=== PATIENT | female | born 1935 | race Hispanic/Latino ===

== ENCOUNTER 2018-03-15 23:44 | Emergency (ER) | payer MEDICARE, OTHER ==
[2018-03-15 23:48] VITALS: O2SAT 100
[2018-03-16] MEDS ORDERED: Alum-Mag Hydrox-Simethicone Susp (30 mL) PO ONE (00:02)
[2018-03-16] MEDS ORDERED: Sodium Chloride 0.9% 500 ML IV ONE (00:03)
--- NOTE | 2018-03-16 00:13 | ED PDOC ---
HPI: Abdomen Time Seen by Provider: 03/16/18 00:05 Chief Complaint (Nursing): Abdominal Pain Chief Complaint (Provider): abdominal pain History Per: Patient (82 y/o female h/o DM here with epigastric abd pain since 2 pm after eating tuna. Notes abd pain continuous since then. Denies any vomiting/diarrhea/fevers/chills. Has h/o hyst.) Past Medical History Reviewed: Historical Data, Nursing Documentation, Vital Signs Vital Signs: Last Vital Signs Temp 98 F 03/15/18 23:45 Pulse 66 03/15/18 23:45 Resp 18 03/15/18 23:45 BP 151/48 H 03/15/18 23:45 Pulse Ox 100 03/16/18 01:12 - Medical History PMH: Diabetes, HTN, Hypercholesterolemia Denies: HIV, Chronic Kidney Disease - Surgical History Surgical History: Cholecystectomy, - Family History Family History: States: Unknown Family Hx - Home Medications Home Medications: Ambulatory Orders Medication Instructions Recorded Amlodipine Besylate 10 mg PO DAILY 12/16/14 Aspirin [Aspirin EC] 81 mg PO DAILY 12/16/14 Carvedilol [Coreg] 3.125 mg PO BID 12/16/14 Ferrous Sulfate 325 mg PO DAILY 12/16/14 Furosemide 20 mg PO MWF 12/16/14 Losartan [Cozaar] 25 mg PO DAILY 12/16/14 Simvastatin 10 mg PO DAILY 12/16/14 Azithromycin [Zithromax] 250 mg PO DAILY #6 tablet 12/10/15 Ciprofloxacin HCl [Cipro] 500 mg PO BID #19 tab 05/09/16 metroNIDAZOLE [Flagyl] 500 mg PO TID #29 tab 05/09/16 Famotidine [Pepcid] 20 mg PO BID PRN #10 tab 03/16/18 - Allergies Allergies/Adverse Reactions: Allergies Allergy/AdvReac Type Severity Reaction Status Date / Time No Known Allergies Allergy Verified 12/10/15 18:43 Review of Systems ROS Statement: Except As Marked, All Systems Reviewed And Found Negative Physical Exam - Reviewed Nursing Documentation Reviewed: Yes Vital Signs Reviewed: Yes - Physical Exam Appears: Positive for: Well, Non-toxic, No Acute Distress Head Exam: Positive for: ATRAUMATIC, NORMAL INSPECTION, NORMOCEPHALIC Skin: Positive for: Normal Color, Warm, DRY Eye Exam: Positive for: EOMI, Normal appearance, PERRL ENT: Positive for: Normal ENT Inspection Neck: Positive for: Normal, Painless ROM Cardiovascular/Chest: Positive for: Regular Rate, Rhythm Respiratory: Positive for: CNT, Normal Breath Sounds Gastrointestinal/Abdominal: Positive for: Normal Exam, Soft Back: Positive for: Normal Inspection Extremity: Positive for: Normal ROM Neurologic/Psych: Positive for: Alert, Oriented - Laboratory Results Result Diagrams: 03/16/18 00:20 03/16/18 00:20 - ECG O2 Sat by Pulse Oximetry: 100 - Progress ED Course And Treament: EKG: NSR 62BPM NO ECTOPY NO ACUTE CHANGES US ABDOMEN: FINDINGS: Liver: Measures 17.8 cm. Gallbladder: Cholecystectomy Common bile duct: Measures 7.4 mm Pancreas: Unremarkable as visualized. Right kidney: No hydronephrosis. IMPRESSION: Mild hepatomegaly. Thank you for allowing us to participate in the care of your patient. Dictated and Authenticated by: Cem Trinidad MD MAALOX 30 ML PO X 1 DOSE PEPCID 20 MG IV X 1 DOSE NS 500ML IV BOLUS PATIENT RE-EXAMINED AT 13:30AM STATES SYMPTOMS RESOLVED AFTER MAALOX/PEPCID. Disposition - Clinical Impression Clinical Impression: Gastritis - Patient ED Disposition Is Patient to be Admitted: No - Disposition Disposition: Routine/Home Disposition Time: 01:55 Condition: FAIR Prescriptions: Famotidine [Pepcid] 20 mg PO BID PRN #10 tab PRN Reason: Pain, Moderate (4-7) Instructions: Gastritis (DC)
[2018-03-16 00:37] LABS: BASO # 0.1 K/uL (0.0-0.2); BASO % 0.9 % (0.0-2.0); EOS # 0.2 K/uL (0.0-0.7); HEMOGLOBIN 12.3 g/dL (12.0-16.0); LYMPH # 2.7 K/uL (1.0-4.3); MEAN CELL VOLUME 88.8 fl (81.0-99.0); MEAN CORPUSCULAR HGB CONC 33.8 g/dL (33.0-37.0); MEAN PLATELET VOLUME 8.8 fl (7.2-11.7); MONO # 0.6 K/uL (0.0-0.8); MONO % 7.4 % (0.0-10.0); NEUT # 4.4 K/uL (1.8-7.0); NEUT % 55.7 % (50.0-75.0); NRBC % 0.1 % (0.0-0.0); RBC 4.09 Mil/uL (3.80-5.20); RED CELL DISTRIBUTION WIDTH 13.2 % (11.5-14.5); WHITE BLOOD COUNT 7.9 K/uL (4.8-10.8)
[2018-03-16 00:39] LABS: VENOUS BLOOD GAS BASE EXCESS 1.5 mmol/L (0.0-2.0); VENOUS BLOOD GAS PCO2 43 mmHg (40-60); VENOUS BLOOD GAS PO2 31 mm/Hg (30-55)
[2018-03-16 00:46] LABS: ALB/GLOB RATIO 1.4 (1.0-2.1); ALBUMIN 4.1 g/dL (3.5-5.0); ALT/SGPT 31 U/L (9-52); AST/SGOT 19 U/L (14-36); BLOOD UREA NITROGEN 31 mg/dl (7-17); CALCIUM 9.5 mg/dL (8.4-10.2); GFR NON-AFRICAN AMERICAN 43; LIPASE 285 U/L (23-300)
[2018-03-16] MEDS ORDERED: Alum-Mag Hydrox-Simethicone Susp (30 mL) ONE (00:58)
[2018-03-16 07:45] VITALS: BP 142/88; PULSE 72; RESP 16; TEMP 98
--- NOTE | 2018-03-16 09:41 | CARD ---
APPROVED REPORT Date of service: 03/16/2018 <Conclusion> Normal sinus rhythm Possible Left atrial enlargement Borderline ECG
--- NOTE | 2018-03-16 12:04 | US ---
Date of service: 03/16/2018 HISTORY: ruq pain COMPARISON: Comparison made with prior study dated 01/23/[address] scan of the abdomen pelvis dated 05/09/2016. TECHNIQUE: Sonographic evaluation of the right upper quadrant of the abdomen. FINDINGS: LIVER: Liver exhibits normal size measuring nearly 18 cm in CC dimension. . Liver exhibits smooth contour and normal parenchymal echotexture. . No mass masses or collections seen on images presented. No intrahepatic bile duct dilatation. GALLBLADDER: Cholecystectomy. COMMON BILE DUCT: Measures approximately 7.4 mm. No stones. No dilatation. PANCREAS: Unremarkable as visualized. No mass. No ductal dilatation. RIGHT KIDNEY: Measures 9.2 x 5.8 x 3.4 cm in length. Normal echogenicity. No calculus, mass, or hydronephrosis. AORTA: No aneurysmal dilatation. IVC: Unremarkable. OTHER FINDINGS: None . IMPRESSION: Cholecystectomy. Common bile duct measures approximately 7.4 mm
== END 2018-03-16 02:10 | disposition home or self-care (01) ==
LOC: H.ER 23:44
DX: K29.70 Gastritis, unspecified, without bleeding (principal); E11.9 Type 2 diabetes mellitus without complications; E78.00 Pure hypercholesterolemia, unspecified; I10 Essential (primary) hypertension

== ENCOUNTER 2018-03-21 18:19 | Emergency (ER) | payer MEDICARE ==
--- NOTE | 2018-03-21 18:44 | ED PDOC ---
HPI: Abdomen Time Seen by Provider: 03/21/18 18:43 Chief Complaint (Nursing): Abdominal Pain Chief Complaint (Provider): Abdominal pain History Per: Patient Additional Complaint(s): 82 yo female, PMH of DM, presents to ED with complaints of abdominal pain, distention and constipation x 1 day. Pt reports last BM was this morning, but "just a little bit." No nausea or vomiting, no fever or chills. Past Medical History Reviewed: Nursing Documentation, Vital Signs Vital Signs: Last Vital Signs Temp 98.6 F 03/21/18 18:23 Pulse 76 03/21/18 18:23 Resp 20 03/21/18 18:23 BP 131/81 03/21/18 18:23 Pulse Ox 99 03/21/18 19:53 - Medical History PMH: Diabetes, HTN, Hypercholesterolemia Denies: HIV, Chronic Kidney Disease - Surgical History Surgical History: Cholecystectomy, - Family History Family History: States: Unknown Family Hx - Social History Current smoker - smoking cessation education provided: No - Home Medications Home Medications: Ambulatory Orders Medication Instructions Recorded Amlodipine Besylate 10 mg PO DAILY 12/16/14 Aspirin [Aspirin EC] 81 mg PO DAILY 12/16/14 Carvedilol [Coreg] 3.125 mg PO BID 12/16/14 Ferrous Sulfate 325 mg PO DAILY 12/16/14 Furosemide 20 mg PO MWF 12/16/14 Losartan [Cozaar] 25 mg PO DAILY 12/16/14 Simvastatin 10 mg PO DAILY 12/16/14 Azithromycin [Zithromax] 250 mg PO DAILY #6 tablet 12/10/15 Ciprofloxacin HCl [Cipro] 500 mg PO BID #19 tab 05/09/16 metroNIDAZOLE [Flagyl] 500 mg PO TID #29 tab 05/09/16 Famotidine [Pepcid] 20 mg PO BID PRN #10 tab 03/16/18 - Allergies Allergies/Adverse Reactions: Allergies Allergy/AdvReac Type Severity Reaction Status Date / Time No Known Allergies Allergy Verified 03/21/18 18:23 Review of Systems ROS Statement: Except As Marked, All Systems Reviewed And Found Negative Gastrointestinal: Positive for: Abdominal Pain, Constipation Physical Exam - Reviewed Nursing Documentation Reviewed: Yes Vital Signs Reviewed: Yes - Physical Exam Appears: Positive for: Well, Non-toxic, No Acute Distress Head Exam: Positive for: ATRAUMATIC, NORMAL INSPECTION, NORMOCEPHALIC Skin: Positive for: Normal Color, Warm, DRY Eye Exam: Positive for: EOMI, Normal appearance, PERRL ENT: Positive for: Normal ENT Inspection Neck: Positive for: Normal, Painless ROM Cardiovascular/Chest: Positive for: Regular Rate, Rhythm Respiratory: Positive for: CNT, Normal Breath Sounds Gastrointestinal/Abdominal: Positive for: Normal Exam, Soft Back: Positive for: Normal Inspection Extremity: Positive for: Normal ROM Neurologic/Psych: Positive for: Alert, Oriented - Laboratory Results Result Diagrams: 03/21/18 19:32 03/21/18 19:32 - ECG O2 Sat by Pulse Oximetry: 99 Medical Decision Making Medical Decision Making: IV access attempted; however, unsuccessful by multiple RNs. Pt declined further sticks at this time. Labs able to be drawn and sent. XR: Non distended gas pattern, as per PA-C Pt given Colace and mag Citrate. Tolerating PO well. No complaints of pain on re-eval. Disposition - Clinical Impression Clinical Impression: Abdominal pain, Constipation - Patient ED Disposition Is Patient to be Admitted: No - Disposition Disposition: Routine/Home Disposition Time: 20:04 Condition: STABLE Instructions: Constipation in Adults Forms: [facility] (Yoruba)
[2018-03-21] MEDS: Magnesium Citrate Oral SOL (300 ml) PO ONE (19:24)
[2018-03-21] MEDS ORDERED: Magnesium Citrate Oral SOL (300 ml) ONE (19:24)
[2018-03-21 19:35] LABS: BASO # 0.1 K/uL (0.0-0.2); BASO % 0.7 % (0.0-2.0); EOS # 0.1 K/uL (0.0-0.7); HEMOGLOBIN 12.5 g/dL (12.0-16.0); LYMPH # 2.1 K/uL (1.0-4.3); LYMPH % 22.1 % (20.0-40.0); MEAN CELL VOLUME 88.2 fl (81.0-99.0); MEAN CORPUSCULAR HEMOGLOBIN 29.8 pg (27.0-31.0); MEAN CORPUSCULAR HGB CONC 33.8 g/dL (33.0-37.0); MEAN PLATELET VOLUME 8.5 fl (7.2-11.7); MONO # 0.8 K/uL (0.0-0.8); MONO % 8.1 % (0.0-10.0); NEUT # 6.4 K/uL (1.8-7.0); NEUT % 68.1 % (50.0-75.0); NRBC % 0.1 % (0.0-0.0); RBC 4.18 Mil/uL (3.80-5.20); WHITE BLOOD COUNT 9.4 K/uL (4.8-10.8)
[2018-03-21 19:46] LABS: ALB/GLOB RATIO 1.6 (1.0-2.1); ALBUMIN 4.3 g/dL (3.5-5.0); ALT/SGPT 28 U/L (9-52); AMYLASE 93 U/L (30-110); AST/SGOT 17 U/L (14-36); BLOOD UREA NITROGEN 29 mg/dl (7-17); CALCIUM 9.4 mg/dL (8.4-10.2); GFR NON-AFRICAN AMERICAN 39; LIPASE 243 U/L (23-300)
--- NOTE | 2018-03-21 20:52 | ED PDOC ---
- Laboratory Results Result Diagrams: 03/21/18 19:32 03/21/18 19:32 - ECG O2 Sat by Pulse Oximetry: 99 - Progress ED Course And Treament: Case endorsed to video game script writer from Tim ORDONEZ pending re-eval 21:45 Patient resting comfortably; states she is feeling better and requesting to be discharged Tolerated PO. Patient educated on findings, discharged with instructions to follow up with PMD in 2-3 days Advised high fiber diet. Fluids Return precautions given Disposition - Clinical Impression Clinical Impression: Abdominal pain, Constipation - POA Present On Arrival: None - Disposition Disposition: Routine/Home Disposition Time: 20:53 Condition: IMPROVED Prescriptions: Docusate [Colace] 100 mg PO DAILY #10 cap Instructions: Constipation in Adults Forms: [facility] (Turkish)
[2018-03-21 21:02] VITALS: BP 117/55; PULSE 67; RESP 16; TEMP 97.6; O2SAT 100
--- NOTE | 2018-03-22 09:00 | RAD ---
Date of service: 03/21/2018 PROCEDURE: CHEST RADIOGRAPH, 1 VIEW HISTORY: abdominal pain COMPARISON: None available. FINDINGS: LUNGS: Clear. PLEURA: No pneumothorax or pleural fluid seen. CARDIOVASCULAR: Normal. OSSEOUS STRUCTURES: No significant abnormalities. VISUALIZED UPPER ABDOMEN: Normal. OTHER FINDINGS: None. IMPRESSION: No active disease.
--- NOTE | 2018-03-22 09:04 | RAD ---
Date of service: 03/21/2018 HISTORY: abdominal distention COMPARISON: No prior. FINDINGS: BOWEL: Normal. No obstruction. No free air. BONES: Normal. OTHER FINDINGS: Cholecystectomy. IMPRESSION: No active disease.
--- NOTE | 2018-03-22 17:44 | CARD ---
APPROVED REPORT Date of service: 03/21/2018 EKG Measurement Heart [id number] <Conclusion> Normal sinus rhythm Normal ECG
== END 2018-03-21 21:02 | disposition home or self-care (01) ==
LOC: H.ER 18:19
DX: R10.9 Unspecified abdominal pain (principal); K59.00 Constipation, unspecified; E11.9 Type 2 diabetes mellitus without complications

== ENCOUNTER 2018-03-24 17:44 | Emergency (ER) | payer MEDICARE ==
[2018-03-24] MEDS ORDERED: Sodium Chloride 0.9% 1,000 ML IV STA (19:08)
[2018-03-24 19:30] LABS: BASO # 0.1 K/uL (0.0-0.2); EOS # 0.1 K/uL (0.0-0.7); EOS % 1.1 % (0.0-4.0); HEMOGLOBIN 12.6 g/dL (12.0-16.0); LYMPH # 2.1 K/uL (1.0-4.3); LYMPH % 23.4 % (20.0-40.0); MEAN CELL VOLUME 89.1 fl (81.0-99.0); MEAN CORPUSCULAR HGB CONC 33.7 g/dL (33.0-37.0); MEAN PLATELET VOLUME 8.9 fl (7.2-11.7); MONO # 0.7 K/uL (0.0-0.8); MONO % 7.8 % (0.0-10.0); NEUT # 6.1 K/uL (1.8-7.0); NEUT % 66.7 % (50.0-75.0); RBC 4.2 Mil/uL (3.80-5.20); RED CELL DISTRIBUTION WIDTH 13.3 % (11.5-14.5); WHITE BLOOD COUNT 9.1 K/uL (4.8-10.8)
[2018-03-24 20:05] VITALS: BP 142/74; PULSE 64; RESP 17; TEMP 97.8; O2SAT 98
[2018-03-24] MEDS ORDERED: Magnesium Citrate Oral SOL (300 ml) PO ONE (20:08)
--- NOTE | 2018-03-24 20:27 | ED PDOC ---
HPI: Abdomen Time Seen by Provider: 03/24/18 18:54 Chief Complaint (Nursing): Abdominal Pain Chief Complaint (Provider): Constipation Past Medical History Vital Signs: Last Vital Signs Temp 97.8 F 03/24/18 20:04 Pulse 64 03/24/18 20:04 Resp 17 03/24/18 20:04 BP 142/74 03/24/18 20:04 Pulse Ox 98 03/24/18 20:04 - Medical History PMH: Diabetes, HTN, Hypercholesterolemia Denies: HIV, Chronic Kidney Disease - Surgical History Surgical History: Cholecystectomy, - Family History Family History: States: Unknown Family Hx - Home Medications Home Medications: Ambulatory Orders Medication Instructions Recorded Amlodipine Besylate 10 mg PO DAILY 12/16/14 Aspirin [Aspirin EC] 81 mg PO DAILY 12/16/14 Carvedilol [Coreg] 3.125 mg PO BID 12/16/14 Ferrous Sulfate 325 mg PO DAILY 12/16/14 Furosemide 20 mg PO MWF 12/16/14 Losartan [Cozaar] 25 mg PO DAILY 12/16/14 Simvastatin 10 mg PO DAILY 12/16/14 Azithromycin [Zithromax] 250 mg PO DAILY #6 tablet 12/10/15 Ciprofloxacin HCl [Cipro] 500 mg PO BID #19 tab 05/09/16 metroNIDAZOLE [Flagyl] 500 mg PO TID #29 tab 05/09/16 Famotidine [Pepcid] 20 mg PO BID PRN #10 tab 03/16/18 Docusate [Colace] 100 mg PO DAILY #10 cap 03/21/18 - Allergies Allergies/Adverse Reactions: Allergies Allergy/AdvReac Type Severity Reaction Status Date / Time No Known Allergies Allergy Verified 03/24/18 17:45 - Laboratory Results Result Diagrams: 03/24/18 19:20 - ECG O2 Sat by Pulse Oximetry: 98 Medical Decision Making Medical Decision Making: Pt wanted additional Mg Citrate for home. Disposition - Clinical Impression Clinical Impression: Constipation - Patient ED Disposition Is Patient to be Admitted: No Counseled Patient/Family Regarding: Diagnosis, Need For Followup - Disposition Disposition: Routine/Home Disposition Time: 20:27 Condition: GOOD Instructions: Constipation, Adult (DC) Forms: [employer] (Tuvaluan)
== END 2018-03-24 20:50 | disposition home or self-care (01) ==
LOC: H.ER 17:44
DX: K59.00 Constipation, unspecified (principal); E11.9 Type 2 diabetes mellitus without complications; I10 Essential (primary) hypertension; Z79.82 Long term (current) use of aspirin; E78.00 Pure hypercholesterolemia, unspecified
CPT/HCPCS: 85025; 96360; 99283; J7030

== ENCOUNTER 2018-03-31 12:04 | Emergency (ER) | payer MEDICARE ==
[2018-03-31 12:17] VITALS: BP 146/62; PULSE 74; RESP 18; TEMP 98.2; O2SAT 99
--- NOTE | 2018-03-31 13:35 | ED PDOC ---
HPI: Abdomen Time Seen by Provider: 03/31/18 12:54 Chief Complaint (Nursing): Abdominal Pain Chief Complaint (Provider): Abdominal Pain History Per: Patient History/Exam Limitations: no limitations Onset/Duration Of Symptoms: Hrs Additional Complaint(s): 82 years old female with hypertension and diabetes was initially brought by EMS to the ED for abdominal pain. Patient states she woke up with pain and felt she needed bowel movement. She reports she had bowel movement here in the ED in which she felt better. Patient tolerated PO with no vomiting or diarrhea. She reports her legs are swollen bilaterally but states it is not worse than it was couple of month ago and says her PMD is aware of her legs condition. Patient states she has been told she needed colonoscopy for her abdominal pain but refuses to have it done. PMD: non provided Past Medical History Reviewed: Historical Data, Nursing Documentation, Vital Signs Vital Signs: Last Vital Signs Temp 98.2 F 03/31/18 12:15 Pulse 74 03/31/18 12:15 Resp 18 03/31/18 12:15 BP 146/62 03/31/18 12:15 Pulse Ox 99 03/31/18 23:59 - Medical History PMH: Diabetes, HTN, Hypercholesterolemia Denies: HIV, Chronic Kidney Disease - Surgical History Surgical History: Cholecystectomy, - Family History Family History: States: Unknown Family Hx - Social History Current smoker - smoking cessation education provided: No Alcohol: None Drugs: Denies - Immunization History Hx Tetanus Toxoid Vaccination: No Hx Influenza Vaccination: Yes Hx Pneumococcal Vaccination: No - Home Medications Home Medications: Ambulatory Orders Medication Instructions Recorded Amlodipine Besylate 10 mg PO DAILY 12/16/14 Aspirin [Aspirin EC] 81 mg PO DAILY 12/16/14 Carvedilol [Coreg] 3.125 mg PO BID 12/16/14 Ferrous Sulfate 325 mg PO DAILY 12/16/14 Furosemide 20 mg PO MWF 12/16/14 Losartan [Cozaar] 25 mg PO DAILY 12/16/14 Simvastatin 10 mg PO DAILY 12/16/14 Azithromycin [Zithromax] 250 mg PO DAILY #6 tablet 12/10/15 Ciprofloxacin HCl [Cipro] 500 mg PO BID #19 tab 05/09/16 metroNIDAZOLE [Flagyl] 500 mg PO TID #29 tab 05/09/16 Famotidine [Pepcid] 20 mg PO BID PRN #10 tab 03/16/18 Docusate [Colace] 100 mg PO DAILY #10 cap 03/21/18 - Allergies Allergies/Adverse Reactions: Allergies Allergy/AdvReac Type Severity Reaction Status Date / Time No Known Allergies Allergy Verified 03/31/18 12:15 Review of Systems ROS Statement: Except As Marked, All Systems Reviewed And Found Negative Gastrointestinal: Positive for: Abdominal Pain. Negative for: Nausea, Vomiting Physical Exam - Reviewed Nursing Documentation Reviewed: Yes Vital Signs Reviewed: Yes - Physical Exam Appears: Positive for: Non-toxic, No Acute Distress Head Exam: Positive for: ATRAUMATIC, NORMOCEPHALIC Cardiovascular/Chest: Positive for: Regular Rate, Rhythm. Negative for: Murmur Respiratory: Positive for: Normal Breath Sounds. Negative for: Crackles, Wheezing, Respiratory Distress Gastrointestinal/Abdominal: Positive for: Normal Exam, Soft Extremity: Positive for: Normal ROM, Swelling (chronic edematous of lower extremities without ulcer or cellulitis or warmth) Neurologic/Psych: Positive for: Alert, Oriented (x3). Negative for: Motor/ Sensory Deficits Comments: Vitals are within normal limits. Patient is ambulating without becoming short in breath. - ECG O2 Sat by Pulse Oximetry: 99 (RA) Pulse Ox Interpretation: Normal Medical Decision Making Medical Decision Making: Time: 1230 A/P: Pt initially presented with abdominal pain due to constipation which was self resolved after bowel movement in the ED --Discussed with pt the need for colonoscopy which patient is refusing to have --offered patient aids social worker as needing health health care sanitary technician but refused saying she can take care of herself --patient states she will follow up with her PMD --will have technician assistant with family on returning home 1311 Upon provider reevaluation patient is feeling better, is medically stable, and requires no further treatment in the ED at this time ----- Scribe Attestation: Documented by Gypsy Rodriguez, acting as a scribe for Merry Wallace MD. Provider Scribe Attestation: All medical record entries made by the Scribe were at my direction and personally dictated by me. I have reviewed the chart and agree that the record accurately reflects my personal performance of the history, physical exam, medical decision making, and the department course for this patient. I have also personally directed, reviewed, and agree with the discharge instructions and disposition. Disposition - Clinical Impression Clinical Impression: Abdominal discomfort - Disposition Disposition: Routine/Home Disposition Time: 13:11 Condition: IMPROVED Additional Instructions: Follow up with primary medical doctor and lighting director for frequent abdominal pain and constipation. Discuss your chronic leg swelling with your primary medical doctor for possible adjustments in medication. Take all medications as prescribed by your doctors. Forms: [facility] (Kazakh) Print Language: KYRGYZ
== END 2018-03-31 13:51 | disposition home or self-care (01) ==
LOC: H.ER 12:04
DX: R10.9 Unspecified abdominal pain (principal); E11.9 Type 2 diabetes mellitus without complications; K59.00 Constipation, unspecified; E78.00 Pure hypercholesterolemia, unspecified; I10 Essential (primary) hypertension

== ENCOUNTER 2018-05-07 18:57 | Emergency (ER) | payer MEDICARE ==
--- NOTE | 2018-05-07 19:24 | ED PDOC ---
HPI: Abdomen Time Seen by Provider: 05/07/18 19:10 Chief Complaint (Nursing): GI Problem Chief Complaint (Provider): Abdominal pain History Per: Patient Additional Complaint(s): 82 years old female with hypertension and diabetes presents to ED for evaluation of abdominal pain. patient states she feels like she has a "blockage again." Pt reports she has been trying to have a BM and is not able to. Pt admits to nausea as well. no vomiting. diaphoresis or chest pain Patient notes last BM was this am. Past Medical History Reviewed: Historical Data, Nursing Documentation, Vital Signs Vital Signs: Last Vital Signs Temp 98.2 F 05/07/18 18:59 Pulse 82 05/07/18 18:59 Resp 18 05/07/18 18:59 BP 127/52 L 05/07/18 18:59 Pulse Ox 99 05/07/18 18:59 - Medical History PMH: Diabetes, HTN, Hypercholesterolemia Denies: HIV, Chronic Kidney Disease - Surgical History Surgical History: Cholecystectomy, - Family History Family History: States: Unknown Family Hx - Living Arrangements Living Arrangements: Alone - Social History Current smoker - smoking cessation education provided: No Alcohol: None Drugs: Denies - Immunization History Hx Tetanus Toxoid Vaccination: No Hx Influenza Vaccination: Yes Hx Pneumococcal Vaccination: No - Home Medications Home Medications: Ambulatory Orders Medication Instructions Recorded Amlodipine Besylate 10 mg PO DAILY 12/16/14 Aspirin [Aspirin EC] 81 mg PO DAILY 12/16/14 Carvedilol [Coreg] 3.125 mg PO BID 12/16/14 Ferrous Sulfate 325 mg PO DAILY 12/16/14 Furosemide 20 mg PO MWF 12/16/14 Losartan [Cozaar] 25 mg PO DAILY 12/16/14 Simvastatin 10 mg PO DAILY 12/16/14 Azithromycin [Zithromax] 250 mg PO DAILY #6 tablet 12/10/15 Ciprofloxacin HCl [Cipro] 500 mg PO BID #19 tab 05/09/16 metroNIDAZOLE [Flagyl] 500 mg PO TID #29 tab 05/09/16 Famotidine [Pepcid] 20 mg PO BID PRN #10 tab 03/16/18 Docusate [Colace] 100 mg PO DAILY #10 cap 03/21/18 - Allergies Allergies/Adverse Reactions: Allergies Allergy/AdvReac Type Severity Reaction Status Date / Time No Known Allergies Allergy Verified 03/31/18 12:15 Review of Systems ROS Statement: Except As Marked, All Systems Reviewed And Found Negative Gastrointestinal: Positive for: Abdominal Pain, Constipation Physical Exam - Reviewed Nursing Documentation Reviewed: Yes Vital Signs Reviewed: Yes - Physical Exam Appears: Positive for: Well, Non-toxic, No Acute Distress Head Exam: Positive for: ATRAUMATIC, NORMAL INSPECTION, NORMOCEPHALIC Skin: Positive for: Normal Color, Warm, DRY Eye Exam: Positive for: EOMI, Normal appearance, PERRL ENT: Positive for: Normal ENT Inspection Neck: Positive for: Normal, Painless ROM Cardiovascular/Chest: Positive for: Regular Rate, Rhythm Respiratory: Positive for: CNT, Normal Breath Sounds Gastrointestinal/Abdominal: Positive for: Normal Exam, Soft Back: Positive for: Normal Inspection Rectal: Positive for: Other (Pt deferred) Extremity: Positive for: Normal ROM Neurologic/Psych: Positive for: Alert, Oriented - ECG O2 Sat by Pulse Oximetry: 99 Medical Decision Making Medical Decision Making: IV access established and diagnostics ordered. Case endorsed to MERY Norris at 1999 pending diagnostic review and re-eval Disposition - Clinical Impression Clinical Impression: Abdominal pain - Patient ED Disposition Is Patient to be Admitted: Transfer of Care - Disposition Disposition: Transfer of Care Disposition Time: 19:27 Condition: STABLE Forms: [employer] (Upper Sorbian)
[2018-05-07 20:11] LABS: BASO # 0.1 K/uL (0.0-0.2); BASO % 1.1 % (0.0-2.0); EOS # 0.2 K/uL (0.0-0.7); EOS % 2.2 % (0.0-4.0); HEMOGLOBIN 13.3 g/dL (12.0-16.0); LYMPH # 3.6 K/uL (1.0-4.3); LYMPH % 36.1 % (20.0-40.0); MEAN CELL VOLUME 89.8 fl (81.0-99.0); MEAN CORPUSCULAR HEMOGLOBIN 29.7 pg (27.0-31.0); MEAN CORPUSCULAR HGB CONC 33.1 g/dL (33.0-37.0); MEAN PLATELET VOLUME 9.1 fl (7.2-11.7); MONO # 0.7 K/uL (0.0-0.8); MONO % 7.6 % (0.0-10.0); NEUT # 5.2 K/uL (1.8-7.0); NRBC % 0.1 % (0.0-0.0); RBC 4.48 Mil/uL (3.80-5.20); RED CELL DISTRIBUTION WIDTH 13.3 % (11.5-14.5); WHITE BLOOD COUNT 9.9 K/uL (4.8-10.8)
--- NOTE | 2018-05-07 20:22 | ED PDOC ---
- Laboratory Results Result Diagrams: 05/07/18 20:00 05/07/18 20:00 Urine dip results: Positive for: Leukocyte Esterase (small). Negative for: Blood, Nitrate, Ketones, Glucose, Bilirubin, Protein - ECG Interpretation Of ECG: NSR 73 bpm, no acute changes, reviewed by PA and ED attending O2 Sat by Pulse Oximetry: 99 Pulse Ox Interpretation: Normal - Other Rad CXR X-Ray: Interpreted by Me, Viewed By Me X-Ray Interpretation: no acute finding, no interval change CT abd and pelvis PO contrast only X-Ray: Read By Radiologist X-Ray Interpretation: see below Medical Decision Making Medical Decision Making: Case was signed out to account underwriter pending CT abdomen and pelvis. 8:25 pm: Patient is requesting a second enema which was ordered. Patient was unable to have bowel movement after first enema but believes that a second enema will help her. CT: Right colitisenteritis, mild splenomegaly, no obstruction 11:20 pm: Patient is aware of all diagnostic testing results. She states that she feels slightly better. Patient is asking to go home. Prescriptions given for MiraLAX, Cipro and Flagyl. Advised fluids, bland diet and PMD follow-up in one to 2 days. Patient is aware she can return to ED any time if acutely worse. Disposition - Clinical Impression Clinical Impression: Gastroenteritis, Colitis, Constipation - POA Present On Arrival: None - Disposition Referrals: [facility] [Outside] Disposition: Routine/Home Disposition Time: 23:22 Condition: STABLE Additional Instructions: Take prescription meds as directed. Drink plenty of fluids and follow dietary instructions. Follow-up with primary doctor or clinic in one to 2 days or return to emergency room if acutely worse at any time. Prescriptions: Ciprofloxacin HCl [Cipro] 500 mg PO BID #14 tablet Metronidazole [Flagyl] 500 mg PO TID #21 tab Polyethylene Glycol 3350 [Miralax] 1 bottle PO DAILY #1 bottle Instructions: Constipation in Adults, [place] Diet, Gastroenteritis (ED) Forms: [facility] (Bruneian)
[2018-05-07 20:28] LABS: ALB/GLOB RATIO 1.3 (1.0-2.1); ALBUMIN 4.5 g/dL (3.5-5.0); ALT/SGPT 54 U/L (9-52); AMYLASE 112 U/L (30-110); AST/SGOT 35 U/L (14-36); BLOOD UREA NITROGEN 42 mg/dl (7-17); CALCIUM 9.5 mg/dL (8.4-10.2); GFR NON-AFRICAN AMERICAN 29; LIPASE 341 U/L (23-300)
[2018-05-07] MEDS: Iohexol 240 (50 ml) PO STA (20:30)
[2018-05-07] MEDS: Sodium Chloride 0.9% 1,000 ML IV STA (21:34)
[2018-05-08 00:37] VITALS: BP 133/69; PULSE 79; RESP 17; TEMP 98.3; O2SAT 98
--- NOTE | 2018-05-08 08:09 | RAD ---
Date of service: 05/07/2018 PROCEDURE: CHEST RADIOGRAPH, 1 VIEW HISTORY: abdominal pain COMPARISON: Frontal chest radiograph 03/21/2018. FINDINGS: LUNGS: No acute infiltrate bilaterally. Fibrotic changes are reiterated at the bilateral bases, left greater than right. PLEURA: No pneumothorax or pleural fluid seen. CARDIOVASCULAR: Cardiac size remains normal with no pulmonary vascular congestion. Calcific atherosclerotic changes are seen related to the thoracic aorta. OSSEOUS STRUCTURES: No significant abnormalities. VISUALIZED UPPER ABDOMEN: Surgical clips reiterated right upper quadrant abdomen. OTHER FINDINGS: None. IMPRESSION: No interval acute cardiopulmonary disease. Fibrotic changes remain at the bilateral bases, left greater than right.
--- NOTE | 2018-05-08 09:38 | CARD ---
APPROVED REPORT Date of service: 05/07/2018 EKG Measurement Heart [id number] <Conclusion> Normal sinus rhythm Possible Left atrial enlargement Inferior infarct, age undetermined Abnormal ECG
--- NOTE | 2018-05-08 12:58 | CT ---
Date of service: 05/07/2018 PROCEDURE: CT Abdomen and Pelvis with contrast HISTORY: constipation, h/o obstruction COMPARISON: Abdomen pelvis CT without contrast 03/29/2018. TECHNIQUE: Helical CT of the abdomen and pelvis was performed following oral contrast administration only. Intravenous contrast was not administered as per referring physician request. Coronal and sagittal reformats were generated. contrast dose: None Radiation dose: Total exam DLP = 730.05 mGy-cm. This CT exam was performed using one or more of the following dose reduction techniques: Automated exposure control, adjustment of the mA and/or kV according to patient size, and/or use of iterative reconstruction technique. FINDINGS: Lack of intravenous contrast limits evaluation, particularly in evaluation of the solid abdominal viscera. LOWER THORAX: Linear atelectasis or fibrosis in the bilateral lung bases once again. LIVER: Unremarkable. No gross lesion or ductal dilatation. GALLBLADDER AND BILE DUCTS: Gallbladder is again seen surgically absent. PANCREAS: Unremarkable. No gross lesion or ductal dilatation. SPLEEN: Spleen is stable in size measuring 12.5 cm, upper limits normal overall size. No focal lesion appreciable. ADRENALS: Unremarkable. No mass. KIDNEYS AND URETERS: Stable appearance bilaterally. There is no radiodense urolithiasis, obstructive uropathy or perinephric reaction bilaterally. Kidneys appear homogeneous in overall density throughout. Urinary bladder appears unremarkable as well. VASCULATURE: Nonaneurysmal abdominal aortic calcific atherosclerotic changes are identified. BOWEL: No small or large bowel obstruction is appreciate with opacified small bowel loops diffusely unremarkable. The stomach is only mildly distended with oral contrast and retained food. No suspicious gastric findings are appreciable but evaluation is limited somewhat. Large-bowel is remarkable for fluid levels scattered from the cecum to the rectum. No retained fecal pattern is appreciate that would suggest constipation at this time. No pericolic reactive change. APPENDIX: Normal appendix. PERITONEUM: Unremarkable. No free fluid. No free air. LYMPH NODES: Unremarkable. No enlarged lymph nodes. BLADDER: Fully decompressed and poorly evaluated. REPRODUCTIVE: Prior hysterectomy reiterated. BONES: No acute fracture. OTHER FINDINGS: None. IMPRESSION: 1. No bowel obstruction appreciable. No pattern to suggest constipation. Air-fluid levels are seen throughout the large bowel lumen. Clinically correlate further. 2. Prior cholecystectomy reiterated. 3. Prior hysterectomy reiterated. Discordant preliminary report from [facility] regarding gastroenteritis and right ferny colitis, 05/07/2018.
== END 2018-05-07 23:55 | disposition home or self-care (01) ==
LOC: H.ER 18:57
DX: K52.9 Noninfective gastroenteritis and colitis, unspecified (principal); K59.00 Constipation, unspecified; E11.9 Type 2 diabetes mellitus without complications; E78.00 Pure hypercholesterolemia, unspecified; I10 Essential (primary) hypertension
CPT/HCPCS: 71045; 74176; 80053; 82150; 83690; 84484; 85025; 93005; 99283; J7030; Q9966

== ENCOUNTER 2018-05-10 04:35 | Emergency (ER) | payer MEDICARE ==
--- NOTE | 2018-05-10 05:41 | ED PDOC ---
HPI: Abdomen Time Seen by Provider: 05/10/18 04:42 Chief Complaint (Nursing): Abdominal Pain Chief Complaint (Provider): Abdominal Pain History Per: Patient History/Exam Limitations: no limitations Onset/Duration Of Symptoms: Hrs (x1) Current Symptoms Are (Timing): Still Present Additional Complaint(s): 82 year old female arrives to ED with complaints of abdominal pain and shortness of breath. Patient states she was able to have a BM while in ED and offers no further medical complaints. She declines further examination or testing. PMD: Dr. Bennett Condon Past Medical History Reviewed: Historical Data, Nursing Documentation, Vital Signs - Medical History PMH: Diabetes, HTN, Hypercholesterolemia Denies: HIV, Chronic Kidney Disease - Surgical History Surgical History: Cholecystectomy, - Family History Family History: States: Unknown Family Hx - Immunization History Hx Tetanus Toxoid Vaccination: No Hx Influenza Vaccination: Yes Hx Pneumococcal Vaccination: No - Home Medications Home Medications: Ambulatory Orders Medication Instructions Recorded RX: Amlodipine Besylate 10 mg PO DAILY 12/16/14 RX: Aspirin [Aspirin EC] 81 mg PO DAILY 12/16/14 RX: Carvedilol [Coreg] 3.125 mg PO BID 12/16/14 RX: Ferrous Sulfate 325 mg PO DAILY 12/16/14 RX: Furosemide 20 mg PO MWF 12/16/14 RX: Losartan [Cozaar] 25 mg PO DAILY 12/16/14 RX: Simvastatin 10 mg PO DAILY 12/16/14 Azithromycin [Zithromax] 250 mg PO DAILY #6 tablet 12/10/15 Ciprofloxacin HCl [Cipro] 500 mg PO BID #19 tab 05/09/16 metroNIDAZOLE [Flagyl] 500 mg PO TID #29 tab 05/09/16 Famotidine [Pepcid] 20 mg PO BID PRN #10 tab 03/16/18 Docusate [Colace] 100 mg PO DAILY #10 cap 03/21/18 Ciprofloxacin HCl [Cipro] 500 mg PO BID #14 tablet 05/07/18 Metronidazole [Flagyl] 500 mg PO TID #21 tab 05/07/18 Polyethylene Glycol 3350 [Miralax] 1 bottle PO DAILY #1 bottle 05/07/18 - Allergies Allergies/Adverse Reactions: Allergies Allergy/AdvReac Type Severity Reaction Status Date / Time No Known Allergies Allergy Verified 03/31/18 12:15 Review of Systems ROS Statement: Except As Marked, All Systems Reviewed And Found Negative Cardiovascular: Negative for: Chest Pain Respiratory: Positive for: Shortness of Breath Gastrointestinal: Positive for: Abdominal Pain Physical Exam - Physical Exam Appears: Positive for: Non-toxic, No Acute Distress Head Exam: Positive for: ATRAUMATIC, NORMAL INSPECTION, NORMOCEPHALIC Neurologic/Psych: Positive for: Alert, Oriented. Negative for: Aphasia Medical Decision Making Medical Decision Making: Initial Impression: 82 year old female with abdominal pain. Initial Plan: * EKG Time: 05 --Patient is choosing to leave against medical advice. The provider has personally explained to the patient that choosing to do so may result in permanent bodily harm or . The provider discussed at great length that without further evaluation and monitoring there may be unforeseen circumstances and/or deterioration causing permanent bodily harm or as a result of their choice. The patient verbalized these risks back to the physician in laymans terms. The patient is alert, oriented, and shows the mental capacity to make clear decisions regarding her health care at this time. In light of the patients decision to leave AMA, follow-up has been arranged and the patient is aware of the importance of following up as instructed. The patient has been advised that they should return to the ED immediately if they change their mind at any time, or if their condition begins to change or worsen in any way. Scribe Attestation: Documented by Kimmy Gonzalez, acting as a scribe for David Velázquez MD. Provider Scribe Attestation: All medical record entries made by the Scribe were at my direction and personally dictated by me. I have reviewed the chart and agree that the record accurately reflects my personal performance of the history, physical exam, medical decision making, and the department course for this patient. I have also personally directed, reviewed, and agree with the discharge instructions and disposition. Disposition - Clinical Impression Clinical Impression: Abdominal pain - Patient ED Disposition Is Patient to be Admitted: Yes - Disposition Disposition: Against Medical Advice Disposition Time: 05:30 Condition: STABLE Forms: [employer] (Spanish)
[2018-05-10 06:29] VITALS: BP 177/73; PULSE 68; RESP 16; TEMP 98.7; O2SAT 100
--- NOTE | 2018-05-10 12:21 | CARD ---
APPROVED REPORT Date of service: 05/10/2018 EKG Measurement Heart [id number] <Conclusion> Sinus bradycardia ST & T wave abnormality, consider lateral ischemia Abnormal ECG
== END 2018-05-10 05:26 | disposition left against medical advice (07) ==
LOC: H.ER 04:35
DX: R10.9 Unspecified abdominal pain (principal); E11.9 Type 2 diabetes mellitus without complications; E78.00 Pure hypercholesterolemia, unspecified; I10 Essential (primary) hypertension

== ENCOUNTER 2018-05-12 00:45 | Emergency (ER) | payer MEDICARE ==
[2018-05-12 01:08] VITALS: BP 157/69; PULSE 65; RESP 16; TEMP 97.6; O2SAT 99
--- NOTE | 2018-05-12 01:50 | ED PDOC ---
HPI: Abdomen Time Seen by Provider: 05/12/18 01:20 Chief Complaint (Nursing): Abdominal Pain Chief Complaint (Provider): Constipation History Per: Patient History/Exam Limitations: no limitations Additional Complaint(s): Suki Rivera, an 82 year old female with past medical history of diabetes, w multiple frequent visit to the ER, presents to the emergency department with constipation. Patient states she had a bowel movement in the ED, has no pain and would like to go home. She was seen on May 07 when she got a CT and was given antibiotics for 10 days and told to follow up. Patient was also seen here on for same complaints. No further medical complaints. PMD: Dr. Julien Past Medical History Reviewed: Historical Data, Nursing Documentation, Vital Signs Vital Signs: Last Vital Signs Temp 97.6 F 05/12/18 01:06 Pulse 65 05/12/18 01:06 Resp 16 05/12/18 01:06 BP 157/69 H 05/12/18 01:06 Pulse Ox 99 05/12/18 01:06 - Medical History PMH: Diabetes, HTN, Hypercholesterolemia Denies: HIV, Chronic Kidney Disease - Surgical History Surgical History: Cholecystectomy, Other surgeries: hysterectomy - Family History Family History: States: Unknown Family Hx - Social History Current smoker - smoking cessation education provided: No Alcohol: None Drugs: Denies - Immunization History Hx Tetanus Toxoid Vaccination: No Hx Influenza Vaccination: Yes Hx Pneumococcal Vaccination: No - Home Medications Home Medications: Ambulatory Orders Medication Instructions Recorded RX: Amlodipine Besylate 10 mg PO DAILY 12/16/14 RX: Aspirin [Aspirin EC] 81 mg PO DAILY 12/16/14 RX: Carvedilol [Coreg] 3.125 mg PO BID 12/16/14 RX: Ferrous Sulfate 325 mg PO DAILY 12/16/14 RX: Furosemide 20 mg PO MWF 12/16/14 RX: Losartan [Cozaar] 25 mg PO DAILY 12/16/14 RX: Simvastatin 10 mg PO DAILY 12/16/14 Azithromycin [Zithromax] 250 mg PO DAILY #6 tablet 12/10/15 Ciprofloxacin HCl [Cipro] 500 mg PO BID #19 tab 05/09/16 metroNIDAZOLE [Flagyl] 500 mg PO TID #29 tab 05/09/16 Famotidine [Pepcid] 20 mg PO BID PRN #10 tab 03/16/18 Docusate [Colace] 100 mg PO DAILY #10 cap 03/21/18 Ciprofloxacin HCl [Cipro] 500 mg PO BID #14 tablet 05/07/18 Metronidazole [Flagyl] 500 mg PO TID #21 tab 05/07/18 Polyethylene Glycol 3350 [Miralax] 1 bottle PO DAILY #1 bottle 05/07/18 RX: Lactulose 10 gm PO DAILY #1 solution 05/12/18 - Allergies Allergies/Adverse Reactions: Allergies Allergy/AdvReac Type Severity Reaction Status Date / Time No Known Allergies Allergy Verified 05/12/18 19:09 Review of Systems ROS Statement: Except As Marked, All Systems Reviewed And Found Negative Gastrointestinal: Positive for: Constipation (resolved) Physical Exam - Reviewed Nursing Documentation Reviewed: Yes Vital Signs Reviewed: Yes - Physical Exam Appears: Positive for: Well, Non-toxic, No Acute Distress Head Exam: Positive for: ATRAUMATIC, NORMAL INSPECTION, NORMOCEPHALIC Skin: Positive for: Normal Color, Warm, Dry Cardiovascular/Chest: Positive for: Regular Rate, Rhythm Respiratory: Positive for: Normal Breath Sounds Gastrointestinal/Abdominal: Positive for: Normal Exam, Bowel Sounds, Soft. Negative for: Tenderness Neurologic/Psych: Positive for: Alert, Oriented - ECG O2 Sat by Pulse Oximetry: 99 (RA) Pulse Ox Interpretation: Normal Medical Decision Making Medical Decision Making: Time: 1:38 Initial Impression: Initial Plan: constipation - resolved instructed to follow up w pcp tolerated po ------- Scribe Attestation: Documented by Nano Monreal, acting as a scribe for Attila Barker MD. Provider Scribe Attestation: All medical record entries made by the Scribe were at my direction and personally dictated by me. I have reviewed the chart and agree that the record accurately reflects my personal performance of the history, physical exam, medical decision making, and the department course for this patient. I have also personally directed, reviewed, and agree with the discharge instructions and disposition. Disposition - Clinical Impression Clinical Impression: Abdominal cramps - Patient ED Disposition Is Patient to be Admitted: No Counseled Patient/Family Regarding: Studies Performed, Diagnosis, Need For Followup - Disposition Disposition: Routine/Home Disposition Time: 01:05 Condition: IMPROVED Additional Instructions: follow up with your primary doctor in 1-2 days return to the ED with any worsening or concerning symptoms Instructions: Constipation, Adult (DC), Stomach Ache and Stomach Upset Forms: [employer] (Kittitian)
[2018-05-12] MEDS ORDERED: Magnesium Citrate Oral SOL (300 ml) ONE (12:11)
== END 2018-05-12 02:15 | disposition home or self-care (01) ==
LOC: H.ER 00:45
DX: R10.9 Unspecified abdominal pain (principal)

== ENCOUNTER 2018-05-12 11:48 | Emergency (ER) | payer MEDICARE ==
[2018-05-12 11:52] VITALS: TEMP 97.7; O2SAT 98
[2018-05-12] MEDS ORDERED: Magnesium Citrate Oral SOL (300 ml) PO ONE (12:04)
--- NOTE | 2018-05-12 12:07 | ED PDOC ---
HPI: Abdomen Time Seen by Provider: 05/12/18 11:57 Chief Complaint (Nursing): Abdominal Pain History Per: Patient Onset/Duration Of Symptoms: Days (1) Current Symptoms Are (Timing): Still Present Severity: Mild Associated Symptoms: Constipation. denies: Nausea, Vomiting Exacerbating Factors: None Alleviating Factors: None Additional Complaint(s): Pt states unable to move bowels since last night. Seen last night for same as well as multiple previous visits for same. Had CT abd/pelvis recently neg for obstruction. No vomiting or fever. Past Medical History Vital Signs: Last Vital Signs Temp 97.7 F 05/12/18 11:51 Pulse 68 05/12/18 11:51 Resp 20 05/12/18 11:51 BP 131/90 05/12/18 11:51 Pulse Ox 98 05/12/18 11:51 - Medical History PMH: Diabetes, HTN, Hypercholesterolemia Denies: HIV, Chronic Kidney Disease - Surgical History Surgical History: Cholecystectomy, - Family History Family History: States: Unknown Family Hx - Immunization History Hx Tetanus Toxoid Vaccination: No Hx Influenza Vaccination: Yes Hx Pneumococcal Vaccination: No - Home Medications Home Medications: Ambulatory Orders Medication Instructions Recorded Amlodipine Besylate 10 mg PO DAILY 12/16/14 Aspirin [Aspirin EC] 81 mg PO DAILY 12/16/14 Carvedilol [Coreg] 3.125 mg PO BID 12/16/14 Ferrous Sulfate 325 mg PO DAILY 12/16/14 Furosemide 20 mg PO MWF 12/16/14 Losartan [Cozaar] 25 mg PO DAILY 12/16/14 Simvastatin 10 mg PO DAILY 12/16/14 Azithromycin [Zithromax] 250 mg PO DAILY #6 tablet 12/10/15 Ciprofloxacin HCl [Cipro] 500 mg PO BID #19 tab 05/09/16 metroNIDAZOLE [Flagyl] 500 mg PO TID #29 tab 05/09/16 Famotidine [Pepcid] 20 mg PO BID PRN #10 tab 03/16/18 Docusate [Colace] 100 mg PO DAILY #10 cap 03/21/18 Ciprofloxacin HCl [Cipro] 500 mg PO BID #14 tablet 05/07/18 Metronidazole [Flagyl] 500 mg PO TID #21 tab 05/07/18 Polyethylene Glycol 3350 [Miralax] 1 bottle PO DAILY #1 bottle 05/07/18 Lactulose 10 gm PO DAILY #1 solution 10/23/18 - Allergies Allergies/Adverse Reactions: Allergies Allergy/AdvReac Type Severity Reaction Status Date / Time No Known Allergies Allergy Verified 03/31/18 12:15 Review of Systems Gastrointestinal: Positive for: Constipation. Negative for: Vomiting Physical Exam - Physical Exam Appears: Positive for: Non-toxic, No Acute Distress Skin: Positive for: Normal Color, Warm, DRY Gastrointestinal/Abdominal: Positive for: Bowel Sounds, Soft. Negative for: Tenderness, Mass Rectal: Positive for: Rectal Tone Is: (nl). Negative for: Hemorrhoids, Mass, Tenderness - ECG O2 Sat by Pulse Oximetry: 98 Disposition - Clinical Impression Clinical Impression: Constipation - Patient ED Disposition Is Patient to be Admitted: No Counseled Patient/Family Regarding: Diagnosis, Need For Followup, Rx Given - Disposition Referrals: [facility] [Outside] Disposition: Routine/Home Disposition Time: 13:17 Condition: FAIR Prescriptions: Lactulose 10 gm PO DAILY #1 solution Instructions: Constipation in Adults Forms: [employer] (Vietnamese)
[2018-05-12 15:21] VITALS: BP 132/90; PULSE 72; RESP 18
== END 2018-05-12 14:00 | disposition home or self-care (01) ==
LOC: H.ER 11:48
DX: K59.00 Constipation, unspecified (principal)

== ENCOUNTER 2018-05-12 19:03 | Emergency (ER) | payer MEDICARE ==
[2018-05-12 19:12] VITALS: O2SAT 98
--- NOTE | 2018-05-12 20:24 | ED PDOC ---
HPI: General Adult Time Seen by Provider: 05/12/18 19:20 Chief Complaint (Nursing): Abdominal Pain Chief Complaint (Provider): Constipation History Per: Patient History/Exam Limitations: no limitations Onset/Duration Of Symptoms: Other (Long time) Current Symptoms Are (Timing): Still Present Additional Complaint(s): 82 year old female, with a past medical history of diabetes, presents to the ED complaining of constipation which has been going on for a long time. Patient reports she presented to the ED for the same thing several times this week and month including yesterday. During the visit last night, patient had an enema done and had a bowel movement last night. She states she wanted to have another bowel movement today but did not have one. Denies vomiting, abdominal pain, or other complaints. Patient is convinced she is constipated and is worried and wants to have a bowel movement. PMD: Dr Condon in [place] Past Medical History Reviewed: Historical Data, Nursing Documentation, Vital Signs Vital Signs: Last Vital Signs Temp 98.0 F 05/12/18 19:09 Pulse 73 05/12/18 19:09 Resp 16 05/12/18 19:09 BP 161/64 H 05/12/18 19:09 Pulse Ox 98 05/12/18 19:09 - Medical History PMH: Diabetes, HTN, Hypercholesterolemia Denies: HIV, Chronic Kidney Disease - Surgical History Surgical History: Cholecystectomy, Other surgeries: Hysterectomy - Family History Family History: States: No Known Family Hx - Social History Current smoker - smoking cessation education provided: No Alcohol: None Drugs: Denies - Immunization History Hx Tetanus Toxoid Vaccination: No Hx Influenza Vaccination: Yes Hx Pneumococcal Vaccination: No - Home Medications Home Medications: Ambulatory Orders Medication Instructions Recorded Amlodipine Besylate 10 mg PO DAILY 12/16/14 Aspirin [Aspirin EC] 81 mg PO DAILY 12/16/14 Carvedilol [Coreg] 3.125 mg PO BID 12/16/14 Ferrous Sulfate 325 mg PO DAILY 12/16/14 Furosemide 20 mg PO MWF 12/16/14 Losartan [Cozaar] 25 mg PO DAILY 12/16/14 Simvastatin 10 mg PO DAILY 12/16/14 Azithromycin [Zithromax] 250 mg PO DAILY #6 tablet 12/10/15 Ciprofloxacin HCl [Cipro] 500 mg PO BID #19 tab 05/09/16 metroNIDAZOLE [Flagyl] 500 mg PO TID #29 tab 05/09/16 Famotidine [Pepcid] 20 mg PO BID PRN #10 tab 03/16/18 Docusate [Colace] 100 mg PO DAILY #10 cap 03/21/18 Ciprofloxacin HCl [Cipro] 500 mg PO BID #14 tablet 05/07/18 Metronidazole [Flagyl] 500 mg PO TID #21 tab 05/07/18 Polyethylene Glycol 3350 [Miralax] 1 bottle PO DAILY #1 bottle 05/07/18 Lactulose 10 gm PO DAILY #1 solution 05/12/18 - Allergies Allergies/Adverse Reactions: Allergies Allergy/AdvReac Type Severity Reaction Status Date / Time No Known Allergies Allergy Verified 05/12/18 19:09 Review of Systems ROS Statement: Except As Marked, All Systems Reviewed And Found Negative Gastrointestinal: Positive for: Constipation. Negative for: Vomiting, Abdominal Pain Physical Exam - Reviewed Nursing Documentation Reviewed: Yes Vital Signs Reviewed: Yes - Physical Exam Appears: Positive for: Non-toxic, No Acute Distress Head Exam: Positive for: ATRAUMATIC, NORMOCEPHALIC Skin: Positive for: Normal Color, Warm, Dry Eye Exam: Positive for: Normal appearance Neck: Positive for: Normal, Painless ROM Cardiovascular/Chest: Positive for: Regular Rate, Rhythm. Negative for: Murmur Respiratory: Positive for: Normal Breath Sounds. Negative for: Wheezing, Respiratory Distress Gastrointestinal/Abdominal: Positive for: Normal Exam, Soft. Negative for: Tenderness Extremity: Positive for: Normal ROM Neurologic/Psych: Positive for: Alert, Oriented. Negative for: Motor/Sensory Deficits - ECG O2 Sat by Pulse Oximetry: 98 (RA) Pulse Ox Interpretation: Normal - Progress Re-evaluation Time: 21:27 Condition: Re-examined, Improved Medical Decision Making Medical Decision Making: Initial Impression: constipation Initial Plan: --Urine dipstick --Phosphate enema --Accucheck Patient is requesting an enema even if she reports having a bowel movement last night. Reviewed CT scan and labs from previous charts that were done several days ago when patient presented for the same complaint. No indications of further laboratory tests or images on this patient. Scribe Attestation: Documented by Tramaine Perez acting as a scribe for Marguerite Arnold MD. Provider Scribe Attestation: All medical record entries made by the Scribe were at my direction and personally dictated by me. I have reviewed the chart and agree that the record accurately reflects my personal performance of the history, physical exam, medical decision making, and the department course for this patient. I have also personally directed, reviewed, and agree with the discharge instructions and disposition. Disposition - Clinical Impression Clinical Impression: Constipation - Patient ED Disposition Is Patient to be Admitted: No Doctor Will See Patient In The: Office Counseled Patient/Family Regarding: Studies Performed, Diagnosis, Need For Followup - Disposition Referrals: [facility] [Outside] Disposition: Routine/Home Disposition Time: 21:28 Condition: GOOD Additional Instructions: DONNA ESPOSITO, thank you for letting us take care of you today. Your provider was Marguerite Arnold MD and you were treated for ABD PAIN. The emergency medical care you received today was directed at your acute symptoms. If you were prescribed any medication, please fill it and take as directed. It may take several days for your symptoms to resolve. Return to the Emergency Department if your symptoms worsen, do not improve, or if you have any other problems. Please contact your doctor or call one of the physicians/clinics you have been referred to that are listed on the Patient Visit Information form that is included in your discharge packet. Bring any paperwork you were given at discharge with you along with any medications you are taking to your follow up visit. Our treatment cannot replace ongoing medical care by a primary care provider outside of the emergency department. Thank you for allowing the [facility] team to be part of your care today. If you had an X-Ray or CT scan: A Radiologist will review the ED reading if any change in treatment is needed we will contact you. If you had a blood, urine, or wound culture: It will take several days for the results, if any change in treatment is needed we will contact you. If you had an STI test: It will take 48 hours for the results. Please call after 1 week if you have not heard back. Instructions: Constipation in Adults
[2018-05-12 22:42] VITALS: BP 155/83; PULSE 90; RESP 17; TEMP 98.6
== END 2018-05-12 22:00 | disposition home or self-care (01) ==
LOC: H.ER 19:03
DX: K59.00 Constipation, unspecified (principal); E11.9 Type 2 diabetes mellitus without complications

== ENCOUNTER 2018-05-16 19:30 | Emergency (ER) | payer MEDICARE ==
[2018-05-16 19:36] VITALS: BP 134/71; PULSE 82; RESP 16; TEMP 97.8; O2SAT 98
--- NOTE | 2018-05-16 19:52 | ED PDOC ---
HPI: Abdomen Time Seen by Provider: 05/16/18 19:44 Chief Complaint (Nursing): Abdominal Pain Chief Complaint (Provider): Constipation History Per: Patient History/Exam Limitations: no limitations Onset/Duration Of Symptoms: Days (today) Additional Complaint(s): Pt. here with feeling on constipation. Seen multiple times in the past for the same and asks for fleet enema which she says works for her. Last BM today morning. States she wanted to go again today. Has no chest pain, dyspnea, we akness, headaches, dizziness, nausea, vomit. Past Medical History Reviewed: Nursing Documentation, Vital Signs Vital Signs: Last Vital Signs Temp 97.8 F 05/16/18 19:32 Pulse 82 05/16/18 19:32 Resp 16 05/16/18 19:32 BP 134/71 05/16/18 19:32 Pulse Ox 98 05/16/18 19:32 - Medical History PMH: Diabetes, HTN, Hypercholesterolemia Denies: HIV, Chronic Kidney Disease - Surgical History Surgical History: Cholecystectomy, - Family History Family History: States: Unknown Family Hx - Immunization History Hx Tetanus Toxoid Vaccination: No Hx Influenza Vaccination: Yes Hx Pneumococcal Vaccination: No - Home Medications Home Medications: Ambulatory Orders Medication Instructions Recorded Amlodipine Besylate 10 mg PO DAILY 12/16/14 Aspirin [Aspirin EC] 81 mg PO DAILY 12/16/14 Carvedilol [Coreg] 3.125 mg PO BID 12/16/14 Ferrous Sulfate 325 mg PO DAILY 12/16/14 Furosemide 20 mg PO MWF 12/16/14 Losartan [Cozaar] 25 mg PO DAILY 12/16/14 Simvastatin 10 mg PO DAILY 12/16/14 Azithromycin [Zithromax] 250 mg PO DAILY #6 tablet 12/10/15 Ciprofloxacin HCl [Cipro] 500 mg PO BID #19 tab 05/09/16 metroNIDAZOLE [Flagyl] 500 mg PO TID #29 tab 05/09/16 Famotidine [Pepcid] 20 mg PO BID PRN #10 tab 03/16/18 Docusate [Colace] 100 mg PO DAILY #10 cap 03/21/18 Ciprofloxacin HCl [Cipro] 500 mg PO BID #14 tablet 05/07/18 Metronidazole [Flagyl] 500 mg PO TID #21 tab 05/07/18 Lactulose 10 gm PO DAILY #1 solution 05/12/18 Polyethylene Glycol 3350 [Miralax] 1 bottle PO DAILY #1 bottle 05/12/18 - Allergies Allergies/Adverse Reactions: Allergies Allergy/AdvReac Type Severity Reaction Status Date / Time No Known Allergies Allergy Verified 05/16/18 19:31 Review of Systems ROS Statement: Except As Marked, All Systems Reviewed And Found Negative Gastrointestinal: Positive for: Constipation. Negative for: Abdominal Pain Physical Exam - Reviewed Nursing Documentation Reviewed: Yes Vital Signs Reviewed: Yes - Physical Exam Appears: Positive for: Non-toxic, No Acute Distress Head Exam: Positive for: ATRAUMATIC, NORMAL INSPECTION, NORMOCEPHALIC Skin: Positive for: Normal Color, Warm, DRY Eye Exam: Positive for: EOMI, Normal appearance, PERRL ENT: Positive for: Normal ENT Inspection Neck: Positive for: Normal, Painless ROM Cardiovascular/Chest: Positive for: Regular Rate, Rhythm Respiratory: Positive for: CNT, Normal Breath Sounds Gastrointestinal/Abdominal: Positive for: Normal Exam, Soft. Negative for: Tenderness, Distended, Guarding Back: Positive for: Normal Inspection. Negative for: L CVA Tenderness, R CVA Te nderness Extremity: Positive for: Normal ROM. Negative for: Tenderness, Pedal Edema Neurologic/Psych: Positive for: Alert, Oriented - Laboratory Results Result Diagrams: 05/16/18 20:45 05/16/18 20:45 - ECG O2 Sat by Pulse Oximetry: 98 Pulse Ox Interpretation: Normal - Progress ED Course And Treament: 2200: Stable. AAOx3. Pt. refusing further treatment, catscan, and eval. Pt. has capacity to make decisions. Advised just need a ct scan to check for obstruction. 2235: Pt. not in room and not in ER. Likely left ER. Pt. IV pulled earlier as pt. was risk of leaving when she wanted to not get any more testing done. Pt. left before treatment complete. Disposition - Clinical Impression Clinical Impression: Abdominal pain - Patient ED Disposition Is Patient to be Admitted: No - Disposition Disposition: Left W/O Treatment Disposition Time: 22:44 Condition: STABLE
[2018-05-16] MEDS ORDERED: Sodium Chloride 0.9% 1,000 ML IV STA (20:42)
[2018-05-16] MEDS ORDERED: Iohexol 240 (50 ml) PO ONE (20:42)
[2018-05-16] MEDS ORDERED: Iohexol 240 (50 ml) ONE (21:04)
[2018-05-16 21:06] LABS: BASO % 0.2 % (0.0-2.0); EOS # 0.1 K/uL (0.0-0.7); EOS % 1.5 % (0.0-4.0); HEMOGLOBIN 12.8 g/dL (12.0-16.0); LYMPH # 2.5 K/uL (1.0-4.3); LYMPH % 25.9 % (20.0-40.0); MEAN CELL VOLUME 89.6 fl (81.0-99.0); MEAN CORPUSCULAR HEMOGLOBIN 29.8 pg (27.0-31.0); MEAN CORPUSCULAR HGB CONC 33.3 g/dL (33.0-37.0); MONO # 0.7 K/uL (0.0-0.8); NEUT # 6.4 K/uL (1.8-7.0); NEUT % 65.4 % (50.0-75.0); RBC 4.31 Mil/uL (3.80-5.20); RED CELL DISTRIBUTION WIDTH 13.3 % (11.5-14.5); WHITE BLOOD COUNT 9.8 K/uL (4.8-10.8)
[2018-05-16 21:14] LABS: ALB/GLOB RATIO 1.2 (1.0-2.1); ALBUMIN 4.2 g/dL (3.5-5.0); CALCIUM 9.3 mg/dL (8.4-10.2)
--- NOTE | 2018-05-17 09:41 | RAD ---
Date of service: 05/16/2018 PROCEDURE: Radiographs of the chest and abdomen (obstructive series) HISTORY: constipation COMPARISON: Chest radiograph and CT scan of the abdomen pelvis dated 05/07/2018 TECHNIQUE: AP radiograph of the chest, with upright and supine radiographs of the abdomen. FINDINGS: CHEST: Lungs: Bilateral lower lung linear scarring.. Cardiovascular: Aortic atherosclerotic calcifications. Cardiomediastinal silhouette stably enlarged. Pleura: No pleural fluid. No pneumothorax. Other findings: None. ABDOMEN AND PELVIS: Bowel: Unremarkable bowel gas pattern. No evidence of mechanical obstruction. Free air: None. Bones: Unchanged. Other findings: Right upper quadrant surgical clips. IMPRESSION: Unremarkable radiographs of chest and abdomen. No evidence of mechanical bowel obstruction.
--- NOTE | 2018-05-17 13:55 | CARD ---
APPROVED REPORT Date of service: 05/16/2018 EKG Measurement Heart [id number] <Conclusion> Normal sinus rhythm Left axis deviation Left ventricular hypertrophy Inferior infarct, age undetermined Abnormal ECG
== END 2018-05-16 22:40 | disposition left against medical advice (07) ==
LOC: H.ER 19:30
DX: R10.9 Unspecified abdominal pain (principal); I10 Essential (primary) hypertension; E11.9 Type 2 diabetes mellitus without complications
CPT/HCPCS: 74022; 80053; 82948; 83690; 85025; 93005; 99283; J7030; Q9966

== ENCOUNTER 2018-05-22 17:58 | Emergency (ER) | payer MEDICARE ==
[2018-05-22 18:03] VITALS: BP 146/62; PULSE 85; RESP 16; TEMP 98.2; O2SAT 96
[2018-05-22 19:30] LABS: BASO # 0.1 K/uL (0.0-0.2); BASO % 1.2 % (0.0-2.0); EOS # 0.1 K/uL (0.0-0.7); EOS % 1.2 % (0.0-4.0); HEMOGLOBIN 12.2 g/dL (12.0-16.0); LYMPH # 1.9 K/uL (1.0-4.3); LYMPH % 27.3 % (20.0-40.0); MEAN CORPUSCULAR HEMOGLOBIN 30.1 pg (27.0-31.0); MEAN CORPUSCULAR HGB CONC 33.8 g/dL (33.0-37.0); MEAN PLATELET VOLUME 8.7 fl (7.2-11.7); MONO # 0.5 K/uL (0.0-0.8); MONO % 7.3 % (0.0-10.0); NEUT # 4.4 K/uL (1.8-7.0); NRBC % 0.1 % (0.0-0.0); RBC 4.07 Mil/uL (3.80-5.20); RED CELL DISTRIBUTION WIDTH 12.9 % (11.5-14.5)
[2018-05-22 19:42] LABS: ALB/GLOB RATIO 1.2 (1.0-2.1); ALBUMIN 4.1 g/dL (3.5-5.0); ALT/SGPT 28 U/L (9-52); AST/SGOT 28 U/L (14-36); BLOOD UREA NITROGEN 28 mg/dl (7-17); CALCIUM 9.4 mg/dL (8.4-10.2); GFR NON-AFRICAN AMERICAN 36; LIPASE 295 U/L (23-300)
--- NOTE | 2018-05-22 20:29 | ED PDOC ---
- Laboratory Results Result Diagrams: 05/22/18 19:26 05/22/18 19:26 - ECG O2 Sat by Pulse Oximetry: 96 (RA) Pulse Ox Interpretation: Normal Medical Decision Making Medical Decision Making: Case endorsed to automobile service writer, Umberto ORDONEZ, at 1999 due to shift change. Pertinent details reviewed. Patient pending CT results and re-evaluation. Labs reviewed. 2229 Patient pacing in ED hallways. Patient is unwilling to stay in exam room pending CT results. Time: 2324 Patient removed her IV at this time. Patient is requesting to sign out AMA as she does not want to wait for her CT results. --This patient is choosing to leave against medical advice. The provider has personally explained to the patient that choosing to do so may result in permane nt bodily harm or . The provider discussed at great length that without further evaluation and monitoring there may be unforeseen circumstances and/or deterioration causing permanent bodily harm or as a result of their choice. The patient verbalized these risks back to the physician in laymans terms. The pt is alert, oriented, and shows the mental capacity to make clear decisions regarding the patients health care at this time. The patient continues to wish to leave against medical advice. In light of the patients decision to leave AMA, follow-up has been arranged and the patient is aware of the importance of following up as instructed. The patient has been advised that they should return to the ED immediately if they change their mind at any time, or if their condition begi ns to change or worsen in any way. Disposition Counseled Patient/Family Regarding: Studies Performed, Diagnosis - Clinical Impression Clinical Impression: Abdominal pain, Left against medical advice - POA Present On Arrival: None - Disposition Referrals: Bennett Condon MD [Medical Doctor] - Disposition: AGAINST MEDICAL ADVICE Disposition Time: 23:35 Condition: FAIR Additional Instructions: The emergency medical care you received today was directed towards the acute presenting symptoms. If you were prescribed any medication, please fill it and give as directed. It may take several days for your symptoms to resolve. Return to the Emergency Department at any time if symptoms worsen, do not improve, or if any other problems arise. Please contact your doctor in 2 days for re-evaluation and follow up / or call one of the physicians/clinics you have been referred to that are listed on the Patient Visit Information form that is included in your discharge packet. Bring any paperwork you were given at discharge with you along with any medications to your follow up visit. Our treatment cannot replace ongoing medical care by a primary care provider (PCP) outside of the emergency department. Instructions: Acute Abdomen (Belly Pain), Leaving Against Medical Advice Forms: [employer] (Lithuanian) Print Language: CYMRO Results - Lab Results Lab Results: 05/22/18 05/22/18 19:26 19:26 WBC 7.0 RBC 4.07 Hgb 12.2 Hct 36.2 MCV 89.0 MCH 30.1 MCHC 33.8 RDW 12.9 Plt Count 252 MPV 8.7 Neut % (Auto) 63.0 Lymph % (Auto) 27.3 Dunn % (Auto) 7.3 Eos % (Auto) 1.2 Baso % (Auto) 1.2 Neut # (Auto) 4.4 Lymph # (Auto) 1.9 Dunn # (Auto) 0.5 Eos # (Auto) 0.1 Baso # (Auto) 0.1 Sodium 139 Potassium 4.5 Chloride 103 Carbon Dioxide 22 Anion Gap 19 BUN 28 H Creatinine 1.4 H Est GFR ( Amer) 43 Est GFR (Non-Af Amer) 36 Random Glucose 199 H Calcium 9.4 Total Bilirubin 0.4 AST 28 ALT 28 Alkaline Phosphatase 63 Troponin I < 0.0120 Total Protein 7.4 Albumin 4.1 Globulin 3.3 Albumin/Globulin Ratio 1.2 Lipase 295
--- NOTE | 2018-05-23 08:48 | CARD ---
APPROVED REPORT Date of service: 05/22/2018 EKG Measurement Heart [id number] <Conclusion> Normal sinus rhythm Possible inferior infarct, age undetermined Abnormal ECG
--- NOTE | 2018-05-23 10:06 | CT ---
Date of service: 05/22/2018 PROCEDURE: CT Abdomen and Pelvis without intravenous contrast HISTORY: abd pain, hx of constipation COMPARISON: None. TECHNIQUE: Technique. Contrast dose: Radiation dose: Total exam DLP = 733.4 mGy-cm. This CT exam was performed using one or more of the following dose reduction techniques: Automated exposure control, adjustment of the mA and/or kV according to patient size, and/or use of iterative reconstruction technique. FINDINGS: LOWER THORAX: Bibasilar interstitial infiltrates. Small hiatal hernia. LIVER: Unremarkable. No gross lesion or ductal dilatation. GALLBLADDER AND BILE DUCTS: Status post:. PANCREAS: Unremarkable. No gross lesion or ductal dilatation. SPLEEN: Unremarkable. ADRENALS: Unremarkable. No mass. KIDNEYS AND URETERS: Unremarkable. No hydronephrosis. No solid mass. VASCULATURE: Unremarkable. No aortic aneurysm. No aortic atherosclerotic calcification or mural plaque present. BOWEL: Unremarkable. No obstruction. No gross mural thickening. APPENDIX: Unremarkable. Normal appendix. PERITONEUM: Unremarkable. No free fluid. No free air. LYMPH NODES: Unremarkable. No enlarged lymph nodes. BLADDER: Unremarkable. REPRODUCTIVE: Hysterectomy. BONES: No acute fracture. OTHER FINDINGS: None. IMPRESSION: Cholecystectomy. Hysterectomy.
--- NOTE | 2018-05-23 19:46 | ED PDOC ---
HPI: Abdomen Time Seen by Provider: 05/22/18 18:05 Chief Complaint (Nursing): Abdominal Pain History Per: Patient Additional Complaint(s): Pt. states for the past day she's felt constipated. States last time she had a BM as at 0600 today and was normal. Of note, pt. was seen in ED last week for similar complaint. CT abd/pelvis was ordered but signed AMA. Denies melena, hematochezia, BRBPR, weakness, chest pain, diarrhea, N/V/D. Past Medical History Reviewed: Historical Data, Nursing Documentation, Vital Signs Vital Signs: Last Vital Signs Temp 98.2 F 05/22/18 18:00 Pulse 85 05/22/18 18:00 Resp 16 05/22/18 18:00 BP 146/62 05/22/18 18:00 Pulse Ox 96 05/22/18 23:37 - Medical History PMH: Diabetes, HTN, Hypercholesterolemia Denies: HIV, Chronic Kidney Disease - Surgical History Surgical History: Cholecystectomy, Other surgeries: hysterectomy - Family History Family History: States: No Known Family Hx - Immunization History Hx Tetanus Toxoid Vaccination: No Hx Influenza Vaccination: Yes Hx Pneumococcal Vaccination: No - Home Medications Home Medications: Ambulatory Orders Medication Instructions Recorded Amlodipine Besylate 10 mg PO DAILY 12/16/14 Aspirin [Aspirin EC] 81 mg PO DAILY 12/16/14 Carvedilol [Coreg] 3.125 mg PO BID 12/16/14 Ferrous Sulfate 325 mg PO DAILY 12/16/14 Furosemide 20 mg PO MWF 12/16/14 Losartan [Cozaar] 25 mg PO DAILY 12/16/14 Simvastatin 10 mg PO DAILY 12/16/14 Azithromycin [Zithromax] 250 mg PO DAILY #6 tablet 12/10/15 Ciprofloxacin HCl [Cipro] 500 mg PO BID #19 tab 05/09/16 metroNIDAZOLE [Flagyl] 500 mg PO TID #29 tab 05/09/16 Famotidine [Pepcid] 20 mg PO BID PRN #10 tab 03/16/18 Docusate [Colace] 100 mg PO DAILY #10 cap 03/21/18 Ciprofloxacin HCl [Cipro] 500 mg PO BID #14 tablet 05/07/18 Metronidazole [Flagyl] 500 mg PO TID #21 tab 05/07/18 Lactulose 10 gm PO DAILY #1 solution 05/12/18 Polyethylene Glycol 3350 [Miralax] 1 bottle PO DAILY #1 bottle 05/12/18 - Allergies Allergies/Adverse Reactions: Allergies Allergy/AdvReac Type Severity Reaction Status Date / Time No Known Allergies Allergy Verified 05/16/18 19:31 Review of Systems ROS Statement: Except As Marked, All Systems Reviewed And Found Negative Physical Exam - Physical Exam Appears: Positive for: Well, Non-toxic, No Acute Distress Skin: Positive for: Normal Color, Warm. Negative for: Rash Eye Exam: Positive for: Normal appearance Cardiovascular/Chest: Positive for: Regular Rate, Rhythm Respiratory: Positive for: CNT, Normal Breath Sounds Gastrointestinal/Abdominal: Positive for: Normal Exam, Bowel Sounds, Soft. Nega tive for: Tenderness, Distended Neurologic/Psych: Positive for: Alert, Oriented (x3), Gait (steady, unassisted) - Laboratory Results Result Diagrams: 05/22/18 19:26 05/22/18 19:26 - ECG O2 Sat by Pulse Oximetry: 96 (RA) Disposition - Clinical Impression Clinical Impression: Abdominal pain, Left against medical advice - Patient ED Disposition Is Patient to be Admitted: Transfer of Care (Signed out to Umberto ORDONEZ re- evaluation, pending CT, and labs.) - Disposition Referrals: Bennett Condon MD [Medical Doctor] - Disposition Time: 23:35 Condition: FAIR Additional Instructions: The emergency medical care you received today was directed towards the acute presenting symptoms. If you were prescribed any medication, please fill it and give as directed. It may take several days for your symptoms to resolve. Return to the Emergency Department at any time if symptoms worsen, do not improve, or if any other problems arise. Please contact your doctor in 2 days for re-evaluation and follow up / or call one of the physicians/clinics you have been referred to that are listed on the Patient Visit Information form that is included in your discharge packet. Bring any paperwork you were given at discharge with you along with any medications to your follow up visit. Our treatment cannot replace ongoing medical care by a primary care provider (PCP) outside of the emergency department. Instructions: Acute Abdomen (Belly Pain), Leaving Against Medical Advice Forms: [employer] (Palauan) Print Language: NAMIBIAN - POA Present On Arrival: None
== END 2018-05-22 23:35 | disposition left against medical advice (07) ==
LOC: H.ER 17:58
DX: R10.9 Unspecified abdominal pain (principal); E11.9 Type 2 diabetes mellitus without complications; E78.00 Pure hypercholesterolemia, unspecified; I10 Essential (primary) hypertension

== ENCOUNTER 2018-05-23 20:30 | Emergency (ER) | payer MEDICARE ==
--- NOTE | 2018-05-23 21:18 | ED PDOC ---
HPI: Abdomen Time Seen by Provider: 05/23/18 20:55 Chief Complaint (Nursing): Abdominal Pain History Per: Patient History/Exam Limitations: no limitations Onset/Duration Of Symptoms: Other (months) Outside of [place] travel?: No Current Symptoms Are (Timing): Still Present Severity: Mild Pain Scale Rating Of: 2 Quality Of Discomfort: Pressure Associated Symptoms: Constipation. denies: Fever, Vomiting Exacerbating Factors: None Alleviating Factors: None Last Bowel Movement: Today Past Medical History Reviewed: Historical Data, Nursing Documentation, Vital Signs Vital Signs: Last Vital Signs Temp 97.8 F 05/23/18 20:35 Pulse 80 05/23/18 20:35 Resp 16 05/23/18 20:35 BP 148/70 05/23/18 20:35 Pulse Ox 97 05/23/18 20:35 - Medical History PMH: Diabetes, HTN, Hypercholesterolemia Denies: HIV, Chronic Kidney Disease - Surgical History Surgical History: Cholecystectomy, - Family History Family History: States: No Known Family Hx - Immunization History Hx Tetanus Toxoid Vaccination: No Hx Influenza Vaccination: Yes Hx Pneumococcal Vaccination: No - Home Medications Home Medications: Ambulatory Orders Medication Instructions Recorded Amlodipine Besylate 10 mg PO DAILY 12/16/14 Aspirin [Aspirin EC] 81 mg PO DAILY 12/16/14 Carvedilol [Coreg] 3.125 mg PO BID 12/16/14 Ferrous Sulfate 325 mg PO DAILY 12/16/14 Furosemide 20 mg PO MWF 12/16/14 Losartan [Cozaar] 25 mg PO DAILY 12/16/14 Simvastatin 10 mg PO DAILY 12/16/14 Azithromycin [Zithromax] 250 mg PO DAILY #6 tablet 12/10/15 Ciprofloxacin HCl [Cipro] 500 mg PO BID #19 tab 05/09/16 metroNIDAZOLE [Flagyl] 500 mg PO TID #29 tab 05/09/16 Famotidine [Pepcid] 20 mg PO BID PRN #10 tab 03/16/18 Docusate [Colace] 100 mg PO DAILY #10 cap 03/21/18 Ciprofloxacin HCl [Cipro] 500 mg PO BID #14 tablet 05/07/18 Metronidazole [Flagyl] 500 mg PO TID #21 tab 05/07/18 Lactulose 10 gm PO DAILY #1 solution 05/12/18 Polyethylene Glycol 3350 [Miralax] 1 bottle PO DAILY #1 bottle 05/12/18 - Allergies Allergies/Adverse Reactions: Allergies Allergy/AdvReac Type Severity Reaction Status Date / Time No Known Allergies Allergy Verified 05/23/18 20:35 Review of Systems ROS Statement: Except As Marked, All Systems Reviewed And Found Negative Psych: Negative for: Anxiety, Depression, Psychosis, Suicidal ideation, Withdrawal Physical Exam - Reviewed Nursing Documentation Reviewed: Yes Vital Signs Reviewed: Yes - Physical Exam Appears: Positive for: Non-toxic, No Acute Distress, Uncomfortable Head Exam: Positive for: ATRAUMATIC, NORMAL INSPECTION Skin: Positive for: Warm, Dry Eye Exam: Positive for: EOMI Cardiovascular/Chest: Positive for: Regular Rate, Rhythm Respiratory: Negative for: Respiratory Distress Gastrointestinal/Abdominal: Positive for: Soft. Negative for: Tenderness, Distended Neurologic/Psych: Positive for: Alert, Oriented - ECG O2 Sat by Pulse Oximetry: 97 Medical Decision Making Medical Decision Making: Impression Constipation Plan flee enema Patient has been evaluated for similar complains in this ED. I reviewed previous findings. No significant acute findings. Patient has not new or additional complains. There are no criteria for further studies or treatment in ED. Patient is instructed to follow up with her PCP. Disposition - Clinical Impression Clinical Impression: Constipation - Patient ED Disposition Is Patient to be Admitted: No Doctor Will See Patient In The: Office Counseled Patient/Family Regarding: Studies Performed, Diagnosis, Need For Followup - Disposition Referrals: Radha Pelaez MD [Medical Doctor] - Disposition: Routine/Home Disposition Time: 21:35 Condition: IMPROVED Additional Instructions: DONNA ESPOSITO, thank you for letting us take care of you today. Your provider was Marguerite Arnold MD and you were treated for ABD PAIN. The emergency medical care you received today was directed at your acute symptoms. If you were prescribed any medication, please fill it and take as directed. It may take several days for your symptoms to resolve. Return to the Emergency Department if your symptoms worsen, do not improve, or if you have any other problems. Please contact your doctor or call one of the physicians/clinics you have been referred to that are listed on the Patient Visit Information form that is included in your discharge packet. Bring any paperwork you were given at discharge with you along with any medications you are taking to your follow up visit. Our treatment cannot replace ongoing medical care by a primary care provider outside of the emergency department. Thank you for allowing the [facility] team to be part of your care today. If you had an X-Ray or CT scan: A Radiologist will review the ED reading if any change in treatment is needed we will contact you. If you had a blood, urine, or wound culture: It will take several days for the results, if any change in treatment is needed we will contact you. If you had an STI test: It will take 48 hours for the results. Please call after 1 week if you have not heard back. Instructions: Constipation in Adults
[2018-05-23 23:27] VITALS: BP 132/68; PULSE 85; RESP 18; TEMP 98.2
[2018-05-23 23:35] VITALS: O2SAT 97
== END 2018-05-23 23:26 | disposition home or self-care (01) ==
LOC: H.ER 20:30
DX: K59.00 Constipation, unspecified (principal); E11.9 Type 2 diabetes mellitus without complications; I10 Essential (primary) hypertension; E78.00 Pure hypercholesterolemia, unspecified; Z79.82 Long term (current) use of aspirin

== ENCOUNTER 2018-05-26 03:09 | Emergency (ER) | payer MEDICARE ==
[2018-05-26 03:21] VITALS: RESP 18; TEMP 98.1; O2SAT 100
--- NOTE | 2018-05-26 03:57 | ED PDOC ---
HPI: Abdomen Time Seen by Provider: 05/26/18 03:30 Chief Complaint (Nursing): Abdominal Pain Chief Complaint (Provider): abdominal pain History Per: Patient, EMS Additional Complaint(s): 82 y/o female brought in by EMS for evaluation of abdominal pain x 1 day. Patient states she has not been able to have a bowel movement since 6:00am yesterday. Patient states as soon as she arrived here she went to the bathroom and had a normal bowel movement and feels "much better". Denies fever, nausea/vomiting, chest pain, shortness of breath, palpitations, abdominal pain, urinary symptoms Past Medical History Reviewed: Historical Data, Nursing Documentation, Vital Signs Vital Signs: Last Vital Signs Temp 98.1 F 05/26/18 03:18 Pulse 74 05/26/18 03:18 Resp 18 05/26/18 03:18 BP 172/74 H 05/26/18 03:18 Pulse Ox 100 05/26/18 03:18 - Medical History PMH: Diabetes, HTN, Hypercholesterolemia Denies: HIV, Chronic Kidney Disease - Surgical History Surgical History: Cholecystectomy, - Family History Family History: States: No Known Family Hx - Immunization History Hx Tetanus Toxoid Vaccination: No Hx Influenza Vaccination: Yes Hx Pneumococcal Vaccination: No - Home Medications Home Medications: Ambulatory Orders Medication Instructions Recorded Amlodipine Besylate 10 mg PO DAILY 12/16/14 Aspirin [Aspirin EC] 81 mg PO DAILY 12/16/14 Carvedilol [Coreg] 3.125 mg PO BID 12/16/14 Ferrous Sulfate 325 mg PO DAILY 12/16/14 Furosemide 20 mg PO MWF 12/16/14 Losartan [Cozaar] 25 mg PO DAILY 12/16/14 Simvastatin 10 mg PO DAILY 12/16/14 Azithromycin [Zithromax] 250 mg PO DAILY #6 tablet 12/10/15 Ciprofloxacin HCl [Cipro] 500 mg PO BID #19 tab 05/09/16 metroNIDAZOLE [Flagyl] 500 mg PO TID #29 tab 05/09/16 Famotidine [Pepcid] 20 mg PO BID PRN #10 tab 03/16/18 Docusate [Colace] 100 mg PO DAILY #10 cap 03/21/18 Ciprofloxacin HCl [Cipro] 500 mg PO BID #14 tablet 05/07/18 Metronidazole [Flagyl] 500 mg PO TID #21 tab 05/07/18 Lactulose 10 gm PO DAILY #1 solution 05/12/18 Polyethylene Glycol 3350 [Miralax] 1 bottle PO DAILY #1 bottle 05/12/18 - Allergies Allergies/Adverse Reactions: Allergies Allergy/AdvReac Type Severity Reaction Status Date / Time No Known Allergies Allergy Verified 05/23/18 20:35 Review of Systems ROS Statement: Except As Marked, All Systems Reviewed And Found Negative Gastrointestinal: Positive for: Abdominal Pain, Constipation Physical Exam - Reviewed Nursing Documentation Reviewed: Yes Vital Signs Reviewed: Yes - Physical Exam Appears: Positive for: Well, Non-toxic, No Acute Distress Head Exam: Positive for: ATRAUMATIC, NORMAL INSPECTION, NORMOCEPHALIC Skin: Positive for: Normal Color Eye Exam: Positive for: Normal appearance ENT: Positive for: Normal ENT Inspection Cardiovascular/Chest: Positive for: Regular Rate, Rhythm Respiratory: Positive for: Normal Breath Sounds Gastrointestinal/Abdominal: Positive for: Bowel Sounds, Soft. Negative for: Tenderness Back: Positive for: Normal Inspection Extremity: Positive for: Normal ROM Neurologic/Psych: Positive for: Alert, Oriented (x3) - ECG O2 Sat by Pulse Oximetry: 100 - Progress ED Course And Treament: Patient resting comfortably; states she currently has no pain and would like to be discharged Patient with multiple visits/workups for same; had normal labs/CT on 05/23 Patient requires no further intervention in the ED and is stable for discharge at this time Return precautions given Disposition - Clinical Impression Clinical Impression: Constipation - Patient ED Disposition Is Patient to be Admitted: No Counseled Patient/Family Regarding: Diagnosis, Need For Followup - Disposition Disposition: Routine/Home Disposition Time: 04:00 Condition: IMPROVED Instructions: Constipation in Adults Forms: [employer] (Qatari)
[2018-05-26 04:16] VITALS: BP 140/57; PULSE 68
== END 2018-05-26 04:15 | disposition home or self-care (01) ==
LOC: H.ER 03:09
DX: K59.00 Constipation, unspecified (principal); E11.9 Type 2 diabetes mellitus without complications; E78.00 Pure hypercholesterolemia, unspecified; I10 Essential (primary) hypertension

== ENCOUNTER 2018-05-28 01:35 | Emergency (ER) | payer MEDICARE ==
[2018-05-28 01:45] VITALS: BP 156/58; PULSE 72; RESP 18; TEMP 98.2; O2SAT 99
--- NOTE | 2018-05-28 02:58 | ED PDOC ---
HPI: Abdomen Time Seen by Provider: 05/28/18 01:40 Chief Complaint (Nursing): Abdominal Pain History Per: Patient History/Exam Limitations: no limitations Onset/Duration Of Symptoms: Days Outside of [place] travel?: No Current Symptoms Are (Timing): Still Present Location Of Pain/Discomfort: Diffuse Additional Complaint(s): Hx of DM, HTN, HLD presenting with diffuse abdominal pain and decreased bowel movements. States she has not had a BM since Friday. Took no medications prior to arrival. No vomiting, fevers, chills, chest pain, shortness of breath. Past Medical History Reviewed: Historical Data, Nursing Documentation, Vital Signs Vital Signs: Last Vital Signs Temp 98.2 F 05/28/18 01:41 Pulse 72 05/28/18 01:41 Resp 18 05/28/18 01:41 BP 156/58 H 05/28/18 01:41 Pulse Ox 99 05/28/18 01:41 - Medical History PMH: Diabetes, HTN, Hypercholesterolemia Denies: HIV, Chronic Kidney Disease - Surgical History Surgical History: Cholecystectomy, - Family History Family History: States: Unknown Family Hx - Immunization History Hx Tetanus Toxoid Vaccination: No Hx Influenza Vaccination: Yes Hx Pneumococcal Vaccination: No - Home Medications Home Medications: Ambulatory Orders Medication Instructions Recorded Amlodipine Besylate 10 mg PO DAILY 12/16/14 Aspirin [Aspirin EC] 81 mg PO DAILY 12/16/14 Carvedilol [Coreg] 3.125 mg PO BID 12/16/14 Ferrous Sulfate 325 mg PO DAILY 12/16/14 Furosemide 20 mg PO MWF 12/16/14 Losartan [Cozaar] 25 mg PO DAILY 12/16/14 Simvastatin 10 mg PO DAILY 12/16/14 Azithromycin [Zithromax] 250 mg PO DAILY #6 tablet 12/10/15 Ciprofloxacin HCl [Cipro] 500 mg PO BID #19 tab 05/09/16 metroNIDAZOLE [Flagyl] 500 mg PO TID #29 tab 05/09/16 Famotidine [Pepcid] 20 mg PO BID PRN #10 tab 03/16/18 Docusate [Colace] 100 mg PO DAILY #10 cap 03/21/18 Ciprofloxacin HCl [Cipro] 500 mg PO BID #14 tablet 05/07/18 Metronidazole [Flagyl] 500 mg PO TID #21 tab 05/07/18 Lactulose 10 gm PO DAILY #1 solution 05/12/18 Polyethylene Glycol 3350 [Miralax] 1 bottle PO DAILY #1 bottle 05/12/18 - Allergies Allergies/Adverse Reactions: Allergies Allergy/AdvReac Type Severity Reaction Status Date / Time No Known Allergies Allergy Verified 05/28/18 01:41 Review of Systems ROS Statement: Except As Marked, All Systems Reviewed And Found Negative Gastrointestinal: Positive for: Abdominal Pain, Constipation Physical Exam - Reviewed Nursing Documentation Reviewed: Yes Vital Signs Reviewed: Yes - Physical Exam Appears: Positive for: Well, Non-toxic, No Acute Distress Head Exam: Positive for: ATRAUMATIC, NORMAL INSPECTION, NORMOCEPHALIC Skin: Positive for: Normal Color, Warm, DRY Eye Exam: Positive for: EOMI, Normal appearance, PERRL ENT: Positive for: Normal ENT Inspection Neck: Positive for: Normal, Painless ROM Cardiovascular/Chest: Positive for: Regular Rate, Rhythm Respiratory: Positive for: CNT, Normal Breath Sounds Gastrointestinal/Abdominal: Positive for: Normal Exam, Soft. Negative for: Tenderness, Organomegaly, Mass, Distended, Guarding Back: Positive for: Normal Inspection Extremity: Positive for: Normal ROM Neurologic/Psych: Positive for: Alert, Oriented - ECG O2 Sat by Pulse Oximetry: 99 Pulse Ox Interpretation: Normal Medical Decision Making Medical Decision Making: Patient reports that prior to medication she had a large BM in the bathroom and wished to be discharged. Very well appearing upon discharge Disposition - Clinical Impression Clinical Impression: Constipation - Disposition Referrals: [facility] [Outside] Disposition: Routine/Home Disposition Time: 02:00 Condition: STABLE Instructions: Constipation in Adults Forms: Shane Linda (Wolof)
== END 2018-05-28 02:30 | disposition home or self-care (01) ==
LOC: H.ER 01:35
DX: K59.00 Constipation, unspecified (principal); E11.9 Type 2 diabetes mellitus without complications; E78.00 Pure hypercholesterolemia, unspecified; I10 Essential (primary) hypertension; Z79.82 Long term (current) use of aspirin

== ENCOUNTER 2018-05-30 01:39 | Emergency (ER) | payer MEDICARE ==
[2018-05-30 01:49] VITALS: BMI 34.7
--- NOTE | 2018-05-30 02:07 | ED PDOC ---
HPI: Abdomen Time Seen by Provider: 05/30/18 01:40 Chief Complaint (Nursing): Abdominal Pain Chief Complaint (Provider): Abdominal Pain and Constipation History Per: Patient History/Exam Limitations: no limitations Onset/Duration Of Symptoms: Hrs Current Symptoms Are (Timing): Still Present Location Of Pain/Discomfort: Epigastric Associated Symptoms: Constipation Additional Complaint(s): 82 y/o female with a PMHx of DM, HTN, high cholesterol and chronic constipation presents to the ED for evaluation of abdominal pain and the inability to pass a bowel movement since 6 AM. Patient denies taking any medications for constipation at home. Patient reports she has not given herself an enema. Patient has been to the ER many times in the past for similar presentation. Patient states pain is concentrated in the epigastric area. Otherwise, patient denies fever, nausea and vomiting. PMD: Non [facility] Provider Past Medical History Reviewed: Historical Data, Nursing Documentation, Vital Signs Vital Signs: Last Vital Signs Temp 98.0 F 05/30/18 01:49 Pulse 75 05/30/18 01:49 Resp 16 05/30/18 01:49 BP 181/81 H 05/30/18 01:49 Pulse Ox 99 05/30/18 01:49 - Medical History PMH: Diabetes, HTN, Hypercholesterolemia Denies: HIV, Chronic Kidney Disease Other PMH: Chronic Constipation - Surgical History Surgical History: Cholecystectomy, - Family History Family History: States: Unknown Family Hx - Immunization History Hx Tetanus Toxoid Vaccination: No Hx Influenza Vaccination: Yes Hx Pneumococcal Vaccination: No - Home Medications Home Medications: Ambulatory Orders Medication Instructions Recorded Amlodipine Besylate 10 mg PO DAILY 12/16/14 Aspirin [Aspirin EC] 81 mg PO DAILY 12/16/14 Carvedilol [Coreg] 3.125 mg PO BID 12/16/14 Ferrous Sulfate 325 mg PO DAILY 12/16/14 Furosemide 20 mg PO MWF 12/16/14 Losartan [Cozaar] 25 mg PO DAILY 12/16/14 Simvastatin 10 mg PO DAILY 12/16/14 Azithromycin [Zithromax] 250 mg PO DAILY #6 tablet 12/10/15 Ciprofloxacin HCl [Cipro] 500 mg PO BID #19 tab 05/09/16 metroNIDAZOLE [Flagyl] 500 mg PO TID #29 tab 05/09/16 Famotidine [Pepcid] 20 mg PO BID PRN #10 tab 03/16/18 Docusate [Colace] 100 mg PO DAILY #10 cap 03/21/18 Ciprofloxacin HCl [Cipro] 500 mg PO BID #14 tablet 05/07/18 Metronidazole [Flagyl] 500 mg PO TID #21 tab 05/07/18 Lactulose 10 gm PO DAILY #1 solution 05/12/18 Polyethylene Glycol 3350 [Miralax] 1 bottle PO DAILY #1 bottle 05/12/18 Docusate Sodium [Dulcolax Stool 100 mg PO DAILY #12 capsule 05/30/18 Softener] - Allergies Allergies/Adverse Reactions: Allergies Allergy/AdvReac Type Severity Reaction Status Date / Time No Known Allergies Allergy Verified 05/30/18 01:49 Review of Systems ROS Statement: Except As Marked, All Systems Reviewed And Found Negative Constitutional: Negative for: Fever Gastrointestinal: Positive for: Abdominal Pain, Constipation (chronic). Negative for: Nausea, Vomiting Physical Exam - Reviewed Nursing Documentation Reviewed: Yes Vital Signs Reviewed: Yes - Physical Exam Appears: Positive for: No Acute Distress Head Exam: Positive for: ATRAUMATIC, NORMOCEPHALIC Skin: Positive for: Normal Color, Warm, Dry Eye Exam: Positive for: Normal appearance, EOMI, PERRL Neck: Positive for: Normal, Painless ROM Cardiovascular/Chest: Positive for: Regular Rate, Rhythm. Negative for: Murmur Respiratory: Positive for: Normal Breath Sounds. Negative for: Respiratory Distress Gastrointestinal/Abdominal: Positive for: Normal Exam, Soft Back: Positive for: Normal Inspection. Negative for: L CVA Tenderness, R CVA Tenderness Extremity: Positive for: Normal ROM. Negative for: Pedal Edema, Deformity Neurologic/Psych: Positive for: Alert, Oriented. Negative for: Motor/Sensory Deficits - ECG O2 Sat by Pulse Oximetry: 99 (RA) Pulse Ox Interpretation: Normal Medical Decision Making Medical Decision Making: Time: 0155 A/P: 82 y/o female presenting with chronic constipation. -- Discussed at length importance of self-medicating at home prior to calling ambulance for such condition. -- Will administer fleet enema and re-evaluate. -- Fleet Enema 135 ml [place] Time: 0602 -- Patient reports of having a large bowel movement. Patient states she is feeling better and is now stable for discharge home. Scribe Attestation: Documented by Jyothi Simons, acting as a scribe for Nolan Lott MD. Provider Scribe Attestation: All medical record entries made by the Scribe were at my direction and personally dictated by me. I have reviewed the chart and agree that the record accurately reflects my personal performance of the history, physical exam, medical decision making, and the department course for this patient. I have also personally directed, reviewed, and agree with the discharge instructions and disposition. Disposition - Clinical Impression Clinical Impression: Constipation Counseled Patient/Family Regarding: Diagnosis, Need For Followup, Rx Given - Disposition Referrals: [facility] [Outside] Disposition: Routine/Home Disposition Time: 06:02 Condition: STABLE Prescriptions: Docusate Sodium [Dulcolax Stool Softener] 100 mg PO DAILY #12 capsule Instructions: Constipation in Adults
[2018-05-30 06:17] VITALS: BP 166/79; PULSE 81; RESP 16; TEMP 97.9; O2SAT 98
== END 2018-05-30 06:12 | disposition home or self-care (01) ==
LOC: H.ER 01:39
DX: K59.09 Other constipation (principal); E11.9 Type 2 diabetes mellitus without complications; I10 Essential (primary) hypertension; Z79.899 Other long term (current) drug therapy; Z79.82 Long term (current) use of aspirin; E78.00 Pure hypercholesterolemia, unspecified

== ENCOUNTER 2018-06-07 06:47 | Emergency (ER) | payer MEDICARE ==
[2018-06-07 06:48] VITALS: BMI 34.7
[2018-06-07 07:14] VITALS: BP 154/78; PULSE 76; TEMP 98.8; O2SAT 99
--- NOTE | 2018-06-07 08:53 | ED PDOC ---
Lower Extremity Pain/Injury Time Seen by Provider: 06/07/18 08:18 Chief Complaint (Nursing): Lower Extremity Problem/Injury Chief Complaint (Provider): Leg swelling History Per: Patient History/Exam Limitations: no limitations Onset/Duration Of Symptoms: Other (x several months) Current Symptoms Are (Timing): Still Present Additional Complaint(s): 82 year old female presents to the ED complaining of bilateral lower leg and feet swelling for several months. Patient denies wearing compression stockings. She also states she has a skin color change to the area of swelling. PMD: Bennett Gonsalves Past Medical History Reviewed: Historical Data, Nursing Documentation, Vital Signs Vital Signs: Last Vital Signs Temp 98.8 F 06/07/18 07:07 Pulse 76 06/07/18 07:07 Resp 17 06/07/18 07:07 BP 154/78 H 06/07/18 07:07 Pulse Ox 99 06/07/18 07:07 - Medical History PMH: Diabetes, HTN, Hypercholesterolemia Denies: HIV, Chronic Kidney Disease - Surgical History Surgical History: Cholecystectomy, - Family History Family History: States: Diabetes - Immunization History Hx Tetanus Toxoid Vaccination: No Hx Influenza Vaccination: Yes Hx Pneumococcal Vaccination: No - Home Medications Home Medications: Ambulatory Orders Medication Instructions Recorded RX: Amlodipine Besylate 10 mg PO DAILY 12/16/14 RX: Aspirin [Aspirin EC] 81 mg PO DAILY 12/16/14 RX: Carvedilol [Coreg] 3.125 mg PO BID 12/16/14 RX: Ferrous Sulfate 325 mg PO DAILY 12/16/14 RX: Furosemide 20 mg PO MWF 12/16/14 RX: Losartan [Cozaar] 25 mg PO DAILY 12/16/14 RX: Simvastatin 10 mg PO DAILY 12/16/14 Azithromycin [Zithromax] 250 mg PO DAILY #6 tablet 12/10/15 Ciprofloxacin HCl [Cipro] 500 mg PO BID #19 tab 05/09/16 metroNIDAZOLE [Flagyl] 500 mg PO TID #29 tab 05/09/16 Famotidine [Pepcid] 20 mg PO BID PRN #10 tab 03/16/18 Docusate [Colace] 100 mg PO DAILY #10 cap 03/21/18 Ciprofloxacin HCl [Cipro] 500 mg PO BID #14 tablet 05/07/18 Metronidazole [Flagyl] 500 mg PO TID #21 tab 05/07/18 Polyethylene Glycol 3350 [Miralax] 1 bottle PO DAILY #1 bottle 05/12/18 RX: Lactulose 10 gm PO DAILY #1 solution 05/12/18 Docusate Sodium [Dulcolax Stool 100 mg PO DAILY #12 capsule 05/30/18 Softener] - Allergies Allergies/Adverse Reactions: Allergies Allergy/AdvReac Type Severity Reaction Status Date / Time No Known Allergies Allergy Verified 06/07/18 07:07 Review of Systems ROS Statement: Except As Marked, All Systems Reviewed And Found Negative Cardiovascular: Negative for: Chest Pain Respiratory: Negative for: Shortness of Breath Musculoskeletal: Positive for: Other (Bilateral lower leg and foot swelling) Skin: Positive for: Other (Skin color change of lower legs bilaterally) Physical Exam - Reviewed Nursing Documentation Reviewed: Yes Vital Signs Reviewed: Yes - Physical Exam Appears: Positive for: Non-toxic, No Acute Distress Head Exam: Positive for: ATRAUMATIC, NORMOCEPHALIC Skin: Positive for: Normal Color, Warm, Dry Eye Exam: Positive for: Normal appearance Respiratory: Negative for: Respiratory Distress Extremity: Positive for: Swelling (of the lower legs and feet bilaterally), Other (stasis dermatitis on both lower legs ) Neurologic/Psych: Positive for: Alert, Oriented - ECG O2 Sat by Pulse Oximetry: 99 (RA) Pulse Ox Interpretation: Normal Medical Decision Making Medical Decision Making: Initial Impression: Chronic leg edema and stasis dermatitis Initial Plan: No indication of further evaluation or treatment in the ED. Patient instructed to follow up with primary. Scribe Attestation: Documented by Tramaine Perez acting as a scribe for Marguerite Arnold MD. Provider Scribe Attestation: All medical record entries made by the Scribe were at my direction and personally dictated by me. I have reviewed the chart and agree that the record accurately reflects my personal performance of the history, physical exam, medical decision making, and the department course for this patient. I have also personally directed, reviewed, and agree with the discharge instructions and disposition. Disposition - Clinical Impression Clinical Impression: Swollen leg - Patient ED Disposition Is Patient to be Admitted: No Doctor Will See Patient In The: Office Counseled Patient/Family Regarding: Studies Performed, Diagnosis - Disposition Referrals: [facility] [Outside] Disposition: Routine/Home Disposition Time: 09:52 Condition: GOOD Additional Instructions: DONNA ESPOSITO, thank you for letting us take care of you today. Your provider was Marguerite Arnold MD and you were treated for B/L LEG PAIN. The emergency medical care you received today was directed at your acute symptoms. If you were prescribed any medication, please fill it and take as directed. It may take several days for your symptoms to resolve. Return to the Emergency Department if your symptoms worsen, do not improve, or if you have any other problems. Please contact your doctor or call one of the physicians/clinics you have been referred to that are listed on the Patient Visit Information form that is included in your discharge packet. Bring any paperwork you were given at discharge with you along with any medications you are taking to your follow up visit. Our treatment cannot replace ongoing medical care by a primary care provider outside of the emergency department. [facility] to [facility] part of your care today. If you had an X-Ray or CT scan: A Radiologist will review the ED reading if any change in treatment is needed we will contact you. If you had a blood, urine, or wound culture: It will take several days for the results, if any change in treatment is needed we will contact you. If you had an STI test: It will take 48 hours for the results. Please call after 1 week if you have not heard back. Instructions: Dependent Edema (DC)
[2018-06-07 10:08] VITALS: RESP 16
== END 2018-06-07 10:02 | disposition home or self-care (01) ==
LOC: H.ER 06:47
DX: R60.0 Localized edema (principal); E11.9 Type 2 diabetes mellitus without complications; E78.00 Pure hypercholesterolemia, unspecified; I10 Essential (primary) hypertension; I87.2 Venous insufficiency (chronic) (peripheral)

== ENCOUNTER 2018-06-11 00:45 | Emergency (ER) | payer MEDICARE ==
[2018-06-11 00:45] VITALS: BMI 34.7
[2018-06-11 00:51] VITALS: RESP 16
[2018-06-11 03:37] VITALS: BP 132/71; PULSE 79; TEMP 98.1; O2SAT 100
--- NOTE | 2018-06-11 04:54 | ED PDOC ---
HPI: Abdomen Time Seen by Provider: 06/11/18 01:09 Chief Complaint (Nursing): Abdominal Pain History Per: Patient History/Exam Limitations: no limitations Outside of [place] travel?: No Location Of Pain/Discomfort: Diffuse, RUQ, LUQ Associated Symptoms: Constipation Additional Complaint(s): Patient with chronic constipation presenting with constipation, states she is unable to give herself enemas at home. No fevers, vomiting, or any other symptoms. Past Medical History Reviewed: Historical Data, Nursing Documentation Vital Signs: Last Vital Signs Temp 98.1 F 06/11/18 03:35 Pulse 79 06/11/18 03:35 Resp 16 06/11/18 03:35 BP 132/71 06/11/18 03:35 Pulse Ox 100 06/11/18 03:35 - Medical History PMH: Diabetes, HTN, Hypercholesterolemia Denies: HIV, Chronic Kidney Disease - Surgical History Surgical History: Cholecystectomy, - Family History Family History: States: Unknown Family Hx, Diabetes - Immunization History Hx Tetanus Toxoid Vaccination: No Hx Influenza Vaccination: Yes Hx Pneumococcal Vaccination: No - Home Medications Home Medications: Ambulatory Orders Medication Instructions Recorded Amlodipine Besylate 10 mg PO DAILY 12/16/14 Aspirin [Aspirin EC] 81 mg PO DAILY 12/16/14 Carvedilol [Coreg] 3.125 mg PO BID 12/16/14 Ferrous Sulfate 325 mg PO DAILY 12/16/14 Furosemide 20 mg PO MWF 12/16/14 Losartan [Cozaar] 25 mg PO DAILY 12/16/14 Simvastatin 10 mg PO DAILY 12/16/14 Azithromycin [Zithromax] 250 mg PO DAILY #6 tablet 12/10/15 Ciprofloxacin HCl [Cipro] 500 mg PO BID #19 tab 05/09/16 metroNIDAZOLE [Flagyl] 500 mg PO TID #29 tab 05/09/16 Famotidine [Pepcid] 20 mg PO BID PRN #10 tab 03/16/18 Docusate [Colace] 100 mg PO DAILY #10 cap 03/21/18 Ciprofloxacin HCl [Cipro] 500 mg PO BID #14 tablet 05/07/18 Metronidazole [Flagyl] 500 mg PO TID #21 tab 05/07/18 Lactulose 10 gm PO DAILY #1 solution 05/12/18 Polyethylene Glycol 3350 [Miralax] 1 bottle PO DAILY #1 bottle 05/12/18 Docusate Sodium [Dulcolax Stool 100 mg PO DAILY #12 capsule 05/30/18 Softener] - Allergies Allergies/Adverse Reactions: Allergies Allergy/AdvReac Type Severity Reaction Status Date / Time No Known Allergies Allergy Verified 06/07/18 07:07 Review of Systems ROS Statement: Except As Marked, All Systems Reviewed And Found Negative Gastrointestinal: Positive for: Abdominal Pain, Constipation Physical Exam - Reviewed Nursing Documentation Reviewed: Yes Vital Signs Reviewed: Yes - Physical Exam Appears: Positive for: Well, Non-toxic, No Acute Distress Head Exam: Positive for: ATRAUMATIC, NORMAL INSPECTION, NORMOCEPHALIC Skin: Positive for: Normal Color, Warm, DRY Eye Exam: Positive for: EOMI, Normal appearance, PERRL ENT: Positive for: Normal ENT Inspection Neck: Positive for: Normal, Painless ROM Cardiovascular/Chest: Positive for: Regular Rate, Rhythm Respiratory: Positive for: CNT, Normal Breath Sounds Gastrointestinal/Abdominal: Positive for: Normal Exam, Soft, Tenderness (Diffuse tenderness, minimal, upper) Back: Positive for: Normal Inspection Extremity: Positive for: Normal ROM Neurologic/Psych: Positive for: Alert, Oriented - ECG O2 Sat by Pulse Oximetry: 100 Pulse Ox Interpretation: Normal Medical Decision Making Medical Decision Making: Patient was given enema with immediate return of stool and resolution of symptoms. Advised patient to followup with GI as scheduled. Disposition - Clinical Impression Clinical Impression: Constipation - Disposition Referrals: [facility] Jhaveri [Outside] Disposition: Routine/Home Disposition Time: 03:30 Condition: IMPROVED Instructions: Constipation in Adults Forms: [employer]ise Maddi (Welsh)
== END 2018-06-11 03:35 | disposition home or self-care (01) ==
LOC: H.ER 00:45
DX: K59.00 Constipation, unspecified (principal); I10 Essential (primary) hypertension; E11.9 Type 2 diabetes mellitus without complications

== ENCOUNTER 2018-06-17 22:02 | Emergency (ER) | payer MEDICARE ==
[2018-06-17 22:02] VITALS: BMI 34.7
[2018-06-17 22:08] VITALS: TEMP 97.7
[2018-06-17 23:32] VITALS: BP 150/70; PULSE 72; RESP 18; O2SAT 99
== END 2018-06-17 22:57 | disposition left against medical advice (07) ==
LOC: H.ER 22:02
DX: Z02.89 Encounter for other administrative examinations (principal)

== ENCOUNTER 2018-06-19 04:05 | Emergency (ER) | payer MEDICARE ==
[2018-06-19 04:05] VITALS: BMI 34.7
[2018-06-19 04:15] VITALS: O2SAT 99
--- NOTE | 2018-06-19 04:33 | ED PDOC ---
HPI: Abdomen Time Seen by Provider: 06/19/18 04:10 Chief Complaint (Nursing): Abdominal Pain Chief Complaint (Provider): Abdominal Pain History Per: Patient History/Exam Limitations: no limitations Location Of Pain/Discomfort: Epigastric Associated Symptoms: Constipation. denies: Fever, Nausea, Vomiting, Urinary Symptoms Additional Complaint(s): 82 years old female with history of chronic constipation presents to ER for evaluation of abdominal pain. Patient reports she didn't have bowel movement in the last 12 hours. She states she's taking Dulcolax with no relief and she refused to give herself enemas at home. Patient denies fever, nausea, weight loss or any other symptoms. PMD: Bennett Condon Past Medical History Reviewed: Historical Data, Nursing Documentation, Vital Signs Vital Signs: Last Vital Signs Temp 97.7 F 06/19/18 04:12 Pulse 70 06/19/18 04:12 Resp 16 06/19/18 04:12 BP 144/60 06/19/18 04:12 Pulse Ox 99 06/19/18 04:12 - Medical History PMH: Diabetes, HTN, Hypercholesterolemia Denies: HIV, Chronic Kidney Disease Other PMH: Chronic constipation - Surgical History Surgical History: Cholecystectomy, - Family History Family History: States: Unknown Family Hx, Diabetes - Immunization History Hx Tetanus Toxoid Vaccination: No Hx Influenza Vaccination: Yes Hx Pneumococcal Vaccination: No - Home Medications Home Medications: Ambulatory Orders Medication Instructions Recorded Amlodipine Besylate 10 mg PO DAILY 12/16/14 Aspirin [Aspirin EC] 81 mg PO DAILY 12/16/14 Carvedilol [Coreg] 3.125 mg PO BID 12/16/14 Ferrous Sulfate 325 mg PO DAILY 12/16/14 Furosemide 20 mg PO MWF 12/16/14 Losartan [Cozaar] 25 mg PO DAILY 12/16/14 Simvastatin 10 mg PO DAILY 12/16/14 Azithromycin [Zithromax] 250 mg PO DAILY #6 tablet 12/10/15 Ciprofloxacin HCl [Cipro] 500 mg PO BID #19 tab 05/09/16 metroNIDAZOLE [Flagyl] 500 mg PO TID #29 tab 05/09/16 Famotidine [Pepcid] 20 mg PO BID PRN #10 tab 03/16/18 Docusate [Colace] 100 mg PO DAILY #10 cap 03/21/18 Ciprofloxacin HCl [Cipro] 500 mg PO BID #14 tablet 05/07/18 Metronidazole [Flagyl] 500 mg PO TID #21 tab 05/07/18 Lactulose 10 gm PO DAILY #1 solution 05/12/18 Polyethylene Glycol 3350 [Miralax] 1 bottle PO DAILY #1 bottle 05/12/18 Docusate Sodium [Dulcolax Stool 100 mg PO DAILY #12 capsule 05/30/18 Softener] - Allergies Allergies/Adverse Reactions: Allergies Allergy/AdvReac Type Severity Reaction Status Date / Time No Known Allergies Allergy Verified 06/07/18 07:07 Review of Systems ROS Statement: Except As Marked, All Systems Reviewed And Found Negative Constitutional: Negative for: Fever Gastrointestinal: Positive for: Abdominal Pain, Constipation. Negative for: Nausea, Vomiting Physical Exam - Reviewed Nursing Documentation Reviewed: Yes Vital Signs Reviewed: Yes - Physical Exam Appears: Positive for: Non-toxic, No Acute Distress Head Exam: Positive for: ATRAUMATIC, NORMOCEPHALIC Skin: Positive for: Normal Color, Warm, Dry Eye Exam: Positive for: Normal appearance, EOMI, PERRL Neck: Positive for: Normal, Painless ROM, Supple Cardiovascular/Chest: Positive for: Regular Rate, Rhythm. Negative for: Murmur Respiratory: Positive for: Normal Breath Sounds. Negative for: Wheezing Gastrointestinal/Abdominal: Positive for: Normal Exam, Soft. Negative for: Tenderness, Distended, Guarding, Rebound Extremity: Positive for: Normal ROM. Negative for: Pedal Edema, Deformity Neurologic/Psych: Positive for: Alert, Oriented (x3) - ECG O2 Sat by Pulse Oximetry: 99 (RA) Pulse Ox Interpretation: Normal Medical Decision Making Medical Decision Making: Time: 416 A/P: 82 years old female presents with constipation --Fleet enema 135 ml [place] 6AM --3 enemas were given --rectal exam showed no stool in vault --patient was seen putting on clothes and walking out of ER ----- Scribe Attestation: Documented by Gypsy Rodriguez, acting as a scribe for Nolan Lott MD. Provider Scribe Attestation: All medical record entries made by the Scribe were at my direction and personally dictated by me. I have reviewed the chart and agree that the record accurately reflects my personal performance of the history, physical exam, medical decision making, and the department course for this patient. I have also personally directed, reviewed, and agree with the discharge instructions and disposition. Disposition - Clinical Impression Clinical Impression: Constipation - Disposition Disposition: Eloped Disposition Time: 06:25 Condition: UNKNOWN Forms: [employer] (Burkinan)
[2018-06-19 07:00] VITALS: BP 132/58; PULSE 76; RESP 18; TEMP 98.2
== END 2018-06-19 06:20 | disposition left against medical advice (07) ==
LOC: H.ER 04:05
DX: K59.09 Other constipation (principal); E11.9 Type 2 diabetes mellitus without complications; E78.00 Pure hypercholesterolemia, unspecified; I10 Essential (primary) hypertension

== ENCOUNTER 2018-06-21 14:29 | Emergency (ER) | payer MEDICARE ==
[2018-06-21 14:29] VITALS: BMI 34.7
[2018-06-21 14:33] VITALS: O2SAT 99
[2018-06-21] MEDS ORDERED: Magnesium Citrate Oral SOL (300 ml) PO STA (15:52)
--- NOTE | 2018-06-21 16:23 | ED PDOC ---
HPI: Abdomen Time Seen by Provider: 06/21/18 15:08 Chief Complaint (Nursing): Abdominal Pain Chief Complaint (Provider): Abdominal Pain History Per: Patient History/Exam Limitations: no limitations Location Of Pain/Discomfort: Epigastric Associated Symptoms: Constipation Additional Complaint(s): 82 years old female presents to ER for evaluation of constipation onset 1 day. Patient is known for frequent visits to the ER for the same complaint. She refuses to take enemas at home and she states she always needs 3 enemas or rectal disimpaction. Patient wants to go home and be with her kids for dinner. PMD: Bennett Condon Past Medical History Reviewed: Historical Data, Nursing Documentation, Vital Signs Vital Signs: Last Vital Signs Temp 98.6 F 06/21/18 14:31 Pulse 74 06/21/18 14:31 Resp 18 06/21/18 14:31 BP 165/74 H 06/21/18 14:31 Pulse Ox 99 06/21/18 14:31 - Medical History PMH: Diabetes, HTN, Hypercholesterolemia Denies: HIV, Chronic Kidney Disease Other PMH: Constipation - Surgical History Surgical History: Cholecystectomy, - Family History Family History: States: Unknown Family Hx, Diabetes - Social History Current smoker - smoking cessation education provided: No Alcohol: None Drugs: Denies - Immunization History Hx Tetanus Toxoid Vaccination: No Hx Influenza Vaccination: Yes Hx Pneumococcal Vaccination: No - Home Medications Home Medications: Ambulatory Orders Medication Instructions Recorded Amlodipine Besylate 10 mg PO DAILY 12/16/14 Aspirin [Aspirin EC] 81 mg PO DAILY 12/16/14 Carvedilol [Coreg] 3.125 mg PO BID 12/16/14 Ferrous Sulfate 325 mg PO DAILY 12/16/14 Furosemide 20 mg PO MWF 12/16/14 Losartan [Cozaar] 25 mg PO DAILY 12/16/14 Simvastatin 10 mg PO DAILY 12/16/14 Azithromycin [Zithromax] 250 mg PO DAILY #6 tablet 12/10/15 Ciprofloxacin HCl [Cipro] 500 mg PO BID #19 tab 05/09/16 metroNIDAZOLE [Flagyl] 500 mg PO TID #29 tab 05/09/16 Famotidine [Pepcid] 20 mg PO BID PRN #10 tab 03/16/18 Docusate [Colace] 100 mg PO DAILY #10 cap 03/21/18 Ciprofloxacin HCl [Cipro] 500 mg PO BID #14 tablet 05/07/18 Metronidazole [Flagyl] 500 mg PO TID #21 tab 05/07/18 Lactulose 10 gm PO DAILY #1 solution 05/12/18 Polyethylene Glycol 3350 [Miralax] 1 bottle PO DAILY #1 bottle 05/12/18 Docusate Sodium [Dulcolax Stool 100 mg PO DAILY #12 capsule 05/30/18 Softener] - Allergies Allergies/Adverse Reactions: Allergies Allergy/AdvReac Type Severity Reaction Status Date / Time No Known Allergies Allergy Verified 06/07/18 07:07 Review of Systems ROS Statement: Except As Marked, All Systems Reviewed And Found Negative Gastrointestinal: Positive for: Constipation Physical Exam - Reviewed Nursing Documentation Reviewed: Yes Vital Signs Reviewed: Yes - Physical Exam Appears: Positive for: Well (poor hygiene), No Acute Distress (Ambulatory) Gastrointestinal/Abdominal: Positive for: Soft, Distended (mildly). Negative for: Tenderness Neurologic/Psych: Positive for: Alert, Oriented (x3) - ECG O2 Sat by Pulse Oximetry: 99 (RA) Pulse Ox Interpretation: Normal Medical Decision Making Medical Decision Making: Time: 150 Initial plan: --Fleet enemas --Magnesium citrate 1622 Patient requesting to go home with a diaper, reports improvement of symptoms and instructed to follow up with PMD. Scribe Attestation: Documented by Gypsy Rodriguez, acting as a scribe for Merry Bryan MD. Provider Scribe Attestation: All medical record entries made by the Scribe were at my direction and personally dictated by me. I have reviewed the chart and agree that the record accurately reflects my personal performance of the history, physical exam, medical decision making, and the department course for this patient. I have also personally directed, reviewed, and agree with the discharge instructions and disposition. Disposition - Clinical Impression Clinical Impression: Constipation - Disposition Disposition: Routine/Home Disposition Time: 16:22 Condition: IMPROVED Additional Instructions: Follow up with primary medical doctor. Forms: [employer] (Faroese)
[2018-06-21 17:29] VITALS: BP 150/70; PULSE 76; RESP 16; TEMP 98.3
== END 2018-06-21 16:40 | disposition home or self-care (01) ==
LOC: H.ER 14:29
DX: K59.00 Constipation, unspecified (principal); E11.9 Type 2 diabetes mellitus without complications; E78.00 Pure hypercholesterolemia, unspecified; I10 Essential (primary) hypertension

== ENCOUNTER 2018-06-24 04:44 | Emergency (ER) | payer MEDICARE ==
[2018-06-24 04:45] VITALS: BMI 34.7
[2018-06-24 05:01] VITALS: O2SAT 98
--- NOTE | 2018-06-24 05:35 | ED PDOC ---
HPI: General Adult Time Seen by Provider: 06/24/18 04:59 Chief Complaint (Nursing): GI Problem Chief Complaint (Provider): GI Problem History Per: Patient History/Exam Limitations: no limitations Current Symptoms Are (Timing): Gone Now Additional Complaint(s): 82 year old female well known to the ED for a history of constipation and multiple visits presents via EMS complaining of constipation. However, on arrival to the ED, patient was able to defecate without assistance and is requesting to leave. PMD: none provided Past Medical History Reviewed: Historical Data, Nursing Documentation, Vital Signs Vital Signs: Last Vital Signs Temp 97.8 F 06/24/18 04:59 Pulse 75 06/24/18 04:59 Resp 17 06/24/18 04:59 BP 138/72 06/24/18 04:59 Pulse Ox 98 06/24/18 04:59 - Medical History PMH: Diabetes, HTN, Hypercholesterolemia Denies: HIV, Chronic Kidney Disease - Surgical History Surgical History: Cholecystectomy, - Family History Family History: States: Unknown Family Hx, Diabetes - Immunization History Hx Tetanus Toxoid Vaccination: No Hx Influenza Vaccination: Yes Hx Pneumococcal Vaccination: No - Home Medications Home Medications: Ambulatory Orders Medication Instructions Recorded RX: Amlodipine Besylate 10 mg PO DAILY 12/16/14 RX: Aspirin [Aspirin EC] 81 mg PO DAILY 12/16/14 RX: Carvedilol [Coreg] 3.125 mg PO BID 12/16/14 RX: Ferrous Sulfate 325 mg PO DAILY 12/16/14 RX: Furosemide 20 mg PO MWF 12/16/14 RX: Losartan [Cozaar] 25 mg PO DAILY 12/16/14 RX: Simvastatin 10 mg PO DAILY 12/16/14 Azithromycin [Zithromax] 250 mg PO DAILY #6 tablet 12/10/15 Ciprofloxacin HCl [Cipro] 500 mg PO BID #19 tab 05/09/16 metroNIDAZOLE [Flagyl] 500 mg PO TID #29 tab 05/09/16 Famotidine [Pepcid] 20 mg PO BID PRN #10 tab 03/16/18 Docusate [Colace] 100 mg PO DAILY #10 cap 03/21/18 Ciprofloxacin HCl [Cipro] 500 mg PO BID #14 tablet 05/07/18 Metronidazole [Flagyl] 500 mg PO TID #21 tab 05/07/18 Polyethylene Glycol 3350 [Miralax] 1 bottle PO DAILY #1 bottle 05/12/18 RX: Lactulose 10 gm PO DAILY #1 solution 05/12/18 Docusate Sodium [Dulcolax Stool 100 mg PO DAILY #12 capsule 05/30/18 Softener] - Allergies Allergies/Adverse Reactions: Allergies Allergy/AdvReac Type Severity Reaction Status Date / Time No Known Allergies Allergy Verified 06/24/18 05:01 Review of Systems ROS Statement: Except As Marked, All Systems Reviewed And Found Negative Physical Exam - Reviewed Nursing Documentation Reviewed: Yes Vital Signs Reviewed: Yes - Physical Exam Appears: Positive for: Non-toxic, No Acute Distress Head Exam: Positive for: ATRAUMATIC, NORMAL INSPECTION, NORMOCEPHALIC Skin: Positive for: Normal Color, Warm, Dry Eye Exam: Positive for: EOMI, Normal appearance, PERRL Extremity: Positive for: Normal ROM (upper and lower extremities) Neurologic/Psych: Positive for: Alert, Oriented. Negative for: Motor/Sensory Deficits - ECG O2 Sat by Pulse Oximetry: 98 (RA) Pulse Ox Interpretation: Normal Medical Decision Making Medical Decision Making: Patient has no complaints at this time. There is no indication for further evaluation and treatment. Stable for discharge. Scribe Attestation: Documented by Sindy Jacinto acting as a scribe for Marguerite Arnold MD Provider Scribe Attestation: All medical record entries made by the Scribe were at my direction and personally dictated by me. I have reviewed the chart and agree that the record accurately reflects my personal performance of the history, physical exam, medical decision making, and the department course for this patient. I have also personally directed, reviewed, and agree with the discharge instructions and disposition. Disposition - Clinical Impression Clinical Impression: Constipation - Patient ED Disposition Is Patient to be Admitted: No - Disposition Referrals: [facility] [Outside] Disposition: Routine/Home Disposition Time: 05:20 Condition: GOOD Instructions: Constipation in Adults
[2018-06-24 05:58] VITALS: BP 133/81; PULSE 70; RESP 18; TEMP 98
== END 2018-06-24 05:27 | disposition home or self-care (01) ==
LOC: H.ER 04:44
DX: K59.00 Constipation, unspecified (principal); E11.9 Type 2 diabetes mellitus without complications; E78.00 Pure hypercholesterolemia, unspecified; I10 Essential (primary) hypertension

== ENCOUNTER 2018-07-01 03:35 | Emergency (ER) | payer MEDICARE ==
[2018-07-01 03:35] VITALS: BMI 34.7
[2018-07-01 03:50] VITALS: BP 165/64; PULSE 80; RESP 16; TEMP 98.1; O2SAT 98
--- NOTE | 2018-07-01 04:00 | ED PDOC ---
HPI: Abdomen Time Seen by Provider: 07/01/18 03:41 Chief Complaint (Nursing): GI Problem Chief Complaint (Provider): constipation History Per: Patient History/Exam Limitations: no limitations Onset/Duration Of Symptoms: Hrs (10) Current Symptoms Are (Timing): Still Present Additional Complaint(s): 82 y/o female brought in by EMS for evaluation of constipation x 10 hours. 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 Denies fever, nausea/vomiting, chest pain, shortness of breath, palpitations, urinary symptoms. Past Medical History Reviewed: Historical Data, Nursing Documentation, Vital Signs Vital Signs: Last Vital Signs Temp 98.1 F 07/01/18 03:45 Pulse 80 07/01/18 03:45 Resp 16 07/01/18 03:45 BP 165/64 H 07/01/18 03:45 Pulse Ox 98 07/01/18 03:45 - Medical History PMH: Diabetes, HTN, Hypercholesterolemia Denies: HIV, Chronic Kidney Disease - Surgical History Surgical History: Cholecystectomy, - Family History Family History: States: Unknown Family Hx, Diabetes - Immunization History Hx Tetanus Toxoid Vaccination: No Hx Influenza Vaccination: Yes Hx Pneumococcal Vaccination: No - Home Medications Home Medications: Ambulatory Orders Medication Instructions Recorded Amlodipine Besylate 10 mg PO DAILY 12/16/14 Aspirin [Aspirin EC] 81 mg PO DAILY 12/16/14 Carvedilol [Coreg] 3.125 mg PO BID 12/16/14 Ferrous Sulfate 325 mg PO DAILY 12/16/14 Furosemide 20 mg PO MWF 12/16/14 Losartan [Cozaar] 25 mg PO DAILY 12/16/14 Simvastatin 10 mg PO DAILY 12/16/14 Azithromycin [Zithromax] 250 mg PO DAILY #6 tablet 12/10/15 Ciprofloxacin HCl [Cipro] 500 mg PO BID #19 tab 05/09/16 metroNIDAZOLE [Flagyl] 500 mg PO TID #29 tab 05/09/16 Famotidine [Pepcid] 20 mg PO BID PRN #10 tab 03/16/18 Docusate [Colace] 100 mg PO DAILY #10 cap 03/21/18 Ciprofloxacin HCl [Cipro] 500 mg PO BID #14 tablet 05/07/18 Metronidazole [Flagyl] 500 mg PO TID #21 tab 05/07/18 Lactulose 10 gm PO DAILY #1 solution 05/12/18 Polyethylene Glycol 3350 [Miralax] 1 bottle PO DAILY #1 bottle 05/12/18 Docusate Sodium [Dulcolax Stool 100 mg PO DAILY #12 capsule 05/30/18 Softener] - Allergies Allergies/Adverse Reactions: Allergies Allergy/AdvReac Type Severity Reaction Status Date / Time No Known Allergies Allergy Verified 06/24/18 05:01 Review of Systems ROS Statement: Except As Marked, All Systems Reviewed And Found Negative Gastrointestinal: Positive for: Constipation Physical Exam - Reviewed Nursing Documentation Reviewed: Yes Vital Signs Reviewed: Yes - Physical Exam Appears: Positive for: Well, Non-toxic, No Acute Distress Head Exam: Positive for: ATRAUMATIC, NORMAL INSPECTION, NORMOCEPHALIC Skin: Positive for: Normal Color Eye Exam: Positive for: Normal appearance ENT: Positive for: Normal ENT Inspection Cardiovascular/Chest: Positive for: Regular Rate, Rhythm Respiratory: Positive for: Normal Breath Sounds Gastrointestinal/Abdominal: Positive for: Bowel Sounds, Soft, Distended. Negative for: Tenderness Back: Positive for: Normal Inspection Extremity: Positive for: Normal ROM Neurologic/Psych: Positive for: Alert, Oriented (x3) - ECG O2 Sat by Pulse Oximetry: 98 - Progress ED Course And Treament: -fleet enema On re-eval, patient states she had large BM and is feeling better. Patient requesting to be discharged Patient requires no further intervention in the ED and is stable for discharge at this time Return precautions given Disposition - Clinical Impression Clinical Impression: Constipation - Patient ED Disposition Is Patient to be Admitted: No Counseled Patient/Family Regarding: Diagnosis, Need For Followup - Disposition Disposition: Routine/Home Disposition Time: 04:44 Condition: IMPROVED Instructions: Constipation in Adults Forms: [employer] (Surinamese)
== END 2018-07-01 04:46 | disposition home or self-care (01) ==
LOC: H.ER 03:35
DX: K59.00 Constipation, unspecified (principal); E11.9 Type 2 diabetes mellitus without complications; I10 Essential (primary) hypertension; Z79.82 Long term (current) use of aspirin; E78.00 Pure hypercholesterolemia, unspecified

== ENCOUNTER 2018-07-03 14:45 | Emergency (ER) | payer MEDICARE ==
[2018-07-03 14:45] VITALS: BMI 34.7
[2018-07-03 15:04] VITALS: TEMP 98.3
[2018-07-03] MEDS ORDERED: Magnesium Citrate Oral SOL (300 ml) PO ONE (15:30)
--- NOTE | 2018-07-03 15:34 | ED PDOC ---
HPI: Abdomen Time Seen by Provider: 07/03/18 15:25 Chief Complaint (Nursing): Abdominal Pain Chief Complaint (Provider): Constipation and abdominal pain History Per: Patient History/Exam Limitations: no limitations Current Symptoms Are (Timing): Still Present Associated Symptoms: denies: Fever Additional Complaint(s): 82 year old female presents to the ED complaining of chronic constipation and upper abdominal pain. Denies vomiting, fever, or blood in stool. Patient states she passed small stool this morning. PMD: none Past Medical History Reviewed: Historical Data, Nursing Documentation, Vital Signs Vital Signs: Last Vital Signs Temp 98.3 F 07/03/18 15:01 Pulse 72 07/03/18 15:01 Resp 18 07/03/18 15:01 BP 155/55 H 07/03/18 15:01 Pulse Ox 98 07/03/18 15:01 - Medical History PMH: Diabetes, HTN, Hypercholesterolemia Denies: HIV, Chronic Kidney Disease - Surgical History Surgical History: Cholecystectomy, - Family History Family History: States: Diabetes - Immunization History Hx Tetanus Toxoid Vaccination: No Hx Influenza Vaccination: Yes Hx Pneumococcal Vaccination: No - Home Medications Home Medications: Ambulatory Orders Medication Instructions Recorded Amlodipine Besylate 10 mg PO DAILY 12/16/14 Aspirin [Aspirin EC] 81 mg PO DAILY 12/16/14 Carvedilol [Coreg] 3.125 mg PO BID 12/16/14 Ferrous Sulfate 325 mg PO DAILY 12/16/14 Furosemide 20 mg PO MWF 12/16/14 Losartan [Cozaar] 25 mg PO DAILY 12/16/14 Simvastatin 10 mg PO DAILY 12/16/14 Azithromycin [Zithromax] 250 mg PO DAILY #6 tablet 12/10/15 Ciprofloxacin HCl [Cipro] 500 mg PO BID #19 tab 05/09/16 metroNIDAZOLE [Flagyl] 500 mg PO TID #29 tab 05/09/16 Famotidine [Pepcid] 20 mg PO BID PRN #10 tab 03/16/18 Docusate [Colace] 100 mg PO DAILY #10 cap 03/21/18 Ciprofloxacin HCl [Cipro] 500 mg PO BID #14 tablet 05/07/18 Metronidazole [Flagyl] 500 mg PO TID #21 tab 05/07/18 Lactulose 10 gm PO DAILY #1 solution 05/12/18 Polyethylene Glycol 3350 [Miralax] 1 bottle PO DAILY #1 bottle 05/12/18 Docusate Sodium [Dulcolax Stool 100 mg PO DAILY #12 capsule 05/30/18 Softener] Cantharidin 0.5 gm MC DAILY #1 powder 07/03/18 Polyethylene Glycol 3350 [Miralax] 17 gm PO DAILY #100 ml 07/03/18 - Allergies Allergies/Adverse Reactions: Allergies Allergy/AdvReac Type Severity Reaction Status Date / Time No Known Allergies Allergy Verified 07/03/18 15:01 Review of Systems ROS Statement: Except As Marked, All Systems Reviewed And Found Negative Constitutional: Negative for: Fever Gastrointestinal: Positive for: Abdominal Pain (upper), Constipation. Negative for: Vomiting, Hematochezia Physical Exam - Reviewed Nursing Documentation Reviewed: Yes Vital Signs Reviewed: Yes - Physical Exam Appears: Positive for: Non-toxic, No Acute Distress Head Exam: Positive for: ATRAUMATIC, NORMOCEPHALIC Skin: Positive for: Normal Color, Warm, Dry Eye Exam: Positive for: Normal appearance Neck: Positive for: Normal, Painless ROM Cardiovascular/Chest: Positive for: Regular Rate, Rhythm Respiratory: Positive for: Normal Breath Sounds. Negative for: Wheezing, Respiratory Distress Gastrointestinal/Abdominal: Positive for: Normal Exam, Bowel Sounds (present), Soft. Negative for: Tenderness, Mass Extremity: Positive for: Normal ROM Neurologic/Psych: Positive for: Alert, Oriented. Negative for: Motor/Sensory Deficits - ECG O2 Sat by Pulse Oximetry: 98 (RA) Pulse Ox Interpretation: Normal Medical Decision Making Medical Decision Making: Initial Plan: --Magnesium citrate 150mL PO --Phosphate enema 135mL CO Scribe Attestation: Documented by Tramaine Perez acting as a scribe for Yuri Romero MD. Provider Scribe Attestation: All medical record entries made by the Scribe were at my direction and personally dictated by me. I have reviewed the chart and agree that the record accurately reflects my personal performance of the history, physical exam, medical decision making, and the department course for this patient. I have also personally directed, reviewed, and agree with the discharge instructions and disposition. Disposition - Clinical Impression Clinical Impression: Constipation - Patient ED Disposition Is Patient to be Admitted: No Counseled Patient/Family Regarding: Diagnosis, Need For Followup, Rx Given - Disposition Referrals: [facility] [Outside] Disposition: Routine/Home Disposition Time: 16:02 Condition: FAIR Prescriptions: Cantharidin 0.5 gm MC DAILY #1 powder Polyethylene Glycol 3350 [Miralax] 17 gm PO DAILY #100 ml Instructions: Constipation in Adults Forms: [employer] (Vietnamese)
[2018-07-03] MEDS ORDERED: Magnesium Citrate Oral SOL (300 ml) ONE (15:48)
[2018-07-03 16:42] VITALS: BP 148/72; PULSE 78; RESP 21; O2SAT 100
== END 2018-07-03 16:41 | disposition home or self-care (01) ==
LOC: H.ER 14:45
DX: K59.00 Constipation, unspecified (principal); E11.9 Type 2 diabetes mellitus without complications; Z79.899 Other long term (current) drug therapy

== ENCOUNTER 2018-07-10 08:28 | Emergency (ER) | payer MEDICARE ==
[2018-07-10 08:29] VITALS: BMI 34.7
--- NOTE | 2018-07-10 08:49 | ED PDOC ---
HPI: Abdomen Time Seen by Provider: 07/10/18 08:40 Chief Complaint (Provider): Abdominal Pain History Per: Patient History/Exam Limitations: no limitations Onset/Duration Of Symptoms: Days Current Symptoms Are (Timing): Still Present Location Of Pain/Discomfort: Periumbilical Quality Of Discomfort: "Pain" Last Bowel Movement: Days Ago Additional Complaint(s): 82 year old female presents to the ED for abdominal pain. Patient reports he last bowel movement was last Friday. She has not taken any medication for the abdominal pain or constipation. Otherwise, patient denies cough, fever, shortness of breath or any other symptoms. Past Medical History Reviewed: Historical Data, Nursing Documentation, Vital Signs Vital Signs: Last Vital Signs Temp 97 F L 07/10/18 08:32 Pulse 70 07/10/18 08:32 Resp BP 166/67 H 07/10/18 08:32 Pulse Ox 98 07/10/18 08:32 - Medical History PMH: Diabetes, HTN, Hypercholesterolemia Denies: HIV, Chronic Kidney Disease - Surgical History Surgical History: Cholecystectomy, - Family History Family History: States: Diabetes - Immunization History Hx Tetanus Toxoid Vaccination: No Hx Influenza Vaccination: Yes Hx Pneumococcal Vaccination: No - Home Medications Home Medications: Ambulatory Orders Medication Instructions Recorded Amlodipine Besylate 10 mg PO DAILY 12/16/14 Aspirin [Aspirin EC] 81 mg PO DAILY 12/16/14 Carvedilol [Coreg] 3.125 mg PO BID 12/16/14 Ferrous Sulfate 325 mg PO DAILY 12/16/14 Furosemide 20 mg PO MWF 12/16/14 Losartan [Cozaar] 25 mg PO DAILY 12/16/14 Simvastatin 10 mg PO DAILY 12/16/14 Azithromycin [Zithromax] 250 mg PO DAILY #6 tablet 12/10/15 Ciprofloxacin HCl [Cipro] 500 mg PO BID #19 tab 05/09/16 metroNIDAZOLE [Flagyl] 500 mg PO TID #29 tab 05/09/16 Famotidine [Pepcid] 20 mg PO BID PRN #10 tab 03/16/18 Docusate [Colace] 100 mg PO DAILY #10 cap 03/21/18 Ciprofloxacin HCl [Cipro] 500 mg PO BID #14 tablet 05/07/18 Metronidazole [Flagyl] 500 mg PO TID #21 tab 05/07/18 Lactulose 10 gm PO DAILY #1 solution 05/12/18 Polyethylene Glycol 3350 [Miralax] 1 bottle PO DAILY #1 bottle 05/12/18 Docusate Sodium [Dulcolax Stool 100 mg PO DAILY #12 capsule 05/30/18 Softener] Cantharidin 0.5 gm MC DAILY #1 powder 07/03/18 Polyethylene Glycol 3350 [Miralax] 17 gm PO DAILY #100 ml 07/03/18 Polyethylene Glycol 3350 [Miralax] 1 tbs PO DAILY PRN #1 bottle 07/10/18 - Allergies Allergies/Adverse Reactions: Allergies Allergy/AdvReac Type Severity Reaction Status Date / Time No Known Allergies Allergy Verified 07/03/18 15:01 Review of Systems ROS Statement: Except As Marked, All Systems Reviewed And Found Negative Constitutional: Negative for: Fever, Chills Respiratory: Negative for: Cough, Shortness of Breath Gastrointestinal: Positive for: Abdominal Pain, Constipation Genitourinary Female: Negative for: Dysuria Skin: Negative for: Rash Physical Exam - Reviewed Nursing Documentation Reviewed: Yes Vital Signs Reviewed: Yes - Physical Exam Appears: Positive for: Non-toxic, No Acute Distress Head Exam: Positive for: ATRAUMATIC, NORMAL INSPECTION, NORMOCEPHALIC Skin: Positive for: Normal Color, Warm, Dry. Negative for: Rash Eye Exam: Positive for: EOMI, Normal appearance, PERRL ENT: Positive for: Normal ENT Inspection Neck: Positive for: Normal, Painless ROM Cardiovascular/Chest: Positive for: Regular Rate, Rhythm. Negative for: Murmur Respiratory: Positive for: Normal Breath Sounds. Negative for: Decreased Breath Sounds, Wheezing, Respiratory Distress Gastrointestinal/Abdominal: Positive for: Tenderness (periumbilical) Back: Positive for: Normal Inspection Extremity: Positive for: Normal ROM. Negative for: Tenderness, Pedal Edema, Deformity Neurologic/Psych: Positive for: Alert, Oriented (x3). Negative for: Motor/Sensory Deficits - Laboratory Results Result Diagrams: 07/10/18 09:40 07/10/18 09:40 - ECG O2 Sat by Pulse Oximetry: 98 (RA) Pulse Ox Interpretation: Normal - Other Rad AXR X-Ray: Interpreted by Me (+ Air-fluid levels.) Medical Decision Making Medical Decision Making: Time: 845 Initial Plan: --EKG --Abdomen w/ Chest [rad] --Reevaluation Accession No. : [id number] Patient Name / ID : VAIBHAV THOMPSON / [id number] Exam Date : 07/10/2018 10:40:58 ( Approved ) Study Comment : Sex / Age : F / 82Y Creator : Russ Griffith MD Dictator : Russ Griffith MD Marketing Reporting Analyst : Or Assistant : Russ Griffith MD Approver2 : Report Date : 07/10/2018 11:20:44 My Comment : Date of service: 07/10/2018 PROCEDURE: CT Abdomen and Pelvis without intravenous contrast HISTORY: Constipation COMPARISON: 05/22/2018 TECHNIQUE: Without contrast.. Contrast dose: 0 Radiation dose: Total exam DLP = 791.15 mGy-cm. This CT exam was performed using one or more of the following dose reduction techniques: Automated exposure control, adjustment of the mA and/or kV according to patient size, and/or use of iterative reconstruction technique. FINDINGS: LOWER THORAX: Minimal linear scar/atelectasis in the right middle lobe and lingula. Mitral annular calcification noted. LIVER: Unremarkable. No gross lesion or ductal dilatation. GALLBLADDER AND BILE DUCTS: Status post cholecystectomy. PANCREAS: Unremarkable. No gross lesion or ductal dilatation. SPLEEN: Unremarkable. ADRENALS: Unremarkable. No mass. KIDNEYS AND URETERS: Unremarkable. No hydronephrosis. No solid mass. VASCULATURE: Unremarkable. No aortic aneurysm. There is mild atherosclerotic calcification of the abdominal aorta. BOWEL: Unremarkable. No obstruction. No gross mural thickening. APPENDIX: Unremarkable. Normal appendix. PERITONEUM: Unremarkable. No free fluid. No free air. LYMPH NODES: Unremarkable. No enlarged lymph nodes. BLADDER: Nondistended REPRODUCTIVE: Status post hysterectomy BONES: No acute fracture. OTHER FINDINGS: None. IMPRESSION: No acute abnormality. Status post cholecystectomy. Status post hysterectomy. No evidence of significant fecal retention. Scribe Attestation: Documented by Anderson Reece, acting as a scribe for Mary Morris MD Provider Scribe Attestation: All medical record entries made by the Scribe were at my direction and pers onally dictated by me. I have reviewed the chart and agree that the record accurately reflects my personal performance of the history, physical exam, medical decision making, and the department course for this patient. I have also personally directed, reviewed, and agree with the discharge instructions and disposition. Disposition - Clinical Impression Clinical Impression: Constipation - Disposition Disposition: Routine/Home Disposition Time: 12:22 Condition: STABLE Prescriptions: Polyethylene Glycol 3350 [Miralax] 1 tbs PO DAILY PRN #1 bottle PRN Reason: Constipation Instructions: Constipation in Adults Forms: [employer] (Turkmen)
[2018-07-10 09:49] LABS: BASO # 0.1 K/uL (0.0-0.2); EOS # 0.1 K/uL (0.0-0.7); EOS % 1.4 % (0.0-4.0); HEMOGLOBIN 12.6 g/dL (12.0-16.0); LYMPH # 2.3 K/uL (1.0-4.3); LYMPH % 30.2 % (20.0-40.0); MEAN CORPUSCULAR HEMOGLOBIN 29.4 pg (27.0-31.0); MEAN PLATELET VOLUME 9.5 fl (7.2-11.7); MONO # 0.5 K/uL (0.0-0.8); NEUT # 4.6 K/uL (1.8-7.0); NEUT % 61.4 % (50.0-75.0); NRBC % 0.1 % (0.0-0.0); RBC 4.28 Mil/uL (3.80-5.20); RED CELL DISTRIBUTION WIDTH 13.5 % (11.5-14.5); WHITE BLOOD COUNT 7.6 K/uL (4.8-10.8)
[2018-07-10 09:58] LABS: PARTIAL THROMBOPLASTIN TIME 28.5 Seconds (25.6-37.1)
[2018-07-10 10:01] LABS: ALB/GLOB RATIO 1.4 (1.0-2.1); ALBUMIN 4.4 g/dL (3.5-5.0); CALCIUM 9.6 mg/dL (8.4-10.2)
[2018-07-10 11:01] VITALS: RESP 18; TEMP 97.5
--- NOTE | 2018-07-10 11:24 | CT ---
Date of service: 07/10/2018 PROCEDURE: CT Abdomen and Pelvis without intravenous contrast HISTORY: Constipation COMPARISON: 05/22/2018 TECHNIQUE: Without contrast.. Contrast dose: 0 Radiation dose: Total exam DLP = 791.15 mGy-cm. This CT exam was performed using one or more of the following dose reduction techniques: Automated exposure control, adjustment of the mA and/or kV according to patient size, and/or use of iterative reconstruction technique. FINDINGS: LOWER THORAX: Minimal linear scar/atelectasis in the right middle lobe and lingula. Mitral annular calcification noted. LIVER: Unremarkable. No gross lesion or ductal dilatation. GALLBLADDER AND BILE DUCTS: Status post cholecystectomy. PANCREAS: Unremarkable. No gross lesion or ductal dilatation. SPLEEN: Unremarkable. ADRENALS: Unremarkable. No mass. KIDNEYS AND URETERS: Unremarkable. No hydronephrosis. No solid mass. VASCULATURE: Unremarkable. No aortic aneurysm. There is mild atherosclerotic calcification of the abdominal aorta. BOWEL: Unremarkable. No obstruction. No gross mural thickening. APPENDIX: Unremarkable. Normal appendix. PERITONEUM: Unremarkable. No free fluid. No free air. LYMPH NODES: Unremarkable. No enlarged lymph nodes. BLADDER: Nondistended REPRODUCTIVE: Status post hysterectomy BONES: No acute fracture. OTHER FINDINGS: None. IMPRESSION: No acute abnormality. Status post cholecystectomy. Status post hysterectomy. No evidence of significant fecal retention.
[2018-07-10 13:01] VITALS: BP 146/76; PULSE 66
--- NOTE | 2018-07-10 13:32 | RAD ---
Date of service: 07/10/2018 HISTORY: Constipation COMPARISON: None available. FINDINGS: BOWEL: Normal. No obstruction. No free air. Surgical clips in right upper quadrant of abdomen status post cholecystectomy. BONES: Normal. OTHER FINDINGS: None. IMPRESSION: No active disease.
--- NOTE | 2018-07-10 18:00 | CARD ---
APPROVED REPORT Date of service: 07/10/2018 EKG Measurement Heart [id number] <Conclusion> Normal sinus rhythm Nonspecific T wave changes Abnormal ECG
[2018-07-11 12:52] VITALS: O2SAT 98
== END 2018-07-10 13:04 | disposition home or self-care (01) ==
LOC: H.ER 08:28
DX: K59.00 Constipation, unspecified (principal); E11.9 Type 2 diabetes mellitus without complications; I10 Essential (primary) hypertension; Z90.49 Acquired absence of other specified parts of digestive tract; Z90.710 Acquired absence of both cervix and uterus; Z79.899 Other long term (current) drug therapy; Z79.82 Long term (current) use of aspirin; E78.00 Pure hypercholesterolemia, unspecified
CPT/HCPCS: 74019; 74176; 80053; 85025; 85610; 85730; 93005; 99284; J2405

== ENCOUNTER 2018-07-26 19:15 | Emergency (ER) | payer MEDICARE ==
[2018-07-26 19:15] VITALS: BMI 34.7
[2018-07-26 19:37] VITALS: BP 152/77; PULSE 72; RESP 16; TEMP 97.7; O2SAT 98
[2018-07-26 20:16] LABS: BASO # 0.1 K/uL (0.0-0.2); EOS # 0.1 K/uL (0.0-0.7); EOS % 1.9 % (0.0-4.0); HEMOGLOBIN 13.1 g/dL (12.0-16.0); LYMPH % 28.2 % (20.0-40.0); MEAN CELL VOLUME 89.1 fl (81.0-99.0); MEAN CORPUSCULAR HEMOGLOBIN 29.4 pg (27.0-31.0); MEAN CORPUSCULAR HGB CONC 32.9 g/dL (33.0-37.0); MEAN PLATELET VOLUME 8.8 fl (7.2-11.7); MONO # 0.6 K/uL (0.0-0.8); MONO % 8.5 % (0.0-10.0); NEUT # 4.2 K/uL (1.8-7.0); NEUT % 60.4 % (50.0-75.0); NRBC % 0.1 % (0.0-0.0); RBC 4.46 Mil/uL (3.80-5.20); RED CELL DISTRIBUTION WIDTH 13.9 % (11.5-14.5)
[2018-07-26 20:24] LABS: SQUAMOUS EPITHIAL 15 /hpf (0-5); URINE BACTERIA RARE (<OCC); URINE BILIRUBIN NEGATIVE (NEGATIVE); URINE BLOOD NEGATIVE (NEGATIVE); URINE CLARITY CLOUDY (Clear); URINE COLOR YELLOW (YELLOW); URINE GLUCOSE (UA) NEG (NEGATIVE); URINE HYALINE CAST 0-2 /hpf (0-2); URINE LEUKOCYTE ESTERASE NEG Leu/uL (Negative); URINE PROTEIN 100 mg/dL (NEGATIVE)
[2018-07-26 20:25] LABS: ALB/GLOB RATIO 1.3 (1.0-2.1); ALBUMIN 4.4 g/dL (3.5-5.0); CALCIUM 9.7 mg/dL (8.4-10.2)
--- NOTE | 2018-07-26 20:38 | ED PDOC ---
HPI: Abdomen Time Seen by Provider: 07/26/18 19:42 Chief Complaint (Nursing): GI Problem Chief Complaint (Provider): Constipation and abdominal pain History Per: Patient History/Exam Limitations: no limitations Current Symptoms Are (Timing): Still Present Associated Symptoms: denies: Fever, Vomiting Additional Complaint(s): 82 year old female presents to the ED via EMS with constipation and abdominal pain. Patient reports she has a frequent history of constipation and abdominal pain. She states she had a bowel movement at 06:00 today and has been constipated since. Patient feels she has to move her bowels but is unable to. Denies fever or vomiting. PMD: none Past Medical History Reviewed: Historical Data, Nursing Documentation, Vital Signs Vital Signs: Last Vital Signs Temp 97.7 F 07/26/18 19:36 Pulse 72 07/26/18 19:36 Resp 16 07/26/18 19:36 BP 152/77 H 07/26/18 19:36 Pulse Ox 98 07/26/18 19:36 - Medical History PMH: Diabetes, HTN, Hypercholesterolemia Denies: HIV, Chronic Kidney Disease - Surgical History Surgical History: Cholecystectomy, - Family History Family History: States: Diabetes - Immunization History Hx Tetanus Toxoid Vaccination: No Hx Influenza Vaccination: Yes Hx Pneumococcal Vaccination: No - Home Medications Home Medications: Ambulatory Orders Medication Instructions Recorded RX: Amlodipine Besylate 10 mg PO DAILY 12/16/14 RX: Aspirin [Aspirin EC] 81 mg PO DAILY 12/16/14 RX: Carvedilol [Coreg] 3.125 mg PO BID 12/16/14 RX: Ferrous Sulfate 325 mg PO DAILY 12/16/14 RX: Furosemide 20 mg PO MWF 12/16/14 RX: Losartan [Cozaar] 25 mg PO DAILY 12/16/14 RX: Simvastatin 10 mg PO DAILY 12/16/14 Azithromycin [Zithromax] 250 mg PO DAILY #6 tablet 12/10/15 Ciprofloxacin HCl [Cipro] 500 mg PO BID #19 tab 05/09/16 metroNIDAZOLE [Flagyl] 500 mg PO TID #29 tab 05/09/16 Famotidine [Pepcid] 20 mg PO BID PRN #10 tab 03/16/18 Docusate [Colace] 100 mg PO DAILY #10 cap 03/21/18 Ciprofloxacin HCl [Cipro] 500 mg PO BID #14 tablet 05/07/18 Metronidazole [Flagyl] 500 mg PO TID #21 tab 05/07/18 Polyethylene Glycol 3350 [Miralax] 1 bottle PO DAILY #1 bottle 05/12/18 RX: Lactulose 10 gm PO DAILY #1 solution 05/12/18 Docusate Sodium [Dulcolax Stool 100 mg PO DAILY #12 capsule 05/30/18 Softener] Polyethylene Glycol 3350 [Miralax] 17 gm PO DAILY #100 ml 07/03/18 RX: Cantharidin 0.5 gm MC DAILY #1 powder 07/03/18 Polyethylene Glycol 3350 [Miralax] 1 tbs PO DAILY PRN #1 bottle 07/10/18 - Allergies Allergies/Adverse Reactions: Allergies Allergy/AdvReac Type Severity Reaction Status Date / Time No Known Allergies Allergy Verified 07/26/18 19:30 Review of Systems ROS Statement: Except As Marked, All Systems Reviewed And Found Negative Constitutional: Negative for: Fever Gastrointestinal: Positive for: Abdominal Pain, Constipation. Negative for: Vomiting Physical Exam - Reviewed Nursing Documentation Reviewed: Yes Vital Signs Reviewed: Yes - Physical Exam Appears: Positive for: Non-toxic, No Acute Distress Head Exam: Positive for: ATRAUMATIC, NORMOCEPHALIC Skin: Positive for: Normal Color, Warm, Dry Eye Exam: Positive for: Normal appearance Neck: Positive for: Normal, Painless ROM Cardiovascular/Chest: Positive for: Regular Rate, Rhythm Respiratory: Positive for: Normal Breath Sounds. Negative for: Wheezing, Respiratory Distress Gastrointestinal/Abdominal: Positive for: Soft, Tenderness (mild diffuse lower abdominal tenderness) Extremity: Positive for: Normal ROM Neurologic/Psych: Positive for: Alert, Oriented. Negative for: Motor/Sensory Deficits - Laboratory Results Result Diagrams: 07/26/18 20:08 07/26/18 20:08 - ECG O2 Sat by Pulse Oximetry: 98 (RA) Pulse Ox Interpretation: Normal Medical Decision Making Medical Decision Making: Initial Plan: --CMP --Lipase stat --CBC --Urinalysis Pt. is walking around ED, feeling well, tolerating po. Pt. requesting to leave, does not want to wait for labs/x-ray, reports she feels "all better". - Scribe Attestation: Documented by Tramaine Perez acting as a scribe for Summer NAZARIO. Provider Scribe Attestation: All medical record entries made by the Scribe were at my direction and personally dictated by me. I have reviewed the chart and agree that the record accurately reflects my personal performance of the history, physical exam, medical decision making, and the department course for this patient. I have also personally directed, reviewed, and agree with the discharge instructions and disposition. Disposition - Clinical Impression Clinical Impression: Abdominal pain - Disposition Disposition: Routine/Home Disposition Time: 21:00 Condition: STABLE Forms: [employer] (Namibian)
== END 2018-07-26 20:53 | disposition left against medical advice (07) ==
LOC: H.ER 19:15
DX: R10.9 Unspecified abdominal pain (principal); K59.00 Constipation, unspecified; E11.9 Type 2 diabetes mellitus without complications; E78.00 Pure hypercholesterolemia, unspecified; I10 Essential (primary) hypertension; Z79.82 Long term (current) use of aspirin

== ENCOUNTER 2018-07-29 19:49 | Emergency (ER) | payer MEDICARE ==
[2018-07-29 19:50] VITALS: BMI 34.7
[2018-07-29 19:55] VITALS: RESP 16; O2SAT 100
[2018-07-29 21:39] VITALS: BP 128/81; PULSE 81; TEMP 98
== END 2018-07-29 21:15 | disposition left against medical advice (07) ==
LOC: H.ER 19:49
DX: Z02.89 Encounter for other administrative examinations (principal)

== ENCOUNTER 2018-07-31 21:00 | Emergency (ER) | payer MEDICARE ==
[2018-07-31 21:01] VITALS: BMI 34.7
[2018-07-31 21:12] VITALS: BP 161/92; PULSE 82; RESP 18; TEMP 98.1; O2SAT 99
--- NOTE | 2018-07-31 22:03 | ED PDOC ---
HPI: Abdomen Time Seen by Provider: 07/31/18 21:11 Chief Complaint (Nursing): Abdominal Pain History Per: Patient History/Exam Limitations: no limitations Current Symptoms Are (Timing): Gone Now Location Of Pain/Discomfort: Diffuse Additional Complaint(s): 82 year old with history of chronic constipation presenting with resolved abdominal pain. States that she hadn't had a solid bowel movement since this morning. Denies fevers, vomiting. Past Medical History Reviewed: Historical Data, Nursing Documentation, Vital Signs Vital Signs: Last Vital Signs Temp 98.1 F 07/31/18 21:49 Pulse 82 07/31/18 21:49 Resp 18 07/31/18 21:49 BP 161/92 H 07/31/18 21:49 Pulse Ox 99 07/31/18 21:49 - Medical History PMH: Diabetes, HTN, Hypercholesterolemia Denies: HIV, Chronic Kidney Disease - Surgical History Surgical History: Cholecystectomy, - Family History Family History: States: Diabetes - Immunization History Hx Tetanus Toxoid Vaccination: No Hx Influenza Vaccination: Yes Hx Pneumococcal Vaccination: No - Home Medications Home Medications: Ambulatory Orders Medication Instructions Recorded Amlodipine Besylate 10 mg PO DAILY 12/16/14 Aspirin [Aspirin EC] 81 mg PO DAILY 12/16/14 Carvedilol [Coreg] 3.125 mg PO BID 12/16/14 Ferrous Sulfate 325 mg PO DAILY 12/16/14 Furosemide 20 mg PO MWF 12/16/14 Losartan [Cozaar] 25 mg PO DAILY 12/16/14 Simvastatin 10 mg PO DAILY 12/16/14 Azithromycin [Zithromax] 250 mg PO DAILY #6 tablet 12/10/15 Ciprofloxacin HCl [Cipro] 500 mg PO BID #19 tab 05/09/16 metroNIDAZOLE [Flagyl] 500 mg PO TID #29 tab 05/09/16 Famotidine [Pepcid] 20 mg PO BID PRN #10 tab 03/16/18 Docusate [Colace] 100 mg PO DAILY #10 cap 03/21/18 Ciprofloxacin HCl [Cipro] 500 mg PO BID #14 tablet 05/07/18 Metronidazole [Flagyl] 500 mg PO TID #21 tab 05/07/18 Lactulose 10 gm PO DAILY #1 solution 05/12/18 Polyethylene Glycol 3350 [Miralax] 1 bottle PO DAILY #1 bottle 05/12/18 Docusate Sodium [Dulcolax Stool 100 mg PO DAILY #12 capsule 05/30/18 Softener] Cantharidin 0.5 gm MC DAILY #1 powder 07/03/18 Polyethylene Glycol 3350 [Miralax] 17 gm PO DAILY #100 ml 07/03/18 Polyethylene Glycol 3350 [Miralax] 1 tbs PO DAILY PRN #1 bottle 07/10/18 - Allergies Allergies/Adverse Reactions: Allergies Allergy/AdvReac Type Severity Reaction Status Date / Time No Known Allergies Allergy Verified 07/29/18 19:53 Review of Systems ROS Statement: Except As Marked, All Systems Reviewed And Found Negative Gastrointestinal: Positive for: Abdominal Pain, Constipation Physical Exam - Reviewed Nursing Documentation Reviewed: Yes Vital Signs Reviewed: Yes - Physical Exam Appears: Positive for: Well, Non-toxic, No Acute Distress Head Exam: Positive for: ATRAUMATIC, NORMAL INSPECTION, NORMOCEPHALIC Skin: Positive for: Normal Color, Warm, DRY Eye Exam: Positive for: EOMI, Normal appearance, PERRL ENT: Positive for: Normal ENT Inspection Neck: Positive for: Normal, Painless ROM Cardiovascular/Chest: Positive for: Regular Rate, Rhythm Respiratory: Positive for: CNT, Normal Breath Sounds Gastrointestinal/Abdominal: Positive for: Normal Exam, Soft. Negative for: Tenderness Back: Positive for: Normal Inspection Extremity: Positive for: Normal ROM Neurologic/Psych: Positive for: Alert, Oriented - ECG O2 Sat by Pulse Oximetry: 99 Medical Decision Making Medical Decision Making: Upon evaluation, patient went to the bathroom shortly after arrival and had a large bowel movement. Patient reports that she feels much better and wishes for no intervention. Very well appearing, stable for discharge. Disposition - Clinical Impression Clinical Impression: Constipation - Patient ED Disposition Is Patient to be Admitted: No - Disposition Referrals: Shane Jhaveri [Outside] Disposition: Routine/Home Disposition Time: 22:03 Condition: GOOD Instructions: Constipation in Adults Forms: [employer] (Uzbek)
== END 2018-07-31 21:41 | disposition home or self-care (01) ==
LOC: H.ER 21:00
DX: K59.00 Constipation, unspecified (principal); E11.9 Type 2 diabetes mellitus without complications; I10 Essential (primary) hypertension; Z79.82 Long term (current) use of aspirin; E78.00 Pure hypercholesterolemia, unspecified

== ENCOUNTER 2018-08-04 18:15 | Emergency (ER) | payer MEDICARE ==
[2018-08-04 18:15] VITALS: BMI 34.7
[2018-08-04 18:24] VITALS: BP 176/86; PULSE 82; RESP 16; TEMP 98.1; O2SAT 98
--- NOTE | 2018-08-10 14:37 | ED PDOC ---
HPI: General Adult Time Seen by Provider: 08/04/18 18:33 Chief Complaint (Nursing): GI Problem History Per: Patient Additional Complaint(s): Pt. states she feels constipated. Last BM was this morning and was normal. Pt. is requesting fleet enema. Pt. states she is unable to give herself the enema at home therefore she came to ED. Denies abdominal pain, melena, hematochezia, BRBPR, fever, hematemesis. Past Medical History Reviewed: Historical Data, Nursing Documentation, Vital Signs Vital Signs: Last Vital Signs Temp 98.1 F 08/04/18 18:20 Pulse 82 08/04/18 18:20 Resp 16 08/04/18 18:20 BP 176/86 H 08/04/18 18:20 Pulse Ox 98 08/04/18 18:20 - Medical History PMH: Diabetes, HTN, Hypercholesterolemia Denies: HIV, Chronic Kidney Disease - Surgical History Surgical History: Cholecystectomy, - Family History Family History: States: Diabetes - Immunization History Hx Tetanus Toxoid Vaccination: No Hx Influenza Vaccination: Yes Hx Pneumococcal Vaccination: No - Home Medications Home Medications: Ambulatory Orders Medication Instructions Recorded Amlodipine Besylate 10 mg PO DAILY 12/16/14 Aspirin [Aspirin EC] 81 mg PO DAILY 12/16/14 Carvedilol [Coreg] 3.125 mg PO BID 12/16/14 Ferrous Sulfate 325 mg PO DAILY 12/16/14 Furosemide 20 mg PO MWF 12/16/14 Losartan [Cozaar] 25 mg PO DAILY 12/16/14 Simvastatin 10 mg PO DAILY 12/16/14 Azithromycin [Zithromax] 250 mg PO DAILY #6 tablet 12/10/15 Ciprofloxacin HCl [Cipro] 500 mg PO BID #19 tab 05/09/16 metroNIDAZOLE [Flagyl] 500 mg PO TID #29 tab 05/09/16 Famotidine [Pepcid] 20 mg PO BID PRN #10 tab 03/16/18 Docusate [Colace] 100 mg PO DAILY #10 cap 03/21/18 Ciprofloxacin HCl [Cipro] 500 mg PO BID #14 tablet 05/07/18 Metronidazole [Flagyl] 500 mg PO TID #21 tab 05/07/18 Lactulose 10 gm PO DAILY #1 solution 05/12/18 Polyethylene Glycol 3350 [Miralax] 1 bottle PO DAILY #1 bottle 05/12/18 Docusate Sodium [Dulcolax Stool 100 mg PO DAILY #12 capsule 05/30/18 Softener] Cantharidin 0.5 gm MC DAILY #1 powder 07/03/18 Polyethylene Glycol 3350 [Miralax] 17 gm PO DAILY #100 ml 07/03/18 Polyethylene Glycol 3350 [Miralax] 1 tbs PO DAILY PRN #1 bottle 07/10/18 - Allergies Allergies/Adverse Reactions: Allergies Allergy/AdvReac Type Severity Reaction Status Date / Time No Known Allergies Allergy Verified 07/29/18 19:53 Review of Systems ROS Statement: Except As Marked, All Systems Reviewed And Found Negative Physical Exam - Physical Exam Appears: Positive for: Well, Non-toxic, No Acute Distress Skin: Positive for: Normal Color, Warm. Negative for: Rash Eye Exam: Positive for: Normal appearance Gastrointestinal/Abdominal: Positive for: Normal Exam, Bowel Sounds, Soft. Negative for: Tenderness, Distended Neurologic/Psych: Positive for: Alert, Oriented (x3). Negative for: Aphasia, Facial Droop - ECG O2 Sat by Pulse Oximetry: 98 - Progress ED Course And Treament: Fleet enema [place] ordered. On re-evaluation, pt. had large BM while in ED. Reports feeling much better and requesting to be discharged. Abd remains soft and non-tender. Gait steady, unassisted. Disposition - Clinical Impression Clinical Impression: Constipation - Patient ED Disposition Is Patient to be Admitted: No - Disposition Disposition: Routine/Home Disposition Time: 20:00 Condition: IMPROVED Additional Instructions: DONNA ESPOSITO, thank you for letting us take care of you today. Your provider was Chrissy Miller MD and you were treated for CONSTIPATION. The emergency medical care you received today was directed at your acute symptoms. If you were prescribed any medication, please fill it and take as directed. It may take several days for your symptoms to resolve. Return to the Emergency Department if your symptoms worsen, do not improve, or if you have any other problems. Please contact your doctor or call one of the physicians/clinics you have been referred to that are listed on the Patient Visit Information form that is included in your discharge packet. Bring any paperwork you were given at discharge with you along with any medications you are taking to your follow up visit. Our treatment cannot replace ongoing medical care by a primary care provider outside of the emergency department. Thank you for allowing the [facility] team to be part of your care today. If you had an X-Ray or CT scan: A Radiologist will review the ED reading if any change in treatment is needed we will contact you. If you had a blood, urine, or wound culture: It will take several days for the results, if any change in treatment is needed we will contact you. If you had an STI test: It will take 48 hours for the results. Please call after 1 week if you have not heard back. Instructions: Constipation, Adult (DC) Forms: [employer] (Persian)
== END 2018-08-04 20:12 | disposition home or self-care (01) ==
LOC: H.ER 18:15
DX: K59.00 Constipation, unspecified (principal); E11.9 Type 2 diabetes mellitus without complications; I10 Essential (primary) hypertension; E78.00 Pure hypercholesterolemia, unspecified; Z79.82 Long term (current) use of aspirin

== ENCOUNTER 2018-08-11 20:04 | Emergency (ER) | payer MEDICARE ==
[2018-08-11 20:05] VITALS: BMI 34.7
[2018-08-11 20:10] VITALS: O2SAT 99
--- NOTE | 2018-08-11 20:41 | ED PDOC ---
HPI: General Adult Time Seen by Provider: 08/11/18 20:11 Chief Complaint (Nursing): GI Problem Chief Complaint (Provider): Constipation History Per: Patient History/Exam Limitations: no limitations Onset/Duration Of Symptoms: Hrs (since 0400 this morning) Current Symptoms Are (Timing): Still Present Additional Complaint(s): 82 year old female well known to the provider presents to the ED via EMS requesting a fleet enema secondary to constipation. Patient reports that her last bowel movement was normal at 0400, but has been constipated since. Otherwise denies melena, hematochezia, brbpr, vomiting, and abdominal pain. PMD: Roseanna Past Medical History Reviewed: Historical Data, Nursing Documentation, Vital Signs Vital Signs: Last Vital Signs Temp 97.7 F 08/11/18 20:08 Pulse 70 08/11/18 20:08 Resp 16 08/11/18 20:08 BP 168/82 H 08/11/18 20:08 Pulse Ox 99 08/11/18 20:08 - Medical History PMH: Diabetes, HTN, Hypercholesterolemia Denies: HIV, Chronic Kidney Disease - Surgical History Surgical History: Cholecystectomy, - Family History Family History: States: Diabetes - Immunization History Hx Tetanus Toxoid Vaccination: No Hx Influenza Vaccination: Yes Hx Pneumococcal Vaccination: No - Home Medications Home Medications: Ambulatory Orders Medication Instructions Recorded Amlodipine Besylate 10 mg PO DAILY 12/16/14 Aspirin [Aspirin EC] 81 mg PO DAILY 12/16/14 Carvedilol [Coreg] 3.125 mg PO BID 12/16/14 Ferrous Sulfate 325 mg PO DAILY 12/16/14 Furosemide 20 mg PO MWF 12/16/14 Losartan [Cozaar] 25 mg PO DAILY 12/16/14 Simvastatin 10 mg PO DAILY 12/16/14 Azithromycin [Zithromax] 250 mg PO DAILY #6 tablet 12/10/15 Ciprofloxacin HCl [Cipro] 500 mg PO BID #19 tab 05/09/16 metroNIDAZOLE [Flagyl] 500 mg PO TID #29 tab 05/09/16 Famotidine [Pepcid] 20 mg PO BID PRN #10 tab 03/16/18 Docusate [Colace] 100 mg PO DAILY #10 cap 03/21/18 Ciprofloxacin HCl [Cipro] 500 mg PO BID #14 tablet 05/07/18 Metronidazole [Flagyl] 500 mg PO TID #21 tab 05/07/18 Lactulose 10 gm PO DAILY #1 solution 05/12/18 Polyethylene Glycol 3350 [Miralax] 1 bottle PO DAILY #1 bottle 05/12/18 Docusate Sodium [Dulcolax Stool 100 mg PO DAILY #12 capsule 05/30/18 Softener] Cantharidin 0.5 gm MC DAILY #1 powder 07/03/18 Polyethylene Glycol 3350 [Miralax] 17 gm PO DAILY #100 ml 07/03/18 Polyethylene Glycol 3350 [Miralax] 1 tbs PO DAILY PRN #1 bottle 07/10/18 - Allergies Allergies/Adverse Reactions: Allergies Allergy/AdvReac Type Severity Reaction Status Date / Time No Known Allergies Allergy Verified 08/11/18 20:07 Review of Systems ROS Statement: Except As Marked, All Systems Reviewed And Found Negative Gastrointestinal: Positive for: Constipation. Negative for: Vomiting, Abdominal Pain, Melena, Hematochezia, Other (brbpr) Physical Exam - Reviewed Nursing Documentation Reviewed: Yes Vital Signs Reviewed: Yes - Physical Exam Appears: Positive for: No Acute Distress Skin: Positive for: Normal Color, Warm. Negative for: Rash Cardiovascular/Chest: Positive for: Regular Rate, Rhythm Respiratory: Positive for: Normal Breath Sounds. Negative for: Respiratory Distress Gastrointestinal/Abdominal: Positive for: Normal Exam, Soft. Negative for: Tenderness, Distended Neurologic/Psych: Positive for: Alert, Oriented (x3), Gait (steady, unassisted) - ECG O2 Sat by Pulse Oximetry: 99 (RA) Pulse Ox Interpretation: Normal Medical Decision Making Medical Decision Making: Time: 2014 Initial Impression: constipation Initial Plan: --Fleet Enema 135ml MD 2049 Patient had bowel movement in ED and is requesting to be discharged. Scribe Attestation: Documented by Domonique Shields, acting as a scribe for Leonidas E Pormentilla PA-C. Provider Scribe Attestation: All medical record entries made by the Scribe were at my direction and personally dictated by me. I have reviewed the chart and agree that the record accurately reflects my personal performance of the history, physical exam, medical decision making, and the department course for this patient. I have also personally directed, reviewed, and agree with the discharge instructions and disposition. Disposition - Clinical Impression Clinical Impression: Constipation - Patient ED Disposition Is Patient to be Admitted: No - Disposition Disposition: Routine/Home Disposition Time: 20:51 Condition: IMPROVED Instructions: Constipation, Adult (DC) Forms: [employer] (Luxembourger)
[2018-08-11 21:00] VITALS: BP 139/84; PULSE 80; RESP 18; TEMP 97.9
== END 2018-08-11 20:59 | disposition home or self-care (01) ==
LOC: H.ER 20:04
DX: K59.00 Constipation, unspecified (principal); E11.9 Type 2 diabetes mellitus without complications; I10 Essential (primary) hypertension

== ENCOUNTER 2018-08-14 23:04 | Inpatient (IN) | payer MEDICARE ==
[2018-08-14 23:05] VITALS: BMI 34.7
--- NOTE | 2018-08-14 23:42 | ED PDOC ---
HPI: Chest Pain Time Seen by Provider: 08/14/18 23:19 Chief Complaint (Nursing): Chest Pain Chief Complaint (Provider): Chest Pain History Per: Patient History/Exam Limitations: no limitations Onset/Duration Of Symptoms: Hrs (x2) Additional Complaint(s): 82 y/o female with history of CHF, diabetes, and hypertension, presents to the ED complaining of chest pain, onset x2 hours ago. Patient states the pain is substernal and is a gas-like pain. Patient reports that just prior to arrival she burped and felt a little better but the pain is still there. Denies abdominal pain, nausea, vomiting, diarrhea, or constipation. Patient is compliant with her medication. PMD: Dr. Condon Past Medical History Reviewed: Historical Data, Nursing Documentation, Vital Signs Vital Signs: Last Vital Signs Temp 98 F 08/14/18 23:16 Pulse 69 08/14/18 23:16 Resp 18 08/14/18 23:16 BP 210/90 H 08/14/18 23:16 Pulse Ox 98 08/14/18 23:16 - Medical History PMH: Anxiety, Diabetes, HTN, Hypercholesterolemia Denies: HIV, Chronic Kidney Disease - Surgical History Surgical History: Cholecystectomy, - Family History Family History: States: Diabetes - Immunization History Hx Tetanus Toxoid Vaccination: No Hx Influenza Vaccination: Yes Hx Pneumococcal Vaccination: No - Home Medications Home Medications: Ambulatory Orders Medication Instructions Recorded RX: Amlodipine Besylate 10 mg PO DAILY 12/16/14 RX: Aspirin [Aspirin EC] 81 mg PO DAILY 12/16/14 RX: Carvedilol [Coreg] 3.125 mg PO BID 12/16/14 RX: Ferrous Sulfate 325 mg PO DAILY 12/16/14 RX: Furosemide 20 mg PO MWF 12/16/14 RX: Losartan [Cozaar] 25 mg PO DAILY 12/16/14 RX: Simvastatin 10 mg PO DAILY 12/16/14 Azithromycin [Zithromax] 250 mg PO DAILY #6 tablet 12/10/15 Ciprofloxacin HCl [Cipro] 500 mg PO BID #19 tab 05/09/16 metroNIDAZOLE [Flagyl] 500 mg PO TID #29 tab 05/09/16 Famotidine [Pepcid] 20 mg PO BID PRN #10 tab 03/16/18 Docusate [Colace] 100 mg PO DAILY #10 cap 03/21/18 Ciprofloxacin HCl [Cipro] 500 mg PO BID #14 tablet 05/07/18 Metronidazole [Flagyl] 500 mg PO TID #21 tab 05/07/18 Polyethylene Glycol 3350 [Miralax] 1 bottle PO DAILY #1 bottle 05/12/18 RX: Lactulose 10 gm PO DAILY #1 solution 05/12/18 Docusate Sodium [Dulcolax Stool 100 mg PO DAILY #12 capsule 05/30/18 Softener] Polyethylene Glycol 3350 [Miralax] 17 gm PO DAILY #100 ml 07/03/18 RX: Cantharidin 0.5 gm MC DAILY #1 powder 07/03/18 Polyethylene Glycol 3350 [Miralax] 1 tbs PO DAILY PRN #1 bottle 07/10/18 - Allergies Allergies/Adverse Reactions: Allergies Allergy/AdvReac Type Severity Reaction Status Date / Time No Known Allergies Allergy Verified 08/14/18 23:16 Review of Systems ROS Statement: Except As Marked, All Systems Reviewed And Found Negative (as per HPI otherwise negative) Cardiovascular: Positive for: Chest Pain Gastrointestinal: Negative for: Nausea, Vomiting, Abdominal Pain, Diarrhea, Constipation Physical Exam - Reviewed Nursing Documentation Reviewed: Yes Vital Signs Reviewed: Yes - Physical Exam Appears: Positive for: In Acute Distress (mild painful) Head Exam: Positive for: ATRAUMATIC, NORMAL INSPECTION, NORMOCEPHALIC Skin: Positive for: Normal Color, Warm, DRY Eye Exam: Positive for: EOMI, Normal appearance, PERRL ENT: Positive for: Other (dry mucous membranes) Neck: Positive for: Normal, Painless ROM Cardiovascular/Chest: Positive for: Regular Rate, Rhythm. Negative for: Murmur Respiratory: Positive for: Normal Breath Sounds. Negative for: Respiratory Dis tress Gastrointestinal/Abdominal: Positive for: Normal Exam, Soft. Negative for: Tenderness, Distended Extremity: Positive for: Pedal Edema, Swelling (grossly edematous bilateral lower extremities with severely scaly dry anterior tibias bilaterally) Neurologic/Psych: Positive for: Alert, Oriented. Negative for: Motor/Sensory Deficits - Laboratory Results Result Diagrams: 08/14/18 23:54 08/15/18 01:30 - ECG ECG Rhythm: Positive for: Normal QRS, Sinus Rhythm, ST/T Changes (lateral T wave inversions) Interpretation Of ECG: NSR, Normal QRS, lateral T wave inversions --Pattern is similar to previous EKG in July 10 O2 Sat by Pulse Oximetry: 98 (RA) Pulse Ox Interpretation: Normal Medical Decision Making Medical Decision Making: Time: 23:23 Initial Impression: chest pain with cardiac risk factors Differential diagnosis included but not limited to ACS, reflux, gastritis, dyspepsia and CHF Initial Plan: * EKG * BNP * CMP * Magnesium * Phosphorous * Troponin * CBC w/ diff * CXR 00:00 Patient care endorsed to Dr. Arnold pending ER workup reassessment and final disposition. Scribe Attestation: Documented by Kole Lara acting as a scribe for Chrissy Miller MD. Provider Scribe Attestation: All medical record entries made by the Scribe were at my direction and personally dictated by me. I have reviewed the chart and agree that the record accurately reflects my personal performance of the history, physical exam, medical decision making, and the department course for this patient. I have also personally directed, reviewed, and agree with the discharge instructions and disposition. Disposition - Clinical Impression Clinical Impression: Chest pain - Disposition Disposition: Transfer of Care Disposition Time: 00:00 Condition: CRITICAL
[2018-08-15 00:13] LABS: BASO # 0.1 K/uL (0.0-0.2); BASO % 0.9 % (0.0-2.0); EOS # 0.1 K/uL (0.0-0.7); EOS % 0.7 % (0.0-4.0); HEMOGLOBIN 13.5 g/dL (12.0-16.0); LYMPH # 2.3 K/uL (1.0-4.3); LYMPH % 23.3 % (20.0-40.0); MEAN CORPUSCULAR HEMOGLOBIN 29.6 pg (27.0-31.0); MEAN CORPUSCULAR HGB CONC 33.3 g/dL (33.0-37.0); MEAN PLATELET VOLUME 9.3 fl (7.2-11.7); MONO # 0.7 K/uL (0.0-0.8); MONO % 6.9 % (0.0-10.0); NEUT # 6.7 K/uL (1.8-7.0); NEUT % 68.2 % (50.0-75.0); NRBC % 0.1 % (0.0-0.0); RBC 4.55 Mil/uL (3.80-5.20); RED CELL DISTRIBUTION WIDTH 13.6 % (11.5-14.5); WHITE BLOOD COUNT 9.8 K/uL (4.8-10.8)
--- NOTE | 2018-08-15 00:17 | ED PDOC ---
- Laboratory Results Result Diagrams: 08/14/18 23:54 08/15/18 01:30 - ECG O2 Sat by Pulse Oximetry: 99 (RA) Pulse Ox Interpretation: Normal - Critical Care Total Time (In Min): 30 Medical Decision Making Medical Decision Making: Time: 00:00 Patient care endorsed from Dr. Miller to provider pending ER workup reassessment and final disposition. Reveiwed labs. Troponin is elevated. Ordered: ASA 325 PO Plavix 300 PO Lovenox 80 SC Cardiology consult 0200 Reeval: Patient denies any chest pain. [address] Boss who will be on consult. [address] Richardson and Dr Fleming for admission to ICU Scribe Attestation: Documented by Kole Lara acting as a scribe for Marguerite Arnold MD. Provider Scribe Attestation: All medical record entries made by the Scribe were at my direction and personally dictated by me. I have reviewed the chart and agree that the record accurately reflects my personal performance of the history, physical exam, medical decision making, and the department course for this patient. I have also personally directed, reviewed, and agree with the discharge instructions and disposition. Disposition Discussed With : Guru Richardson Doctor Will See Patient In The: Hospital Counseled Patient/Family Regarding: Studies Performed, Diagnosis - Clinical Impression Clinical Impression: Chest pain, NSTEMI (non-ST elevated myocardial infarction) - POA Present On Arrival: None - Disposition Disposition: Admitted as In-Patient Disposition Time: 02:00 Condition: CRITICAL
[2018-08-15 01:55] LABS: ALB/GLOB RATIO 1.4 (1.0-2.1); ALBUMIN 4.1 g/dL (3.5-5.0); CALCIUM 9.7 mg/dL (8.4-10.2)
[2018-08-15] MEDS ORDERED: Enoxaparin 80 mg Syringe SC STA (02:42)
[2018-08-15] MEDS ORDERED: Iodixanol 320 MG/ML 100 ML BOTTLE IV ONE (03:03)
[2018-08-15] MEDS ORDERED: Sodium Chloride 0.9% 50 ML IV ONE (03:03)
[2018-08-15 03:08] LABS: TROPONIN I 29.5 ng/mL (0.00-0.120)
[2018-08-15 03:48] LABS: PROTHROMBIN TIME 11.3 Seconds (9.8-13.1)
[2018-08-15 03:53] LABS: PARTIAL THROMBOPLASTIN TIME 29.6 Seconds (25.6-37.1)
--- NOTE | 2018-08-15 04:16 | CP.PCM.CON ---
History of Present Illness - History of Present Illness History of Present Illness: Attending: Dr Debra LANGSTON: Dr. Roseanna BANDA Reason for Consult: Critical care Management Chief Complaint: Chest Pain The Patient was seen and examined in the ED HPI: The Hx was obtained from valeria patient and after review of the medical re cords. This is an 82 years old female with hx of HTN, DM, CHF and HLD who comes to the ED with 2 hours of epigastric and lower retrosternal chest pain, non radiating, gas-like pain which began at rest and was relieved in the ED after receiving Pepcid. No nausea, vomits, SOB, palpitation, diaphoresis, dizziness nor headaches. In the ED the BP was 210/90mmHg with abnormal EKG. PMH: Anxiety, DM II, HTN, HLD; Constipation, Dizziness; CHF PSH: Cholecystectomy, X1; Hysterectomy SH: Never Smoked; No ETOH; No illegal drug use; Lives Alone FH: States: Diabetes Allergies: NKDA Medication: Reviewed Review of Systems - Constitutional Constitutional: absent: Anorexia, Chills, Fatigue, Fever, Headache - EENT Eyes: Requires Corrective Lenses. absent: Blurred Vision, Diplopia Ears: absent: Decreased Hearing, Tinnitus Nose/Mouth/Throat: absent: Epistaxis, Nasal Discharge, Sinus Pain, Sinus Pressure - Cardiovascular Cardiovascular: Chest Pain, Edema. absent: Dyspnea - Respiratory Respiratory: absent: Cough, Dyspnea, Wheezing, Stridor - Gastrointestinal Gastrointestinal: Constipation. absent: Diarrhea, Nausea, Vomiting - Genitourinary Genitourinary: absent: Dysuria, Flank Pain, Urinary Frequency - Musculoskeletal Musculoskeletal: Arthralgias. absent: Back Pain - Integumentary Integumentary: absent: Pruritus, Rash, Skin Ulcer, Sores, Striae, Swelling - Neurological Neurological: absent: Confusion, Focal Weakness, Weakness - Psychiatric Psychiatric: Anxiety. absent: Depression, Panic Attacks - Endocrine Endocrine: absent: Palpitations, Polydipsia, Polyphagia, Polyuria - Hematologic/Lymphatic Hematologic: absent: Easy Bleeding, Easy Bruising Past Patient History - Infectious Disease Hx of Infectious Diseases: None - Past Medical History & Family History Past Medical History?: No - Past Social History Smoking Status: Never Smoked Chewing Tobacco Use: No Cigar Use: No Drugs: Denies Home Situation {Lives}: Alone - CARDIAC Hx Hypercholesterolemia: Yes Hx Hypertension: Yes - PULMONARY Hx Respiratory Disorders: No - NEUROLOGICAL Hx Neurological Disorder: Yes Hx Dizziness: Yes - HEENT Hx HEENT Problems: Yes Other/Comment: wears eyeglasses - RENAL Hx Chronic Kidney Disease: No - ENDOCRINE/METABOLIC Hx Endocrine Disorders: Yes Hx Diabetes Mellitus Type 2: Yes - HEMATOLOGICAL/ONCOLOGICAL Hx Human Immunodeficiency Virus (HIV): No - INTEGUMENTARY Hx Dermatological Problems: No - MUSCULOSKELETAL/RHEUMATOLOGICAL Hx Musculoskeletal Disorders: Yes Hx Falls: Yes (2 yrs ago) - GASTROINTESTINAL Hx Gastrointestinal Disorders: Yes Hx Constipation: Yes (CHRONIC) - GENITOURINARY/GYNECOLOGICAL Hx Genitourinary Disorders: No - PSYCHIATRIC Hx Anxiety: Yes - SURGICAL HISTORY Hx Section: Yes (x1) Hx Cholecystectomy: Yes Hx Hysterectomy: Yes - ANESTHESIA Hx Anesthesia: Yes Hx Anesthesia Reactions: No Hx Malignant Hyperthermia: No Meds Allergies/Adverse Reactions: Allergies Allergy/AdvReac Type Severity Reaction Status Date / Time No Known Allergies Allergy Verified 08/14/18 23:16 Physical Exam - Constitutional Appears: No Acute Distress - Head Exam Head Exam: ATRAUMATIC, NORMAL INSPECTION, NORMOCEPHALIC - Eye Exam Eye Exam: EOMI Pupil Exam: NORMAL ACCOMODATION, PERRL - ENT Exam ENT Exam: Mucous Membranes Moist, Normal Exam - Neck Exam Neck exam: Positive for: Normal Inspection - Respiratory Exam Respiratory Exam: Clear to Auscultation Bilateral. absent: Rales, Rhonchi, Wheezes - Cardiovascular Exam Cardiovascular Exam: REGULAR RHYTHM, RRR, +S1, +S2. absent: Gallop, JVD - GI/Abdominal Exam Additional comments: Full, Soft, Nontender, Tympanic on percussion, No guarding, +ve bowel sounds - Rectal Exam Rectal Exam: Deferred - Extremities Exam Additional comments: Bilateral leg edema with scaly rash on pink skin, tender to palpation - Back Exam Back exam: NORMAL INSPECTION. absent: CVA tenderness (L), CVA tenderness (R) - Neurological Exam Neurological exam: Alert, CN II-XII Intact, Oriented x3, Reflexes Normal - Psychiatric Exam Psychiatric exam: Normal Affect, Normal Mood - Skin Skin Exam: Dry, Intact, Warm Additional comments: Bilateral leg edema with a scaly rash on hyperpigmented skin Results - Vital Signs Recent Vital Signs: Last Vital Signs Temp 98 F 08/14/18 23:16 Pulse 66 08/15/18 04:00 Resp 18 08/15/18 04:00 BP 184/79 H 08/15/18 04:00 Pulse Ox 95 08/15/18 04:00 - Labs Result Diagrams: 08/14/18 23:54 08/15/18 01:30 Labs: Laboratory Results - last 24 hr 08/14/18 08/15/18 08/15/18 23:54 01:30 03:22 WBC 9.8 RBC 4.55 Hgb 13.5 Hct 40.5 MCV 89.0 MCH 29.6 MCHC 33.3 RDW 13.6 Plt Count 238 MPV 9.3 Neut % (Auto) 68.2 Lymph % (Auto) 23.3 [place] % (Auto) 6.9 Eos % (Auto) 0.7 Baso % (Auto) 0.9 Neut # (Auto) 6.7 Lymph # (Auto) 2.3 [place] # (Auto) 0.7 Eos # (Auto) 0.1 Baso # (Auto) 0.1 PT 11.3 INR 1.0 APTT 29.6 Sodium 134 Potassium 4.2 Chloride 107 Carbon Dioxide 21 L Anion Gap 10 BUN 28 H Creatinine 1.1 Est GFR ( Amer) 57 Est GFR (Non-Af Amer) 47 Random Glucose 154 H Calcium 9.7 Phosphorus 3.8 Magnesium 2.0 Total Bilirubin 0.4 AST 148 H D ALT 46 Alkaline Phosphatase 69 CK-MB (Mass) 110 H Troponin I 29.5000 H* NT-Pro-B Natriuret Pep 2120 H Total Protein 7.1 Albumin 4.1 Globulin 3.0 Albumin/Globulin Ratio 1.4 - EKG Data EKG comments: Sinus Rhythm 62/min with T wave inversion in leads I, aVL and V2 - Impressions Impression: Normal sinus Rhythm with lateral ischemia - Imaging and Cardiology Chest x-ray Status: Image reviewed by me Additional comment: Chronic changes at left lung base, No visible acute Pathology Assessment & Plan - Assessment and Plan (Free Text) Assessment: #. Elevated Troponin #. Chest Pain #. DM II with Hyperglycemia #. HTN #. HLD #. Stasis Dermatitis Plan: 82 years old female with hx of HTN, DM, CHF and HLD who comes to the ED with 2 hours of epigastric and lower retrosternal chest pain, non radiating, gas-like pain which began at rest and was relieved in the ED after receiving Pepcid. In the ED the BP was 210/90mmHg with abnormal EKG. #. Chest Pain with Sign of lateral wall ischemia on EKG and Elevated Troponin due to NSTEMI vs Coronary Spasm - Consult Cardiology Dr Boss - Admit to ICU with cardiac monitoring - Serial Troponin - Serial EKG - Lipid panel - ECHO for wall motion - Lovenox therapeutic - ASA - Plavix - Coreg - Liptor #. DM II with Hyperglycemia - Lispro sliding scale according to Accucheck - HbA1c #. HTN urgency - Coreg - Losartan #. HLD - Lipitor - Lipid Panel #. Stasis Dermatitis - Lachydrin cream #. Stress ulcer Prophylaxis with Pepcid #. DVT Prophylaxis: Patient is on Lovenox Andrez Fleming MD - Date & Time Date: 08/15/18 Time: 04:16
[2018-08-15 06:23] LABS: SQUAMOUS EPITHIAL < 1 /hpf (0-5); URINE BACTERIA RARE (<OCC); URINE BILIRUBIN NEGATIVE (NEGATIVE); URINE BLOOD NEGATIVE (NEGATIVE); URINE CLARITY CLEAR (Clear); URINE COLOR COLORLESS (YELLOW); URINE GLUCOSE (UA) NEG (NEGATIVE); URINE LEUKOCYTE ESTERASE NEG Leu/uL (Negative); URINE PROTEIN NEGATIVE (NEGATIVE); URINE UROBILINOGEN 0.2-1.0 mg/dL (0.2-1.0)
[2018-08-15 07:50] LABS: TROPONIN I 47.3 ng/mL (0.00-0.120)
--- NOTE | 2018-08-15 08:06 | CP.PCM.CON ---
History of Present Illness - History of Present Illness History of Present Illness: I am seeing pt in ICU Rm 26. This is an 82 years old female with hx of HTN, DM, CHF and HLD who was admitted last night after she comes to the ED with 2 hours of epigastric and lower retrosternal chest pain, non radiating, gas-like pain which began at rest and was relieved in the ED after receiving Pepcid. No nausea, vomits, SOB, palpitation, diaphoresis, dizziness nor headaches. In the ED the BP was 210/90mmHg with abnormal EKG. NOw BP is better , but still high, she no c/o CP or SOB now, but TNI is rising. Pt is on therapeutic dose of Lovenox, also on BB, ASA, ABrs and plavix Review of Systems - Constitutional Constitutional: As Per HPI - EENT Eyes: As Per HPI Nose/Mouth/Throat: As Per HPI - Breasts Breasts: As Per HPI, Other - Cardiovascular Cardiovascular: Chest Pain, Slow Heart Rate - Respiratory Respiratory: As Per HPI - Gastrointestinal Gastrointestinal: As Per HPI - Musculoskeletal Musculoskeletal: As Per HPI Past Patient History - Infectious Disease Hx of Infectious Diseases: None - Past Medical History & Family History Past Medical History?: Yes - Past Social History Smoking Status: Never Smoked Chewing Tobacco Use: No Cigar Use: No Drugs: Denies Home Situation {Lives}: Alone - CARDIAC Hx Hypercholesterolemia: Yes Hx Hypertension: Yes - PULMONARY Hx Respiratory Disorders: No - NEUROLOGICAL Hx Neurological Disorder: Yes Hx Dizziness: Yes - HEENT Hx HEENT Problems: Yes Other/Comment: wears eyeglasses - RENAL Hx Chronic Kidney Disease: No - ENDOCRINE/METABOLIC Hx Endocrine Disorders: Yes Hx Diabetes Mellitus Type 2: Yes - HEMATOLOGICAL/ONCOLOGICAL Hx Human Immunodeficiency Virus (HIV): No - INTEGUMENTARY Hx Dermatological Problems: No - MUSCULOSKELETAL/RHEUMATOLOGICAL Hx Musculoskeletal Disorders: Yes Hx Falls: Yes (2 yrs ago) - GASTROINTESTINAL Hx Gastrointestinal Disorders: Yes Hx Constipation: Yes (CHRONIC) - GENITOURINARY/GYNECOLOGICAL Hx Genitourinary Disorders: No - PSYCHIATRIC Hx Anxiety: Yes - SURGICAL HISTORY Hx Section: Yes (x1) Hx Cholecystectomy: Yes Hx Hysterectomy: Yes - ANESTHESIA Hx Anesthesia: Yes Hx Anesthesia Reactions: No Hx Malignant Hyperthermia: No Meds Allergies/Adverse Reactions: Allergies Allergy/AdvReac Type Severity Reaction Status Date / Time No Known Allergies Allergy Verified 08/14/18 23:16 - Medications Medications: Current Medications Aspirin (Ecotrin) 81 mg PO DAILY [facility] Atorvastatin Calcium (Lipitor) 20 mg PO HS [facility] Carvedilol (Coreg) 6.25 mg PO Q12 [facility] Clopidogrel Bisulfate (Plavix) 75 mg PO DAILY [facility] Docusate Sodium (Colace) 100 mg PO BID [facility] Enoxaparin Sodium (Lovenox) 80 mg SC Q12H [facility]; Protocol Famotidine (Pepcid) 20 mg PO BID [facility] Ferrous Sulfate (Feosol) 325 mg PO DAILY [facility] Insulin Human Lispro (Humalog) 0 units SC ACHS [facility]; Protocol Lactic Acid (Lac-Hydrin 12% Lotion (225 G)) 1 applic TOP TID [facility] Lactulose (Enulose) 10 gm PO DAILY [facility] Losartan Potassium (Cozaar) 25 mg PO DAILY [facility] Physical Exam - Eye Exam Pupil Exam: NORMAL ACCOMODATION - ENT Exam ENT Exam: Mucous Membranes Moist - Respiratory Exam Respiratory Exam: NORMAL BREATHING PATTERN - Cardiovascular Exam Cardiovascular Exam: Bradycardia - GI/Abdominal Exam GI & Abdominal Exam: Soft Results - Vital Signs Recent Vital Signs: Last Vital Signs Temp 98.1 F 08/15/18 06:21 Pulse 57 L 08/15/18 06:21 Resp 19 08/15/18 06:21 BP 177/75 H 08/15/18 06:21 Pulse Ox 93 L 08/15/18 06:21 - Labs Result Diagrams: 08/14/18 23:54 08/15/18 01:30 Labs: Laboratory Results - last 24 hr 08/14/18 08/15/18 08/15/18 23:54 01:30 03:22 WBC 9.8 RBC 4.55 Hgb 13.5 Hct 40.5 MCV 89.0 MCH 29.6 MCHC 33.3 RDW 13.6 Plt Count 238 MPV 9.3 Neut % (Auto) 68.2 Lymph % (Auto) 23.3 [place] % (Auto) 6.9 Eos % (Auto) 0.7 Baso % (Auto) 0.9 Neut # (Auto) 6.7 Lymph # (Auto) 2.3 [place] # (Auto) 0.7 Eos # (Auto) 0.1 Baso # (Auto) 0.1 PT 11.3 INR 1.0 APTT 29.6 D-Dimer, Quantitative 221 Sodium 134 Potassium 4.2 Chloride 107 Carbon Dioxide 21 L Anion Gap 10 BUN 28 H Creatinine 1.1 Est GFR ( Amer) 57 Est GFR (Non-Af Amer) 47 POC Glucose (mg/dL) Random Glucose 154 H Calcium 9.7 Phosphorus 3.8 Magnesium 2.0 Total Bilirubin 0.4 AST 148 H D ALT 46 Alkaline Phosphatase 69 CK-MB (Mass) 110 H Troponin I 29.5000 H* NT-Pro-B Natriuret Pep 2120 H Total Protein 7.1 Albumin 4.1 Globulin 3.0 Albumin/Globulin Ratio 1.4 Triglycerides Cholesterol LDL Cholesterol Direct HDL Cholesterol Urine Color Urine Clarity Urine pH Ur Specific [place] Urine Protein Urine Glucose (UA) Urine Ketones Urine Blood Urine Nitrate Urine Bilirubin Urine Urobilinogen Ur Leukocyte Esterase Urine RBC (Auto) Urine Microscopic WBC Ur Squamous Epith Cells Urine Bacteria 08/15/18 08/15/18 08/15/18 05:48 06:15 06:34 WBC RBC Hgb Hct MCV MCH MCHC RDW Plt Count MPV Neut % (Auto) Lymph % (Auto) [place] % (Auto) Eos % (Auto) Baso % (Auto) Neut # (Auto) Lymph # (Auto) [place] # (Auto) Eos # (Auto) Baso # (Auto) PT INR APTT D-Dimer, Quantitative Sodium Potassium Chloride Carbon Dioxide Anion Gap BUN Creatinine Est GFR ( Amer) Est GFR (Non-Af Amer) POC Glucose (mg/dL) 172 H Random Glucose Calcium Phosphorus Magnesium 1.9 Total Bilirubin AST ALT Alkaline Phosphatase CK-MB (Mass) Troponin I 47.3000 H* NT-Pro-B Natriuret Pep Total Protein Albumin Globulin Albumin/Globulin Ratio Triglycerides 143 Cholesterol 194 LDL Cholesterol Direct 93 HDL Cholesterol 61 Urine Color Colorless Urine Clarity Clear Urine pH 7.0 Ur Specific [place] 1.006 Urine Protein Negative Urine Glucose (UA) Neg Urine Ketones Negative Urine Blood Negative Urine Nitrate Negative Urine Bilirubin Negative Urine Urobilinogen 0.2-1.0 Ur Leukocyte Esterase Neg Urine RBC (Auto) 1 Urine Microscopic WBC < 1 Ur Squamous Epith Cells < 1 Urine Bacteria Rare Assessment & Plan - Assessment and Plan (Free Text) Assessment: NSTEMI: HTN: uncontrolled NIDDM CKD-3 h/o CHF Hyperlididemia Plan: On ASA On Plavix On Coreg 6.25 mg po BID, can;t increase the dose due to slow HR Continue losartan, added Norcasc 5 mg po daily On lovenox therapeutic dose serial TNI Echo Cardiology consult, Dr Boss On Statin
[2018-08-15] MEDS: Insulin Lispro (humaLOG) 100 Units/ml Inj SC SCH ×4 (08:21→22:05)
[2018-08-15] MEDS: Lactulose 10 gm/15 ml Syrup PO SCH (08:25)
--- NOTE | 2018-08-15 10:19 | CARD ---
APPROVED REPORT Date of service: 08/15/2018 EXAM: Two-dimensional and M-mode echocardiogram with Doppler and color Doppler. Other Information Quality : AverageRhythm : NSR INDICATION Non STEMI 2D DIMENSIONS IVSd1.13 (0.7-1.1cm)LVDd4.48 (3.9-5.9cm) LVOT Diameter1.64 (1.8-2.4cm)PWd1.10 (0.7-1.1cm) IVSs1.55 (0.8-1.2cm)LVDs2.87 (2.5-4.0cm) FS (%) 36.0 %PWs1.71 (0.8-1.2cm) M-Mode DIMENSIONS Left Atrium (MM)3.53 (2.5-4.0cm)Aortic Root3.06 (2.2-3.7cm) Aortic Cusp Exc.1.38 (1.5-2.0cm) Aortic Valve AoV Peak Fovkokwl781.2cm/sAoV VTI29.1cmAO Peak GR.6mmHg LVOT Peak Wwzufcul94.8cm/sLVOT VTI22.40cmAO Mean GR.3mmHg Mitral Valve MV E Sdcmxuvu81.2cm/sMV DECEL DPBW142ccRF A Oxitbnfd349.8cm/s MV PIT28qyZ/A ratio0.4MVA (PHT)2.22cm2 TDI Medial E' Peak V2.61cm/sE/Lateral E'0.0E/Medial E'26.5 LEFT VENTRICLE The left ventricle is normal size. There is mild concentric left ventricular hypertrophy. Left ventricle systolic function is normal. LVEF is 55-60%. [place] and apical 1/3 of septum was moderately hypokinetic Other regions contracted normally Transmitral Doppler flow pattern is Grade I-abnormal relaxation pattern. RIGHT VENTRICLE The right ventricle is normal size. There is normal right ventricular wall thickness. The right ventricular systolic function is normal. ATRIA The left atrium size is normal. The right atrium size is normal. AORTIC VALVE The aortic valve is mildly sclerotic. No aortic regurgitation is present. There is no aortic valvular stenosis. MITRAL VALVE Mitral annular calcification is mild. There is no evidence of mitral valve prolapse. There is no mitral valve stenosis. There is no mitral valve regurgitation noted. TRICUSPID VALVE The tricuspid valve is normal in structure. There is no tricuspid valve regurgitation noted. PULMONIC VALVE The pulmonary valve is normal in structure. There is no pulmonic valvular regurgitation. GREAT VESSELS The aortic root is normal in size. The IVC is normal in size and collapses >50% with inspiration. PERICARDIAL EFFUSION The pericardium appears normal. <Conclusion> The left ventricle is normal size. There is mild concentric left ventricular hypertrophy. [place] and apical 1/3 of septum was moderately hypokinetic Other regions contracted normally Left ventricle systolic function is normal. LVEF is 55-60%. Transmitral Doppler flow pattern is Grade I-abnormal relaxation pattern.
--- NOTE | 2018-08-15 10:44 | CP.PCM.CON ---
History of Present Illness - History of Present Illness History of Present Illness: this 82-year-old female, a diabetic for over 2 years who lives alone came to the emergency room after calling emergency medical claims specialist in the middle of the night when she experienced severe retrosternal discomfort which lasted approximately 2 hours and then spontaneously resolved. She denies this discomfort spreading to her jaw or arms and denies any accompanying nausea vomiting perspiration or shortness of breath or palpitations. She has never experienced this discomfort before. She climbs a flight of stairs and walks approximately 3- 4 blocks to the grocery store without any difficulty. There has never been a prior myocardial infarction or symptoms of congestive cardiac failure. She admits to her mother also being a diabetic and having suffered coronary artery disease. She is not a smoker and denies any history of hypertension. Physical examination shows an elderly lady who appears slightly drowsy but otherwise quite coherent. Breathes comfortably at 16 breaths per minute while lying flat in bed and can carry on a conversation. She had a heart rate of 64 bpm regular and a blood pressure of 138/74 mmHg. Her jugular venous pressure was not elevated and there was no edema over lower ex images. The pedal pulses were well felt. There were no carotid bruits. The extremities were warm and nailbeds were pink. There was no central or peripheral cyanosis. There was no clubbing. The apex was not palpable the first and second heart sounds were normal there was no murmur or gallop there were no rales. Her abdomen was soft liver and spleen are not palpable. Her electro-cardiogram showed sinus rhythm with inverted T waves in leads 1 and aVL and poor progression of R waves in her chest leads from V1 to V3, a pattern seen on her earlier electro-cardial grams as well. There were no ST-T abnormalities suggestive of an acute ongoing myocardial ischemia. No fresh Q waves were detected on the cardiogram. Her troponin levels on the other hand were markedly elevated upon arrival in the emergency room and in another sample drawn 8 hours later. There were 29 and 47 ng per mL respectively. her BUN and creatinine where 28 and 1.1 mg percent respectively. Her electrolytes were essentially normal. Her GFR was 47 mL per minute. Rest of her labs were noted. Her CPK was markedly elevated as well. Her echocardiogram shows hypokinetic motion at apex with preserved left ventricular systolic function. Impression: an acute non-ST elevation myocardial infarction with preserved left ventricular systolic function. Diabetes mellitus. I have discussed her case with an interventionalists and I have arranged a coronary angiogram early day after tomorrow on Friday morning. In the meantime she is fully anticoagulated and has received a loading dose of Plavix and she is on beta jae as well. I have explained her diagnosis to her and the plan of management and she agrees. She is chest pain free and hemodynamically stable at this juncture. Past Patient History - Infectious Disease Hx of Infectious Diseases: None - Past Medical History & Family History Past Medical History?: Yes - Past Social History Smoking Status: Never Smoked Chewing Tobacco Use: No Cigar Use: No Drugs: Denies Home Situation {Lives}: Alone - CARDIAC Hx Hypercholesterolemia: Yes Hx Hypertension: Yes - PULMONARY Hx Respiratory Disorders: No - NEUROLOGICAL Hx Neurological Disorder: Yes Hx Dizziness: Yes - HEENT Hx HEENT Problems: Yes Other/Comment: wears eyeglasses - RENAL Hx Chronic Kidney Disease: No - ENDOCRINE/METABOLIC Hx Endocrine Disorders: Yes Hx Diabetes Mellitus Type 2: Yes - HEMATOLOGICAL/ONCOLOGICAL Hx Human Immunodeficiency Virus (HIV): No - INTEGUMENTARY Hx Dermatological Problems: No - MUSCULOSKELETAL/RHEUMATOLOGICAL Hx Musculoskeletal Disorders: Yes Hx Falls: Yes (2 yrs ago) - GASTROINTESTINAL Hx Gastrointestinal Disorders: Yes Hx Constipation: Yes (CHRONIC) - GENITOURINARY/GYNECOLOGICAL Hx Genitourinary Disorders: No - PSYCHIATRIC Hx Anxiety: Yes - SURGICAL HISTORY Hx Section: Yes (x1) Hx Cholecystectomy: Yes Hx Hysterectomy: Yes - ANESTHESIA Hx Anesthesia: Yes Hx Anesthesia Reactions: No Hx Malignant Hyperthermia: No Meds Allergies/Adverse Reactions: Allergies Allergy/AdvReac Type Severity Reaction Status Date / Time No Known Allergies Allergy Verified 08/14/18 23:16 - Medications Medications: Current Medications Amlodipine Besylate (Norvasc) 5 mg PO DAILY [facility] Last Admin: 08/15/18 09:49 Dose: 5 mg Aspirin (Ecotrin) 81 mg PO DAILY [facility] Last Admin: 08/15/18 08:24 Dose: 81 mg Atorvastatin Calcium (Lipitor) 20 mg PO HS [facility] Carvedilol (Coreg) 6.25 mg PO Q12 [facility] Last Admin: 08/15/18 08:24 Dose: 6.25 mg Clopidogrel Bisulfate (Plavix) 75 mg PO DAILY [facility] Docusate Sodium (Colace) 100 mg PO BID [facility] Last Admin: 08/15/18 08:24 Dose: 100 mg Enoxaparin Sodium (Lovenox) 80 mg SC Q12H [facility]; Protocol Famotidine (Pepcid) 20 mg PO BID [facility] Last Admin: 08/15/18 08:22 Dose: 20 mg Ferrous Sulfate (Feosol) 325 mg PO DAILY [facility] Last Admin: 08/15/18 08:23 Dose: 325 mg Insulin Human Lispro (Humalog) 0 units SC ACHS [facility]; Protocol Last Admin: 08/15/18 08:21 Dose: 1 unit Lactic Acid (Lac-Hydrin 12% Lotion (225 G)) 1 applic TOP TID [facility] Last Admin: 08/15/18 08:22 Dose: 1 applic Lactulose (Enulose) 10 gm PO DAILY [facility] Last Admin: 08/15/18 08:25 Dose: 10 gm Losartan Potassium (Cozaar) 25 mg PO DAILY [facility] Last Admin: 08/15/18 08:23 Dose: 25 mg Results - Vital Signs Recent Vital Signs: Last Vital Signs Temp 98.1 F 08/15/18 06:21 Pulse 72 08/15/18 09:49 Resp 21 08/15/18 06:21 BP 162/84 H 08/15/18 09:49 Pulse Ox 97 08/15/18 06:21 - Labs Result Diagrams: 08/14/18 23:54 08/15/18 01:30 Labs: Laboratory Results - last 24 hr 08/14/18 08/15/18 08/15/18 23:54 01:30 03:22 WBC 9.8 RBC 4.55 Hgb 13.5 Hct 40.5 MCV 89.0 MCH 29.6 MCHC 33.3 RDW 13.6 Plt Count 238 MPV 9.3 Neut % (Auto) 68.2 Lymph % (Auto) 23.3 Howard % (Auto) 6.9 Eos % (Auto) 0.7 Baso % (Auto) 0.9 Neut # (Auto) 6.7 Lymph # (Auto) 2.3 Howard # (Auto) 0.7 Eos # (Auto) 0.1 Baso # (Auto) 0.1 PT 11.3 INR 1.0 APTT 29.6 D-Dimer, Quantitative 221 Sodium 134 Potassium 4.2 Chloride 107 Carbon Dioxide 21 L Anion Gap 10 BUN 28 H Creatinine 1.1 Est GFR ( Amer) 57 Est GFR (Non-Af Amer) 47 POC Glucose (mg/dL) Random Glucose 154 H Calcium 9.7 Phosphorus 3.8 Magnesium 2.0 Total Bilirubin 0.4 AST 148 H D ALT 46 Alkaline Phosphatase 69 CK-MB (Mass) 110 H Troponin I 29.5000 H* NT-Pro-B Natriuret Pep 2120 H Total Protein 7.1 Albumin 4.1 Globulin 3.0 Albumin/Globulin Ratio 1.4 Triglycerides Cholesterol LDL Cholesterol Direct HDL Cholesterol Urine Color Urine Clarity Urine pH Ur Specific [place] Urine Protein Urine Glucose (UA) Urine Ketones Urine Blood Urine Nitrate Urine Bilirubin Urine Urobilinogen Ur Leukocyte Esterase Urine RBC (Auto) Urine Microscopic WBC Ur Squamous Epith Cells Urine Bacteria 08/15/18 08/15/18 08/15/18 05:48 06:15 06:34 WBC RBC Hgb Hct MCV MCH MCHC RDW Plt Count MPV Neut % (Auto) Lymph % (Auto) Howard % (Auto) Eos % (Auto) Baso % (Auto) Neut # (Auto) Lymph # (Auto) Howard # (Auto) Eos # (Auto) Baso # (Auto) PT INR APTT D-Dimer, Quantitative Sodium Potassium Chloride Carbon Dioxide Anion Gap BUN Creatinine Est GFR ( Amer) Est GFR (Non-Af Amer) POC Glucose (mg/dL) 172 H Random Glucose Calcium Phosphorus Magnesium 1.9 Total Bilirubin AST ALT Alkaline Phosphatase CK-MB (Mass) Troponin I 47.3000 H* NT-Pro-B Natriuret Pep Total Protein Albumin Globulin Albumin/Globulin Ratio Triglycerides 143 Cholesterol 194 LDL Cholesterol Direct 93 HDL Cholesterol 61 Urine Color Colorless Urine Clarity Clear Urine pH 7.0 Ur Specific [place] 1.006 Urine Protein Negative Urine Glucose (UA) Neg Urine Ketones Negative Urine Blood Negative Urine Nitrate Negative Urine Bilirubin Negative Urine Urobilinogen 0.2-1.0 Ur Leukocyte Esterase Neg Urine RBC (Auto) 1 Urine Microscopic WBC < 1 Ur Squamous Epith Cells < 1 Urine Bacteria Rare
[2018-08-15] MEDS: Enoxaparin 80 mg Syringe SC SCH (12:04)
--- NOTE | 2018-08-15 16:34 | RAD ---
Date of service: 08/14/2018 HISTORY: Chest pain COMPARISON: Made with chest radiograph 05/07/2018. TECHNIQUE: Chest PA and lateral FINDINGS: LUNGS: Mild bibasilar atelectasis and or scarring. The interstitial markings are also increased and coarsened with few scattered peribronchial cuffing changes. Rule out sequela of reactive/inflammatory airway disease or viral illness. PLEURA: No significant pleural effusion identified. No pneumothorax apparent. CARDIOVASCULAR: .Mild aortic atherosclerotic calcification present. Heart remains enlarged OSSEOUS STRUCTURES: Mild multilevel degenerative spondylosis of the thoracic spine VISUALIZED UPPER ABDOMEN: Normal. OTHER FINDINGS: None. IMPRESSION: Mild bibasilar atelectasis and or scarring. The interstitial markings are also increased and coarsened with few scattered peribronchial cuffing changes. Rule out sequela of reactive/inflammatory airway disease or viral illness.
--- NOTE | 2018-08-15 19:19 | CARD ---
APPROVED REPORT Date of service: 08/15/2018 EKG Measurement Heart [id number] <Conclusion> Normal sinus rhythm Possible Left atrial enlargement Left anterior fascicular block Septal infarct, age undetermined ST & T wave abnormality, consider lateral ischemia Abnormal ECG
--- NOTE | 2018-08-15 19:25 | CARD ---
APPROVED REPORT Date of service: 08/15/2018 EKG Measurement Heart [id number] <Conclusion> Normal sinus rhythm Left axis deviation Septal infarct, age undetermined ST & T wave abnormality, consider lateral ischemia Abnormal ECG
--- NOTE | 2018-08-15 19:29 | CARD ---
APPROVED REPORT Date of service: 08/14/2018 EKG Measurement Heart [id number] <Conclusion> Normal sinus rhythm Possible Left atrial enlargement Left axis deviation Septal infarct, age undetermined T wave abnormality, consider lateral ischemia Abnormal ECG
[2018-08-16] MEDS: Enoxaparin 80 mg Syringe SC SCH ×2 (01:00→12:10)
[2018-08-16 05:49] LABS: ALB/GLOB RATIO 1.3 (1.0-2.1); ALBUMIN 3.6 g/dL (3.5-5.0); CALCIUM 9.3 mg/dL (8.4-10.2); CK-MB 15.7 ng/mL (0.0-3.38); TROPONIN I 20.7 ng/mL (0.00-0.120)
[2018-08-16] MEDS: Lactulose 10 gm/15 ml Syrup PO SCH (08:37)
[2018-08-16] MEDS: Insulin Lispro (humaLOG) 100 Units/ml Inj SC SCH ×4 (08:41→21:00)
--- NOTE | 2018-08-16 10:00 | CP.CCUPN ---
CCU Subjective - Physician Review Events Since Last Encounter (Free Text): 08/16/18 09:57 Awake and alert, no CP, no SOB and looks comfortable, BP has been stable, TNI trending down, CCU Objective - Vital Signs / Intake & Output Vital Signs (Last 4 hours): Vital Signs Temp Pulse Resp BP Pulse Ox 08/16/18 08:42 81 139/94 H 08/16/18 08:40 82 139/94 H 08/16/18 08:39 81 150/68 08/16/18 08:00 98.3 F 66 20 150/68 92 L 08/16/18 06:00 98.3 F 67 22 150/68 94 L Intake and Output (Last 8hrs): Intake & Output 08/15/18 08/16/18 08/16/18 22:59 06:59 14:59 Intake Total 300 0 Output Total 350 Balance -50 0 Weight 182 lb Intake: IV 0 0 Oral 300 Output: Urine 350 Urine, Voided 350 Other: # Voids Urine, Voided 1 # Bowel Movements 1 1 - Physical Exam Narrative Physical Exam (Free Text): 08/16/18 09:58 P/E Neck: No JVD Lungs: no ronchi, crackles Abdomen: soft, non-tender Ext; No edema Heart: No gallop - Medications Active Medications: Active Medications Generic Name Dose Route Start Last Admin Trade Name Freq PRN Reason Stop Dose Admin Amlodipine Besylate 5 mg 08/15/18 09:00 08/16/18 08:42 Norvasc PO 5 mg DAILY [facility] Administration Aspirin 81 mg 08/15/18 09:00 08/16/18 08:39 Ecotrin PO 81 mg DAILY [facility] Administration Atorvastatin Calcium 20 mg 08/15/18 22:00 08/15/18 21:34 Lipitor PO 20 mg HS [facility] Administration Carvedilol 6.25 mg 08/15/18 09:00 08/16/18 08:39 Coreg PO 6.25 mg Q12 [facility] Administration Clopidogrel Bisulfate 75 mg 08/16/18 09:00 08/16/18 08:39 Plavix PO 75 mg DAILY [facility] Administration Docusate Sodium 100 mg 08/15/18 09:00 08/16/18 08:36 Colace PO Not Given BID [facility] Enoxaparin Sodium 80 mg 08/15/18 13:00 08/16/18 01:00 Lovenox SC 80 mg Q12H [facility] Administration Protocol Famotidine 20 mg 08/15/18 09:00 08/16/18 08:39 Pepcid PO 20 mg BID [facility] Administration Ferrous Sulfate 325 mg 08/15/18 09:00 08/16/18 08:39 Feosol PO 325 mg DAILY [facility] Administration Insulin Human Lispro 0 units 08/15/18 07:30 08/16/18 08:41 Humalog SC Not Given ACHS [facility] Protocol Lactic Acid 1 applic 08/15/18 09:00 08/16/18 08:41 Lac-Hydrin 12% Lotion (225 G) TOP 1 applic TID [facility] Administration Lactulose 10 gm 08/15/18 09:00 08/16/18 08:37 Enulose PO Not Given DAILY [facility] Losartan Potassium 25 mg 08/15/18 09:00 08/16/18 08:40 Cozaar PO 25 mg DAILY [facility] Administration - Patient Studies Lab Studies: Lab Studies 08/16/18 08/16/18 08/15/18 Range/Units 08:11 04:38 21:45 Sodium 133 (132-148) mmol/l Potassium 4.2 (3.6-5.0) MMOL/L Chloride 100 (98-107) mmol/L Carbon Dioxide 23 (22-30) mmol/L Anion Gap 14 (10-20) BUN 27 H (7-17) mg/dl Creatinine 1.5 H (0.7-1.2) mg/dl Est GFR ( Amer) 40 Est GFR (Non-Af Amer) 33 POC Glucose (mg/dL) 140 H 158 H (65-110) mg/dL Random Glucose 149 H (65-105) mg/dL Calcium 9.3 (8.4-10.2) mg/dL Total Bilirubin 0.5 (0.2-1.3) mg/dl AST 56 H D (14-36) U/L ALT 38 (9-52) U/L Alkaline Phosphatase 63 (38-126) U/L CK-MB (Mass) 15.7 H (0.0-3.38) ng/mL Troponin I 20.7000 H* (0.00-0.120) ng/mL Total Protein 6.4 (6.3-8.2) G/DL Albumin 3.6 (3.5-5.0) g/dL Globulin 2.8 (2.2-3.9) gm/dL Albumin/Globulin Ratio 1.3 (1.0-2.1) 08/15/18 08/15/18 08/15/18 Range/Units 16:23 13:13 13:13 Sodium (132-148) mmol/l Potassium (3.6-5.0) MMOL/L Chloride (98-107) mmol/L Carbon Dioxide (22-30) mmol/L Anion Gap (10-20) BUN (7-17) mg/dl Creatinine (0.7-1.2) mg/dl Est GFR ( Amer) Est GFR (Non-Af Amer) POC Glucose (mg/dL) 189 H (65-110) mg/dL Random Glucose (65-105) mg/dL Calcium (8.4-10.2) mg/dL Total Bilirubin (0.2-1.3) mg/dl AST (14-36) U/L ALT (9-52) U/L Alkaline Phosphatase (38-126) U/L CK-MB (Mass) 58.8 H (0.0-3.38) ng/mL Troponin I 37.4000 H* (0.00-0.120) ng/mL Total Protein (6.3-8.2) G/DL Albumin (3.5-5.0) g/dL Globulin (2.2-3.9) gm/dL Albumin/Globulin Ratio (1.0-2.1) 08/15/18 Range/Units 11:33 Sodium (132-148) mmol/l Potassium (3.6-5.0) MMOL/L Chloride (98-107) mmol/L Carbon Dioxide (22-30) mmol/L Anion Gap (10-20) BUN (7-17) mg/dl Creatinine (0.7-1.2) mg/dl Est GFR ( Amer) Est GFR (Non-Af Amer) POC Glucose (mg/dL) 259 H (65-110) mg/dL Random Glucose (65-105) mg/dL Calcium (8.4-10.2) mg/dL Total Bilirubin (0.2-1.3) mg/dl AST (14-36) U/L ALT (9-52) U/L Alkaline Phosphatase (38-126) U/L CK-MB (Mass) (0.0-3.38) ng/mL Troponin I (0.00-0.120) ng/mL Total Protein (6.3-8.2) G/DL Albumin (3.5-5.0) g/dL Globulin (2.2-3.9) gm/dL Albumin/Globulin Ratio (1.0-2.1) Laboratory Results - last 24 hr 08/15/18 08/15/18 08/15/18 11:33 13:13 13:13 Sodium Potassium Chloride Carbon Dioxide Anion Gap BUN Creatinine Est GFR ( Amer) Est GFR (Non-Af Amer) POC Glucose (mg/dL) 259 H Random Glucose Calcium Total Bilirubin AST ALT Alkaline Phosphatase CK-MB (Mass) 58.8 H Troponin I 37.4000 H* Total Protein Albumin Globulin Albumin/Globulin Ratio 08/15/18 08/15/18 08/16/18 16:23 21:45 04:38 Sodium 133 Potassium 4.2 Chloride 100 Carbon Dioxide 23 Anion Gap 14 BUN 27 H Creatinine 1.5 H Est GFR ( Amer) 40 Est GFR (Non-Af Amer) 33 POC Glucose (mg/dL) 189 H 158 H Random Glucose 149 H Calcium 9.3 Total Bilirubin 0.5 AST 56 H D ALT 38 Alkaline Phosphatase 63 CK-MB (Mass) 15.7 H Troponin I 20.7000 H* Total Protein 6.4 Albumin 3.6 Globulin 2.8 Albumin/Globulin Ratio 1.3 08/16/18 08:11 Sodium Potassium Chloride Carbon Dioxide Anion Gap BUN Creatinine Est GFR ( Amer) Est GFR (Non-Af Amer) POC Glucose (mg/dL) 140 H Random Glucose Calcium Total Bilirubin AST ALT Alkaline Phosphatase CK-MB (Mass) Troponin I Total Protein Albumin Globulin Albumin/Globulin Ratio Radiology Impressions: Radiology Impressions Chest X-Ray 08/14/18 23:23 IMPRESSION: Mild bibasilar atelectasis and or scarring. The interstitial markings are also increased and coarsened with few scattered peribronchial cuffing changes. Rule out sequela of reactive/inflammatory airway disease or viral illness. Fingerstick Blood Sugar Results: 140 Critical Care Progress Note - Nutrition Nutrition: Nutrition Category Date Time Status Heart Healthy Diet [DIET] Diets 08/15/18 Breakfast Active Assessment/Plan - Assessment and Plan (Free Text) Assessment: Assessment: NSTEMI: TNI , trending down, ARIES pedraza HTN: was uncontrolled : better controlled now NIDDM CKD-3 h/o CHF Hyperlididemia Plan: On ASA On Plavix On Coreg 6.25 mg po BID, can;t increase the dose due to slow HR Continue losartan, continue Norcasc 5 mg po daily On lovenox therapeutic dose serial TNI Echo Cardiology consult, Dr Boss On Statin Card Cath tomorrow.
--- NOTE | 2018-08-16 10:52 | CP.PCM.PN ---
Subjective - Date & Time of Evaluation Date of Evaluation: 08/16/18 Time of Evaluation: 10:00 - Subjective Subjective: the patient was found sitting up in a chair comfortably reading the newspaper. She denies any further chest pain or palpitations or symptoms of congestive cardiac failure. quality assurance monitor final shows sinus rhythm at 64 bpm regular and a blood pressure of 134/74 mmHg. Jugular venous pressure was not elevated and there was no edema over lower extremities. Her cardiogram taken yesterday and her subsequent blood tests were reviewed again. The impression at this time is non-ST elevation PR. the patient was recommended to have a coronary angiography for possible PCI.(this was planned for tomorrow morning) The patient declined to have any invasive intervention. The risks of such management were described and the patient understood them. She reports that she plans to leave the hospital when her family visits service afternoon. I have discussed the patient's decision with the welder experimental. Objective - Vital Signs/Intake and Output Vital Signs (last 24 hours): Temp Pulse Resp BP Pulse Ox 98.3 F 73 17 119/56 L 97 08/16/18 08:00 08/16/18 10:00 08/16/18 10:00 08/16/18 10:00 08/16/18 10:00 Intake and Output: 08/16/18 08/16/18 06:59 18:59 Intake Total 0 Balance 0 - Medications Medications: Current Medications Amlodipine Besylate (Norvasc) 5 mg PO DAILY [facility] Last Admin: 08/16/18 08:42 Dose: 5 mg Aspirin (Ecotrin) 81 mg PO DAILY [facility] Last Admin: 08/16/18 08:39 Dose: 81 mg Atorvastatin Calcium (Lipitor) 20 mg PO HS [facility] Last Admin: 08/15/18 21:34 Dose: 20 mg Carvedilol (Coreg) 6.25 mg PO Q12 [facility] Last Admin: 08/16/18 08:39 Dose: 6.25 mg Clopidogrel Bisulfate (Plavix) 75 mg PO DAILY [facility] Last Admin: 08/16/18 08:39 Dose: 75 mg Docusate Sodium (Colace) 100 mg PO BID [facility] Last Admin: 08/16/18 08:36 Dose: Not Given Enoxaparin Sodium (Lovenox) 80 mg SC Q12H [facility]; Protocol Last Admin: 08/16/18 01:00 Dose: 80 mg Famotidine (Pepcid) 20 mg PO BID [facility] Last Admin: 08/16/18 08:39 Dose: 20 mg Ferrous Sulfate (Feosol) 325 mg PO DAILY [facility] Last Admin: 08/16/18 08:39 Dose: 325 mg Insulin Human Lispro (Humalog) 0 units SC [facility]; Protocol Last Admin: 08/16/18 08:41 Dose: Not Given Lactic Acid (Lac-Hydrin 12% Lotion (225 G)) 1 applic TOP TID [facility] Last Admin: 08/16/18 08:41 Dose: 1 applic Lactulose (Enulose) 10 gm PO DAILY [facility] Last Admin: 08/16/18 08:37 Dose: Not Given Losartan Potassium (Cozaar) 25 mg PO DAILY [facility] Last Admin: 08/16/18 08:40 Dose: 25 mg - Labs Labs: 08/14/18 23:54 08/16/18 04:38 PT 11.3 Seconds (9.8-13.1) 08/15/18 03:22 INR 1.0 08/15/18 03:22 APTT 29.6 Seconds (25.6-37.1) 08/15/18 03:22
--- NOTE | 2018-08-16 22:03 | CP.PCM.HP ---
History of Present Illness - History of Present Illness History of Present Illness: CC: Epigastric and Chest Pain History of Present Illness: History from the patient and Chart An 82 years old female with hx of HTN, DM, CHF and HLD who comes to the ED with 2 hours of epigastric and retrosternal chest pain, non radiating, gas-like pain which began at rest and was relieved in the ED after receiving Pepcid. No nausea, vomiting, SOB, palpitation, diaphoresis, dizziness nor headaches. In the ED the BP was 210/90mmHg with abnormal EKG, and High Troponin. Agricultural Engineer consulted by the ER attending who recommended Medical management for NSTEMI. Present on Admission - Present on Admission Any Indicators Present on Admission: Yes Review of Systems - Review of Systems All systems: reviewed and no additional remarkable complaints except Review of Systems: as per HPI Past Patient History - Infectious Disease Hx of Infectious Diseases: None - Past Medical History & Family History Past Medical History?: Yes Past Family History: Reviewed and not pertinent - Past Social History Smoking Status: Never Smoked Chewing Tobacco Use: No Cigar Use: No Drugs: Denies Home Situation {Lives}: Alone - CARDIAC Hx Hypercholesterolemia: Yes Hx Hypertension: Yes - PULMONARY Hx Respiratory Disorders: No - NEUROLOGICAL Hx Neurological Disorder: Yes Hx Dizziness: Yes - HEENT Hx HEENT Problems: Yes Other/Comment: wears eyeglasses - RENAL Hx Chronic Kidney Disease: No - ENDOCRINE/METABOLIC Hx Endocrine Disorders: Yes Hx Diabetes Mellitus Type 2: Yes - HEMATOLOGICAL/ONCOLOGICAL Hx Human Immunodeficiency Virus (HIV): No - INTEGUMENTARY Hx Dermatological Problems: No - MUSCULOSKELETAL/RHEUMATOLOGICAL Hx Musculoskeletal Disorders: Yes Hx Falls: Yes (2 yrs ago) - GASTROINTESTINAL Hx Gastrointestinal Disorders: Yes Hx Constipation: Yes (CHRONIC) - GENITOURINARY/GYNECOLOGICAL Hx Genitourinary Disorders: No - PSYCHIATRIC Hx Anxiety: Yes - SURGICAL HISTORY Hx Cholecystectomy: Yes - ANESTHESIA Hx Anesthesia: Yes Hx Anesthesia Reactions: No Hx Malignant Hyperthermia: No Meds Allergies/Adverse Reactions: Allergies Allergy/AdvReac Type Severity Reaction Status Date / Time No Known Allergies Allergy Verified 08/14/18 23:16 Physical Exam - Constitutional Appears: Well, No Acute Distress - Head Exam Head Exam: ATRAUMATIC, NORMAL INSPECTION, NORMOCEPHALIC - Eye Exam Eye Exam: EOMI, Normal appearance, PERRL Pupil Exam: NORMAL ACCOMODATION, PERRL - ENT Exam ENT Exam: Mucous Membranes Moist, Normal Exam - Neck Exam Neck exam: Positive for: Normal Inspection - Respiratory Exam Respiratory Exam: Clear to Auscultation Bilateral, NORMAL BREATHING PATTERN - Cardiovascular Exam Cardiovascular Exam: REGULAR RHYTHM, +S1, +S2 - GI/Abdominal Exam GI & Abdominal Exam: Normal Bowel Sounds, Soft. absent: Tenderness - Extremities Exam Extremities exam: Positive for: normal inspection - Back Exam Back exam: NORMAL INSPECTION - Neurological Exam Neurological exam: Alert, CN II-XII Intact, Normal Gait, Oriented x3, Reflexes Normal - Psychiatric Exam Psychiatric exam: Normal Affect, Normal Mood - Skin Skin Exam: Dry, Intact, Normal Color, Warm Results - Vital Signs Recent Vital Signs: Last Vital Signs Temp 98.0 F 08/16/18 16:00 Pulse 69 08/16/18 20:15 Resp 21 08/16/18 18:00 BP 144/61 08/16/18 20:15 Pulse Ox 97 08/16/18 18:00 - Labs Result Diagrams: 08/14/18 23:54 08/16/18 04:38 Labs: Laboratory Results - last 24 hr 08/15/18 08/16/18 08/16/18 06:00 04:38 08:11 Sodium 133 Potassium 4.2 Chloride 100 Carbon Dioxide 23 Anion Gap 14 BUN 27 H Creatinine 1.5 H Est GFR ( Amer) 40 Est GFR (Non-Af Amer) 33 POC Glucose (mg/dL) 140 H Random Glucose 149 H Hemoglobin A1c 7.4 H Calcium 9.3 Total Bilirubin 0.5 AST 56 H D ALT 38 Alkaline Phosphatase 63 CK-MB (Mass) 15.7 H Troponin I 20.7000 H* Total Protein 6.4 Albumin 3.6 Globulin 2.8 Albumin/Globulin Ratio 1.3 08/16/18 08/16/18 11:05 16:23 Sodium Potassium Chloride Carbon Dioxide Anion Gap BUN Creatinine Est GFR ( Amer) Est GFR (Non-Af Amer) POC Glucose (mg/dL) 274 H 172 H Random Glucose Hemoglobin A1c Calcium Total Bilirubin AST ALT Alkaline Phosphatase CK-MB (Mass) Troponin I Total Protein Albumin Globulin Albumin/Globulin Ratio - Impressions Impression: LAD. T-Wave Abnormalities in the Lateral Leads. - Imaging and Cardiology Chest x-ray Status: Report reviewed by me Additional comment: Date of service: 08/14/2018 HISTORY: Chest pain COMPARISON: Made with chest radiograph 05/07/2018. TECHNIQUE: Chest PA and lateral FINDINGS: LUNGS: Mild bibasilar atelectasis and or scarring. The interstitial markings are also increased and coarsened with few scattered peribronchial cuffing changes. Rule out sequela of reactive/inflammatory airway disease or viral illness. PLEURA: No significant pleural effusion identified. No pneumothorax apparent. CARDIOVASCULAR: .Mild aortic atherosclerotic calcification present. Heart remains enlarged OSSEOUS STRUCTURES: Mild multilevel degenerative spondylosis of the thoracic spine VISUALIZED UPPER ABDOMEN: Normal. OTHER FINDINGS: None. IMPRESSION: Mild bibasilar atelectasis and or scarring. The interstitial markings are also increased and coarsened with few scattered peribronchial cuffing changes. Rule out sequela of reactive/inflammatory airway disease or viral illness. Assessment & Plan (1) Chest pain Status: Acute (2) NSTEMI (non-ST elevated myocardial infarction) Status: Acute Priority: High (3) Accelerated essential hypertension Status: Acute Priority: Medium (4) Diabetes mellitus with hyperglycemia Status: Acute Priority: Medium (5) Chronic congestive heart failure Status: Acute Priority: Medium - Assessment and Plan (Free Text) Plan: Admitted to CCU O2 Via NC ASA BB Therapeutic Lovenox Statin Serial trop and EKG TTE Cardiology Consu;lt Fasting Lipid Profile Accu-check with Low Coverage
--- NOTE | 2018-08-16 22:04 | CP.PCM.PN ---
Subjective - Date & Time of Evaluation Date of Evaluation: 08/16/18 Time of Evaluation: 16:05 Objective - Vital Signs/Intake and Output Vital Signs (last 24 hours): Temp Pulse Resp BP Pulse Ox 98.0 F 69 21 144/61 97 08/16/18 16:00 08/16/18 20:15 08/16/18 18:00 08/16/18 20:15 08/16/18 18:00 Intake and Output: 08/16/18 08/17/18 18:59 06:59 Intake Total 340 Output Total 150 Balance 190 - Medications Medications: Current Medications Amlodipine Besylate (Norvasc) 5 mg PO DAILY [facility] Last Admin: 08/16/18 08:42 Dose: 5 mg Aspirin (Ecotrin) 81 mg PO DAILY [facility] Last Admin: 08/16/18 08:39 Dose: 81 mg Atorvastatin Calcium (Lipitor) 20 mg PO HS [facility] Last Admin: 08/15/18 21:34 Dose: 20 mg Carvedilol (Coreg) 6.25 mg PO Q12 [facility] Last Admin: 08/16/18 20:15 Dose: 6.25 mg Clopidogrel Bisulfate (Plavix) 75 mg PO DAILY [facility] Last Admin: 08/16/18 08:39 Dose: 75 mg Docusate Sodium (Colace) 100 mg PO BID [facility] Last Admin: 08/16/18 16:35 Dose: 100 mg Enoxaparin Sodium (Lovenox) 80 mg SC Q12H [facility]; Protocol Last Admin: 08/16/18 12:10 Dose: 80 mg Famotidine (Pepcid) 20 mg PO BID [facility] Last Admin: 08/16/18 16:34 Dose: 20 mg Ferrous Sulfate (Feosol) 325 mg PO DAILY [facility] Last Admin: 08/16/18 08:39 Dose: 325 mg Insulin Human Lispro (Humalog) 0 units SC ACHS [facility]; Protocol Last Admin: 08/16/18 16:32 Dose: 1 unit Lactic Acid (Lac-Hydrin 12% Lotion (225 G)) 1 applic TOP TID [facility] Last Admin: 08/16/18 16:31 Dose: 1 applic Lactulose (Enulose) 10 gm PO DAILY [facility] Last Admin: 08/16/18 08:37 Dose: Not Given Losartan Potassium (Cozaar) 25 mg PO DAILY [facility] Last Admin: 08/16/18 08:40 Dose: 25 mg - Labs Labs: 08/14/18 23:54 08/16/18 04:38 PT 11.3 Seconds (9.8-13.1) 08/15/18 03:22 INR 1.0 08/15/18 03:22 APTT 29.6 Seconds (25.6-37.1) 08/15/18 03:22
[2018-08-17] MEDS: Enoxaparin 80 mg Syringe SC SCH ×3 (01:08→21:00)
[2018-08-17 05:32] LABS: HEMOGLOBIN 13.1 g/dL (12.0-16.0); MEAN CELL VOLUME 88.8 fl (81.0-99.0); MEAN CORPUSCULAR HEMOGLOBIN 29.4 pg (27.0-31.0); MEAN CORPUSCULAR HGB CONC 33.1 g/dL (33.0-37.0); RBC 4.46 Mil/uL (3.80-5.20); RED CELL DISTRIBUTION WIDTH 13.6 % (11.5-14.5)
[2018-08-17 05:40] LABS: CALCIUM 9.2 mg/dL (8.4-10.2)
[2018-08-17] MEDS: Insulin Lispro (humaLOG) 100 Units/ml Inj SC SCH ×4 (08:03→21:00)
--- NOTE | 2018-08-17 08:53 | CP.PCM.CON ---
History of Present Illness - History of Present Illness History of Present Illness: consult requested for capacity to make decision in reference to a coronary angiogram pt is an 82-year-old female, no previous formal psychiatric diagnosis or treatment , she is diabetic for over 2 years , lives alone [facility] after calling emergency medical technologist prn in the middle of the night when she experienced severe retrosternal discomfort which lasted approximately 2 hours and then spontaneously resolved. 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 , pt reported she lives by herself and that she attends to her own Instrumental and daily life activities , denied any current memory problems I discussed with the pt her current medical condition, she was able to verbalize why she is in the hospital, reported she called EMS due to having chest pains, verbalized that the pain resolved spontaneously after arrival to the hospital, when asked what type of treatment is currently suggested , she said she feels it is an invasive procedure and she is scared and worries about it whenasked if she is able to verbalize the risks of not having it she said she knows that she could because of her heart problem, when asked about the possible benefits she answered she would rather than have a risky procedure explaine to pt risks versus benefits of the cardiac angiogram, she was able to retain information and verbalize it Past Patient History - Infectious Disease Hx of Infectious Diseases: None - Past Medical History & Family History Past Medical History?: Yes Past Family History: Reviewed and not pertinent - Past Social History Smoking Status: Never Smoked Chewing Tobacco Use: No Cigar Use: No Drugs: Denies Home Situation {Lives}: Alone - CARDIAC Hx Hypercholesterolemia: Yes Hx Hypertension: Yes - PULMONARY Hx Respiratory Disorders: No - NEUROLOGICAL Hx Neurological Disorder: Yes Hx Dizziness: Yes - HEENT Hx HEENT Problems: Yes Other/Comment: wears eyeglasses - RENAL Hx Chronic Kidney Disease: No - ENDOCRINE/METABOLIC Hx Endocrine Disorders: Yes Hx Diabetes Mellitus Type 2: Yes - HEMATOLOGICAL/ONCOLOGICAL Hx Human Immunodeficiency Virus (HIV): No - INTEGUMENTARY Hx Dermatological Problems: No - MUSCULOSKELETAL/RHEUMATOLOGICAL Hx Musculoskeletal Disorders: Yes Hx Falls: Yes (2 yrs ago) - GASTROINTESTINAL Hx Gastrointestinal Disorders: Yes Hx Constipation: Yes (CHRONIC) - GENITOURINARY/GYNECOLOGICAL Hx Genitourinary Disorders: No - PSYCHIATRIC Hx Anxiety: Yes - SURGICAL HISTORY Hx Cholecystectomy: Yes - ANESTHESIA Hx Anesthesia: Yes Hx Anesthesia Reactions: No Hx Malignant Hyperthermia: No Meds Allergies/Adverse Reactions: Allergies Allergy/AdvReac Type Severity Reaction Status Date / Time No Known Allergies Allergy Verified 08/14/18 23:16 - Medications Medications: Current Medications Amlodipine Besylate (Norvasc) 5 mg PO DAILY [facility] Last Admin: 08/16/18 08:42 Dose: 5 mg Aspirin (Ecotrin) 81 mg PO DAILY [facility] Last Admin: 08/16/18 08:39 Dose: 81 mg Atorvastatin Calcium (Lipitor) 20 mg PO HS [facility] Last Admin: 08/16/18 21:00 Dose: 20 mg Carvedilol (Coreg) 6.25 mg PO Q12 [facility] Last Admin: 08/16/18 20:15 Dose: 6.25 mg Clopidogrel Bisulfate (Plavix) 75 mg PO DAILY [facility] Last Admin: 08/16/18 08:39 Dose: 75 mg Docusate Sodium (Colace) 100 mg PO BID [facility] Last Admin: 08/16/18 16:35 Dose: 100 mg Enoxaparin Sodium (Lovenox) 80 mg SC Q12 [facility]; Protocol Famotidine (Pepcid) 20 mg PO BID [facility] Last Admin: 08/16/18 16:34 Dose: 20 mg Ferrous Sulfate (Feosol) 325 mg PO DAILY [facility] Last Admin: 08/16/18 08:39 Dose: 325 mg Insulin Human Lispro (Humalog) 0 units SC [facility]; Protocol Last Admin: 08/17/18 08:03 Dose: Not Given Lactic Acid (Lac-Hydrin 12% Lotion (225 G)) 1 applic TOP TID [facility] Last Admin: 08/16/18 16:31 Dose: 1 applic Lactulose (Enulose) 10 gm PO DAILY [facility] Last Admin: 08/16/18 08:37 Dose: Not Given Losartan Potassium (Cozaar) 25 mg PO DAILY [facility] Last Admin: 08/16/18 08:40 Dose: 25 mg Results - Vital Signs Recent Vital Signs: Last Vital Signs Temp 97.7 F 08/17/18 08:00 Pulse 61 08/17/18 08:00 Resp 20 08/17/18 08:00 BP 157/56 H 08/17/18 08:00 Pulse Ox 93 L 08/17/18 08:00 - Labs Result Diagrams: 08/17/18 04:40 08/17/18 04:40 Labs: Laboratory Results - last 24 hr 08/15/18 08/16/18 08/16/18 06:00 11:05 16:23 WBC RBC Hgb Hct MCV MCH MCHC RDW Plt Count Sodium Potassium Chloride Carbon Dioxide Anion Gap BUN Creatinine Est GFR ( Amer) Est GFR (Non-Af Amer) POC Glucose (mg/dL) 274 H 172 H Random Glucose Hemoglobin A1c 7.4 H Calcium 08/16/18 08/17/18 08/17/18 20:23 04:40 04:40 WBC 7.0 RBC 4.46 Hgb 13.1 Hct 39.6 MCV 88.8 MCH 29.4 MCHC 33.1 RDW 13.6 Plt Count 212 Sodium 132 Potassium 4.1 Chloride 100 Carbon Dioxide 23 Anion Gap 13 BUN 33 H Creatinine 1.5 H Est GFR ( Amer) 40 Est GFR (Non-Af Amer) 33 POC Glucose (mg/dL) 164 H Random Glucose 131 H Hemoglobin A1c Calcium 9.2 08/17/18 06:07 WBC RBC Hgb Hct MCV MCH MCHC RDW Plt Count Sodium Potassium Chloride Carbon Dioxide Anion Gap BUN Creatinine Est GFR ( Amer) Est GFR (Non-Af Amer) POC Glucose (mg/dL) 136 H Random Glucose Hemoglobin A1c Calcium Assessment & Plan - Assessment and Plan (Free Text) Assessment: mild neurocognitive disorder Plan: pt at current mental status has the capacity to make the decision in reference to the cardiac angiogram procedure recommend that the social worker clinical and treating physician would discuss with family members that the pt is presenting with early memory deficits and further evaluation by geriatric psychiatrist and also evaluation for the need for help with instrumental daily activities is recommended
--- NOTE | 2018-08-17 09:15 | CP.PCM.PN ---
Subjective - Date & Time of Evaluation Date of Evaluation: 08/17/18 Time of Evaluation: 08:10 - Subjective Subjective: the patient was found in and was alert awake and coherent. the patient had a comfor or palpitations or sudden shortness of breath. Overnight she had a steady sinus rhythm at physiological rate her blood pressure was 134/74 mmHg There was no evidence of congestive cardiac failure. The need for early coronary angiography was explained The risk for declining this procedure was also explained. The patient seems to comprehend this discussion. She steadfastly declines to proceed with coronary angiography. I have discussed this with the grounds maintenance supervisor. Objective - Vital Signs/Intake and Output Vital Signs (last 24 hours): Temp Pulse Resp BP Pulse Ox 97.7 F 71 20 157/56 H 93 L 08/17/18 08:00 08/17/18 08:40 08/17/18 08:00 08/17/18 08:40 08/17/18 08:00 Intake and Output: 08/17/18 08/17/18 06:59 18:59 Intake Total 50 Balance 50 - Medications Medications: Current Medications Amlodipine Besylate (Norvasc) 5 mg PO DAILY [facility] Last Admin: 08/17/18 08:39 Dose: 5 mg Aspirin (Ecotrin) 81 mg PO DAILY [facility] Last Admin: 08/17/18 08:37 Dose: 81 mg Atorvastatin Calcium (Lipitor) 20 mg PO HS [facility] Last Admin: 08/16/18 21:00 Dose: 20 mg Carvedilol (Coreg) 6.25 mg PO Q12 [facility] Last Admin: 08/17/18 08:40 Dose: 6.25 mg Clopidogrel Bisulfate (Plavix) 75 mg PO DAILY [facility] Last Admin: 08/17/18 08:39 Dose: 75 mg Docusate Sodium (Colace) 100 mg PO BID [facility] Last Admin: 08/16/18 16:35 Dose: 100 mg Enoxaparin Sodium (Lovenox) 80 mg SC Q12 [facility]; Protocol Last Admin: 08/17/18 08:42 Dose: 80 mg Famotidine (Pepcid) 20 mg PO BID [facility] Last Admin: 08/17/18 08:37 Dose: 20 mg Ferrous Sulfate (Feosol) 325 mg PO DAILY [facility] Last Admin: 08/17/18 08:39 Dose: 325 mg Insulin Human Lispro (Humalog) 0 units SC ACHS [facility]; Protocol Last Admin: 08/17/18 08:03 Dose: Not Given Lactic Acid (Lac-Hydrin 12% Lotion (225 G)) 1 applic TOP TID [facility] Last Admin: 08/17/18 08:42 Dose: 1 applic Lactulose (Enulose) 10 gm PO DAILY [facility] Last Admin: 08/16/18 08:37 Dose: Not Given Losartan Potassium (Cozaar) 25 mg PO DAILY [facility] Last Admin: 08/17/18 08:39 Dose: 25 mg - Labs Labs: 08/17/18 04:40 08/17/18 04:40 PT 11.3 Seconds (9.8-13.1) 08/15/18 03:22 INR 1.0 08/15/18 03:22 APTT 29.6 Seconds (25.6-37.1) 08/15/18 03:22
[2018-08-17] MEDS: Lactulose 10 gm/15 ml Syrup PO SCH (13:03)
[2018-08-17] MEDS ORDERED: Sodium Chloride 0.9% 1,000 ML IV SCH ×2 (17:45→18:30)
--- NOTE | 2018-08-17 19:31 | PN ---
DATE: 08/17/2018 CRITICAL CARE PROGRESS NOTE LOCATION: The patient in ICU bed 434. TIME SPENT: 25 minutes. The patient is seen and evaluated at the bedside. Past medical, surgical, family, and social history reviewed. Case discussed in multidisciplinary ICU rounds this morning. SUBJECTIVE: An 82-year-old female with hypertension, diabetes, hyperlipidemia, and congestive heart failure, admitted through the emergency room, complaining of epigastric and retrosternal non-radiating pain at rest, not associated with nausea or vomiting, no palpitation. In the ED, the patient's blood pressure was noted to be elevated with abnormal EKG, admitted to ICU. Troponin was noted to be trending down, remained pain-free, seen by cardiology consult, recommended cardiac catheterization to assess coronary artery anatomy. The patient was cleared to undergo surgery this morning. PHYSICAL EXAMINATION: GENERAL: Remains alert, awake, follows commands appropriate. mild epigastric pain, which subsequently resolved after moving the bowels. VITAL SIGNS: Temperature 98.2, heart rate 56-63 regular, blood pressure 137/56, mean arterial pressure 83, respiratory rate 19, and oxygen saturation 90% on room air. Intake 390, output 150, positive balance 240, weight 185 pounds and 12.8 ounces. HEAD, EYES, EARS, NOSE AND THROAT: Pupils are reactive, conjunctivae are pink, sclerae are white. NECK: Supple. Trachea is central. CHEST: Bilateral breath sounds, clear to auscultation. HEART: Rhythm regular. S1 and S2 normal intensity. No S3, S4, or gallop. No audible murmur. ABDOMEN: Bowel sounds present, soft. Liver and spleen not palpable. Bladder not distended. EXTREMITIES: Trace edema. NEUROLOGIC: Nonfocal. LABORATORY DATA: WBC 7, hemoglobin 13.1, hematocrit 39.6, and platelet count 212. PT 11.3, INR 1, PTT 29.6, D-dimer 221. SMA-7: Sodium 142, potassium 4.1, chloride 100, CO2 of 23, blood, urea, nitrogen 33, creatinine 1.5, random glucose 136 to 174, and calcium 9.2. Urinalysis is negative. Microbiology, nasal smear, MRSA negative. Echocardiogram done on 08/15/2018 shows left ventricle is normal in size, mild concentric left ventricular hypertrophy, apex in the apical one third of the septum was moderately hypokinetic. LV systolic function is normal. LVEF 55-65%. Chest x-ray showed mild bibasilar atelectasis and/or scarring interstitial markings also increased and coarsened with few scattered peribronchial cough changes. Electrocardiogram showed normal sinus rhythm, possible left atrial enlargement, left anterior fascicular block, septal infarct, ST and T wave abnormality, and consider lateral ischemia. CURRENT MEDICATIONS: Norvasc 5 mg p.o. daily, aspirin 81 mg p.o. daily, Lipitor 20 mg p.o. daily, Coreg 6.25 mg p.o. every 12 hours, Plavix 75 mg p.o. daily, Colace 100 mg p.o. twice daily, Lovenox 80 mg subcutaneously every 12 hours, Pepcid 20 mg p.o. twice daily, ferrous sulfate 325 mg p.o. daily, Humalog based on Accu-Chek a.c. and at bedtime, Lac-Hydrin 12% lotion 1 application topically 3 times daily, Lactulose 10 mg p.o. daily, and Cozaar 25 mg p.o. daily. IMPRESSION: An elderly female with a history significant for diabetes, hypertension, hyperlipidemia, question congestive heart failure, admitted with retrosternal chest pain with EKG changes, seen by Cardiology consult. RECOMMENDATIONS: Recommend cardiac catheterization. The patient remains pain-free, denies shortness of breath, not interested in doing cardiac catheterization. The patient was seen by psychiatric consult, assessed the competency. The patient is found to be competent to make her own decision and therefore cardiac catheterization is pending. We will further discuss with. Continue current medications. We will discuss with primary physician. Leonidas Varghese MD
--- NOTE | 2018-08-17 20:11 | CP.PCM.CON ---
<Deepak Sher - Last Filed: 08/17/18 23:04> History of Present Illness - History of Present Illness History of Present Illness: Deepak Sher DO PGY1 - Internal Medicine Senior Quality Technician - Cardiology Note for Dr. Gu Patient is a 82F w/ a PMH of HTN, DM, CHF, HLD, who presented to [facility] ED on 08/14 w/ c/o chest pain. Upon arrival patient was noted to be hyeprtensive w/ elevated troponin started on therapeutic lovenox for NSTEMI. Dr. Boss initially consulted and patient underwent echocardiogram which showed EF of 55-60%, hypokinetic apex, and septum. Patient was initially offered cardiac rosalie terization however she refused. Patient capacity was evaluated by [facility] who found patient to be in full capacity of understanding risks vs benefits of cardiac cath. Subsequently cardiology was again consulted today to evaluate patient. Patient was evaluated this evening at bedside in ICU w/ family present. Patient is found to be a functional 82F who is independent in her ADLs and lives an active lifestyle. Risks vs benefits of cardiac cath were again explained to patient who agrees to move forward w/ cardiac catheterization at this time. She denies any active chest pain, or sob at this time however on presentation patient was reporting that the chest was located along the LSB, sharp in nature w/ radiation in to the L arm; associated w/ mild SOB. CP occurred at rest. Patient denies any chest pain, sob, palpitations, lightheadedness at this time Remainder 12 system ROS is otherwise negative. PMH: As above - denies prior hx of stroke or CO; No formal dx of CKD PSH: Hysterectomy, Cholecystectomy Fam Hx: Mother DM, CO ; Father unknown Social: Denies smoking, social EtOH, Denies illicit drug Allergies: NDKA Review of Systems - Review of Systems All systems: reviewed and no additional remarkable complaints except Review of Systems: as per HPI Past Patient History - Infectious Disease Hx of Infectious Diseases: None - Past Medical History & Family History Past Medical History?: Yes Past Family History: Reviewed and not pertinent - Past Social History Smoking Status: Never Smoked Chewing Tobacco Use: No Cigar Use: No Drugs: Denies Home Situation {Lives}: Alone - CARDIAC Hx Hypercholesterolemia: Yes Hx Hypertension: Yes - PULMONARY Hx Respiratory Disorders: No - NEUROLOGICAL Hx Neurological Disorder: Yes Hx Dizziness: Yes - HEENT Hx HEENT Problems: Yes Other/Comment: wears eyeglasses - RENAL Hx Chronic Kidney Disease: No - ENDOCRINE/METABOLIC Hx Endocrine Disorders: Yes Hx Diabetes Mellitus Type 2: Yes - HEMATOLOGICAL/ONCOLOGICAL Hx Human Immunodeficiency Virus (HIV): No - INTEGUMENTARY Hx Dermatological Problems: No - MUSCULOSKELETAL/RHEUMATOLOGICAL Hx Musculoskeletal Disorders: Yes Hx Falls: Yes (2 yrs ago) - GASTROINTESTINAL Hx Gastrointestinal Disorders: Yes Hx Constipation: Yes (CHRONIC) - GENITOURINARY/GYNECOLOGICAL Hx Genitourinary Disorders: No - PSYCHIATRIC Hx Anxiety: Yes - SURGICAL HISTORY Hx Cholecystectomy: Yes - ANESTHESIA Hx Anesthesia: Yes Hx Anesthesia Reactions: No Hx Malignant Hyperthermia: No Meds Allergies/Adverse Reactions: Allergies Allergy/AdvReac Type Severity Reaction Status Date / Time No Known Allergies Allergy Verified 08/14/18 23:16 - Medications Medications: Current Medications Amlodipine Besylate (Norvasc) 5 mg PO DAILY [facility] Last Admin: 08/17/18 08:39 Dose: 5 mg Aspirin (Ecotrin) 81 mg PO DAILY [facility] Last Admin: 08/17/18 08:37 Dose: 81 mg Atorvastatin Calcium (Lipitor) 20 mg PO HS [facility] Last Admin: 08/16/18 21:00 Dose: 20 mg Carvedilol (Coreg) 6.25 mg PO Q12 [facility] Last Admin: 08/17/18 08:40 Dose: 6.25 mg Clopidogrel Bisulfate (Plavix) 75 mg PO DAILY [facility] Last Admin: 08/17/18 08:39 Dose: 75 mg Docusate Sodium (Colace) 100 mg PO BID [facility] Last Admin: 08/17/18 18:02 Dose: 100 mg Enoxaparin Sodium (Lovenox) 80 mg SC Q12 [facility]; Protocol Last Admin: 08/17/18 08:42 Dose: 80 mg Famotidine (Pepcid) 20 mg PO BID [facility] Last Admin: 08/17/18 18:02 Dose: 20 mg Ferrous Sulfate (Feosol) 325 mg PO DAILY [facility] Last Admin: 08/17/18 08:39 Dose: 325 mg Haloperidol Lactate (Haldol) 1 mg IM STAT STA Stop: 08/17/18 20:06 Sodium Chloride (Sodium Chloride 0.9%) 1,000 mls @ 100 mls/hr IV .Q10H [facility]IOT Stop: 08/18/18 17:33 Insulin Human Lispro (Humalog) 0 units SC [facility]; Protocol Last Admin: 08/17/18 17:57 Dose: 1 unit Lactic Acid (Lac-Hydrin 12% Lotion (225 G)) 1 applic TOP TID [facility] Last Admin: 08/17/18 17:57 Dose: 1 applic Lactulose (Enulose) 10 gm PO DAILY [facility] Last Admin: 08/17/18 13:03 Dose: 10 gm Losartan Potassium (Cozaar) 25 mg PO DAILY [facility] Last Admin: 08/17/18 08:39 Dose: 25 mg Physical Exam - Constitutional Appears: Well, Non-toxic, No Acute Distress - Head Exam Head Exam: ATRAUMATIC, NORMOCEPHALIC - Eye Exam Eye Exam: EOMI, Normal appearance - ENT Exam ENT Exam: Mucous Membranes Moist - Respiratory Exam Respiratory Exam: Clear to Auscultation Bilateral, NORMAL BREATHING PATTERN - Cardiovascular Exam Cardiovascular Exam: +S1, +S2. absent: Systolic Murmur - GI/Abdominal Exam GI & Abdominal Exam: Soft. absent: Tenderness - Extremities Exam Additional comments: BL LE w/ 3+ pitting edema BL LE are warm w/ good cap refill - Neurological Exam Neurological exam: Alert - Psychiatric Exam Psychiatric exam: Agitated, Normal Affect, Normal Mood - Skin Skin Exam: Dry, Intact, Normal Color, Warm Results - Vital Signs Recent Vital Signs: Last Vital Signs Temp 98.3 F 08/17/18 16:00 Pulse 60 08/17/18 18:00 Resp 19 08/17/18 18:00 BP 150/51 L 08/17/18 18:00 Pulse Ox 97 08/17/18 16:00 - Labs Result Diagrams: 08/17/18 04:40 08/17/18 04:40 Labs: Laboratory Results - last 24 hr 08/16/18 08/17/18 08/17/18 20:23 04:40 04:40 WBC 7.0 RBC 4.46 Hgb 13.1 Hct 39.6 MCV 88.8 MCH 29.4 MCHC 33.1 RDW 13.6 Plt Count 212 Sodium 132 Potassium 4.1 Chloride 100 Carbon Dioxide 23 Anion Gap 13 BUN 33 H Creatinine 1.5 H Est GFR ( Amer) 40 Est GFR (Non-Af Amer) 33 POC Glucose (mg/dL) 164 H Random Glucose 131 H Calcium 9.2 08/17/18 08/17/18 08/17/18 06:07 11:41 16:32 WBC RBC Hgb Hct MCV MCH MCHC RDW Plt Count Sodium Potassium Chloride Carbon Dioxide Anion Gap BUN Creatinine Est GFR ( Amer) Est GFR (Non-Af Amer) POC Glucose (mg/dL) 136 H 274 H 165 H Random Glucose Calcium Assessment & Plan (1) Diabetes mellitus with hyperglycemia Status: Acute Priority: Medium (2) NSTEMI (non-ST elevated myocardial infarction) Status: Acute Priority: High (3) HTN (hypertension) Status: Acute (4) HLD (hyperlipidemia) Status: Acute (5) CHF (congestive heart failure) Status: Acute (6) Creatinine elevation Status: Acute - Assessment and Plan (Free Text) Plan: Will plan for cardiac cath tomorrow at [facility] w/ Dr. Gu; Patient may have breakfast and will then be NPO except meds Hx of elevated Cr as well as elevation on assessment today - YANE vs CKD Will hydrate patient overnight w/ NS 100cc/hr and follow up Cr in morning; If unable to cath tomorrow should switch from therapeutic lovenox to heparin C/w ASA PLAVIX LIPITOR COREG 6.25 QD COZAAR 25 QD Norvasc 5 Daily Further reccs per Dr. Gu <Brent Gu - Last Filed: 08/18/18 23:48> Meds - Medications Medications: Current Medications Amlodipine Besylate (Norvasc) 5 mg PO DAILY [facility] Last Admin: 08/18/18 08:48 Dose: 5 mg Aspirin (Ecotrin) 81 mg PO DAILY [facility] Last Admin: 08/18/18 08:46 Dose: 81 mg Atorvastatin Calcium (Lipitor) 20 mg PO HS [facility] Last Admin: 08/17/18 21:00 Dose: 20 mg Carvedilol (Coreg) 6.25 mg PO Q12 [facility] Last Admin: 08/18/18 08:45 Dose: 6.25 mg Clopidogrel Bisulfate (Plavix) 75 mg PO DAILY [facility] Last Admin: 08/18/18 08:49 Dose: 75 mg Docusate Sodium (Colace) 100 mg PO BID [facility] Last Admin: 08/18/18 08:45 Dose: 100 mg Enoxaparin Sodium (Lovenox) 80 mg SC Q12 [facility]; Protocol Last Admin: 08/18/18 08:48 Dose: Not Given Famotidine (Pepcid) 20 mg PO BID [facility] Last Admin: 08/18/18 08:49 Dose: 20 mg Ferrous Sulfate (Feosol) 325 mg PO DAILY [facility] Last Admin: 08/18/18 08:48 Dose: 325 mg Insulin Human Lispro (Humalog) 0 units SC ACHS [facility]; Protocol Last Admin: 08/18/18 12:00 Dose: Not Given Lactic Acid (Lac-Hydrin 12% Lotion (225 G)) 1 applic TOP TID [facility] Last Admin: 08/18/18 08:48 Dose: 1 applic Lactulose (Enulose) 10 gm PO DAILY [facility] Last Admin: 08/18/18 08:47 Dose: 10 gm Losartan Potassium (Cozaar) 25 mg PO DAILY [facility] Last Admin: 08/18/18 08:46 Dose: 25 mg Results - Vital Signs Recent Vital Signs: Last Vital Signs Temp 97.7 F 08/18/18 12:00 Pulse 64 08/18/18 14:00 Resp 21 08/18/18 14:00 BP 125/41 L 08/18/18 14:00 Pulse Ox 96 08/18/18 14:00 - Labs Result Diagrams: 08/18/18 04:40 08/18/18 04:40 Labs: Laboratory Results - last 24 hr 08/18/18 08/18/18 08/18/18 04:40 04:40 06:12 WBC 6.9 RBC 4.38 Hgb 13.0 Hct 38.6 MCV 88.2 MCH 29.7 MCHC 33.7 RDW 13.9 Plt Count 190 MPV 9.7 Neut % (Auto) 55.1 Lymph % (Auto) 34.0 [place] % (Auto) 8.7 Eos % (Auto) 1.6 Baso % (Auto) 0.6 Neut # (Auto) 3.8 Lymph # (Auto) 2.3 [place] # (Auto) 0.6 Eos # (Auto) 0.1 Baso # (Auto) 0.0 Sodium 139 Potassium 3.8 Chloride 103 Carbon Dioxide 24 Anion Gap 16 BUN 30 H Creatinine 1.3 H Est GFR ( Amer) 47 Est GFR (Non-Af Amer) 39 POC Glucose (mg/dL) 153 H Random Glucose 135 H Calcium 9.2 Total Bilirubin 0.4 AST 37 H D ALT 47 Alkaline Phosphatase 69 Total Protein 6.4 Albumin 3.5 Globulin 2.9 Albumin/Globulin Ratio 1.2 08/18/18 11:18 WBC RBC Hgb Hct MCV MCH MCHC RDW Plt Count MPV Neut % (Auto) Lymph % (Auto) [place] % (Auto) Eos % (Auto) Baso % (Auto) Neut # (Auto) Lymph # (Auto) [place] # (Auto) Eos # (Auto) Baso # (Auto) Sodium Potassium Chloride Carbon Dioxide Anion Gap BUN Creatinine Est GFR ( Amer) Est GFR (Non-Af Amer) POC Glucose (mg/dL) 260 H Random Glucose Calcium Total Bilirubin AST ALT Alkaline Phosphatase Total Protein Albumin Globulin Albumin/Globulin Ratio Attending/Attestation - Attestation I have personally seen and examined this patient.: Yes I have fully participated in the care of the patient.: Yes I have reviewed all pertinent clinical information: Yes Notes (Text): 08/18/18 23:46 Consulted by for evaluation and treatment of NSTEMI discussed cardiac catheterization with patient and risks benefits she agreed to proceed with cath after reviewing and explaining the procedure to her in detail cont Med rx for ACS per guidelines ( ASA, plavix, statins, BB )
[2018-08-17] MEDS: Sodium Chloride 0.9% 1,000 ML IV SCH (20:59)
[2018-08-18] MEDS: Sodium Chloride 0.9% 1,000 ML IV SCH (04:22)
[2018-08-18 05:38] LABS: BASO % 0.6 % (0.0-2.0); EOS # 0.1 K/uL (0.0-0.7); EOS % 1.6 % (0.0-4.0); LYMPH # 2.3 K/uL (1.0-4.3); MEAN CELL VOLUME 88.2 fl (81.0-99.0); MEAN CORPUSCULAR HEMOGLOBIN 29.7 pg (27.0-31.0); MEAN CORPUSCULAR HGB CONC 33.7 g/dL (33.0-37.0); MEAN PLATELET VOLUME 9.7 fl (7.2-11.7); MONO # 0.6 K/uL (0.0-0.8); MONO % 8.7 % (0.0-10.0); NEUT # 3.8 K/uL (1.8-7.0); NEUT % 55.1 % (50.0-75.0); NRBC % 0.1 % (0.0-0.0); RBC 4.38 Mil/uL (3.80-5.20); RED CELL DISTRIBUTION WIDTH 13.9 % (11.5-14.5); WHITE BLOOD COUNT 6.9 K/uL (4.8-10.8)
[2018-08-18 05:52] LABS: ALB/GLOB RATIO 1.2 (1.0-2.1); ALBUMIN 3.5 g/dL (3.5-5.0); CALCIUM 9.2 mg/dL (8.4-10.2)
[2018-08-18] MEDS: Lactulose 10 gm/15 ml Syrup PO SCH (08:47)
[2018-08-18] MEDS: Insulin Lispro (humaLOG) 100 Units/ml Inj SC SCH ×2 (08:48→12:00)
[2018-08-18] MEDS: Enoxaparin 80 mg Syringe SC SCH (08:48)
--- NOTE | 2018-08-18 11:18 | CP.CCUPN ---
CCU Subjective - Physician Review Subjective (Free Text): 08/18/18 16:15 The patient was Seen/interviewed and examined by me at the bedside during ICU round, Events reviewed Awake and alert Comfortable, NAD Denies CP, SOB and looks comfortable, BP has been stable TNI trending down scheduled for cardiac cath today at [facility] Objective - Vital Signs / Intake & Output Vital Signs (Last 4 hours): Vital Signs Temp Pulse Resp BP Pulse Ox 08/18/18 10:00 60 21 141/52 L 93 L 08/18/18 08:48 63 148/52 L 08/18/18 08:46 63 148/52 L 08/18/18 08:45 63 148/52 L 08/18/18 08:00 98.2 F 54 L 19 148/52 L 98 Intake and Output (Last 8hrs): Intake & Output 08/17/18 08/18/18 08/18/18 22:59 06:59 14:59 Intake Total 536 800 700 Balance 536 800 700 Weight 185 lb Intake: IV 300 800 400 Oral 236 300 Other: # Voids Urine, Voided 1 1 2 - Physical Exam Head: Positive for: Atraumatic, Normocephalic Pupils: Positive for: PERRL Extroacular Muscles: Positive for: EOMI Conjunctiva: Positive for: Normal Mouth: Positive for: Moist Mucous Membranes Neck: Positive for: Normal Range of Motion, Trachea Midline. Negative for: Meningeal Signs, MIDLINE TENDERNESS, Paraspinal Tenderness, JVD, Lymphadenopathy, Bruit, Other Respiratory/Chest: Positive for: Clear to Auscultation, Good Air Exchange. Negative for: Respiratory Distress, Accessory Muscle Use Cardiovascular: Positive for: Regular Rate and Rhythm, Normal S1, S2. Negative for: Peripheal Pulses Present Abdomen: Positive for: Normal Bowel Sounds. Negative for: Tenderness, Distention Back: Negative for: CVA Tenderness Upper Extremity: Positive for: Normal Inspection. Negative for: Cyanosis, Edema Lower Extremity: Positive for: Normal Inspection. Negative for: Edema, CALF TENDERNESS Neurological: Positive for: GCS=15, CN II-XII Intact, Speech Normal, Motor Func Grossly Intact, Normal Sensory Function - Medications Active Medications: Active Medications Generic Name Dose Route Start Last Admin Trade Name Freq PRN Reason Stop Dose Admin Amlodipine Besylate 5 mg 08/15/18 09:00 08/18/18 08:48 Norvasc PO 5 mg DAILY LUISITO Administration Aspirin 81 mg 08/15/18 09:00 08/18/18 08:46 Ecotrin PO 81 mg DAILY [facility]O Administration Atorvastatin Calcium 20 mg 08/15/18 22:00 08/17/18 21:00 Lipitor PO 20 mg HS [facility]ISITO Administration Carvedilol 6.25 mg 08/15/18 09:00 08/18/18 08:45 Coreg PO 6.25 mg Q12 [facility]O Administration Clopidogrel Bisulfate 75 mg 08/16/18 09:00 08/18/18 08:49 Plavix PO 75 mg DAILY [facility]O Administration Docusate Sodium 100 mg 08/15/18 09:00 08/18/18 08:45 Colace PO 100 mg BID [facility]O Administration Enoxaparin Sodium 80 mg 08/17/18 09:00 08/17/18 21:00 Lovenox SC 80 mg Q12 [facility] Administration Protocol Famotidine 20 mg 08/15/18 09:00 08/18/18 08:49 Pepcid PO 20 mg BID [facility] Administration Ferrous Sulfate 325 mg 08/15/18 09:00 08/18/18 08:48 Feosol PO 325 mg DAILY [facility] Administration Sodium Chloride 1,000 mls @ 100 mls/hr 08/17/18 18:18 08/18/18 04:22 Sodium Chloride 0.9% IV 08/18/18 17:33 100 mls/hr .Q10H [facility]O Administration Insulin Human Lispro 0 units 08/15/18 07:30 08/18/18 08:48 Humalog SC 1 unit ACHS [facility] Administration Protocol Lactic Acid 1 applic 08/15/18 09:00 08/18/18 08:48 Lac-Hydrin 12% Lotion (225 G) TOP 1 applic TID [facility]ITO Administration Lactulose 10 gm 08/15/18 09:00 08/18/18 08:47 Enulose PO 10 gm DAILY [facility] Administration Losartan Potassium 25 mg 08/15/18 09:00 08/18/18 08:46 Cozaar PO 25 mg DAILY [facility] Administration - Patient Studies Lab Studies: Lab Studies 08/18/18 08/18/18 08/18/18 Range/Units 06:12 04:40 04:40 WBC 6.9 (4.8-10.8) K/uL RBC 4.38 (3.80-5.20) Mil/uL Hgb 13.0 (12.0-16.0) g/dL Hct 38.6 (34.0-47.0) % MCV 88.2 (81.0-99.0) fl MCH 29.7 (27.0-31.0) pg MCHC 33.7 (33.0-37.0) g/dL RDW 13.9 (11.5-14.5) % Plt Count 190 (130-400) K/uL MPV 9.7 (7.2-11.7) fl Neut % (Auto) 55.1 (50.0-75.0) % Lymph % (Auto) 34.0 (20.0-40.0) % [place] % (Auto) 8.7 (0.0-10.0) % Eos % (Auto) 1.6 (0.0-4.0) % Baso % (Auto) 0.6 (0.0-2.0) % Neut # (Auto) 3.8 (1.8-7.0) K/uL Lymph # (Auto) 2.3 (1.0-4.3) K/uL [place] # (Auto) 0.6 (0.0-0.8) K/uL Eos # (Auto) 0.1 (0.0-0.7) K/uL Baso # (Auto) 0.0 (0.0-0.2) K/uL Sodium 139 (132-148) mmol/l Potassium 3.8 (3.6-5.0) MMOL/L Chloride 103 (98-107) mmol/L Carbon Dioxide 24 (22-30) mmol/L Anion Gap 16 (10-20) BUN 30 H (7-17) mg/dl Creatinine 1.3 H (0.7-1.2) mg/dl Est GFR ( Amer) 47 Est GFR (Non-Af Amer) 39 POC Glucose (mg/dL) 153 H (65-110) mg/dL Random Glucose 135 H (65-105) mg/dL Calcium 9.2 (8.4-10.2) mg/dL Total Bilirubin 0.4 (0.2-1.3) mg/dl AST 37 H D (14-36) U/L ALT 47 (9-52) U/L Alkaline Phosphatase 69 (38-126) U/L Total Protein 6.4 (6.3-8.2) G/DL Albumin 3.5 (3.5-5.0) g/dL Globulin 2.9 (2.2-3.9) gm/dL Albumin/Globulin Ratio 1.2 (1.0-2.1) 08/17/18 08/17/18 08/17/18 Range/Units 20:39 16:32 11:41 WBC (4.8-10.8) K/uL RBC (3.80-5.20) Mil/uL Hgb (12.0-16.0) g/dL Hct (34.0-47.0) % MCV (81.0-99.0) fl MCH (27.0-31.0) pg MCHC (33.0-37.0) g/dL RDW (11.5-14.5) % Plt Count (130-400) K/uL MPV (7.2-11.7) fl Neut % (Auto) (50.0-75.0) % Lymph % (Auto) (20.0-40.0) % [place] % (Auto) (0.0-10.0) % Eos % (Auto) (0.0-4.0) % Baso % (Auto) (0.0-2.0) % Neut # (Auto) (1.8-7.0) K/uL Lymph # (Auto) (1.0-4.3) K/uL [place] # (Auto) (0.0-0.8) K/uL Eos # (Auto) (0.0-0.7) K/uL Baso # (Auto) (0.0-0.2) K/uL Sodium (132-148) mmol/l Potassium (3.6-5.0) MMOL/L Chloride (98-107) mmol/L Carbon Dioxide (22-30) mmol/L Anion Gap (10-20) BUN (7-17) mg/dl Creatinine (0.7-1.2) mg/dl Est GFR ( Amer) Est GFR (Non-Af Amer) POC Glucose (mg/dL) 177 H 165 H 274 H (65-110) mg/dL Random Glucose (65-105) mg/dL Calcium (8.4-10.2) mg/dL Total Bilirubin (0.2-1.3) mg/dl AST (14-36) U/L ALT (9-52) U/L Alkaline Phosphatase (38-126) U/L Total Protein (6.3-8.2) G/DL Albumin (3.5-5.0) g/dL Globulin (2.2-3.9) gm/dL Albumin/Globulin Ratio (1.0-2.1) Laboratory Results - last 24 hr 08/17/18 08/17/18 08/17/18 11:41 16:32 20:39 WBC RBC Hgb Hct MCV MCH MCHC RDW Plt Count MPV Neut % (Auto) Lymph % (Auto) [place] % (Auto) Eos % (Auto) Baso % (Auto) Neut # (Auto) Lymph # (Auto) [place] # (Auto) Eos # (Auto) Baso # (Auto) Sodium Potassium Chloride Carbon Dioxide Anion Gap BUN Creatinine Est GFR ( Amer) Est GFR (Non-Af Amer) POC Glucose (mg/dL) 274 H 165 H 177 H Random Glucose Calcium Total Bilirubin AST ALT Alkaline Phosphatase Total Protein Albumin Globulin Albumin/Globulin Ratio 08/18/18 08/18/18 08/18/18 04:40 04:40 06:12 WBC 6.9 RBC 4.38 Hgb 13.0 Hct 38.6 MCV 88.2 MCH 29.7 MCHC 33.7 RDW 13.9 Plt Count 190 MPV 9.7 Neut % (Auto) 55.1 Lymph % (Auto) 34.0 [place] % (Auto) 8.7 Eos % (Auto) 1.6 Baso % (Auto) 0.6 Neut # (Auto) 3.8 Lymph # (Auto) 2.3 [place] # (Auto) 0.6 Eos # (Auto) 0.1 Baso # (Auto) 0.0 Sodium 139 Potassium 3.8 Chloride 103 Carbon Dioxide 24 Anion Gap 16 BUN 30 H Creatinine 1.3 H Est GFR ( Amer) 47 Est GFR (Non-Af Amer) 39 POC Glucose (mg/dL) 153 H Random Glucose 135 H Calcium 9.2 Total Bilirubin 0.4 AST 37 H D ALT 47 Alkaline Phosphatase 69 Total Protein 6.4 Albumin 3.5 Globulin 2.9 Albumin/Globulin Ratio 1.2 Fingerstick Blood Sugar Results: 153 Review of Systems - Cardiovascular Cardiovascular: absent: As Per HPI, Acrocyanosis, Chest Pain, Chest Pain at Rest, Chest Pain with Activity, Claudication, Diaphoresis, Dyspnea, Dyspnea on Exertion, Edema, Irregular Heart Rhythm, Pain Radiating to Arm/Neck/Jaw, Leg Edema, Leg Ulcers, Lightheadedness, Orthopnea, Palpitations, Paroxysmal Nocturnal Dyspnea, Pedal Edema, Radiating Pain, Rapid Heart Rate, Slow Heart Rate, Syncope, Other, UNREMARKABLE - Respiratory Respiratory: absent: As Per HPI, Cough, Dyspnea, Hemoptysis, Dyspnea on Exertion, Wheezing, Snoring, Stridor, Pain on Inspiration, Chest Congestion, Excessive Mucous Production, Change in Mucous Color, Pain with Coughing, Other, UNREMARKABLE Critical Care Progress Note - Extremities/Vascular Does the Patient have a Central Venous Catheter?: No Does the Patient need a Central Venous Catheter?: No Does the Patient have a Lin Catheter?: No Does the Patient need a Lin Catheter?: No - Nutrition Nutrition: Nutrition Category Date Time Status NPO Diet [DIET] Diets 08/17/18 Breakfast Active Assessment/Plan (1) NSTEMI (non-ST elevated myocardial infarction) Current Visit: Yes Status: Acute Priority: High (2) CHF (congestive heart failure) Current Visit: Yes Status: Acute Priority: High (3) Diabetes mellitus with hyperglycemia Current Visit: Yes Status: Acute Priority: Medium (4) HLD (hyperlipidemia) Current Visit: Yes Status: Acute Priority: Medium (5) HTN (hypertension) Current Visit: Yes Status: Acute Priority: Medium
[2018-08-18 12:19] VITALS: BP 125/41; TEMP 97.7
[2018-08-18 14:11] VITALS: PULSE 64; RESP 21; O2SAT 96
--- NOTE | 2018-08-18 23:52 | CP.PCM.PN ---
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 PTCA/EMELYN of mLCx with EMELYN x 1 ostial RCA calcific stable disease Objective - Vital Signs/Intake and Output Vital Signs (last 24 hours): Temp Pulse Resp BP Pulse Ox 97.7 F 64 21 125/41 L 96 08/18/18 12:00 08/18/18 14:00 08/18/18 14:00 08/18/18 14:00 08/18/18 14:00 Intake and Output: 08/18/18 08/19/18 18:59 06:59 Intake Total 1100 Balance 1100 - Medications Medications: Current Medications Amlodipine Besylate (Norvasc) 5 mg PO DAILY [facility] Last Admin: 08/18/18 08:48 Dose: 5 mg Aspirin (Ecotrin) 81 mg PO DAILY [facility] Last Admin: 08/18/18 08:46 Dose: 81 mg Atorvastatin Calcium (Lipitor) 20 mg PO HS [facility] Last Admin: 08/17/18 21:00 Dose: 20 mg Carvedilol (Coreg) 6.25 mg PO Q12 [facility] Last Admin: 08/18/18 08:45 Dose: 6.25 mg Clopidogrel Bisulfate (Plavix) 75 mg PO DAILY [facility] Last Admin: 08/18/18 08:49 Dose: 75 mg Docusate Sodium (Colace) 100 mg PO BID [facility] Last Admin: 08/18/18 08:45 Dose: 100 mg Enoxaparin Sodium (Lovenox) 80 mg SC Q12 [facility]; Protocol Last Admin: 08/18/18 08:48 Dose: Not Given Famotidine (Pepcid) 20 mg PO BID [facility] Last Admin: 08/18/18 08:49 Dose: 20 mg Ferrous Sulfate (Feosol) 325 mg PO DAILY [facility] Last Admin: 08/18/18 08:48 Dose: 325 mg Insulin Human Lispro (Humalog) 0 units SC ACHS [facility]; Protocol Last Admin: 08/18/18 12:00 Dose: Not Given Lactic Acid (Lac-Hydrin 12% Lotion (225 G)) 1 applic TOP TID [facility] Last Admin: 08/18/18 08:48 Dose: 1 applic Lactulose (Enulose) 10 gm PO DAILY [facility] Last Admin: 08/18/18 08:47 Dose: 10 gm Losartan Potassium (Cozaar) 25 mg PO DAILY [facility] Last Admin: 08/18/18 08:46 Dose: 25 mg - Labs Labs: 08/18/18 04:40 08/18/18 04:40 PT 11.3 Seconds (9.8-13.1) 08/15/18 03:22 INR 1.0 08/15/18 03:22 APTT 29.6 Seconds (25.6-37.1) 08/15/18 03:22 - Constitutional Appears: Well - Head Exam Head Exam: ATRAUMATIC, NORMAL INSPECTION, NORMOCEPHALIC - Eye Exam Eye Exam: EOMI, Normal appearance, PERRL Pupil Exam: NORMAL ACCOMODATION, PERRL - ENT Exam ENT Exam: Mucous Membranes Moist, Normal Exam - Neck Exam Neck Exam: Full ROM, Normal Inspection. absent: Lymphadenopathy - Respiratory Exam Respiratory Exam: Clear to Ausculation Bilateral, NORMAL BREATHING PATTERN - Cardiovascular Exam Cardiovascular Exam: REGULAR RHYTHM, +S1, +S2. absent: Murmur - GI/Abdominal Exam GI & Abdominal Exam: Soft, Normal Bowel Sounds. absent: Tenderness - Extremities Exam Extremities Exam: Full ROM, Normal Capillary Refill, Normal Inspection. absent: Joint Swelling, Pedal Edema - Back Exam Back Exam: NORMAL INSPECTION - Neurological Exam Neurological Exam: Alert, Awake, CN II-XII Intact, Normal Gait, Oriented x3 - Psychiatric Exam Psychiatric exam: Normal Affect, Normal Mood - Skin Skin Exam: Dry, Intact, Normal Color, Warm Assessment and Plan (1) NSTEMI (non-ST elevated myocardial infarction) Assessment & Plan: s/p LHCx [place] [facility] [place] showing high grade LCx stenosis - s/p PTCA/EMELYN with stent x 1 high grade ostial stenosis but calcific and stable cont dapt dc lovenox cont bb, statins, arbs Status: Acute (2) CHF (congestive heart failure) Assessment & Plan: cont bb, 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
--- NOTE | 2018-08-19 00:34 | CP.CCUPN ---
CCU Subjective - Physician Review Subjective (Free Text): 08/19/18 00:33 Early this AM, patient has decided to leave the hospital AMA as she 'cannot stand being in the hospital anymore'. She was informed of risks/contraindications of leaving. She voices clear understanding, and states she would like to leave regardless. She was informed to return to the hospital if she has return of any symptoms. CCU Objective - Vital Signs / Intake & Output Intake and Output (Last 8hrs): Intake & Output 08/18/18 08/18/18 08/19/18 14:59 22:59 06:59 Intake Total 1100 Balance 1100 Intake: IV 800 Oral 300 Other: # Voids Urine, Voided 1 # Bowel Movements 1 - Physical Exam Head: Positive for: Atraumatic, Normocephalic Pupils: Positive for: PERRL Extroacular Muscles: Positive for: EOMI Conjunctiva: Positive for: Normal Mouth: Positive for: Moist Mucous Membranes Neck: Positive for: Normal Range of Motion, Trachea Midline. Negative for: Meningeal Signs, MIDLINE TENDERNESS, Paraspinal Tenderness, JVD, Lymphadenopathy, Bruit, Other Respiratory/Chest: Positive for: Clear to Auscultation, Good Air Exchange. Negative for: Respiratory Distress, Accessory Muscle Use Cardiovascular: Positive for: Regular Rate and Rhythm, Normal S1, S2. Negative for: Peripheal Pulses Present Abdomen: Positive for: Normal Bowel Sounds. Negative for: Tenderness, Distention Back: Negative for: CVA Tenderness Upper Extremity: Positive for: Normal Inspection. Negative for: Cyanosis, Edema Lower Extremity: Positive for: Normal Inspection. Negative for: Edema, CALF TENDERNESS Neurological: Positive for: GCS=15, CN II-XII Intact, Speech Normal, Motor Func Grossly Intact, Normal Sensory Function - Medications Active Medications: Active Medications Generic Name Dose Route Start Last Admin Trade Name Freq PRN Reason Stop Dose Admin Amlodipine Besylate 5 mg 08/15/18 09:00 08/18/18 08:48 Norvasc PO 5 mg DAILY LUISITO Administration Aspirin 81 mg 08/15/18 09:00 08/18/18 08:46 Ecotrin PO 81 mg DAILY LUISITO Administration Atorvastatin Calcium 20 mg 08/15/18 22:00 08/17/18 21:00 Lipitor PO 20 mg HS LUISITO Administration Carvedilol 6.25 mg 08/15/18 09:00 08/18/18 08:45 Coreg PO 6.25 mg Q12 LUISITO Administration Clopidogrel Bisulfate 75 mg 08/16/18 09:00 08/18/18 08:49 Plavix PO 75 mg DAILY LUISITO Administration Docusate Sodium 100 mg 08/15/18 09:00 08/18/18 08:45 Colace PO 100 mg BID LUISITO Administration Enoxaparin Sodium 80 mg 08/17/18 09:00 08/18/18 08:48 Lovenox SC Not Given Q12 LUISITO Protocol Famotidine 20 mg 08/15/18 09:00 08/18/18 08:49 Pepcid PO 20 mg BID LUISITO Administration Ferrous Sulfate 325 mg 08/15/18 09:00 08/18/18 08:48 Feosol PO 325 mg DAILY LUISITO Administration Insulin Human Lispro 0 units 08/15/18 07:30 08/18/18 12:00 Humalog SC Not Given ACHS [facility] Protocol Lactic Acid 1 applic 08/15/18 09:00 08/18/18 08:48 Lac-Hydrin 12% Lotion (225 G) TOP 1 applic TID LUISITO Administration Lactulose 10 gm 08/15/18 09:00 08/18/18 08:47 Enulose PO 10 gm DAILY LUISITO Administration Losartan Potassium 25 mg 08/15/18 09:00 08/18/18 08:46 Cozaar PO 25 mg DAILY LUISITO Administration - Patient Studies Lab Studies: Lab Studies 08/18/18 08/18/18 08/18/18 Range/Units 11:18 06:12 04:40 WBC (4.8-10.8) K/uL RBC (3.80-5.20) Mil/uL Hgb (12.0-16.0) g/dL Hct (34.0-47.0) % MCV (81.0-99.0) fl MCH (27.0-31.0) pg MCHC (33.0-37.0) g/dL RDW (11.5-14.5) % Plt Count (130-400) K/uL MPV (7.2-11.7) fl Neut % (Auto) (50.0-75.0) % Lymph % (Auto) (20.0-40.0) % [place] % (Auto) (0.0-10.0) % Eos % (Auto) (0.0-4.0) % Baso % (Auto) (0.0-2.0) % Neut # (Auto) (1.8-7.0) K/uL Lymph # (Auto) (1.0-4.3) K/uL [place] # (Auto) (0.0-0.8) K/uL Eos # (Auto) (0.0-0.7) K/uL Baso # (Auto) (0.0-0.2) K/uL Sodium 139 (132-148) mmol/l Potassium 3.8 (3.6-5.0) MMOL/L Chloride 103 (98-107) mmol/L Carbon Dioxide 24 (22-30) mmol/L Anion Gap 16 (10-20) BUN 30 H (7-17) mg/dl Creatinine 1.3 H (0.7-1.2) mg/dl Est GFR ( Amer) 47 Est GFR (Non-Af Amer) 39 POC Glucose (mg/dL) 260 H 153 H (65-110) mg/dL Random Glucose 135 H (65-105) mg/dL Calcium 9.2 (8.4-10.2) mg/dL Total Bilirubin 0.4 (0.2-1.3) mg/dl AST 37 H D (14-36) U/L ALT 47 (9-52) U/L Alkaline Phosphatase 69 (38-126) U/L Total Protein 6.4 (6.3-8.2) G/DL Albumin 3.5 (3.5-5.0) g/dL Globulin 2.9 (2.2-3.9) gm/dL Albumin/Globulin Ratio 1.2 (1.0-2.1) 08/18/18 Range/Units 04:40 WBC 6.9 (4.8-10.8) K/uL RBC 4.38 (3.80-5.20) Mil/uL Hgb 13.0 (12.0-16.0) g/dL Hct 38.6 (34.0-47.0) % MCV 88.2 (81.0-99.0) fl MCH 29.7 (27.0-31.0) pg MCHC 33.7 (33.0-37.0) g/dL RDW 13.9 (11.5-14.5) % Plt Count 190 (130-400) K/uL MPV 9.7 (7.2-11.7) fl Neut % (Auto) 55.1 (50.0-75.0) % Lymph % (Auto) 34.0 (20.0-40.0) % [place] % (Auto) 8.7 (0.0-10.0) % Eos % (Auto) 1.6 (0.0-4.0) % Baso % (Auto) 0.6 (0.0-2.0) % Neut # (Auto) 3.8 (1.8-7.0) K/uL Lymph # (Auto) 2.3 (1.0-4.3) K/uL [place] # (Auto) 0.6 (0.0-0.8) K/uL Eos # (Auto) 0.1 (0.0-0.7) K/uL Baso # (Auto) 0.0 (0.0-0.2) K/uL Sodium (132-148) mmol/l Potassium (3.6-5.0) MMOL/L Chloride (98-107) mmol/L Carbon Dioxide (22-30) mmol/L Anion Gap (10-20) BUN (7-17) mg/dl Creatinine (0.7-1.2) mg/dl Est GFR ( Amer) Est GFR (Non-Af Amer) POC Glucose (mg/dL) (65-110) mg/dL Random Glucose (65-105) mg/dL Calcium (8.4-10.2) mg/dL Total Bilirubin (0.2-1.3) mg/dl AST (14-36) U/L ALT (9-52) U/L Alkaline Phosphatase (38-126) U/L Total Protein (6.3-8.2) G/DL Albumin (3.5-5.0) g/dL Globulin (2.2-3.9) gm/dL Albumin/Globulin Ratio (1.0-2.1) Laboratory Results - last 24 hr 08/18/18 08/18/18 08/18/18 04:40 04:40 06:12 WBC 6.9 RBC 4.38 Hgb 13.0 Hct 38.6 MCV 88.2 MCH 29.7 MCHC 33.7 RDW 13.9 Plt Count 190 MPV 9.7 Neut % (Auto) 55.1 Lymph % (Auto) 34.0 [place] % (Auto) 8.7 Eos % (Auto) 1.6 Baso % (Auto) 0.6 Neut # (Auto) 3.8 Lymph # (Auto) 2.3 [place] # (Auto) 0.6 Eos # (Auto) 0.1 Baso # (Auto) 0.0 Sodium 139 Potassium 3.8 Chloride 103 Carbon Dioxide 24 Anion Gap 16 BUN 30 H Creatinine 1.3 H Est GFR ( Amer) 47 Est GFR (Non-Af Amer) 39 POC Glucose (mg/dL) 153 H Random Glucose 135 H Calcium 9.2 Total Bilirubin 0.4 AST 37 H D ALT 47 Alkaline Phosphatase 69 Total Protein 6.4 Albumin 3.5 Globulin 2.9 Albumin/Globulin Ratio 1.2 08/18/18 11:18 WBC RBC Hgb Hct MCV MCH MCHC RDW Plt Count MPV Neut % (Auto) Lymph % (Auto) [place] % (Auto) Eos % (Auto) Baso % (Auto) Neut # (Auto) Lymph # (Auto) [place] # (Auto) Eos # (Auto) Baso # (Auto) Sodium Potassium Chloride Carbon Dioxide Anion Gap BUN Creatinine Est GFR ( Amer) Est GFR (Non-Af Amer) POC Glucose (mg/dL) 260 H Random Glucose Calcium Total Bilirubin AST ALT Alkaline Phosphatase Total Protein Albumin Globulin Albumin/Globulin Ratio Fingerstick Blood Sugar Results: 153 Critical Care Progress Note - Nutrition Nutrition: Nutrition Category Date Time Status NPO Diet [DIET] Diets 08/17/18 Breakfast Active
--- NOTE | 2018-08-19 12:07 | CP.PCM.PN ---
Subjective - Date & Time of Evaluation Date of Evaluation: 08/17/18 Objective - Vital Signs/Intake and Output Vital Signs (last 24 hours): Temp Pulse Resp BP Pulse Ox 97.7 F 64 21 125/41 L 96 08/18/18 12:00 08/18/18 14:00 08/18/18 14:00 08/18/18 14:00 08/18/18 14:00 - Labs Labs: 08/18/18 04:40 08/18/18 04:40 PT 11.3 Seconds (9.8-13.1) 08/15/18 03:22 INR 1.0 08/15/18 03:22 APTT 29.6 Seconds (25.6-37.1) 08/15/18 03:22 Assessment and Plan (1) Chest pain Status: Acute (2) NSTEMI (non-ST elevated myocardial infarction) Status: Acute (3) Accelerated essential hypertension Status: Acute (4) Diabetes mellitus with hyperglycemia Status: Acute (5) Chronic congestive heart failure Status: Acute
--- NOTE | 2018-08-19 12:08 | CP.PCM.DIS ---
Provider - Provider Date of Admission: 08/15/18 02:45 Attending physician: Guru Richardson MD Consults: 08/15/18 02:44 Cardiology Consult Stat Comment: Consulting Provider: Christian Boss V Consulting Physician: Christian Boss V Reason for Consult: NSTEMI 08/15/18 03:54 Critical Care Consult Stat Comment: Consulting Provider: Andrez Fleming Consulting Physician: Andrez Fleming Reason for Consult: NSTEMI 08/16/18 14:32 Physiatry Consult Routine Comment: Consulting Provider: Sumi Silveira Consulting Physician: Sumi Silveira Reason for Consult: competency 08/17/18 17:17 Cardiology Consult Routine Comment: Consulting Provider: Brent Gu Consulting Physician: Brent Gu Reason for Consult: NSTEMI Time Spent in preparation of Discharge (in minutes): 25 Diagnosis - Discharge Diagnosis (1) Chest pain Status: Acute (2) NSTEMI (non-ST elevated myocardial infarction) Status: Acute Priority: High (3) Accelerated essential hypertension Status: Acute Priority: Medium (4) Diabetes mellitus with hyperglycemia Status: Acute Priority: Medium (5) Chronic congestive heart failure Status: Acute Priority: Medium Hospital Course - Lab Results Lab Results: Micro Results 08/15/18 16:08 Naris MRSA Culture (Admit) - Final MRSA NOT DETECTED Most Recent Lab Values WBC 6.9 K/uL (4.8-10.8) 08/18/18 04:40 RBC 4.38 Mil/uL (3.80-5.20) 08/18/18 04:40 Hgb 13.0 g/dL (12.0-16.0) 08/18/18 04:40 Hct 38.6 % (34.0-47.0) 08/18/18 04:40 MCV 88.2 fl (81.0-99.0) 08/18/18 04:40 MCH 29.7 pg (27.0-31.0) 08/18/18 04:40 MCHC 33.7 g/dL (33.0-37.0) 08/18/18 04:40 RDW 13.9 % (11.5-14.5) 08/18/18 04:40 Plt Count 190 K/uL (130-400) 08/18/18 04:40 MPV 9.7 fl (7.2-11.7) 08/18/18 04:40 Neut % (Auto) 55.1 % (50.0-75.0) 08/18/18 04:40 Lymph % (Auto) 34.0 % (20.0-40.0) 08/18/18 04:40 [place] % (Auto) 8.7 % (0.0-10.0) 08/18/18 04:40 Eos % (Auto) 1.6 % (0.0-4.0) 08/18/18 04:40 Baso % (Auto) 0.6 % (0.0-2.0) 08/18/18 04:40 Neut # (Auto) 3.8 K/uL (1.8-7.0) 08/18/18 04:40 Lymph # (Auto) 2.3 K/uL (1.0-4.3) 08/18/18 04:40 [place] # (Auto) 0.6 K/uL (0.0-0.8) 08/18/18 04:40 Eos # (Auto) 0.1 K/uL (0.0-0.7) 08/18/18 04:40 Baso # (Auto) 0.0 K/uL (0.0-0.2) 08/18/18 04:40 PT 11.3 Seconds (9.8-13.1) 08/15/18 03:22 INR 1.0 08/15/18 03:22 APTT 29.6 Seconds (25.6-37.1) 08/15/18 03:22 D-Dimer, Quantitative 221 ng/mlDDU (0-230) 08/15/18 03:22 Sodium 139 mmol/l (132-148) 08/18/18 04:40 Potassium 3.8 MMOL/L (3.6-5.0) 08/18/18 04:40 Chloride 103 mmol/L (98-107) 08/18/18 04:40 Carbon Dioxide 24 mmol/L (22-30) 08/18/18 04:40 Anion Gap 16 (10-20) 08/18/18 04:40 BUN 30 mg/dl (7-17) H 08/18/18 04:40 Creatinine 1.3 mg/dl (0.7-1.2) H 08/18/18 04:40 Est GFR ( Amer) 47 08/18/18 04:40 Est GFR (Non-Af Amer) 39 08/18/18 04:40 POC Glucose (mg/dL) 260 mg/dL (65-110) H 08/18/18 11:18 Random Glucose 135 mg/dL (65-105) H 08/18/18 04:40 Hemoglobin A1c 7.4 % (4.2-6.5) H 08/15/18 06:00 Calcium 9.2 mg/dL (8.4-10.2) 08/18/18 04:40 Phosphorus 3.8 mg/dl (2.5-4.5) 08/15/18 01:30 Magnesium 1.9 MG/DL (1.6-2.3) 08/15/18 06:15 Total Bilirubin 0.4 mg/dl (0.2-1.3) 08/18/18 04:40 AST 37 U/L (14-36) H D 08/18/18 04:40 ALT 47 U/L (9-52) 08/18/18 04:40 Alkaline Phosphatase 69 U/L (38-126) 08/18/18 04:40 CK-MB (Mass) 15.7 ng/mL (0.0-3.38) H 08/16/18 04:38 Troponin I 20.7000 ng/mL (0.00-0.120) H* 08/16/18 04:38 NT-Pro-B Natriuret Pep 2120 pg/ml (0-900) H 08/15/18 01:30 Total Protein 6.4 G/DL (6.3-8.2) 08/18/18 04:40 Albumin 3.5 g/dL (3.5-5.0) 08/18/18 04:40 Globulin 2.9 gm/dL (2.2-3.9) 08/18/18 04:40 Albumin/Globulin Ratio 1.2 (1.0-2.1) 08/18/18 04:40 Triglycerides 143 mg/DL (0-149) 08/15/18 06:15 Cholesterol 194 mg/dL (0-199) 08/15/18 06:15 LDL Cholesterol Direct 93 mg/dL (0-129) 08/15/18 06:15 HDL Cholesterol 61 MG/DL (30-70) 08/15/18 06:15 Urine Color Colorless (YELLOW) 08/15/18 05:48 Urine Clarity Clear (Clear) 08/15/18 05:48 Urine pH 7.0 (5.0-8.0) 08/15/18 05:48 Ur Specific [place] 1.006 (1.003-1.030) 08/15/18 05:48 Urine Protein Negative mg/dL (NEGATIVE) 08/15/18 05:48 Urine Glucose (UA) Neg mg/dL (NEGATIVE) 08/15/18 05:48 Urine Ketones Negative mg/dL (NEGATIVE) 08/15/18 05:48 Urine Blood Negative (NEGATIVE) 08/15/18 05:48 Urine Nitrate Negative (NEGATIVE) 08/15/18 05:48 Urine Bilirubin Negative (NEGATIVE) 08/15/18 05:48 Urine Urobilinogen 0.2-1.0 mg/dL (0.2-1.0) 08/15/18 05:48 Ur Leukocyte Esterase Neg Be/uL (Negative) 08/15/18 05:48 Urine RBC (Auto) 1 /hpf (0-3) 08/15/18 05:48 Urine Microscopic WBC < 1 /hpf (0-5) 08/15/18 05:48 Ur Squamous Epith Cells < 1 /hpf (0-5) 08/15/18 05:48 Urine Bacteria Rare (<OCC) 08/15/18 05:48 Discharge Exam - Head Exam Head Exam: ATRAUMATIC, NORMAL INSPECTION, NORMOCEPHALIC Discharge Plan - Follow Up Plan Condition: CRITICAL Disposition: HOME/ ROUTINE
--- NOTE | 2018-08-19 12:08 | CP.PCM.PN ---
Subjective - Date & Time of Evaluation Date of Evaluation: 08/18/18 Time of Evaluation: 12:25 Objective - Vital Signs/Intake and Output Vital Signs (last 24 hours): Temp Pulse Resp BP Pulse Ox 97.7 F 64 21 125/41 L 96 08/18/18 12:00 08/18/18 14:00 08/18/18 14:00 08/18/18 14:00 08/18/18 14:00 - Labs Labs: 08/18/18 04:40 08/18/18 04:40 PT 11.3 Seconds (9.8-13.1) 08/15/18 03:22 INR 1.0 08/15/18 03:22 APTT 29.6 Seconds (25.6-37.1) 08/15/18 03:22 Assessment and Plan (1) Chest pain Status: Acute (2) NSTEMI (non-ST elevated myocardial infarction) Status: Acute (3) Accelerated essential hypertension Status: Acute (4) Diabetes mellitus with hyperglycemia Status: Acute (5) Chronic congestive heart failure Status: Acute
== END 2018-08-19 01:21 | disposition left against medical advice (07) | DRG 247 ==
LOC: H.ER 23:04 → H.ERHOLD 08-15 02:45 → H.ICU/CCU 08-15 06:03 → H.ERHOLD 08-15 06:03 → H.ICU/CCU 08-15 06:15
PROVIDERS: ADMIT Internal Medicine; ATTEND Internal Medicine
PROC: 027034Z Dilation of Coronary Artery, One Artery with Drug-eluting Intraluminal Device, Percutaneous Approach (ICD-10-PCS; principal; 2018-08-18)
PROC: 4A023N7 Measurement of Cardiac Sampling and Pressure, Left Heart, Percutaneous Approach (ICD-10-PCS; 2018-08-18)
PROC: B216YZZ Fluoroscopy of Right and Left Heart using Other Contrast (ICD-10-PCS; 2018-08-18)
DX: I21.4 Non-ST elevation (NSTEMI) myocardial infarction (principal); I13.0 Hypertensive heart and chronic kidney disease with heart failure and stage 1 through stage 4 chronic kidney disease, or unspecified chronic kidney disease; I50.32 Chronic diastolic (congestive) heart failure; E11.65 Type 2 diabetes mellitus with hyperglycemia; E78.5 Hyperlipidemia, unspecified; F41.9 Anxiety disorder, unspecified; E78.00 Pure hypercholesterolemia, unspecified; I16.0 Hypertensive urgency; I87.2 Venous insufficiency (chronic) (peripheral); E11.22 Type 2 diabetes mellitus with diabetic chronic kidney disease; N18.3 Chronic kidney disease, stage 3 (moderate); G31.84 Mild cognitive impairment of uncertain or unknown etiology; I25.10 Atherosclerotic heart disease of native coronary artery without angina pectoris; I25.84 Coronary atherosclerosis due to calcified coronary lesion; Z79.82 Long term (current) use of aspirin

== ENCOUNTER 2018-08-31 09:18 | Emergency (ER) | payer MEDICARE ==
[2018-08-31 09:30] VITALS: RESP 18; TEMP 98; O2SAT 100
[2018-08-31] MEDS ORDERED: Heparin 25,000units in D5W 25,000 UNITS/250 ML BAG IV SCH (09:45)
[2018-08-31 09:53] VITALS: BMI 32.6
--- NOTE | 2018-08-31 09:58 | ED PDOC ---
HPI: Chest Pain Time Seen by Provider: 08/31/18 09:28 Chief Complaint (Nursing): Chest Pain Chief Complaint (Provider): Chest pain History Per: Patient History/Exam Limitations: no limitations Onset/Duration Of Symptoms: Hrs (x1 prior to arrival), Gradual Current Symptoms Are (Timing): Still Present Additional Complaint(s): Suki Rivera is an 82 year old female, with a past medical history of HTN, hypercholesterolemia and diabetes, who presents to the emergency department complaining of a mid-sternal chest pain onset x1 hr prior to arrival associated with nausea. Patient signed out from this hospital on 08/19 s/p catheter and stent placement x1. Patient did not take her medications today. She denies any fever, chills, shortness of breath, vomiting, numbness, tingling, weakness or other medical complaints. PMD: None provided. Past Medical History Reviewed: Historical Data, Nursing Documentation, Vital Signs Vital Signs: Last Vital Signs Temp 98.0 F 08/31/18 09:30 Pulse 76 08/31/18 09:30 Resp 18 08/31/18 09:30 BP 154/85 H 08/31/18 09:37 Pulse Ox 100 08/31/18 09:30 - Medical History PMH: Anxiety, Diabetes, HTN, Hypercholesterolemia Denies: HIV, Chronic Kidney Disease - Surgical History Surgical History: Cholecystectomy, - Family History Family History: States: Diabetes - Social History Current smoker - smoking cessation education provided: No Alcohol: None Drugs: Denies - Immunization History Hx Tetanus Toxoid Vaccination: No Hx Influenza Vaccination: Yes Hx Pneumococcal Vaccination: No - Home Medications Home Medications: Ambulatory Orders Medication Instructions Recorded Aspirin [Aspirin EC] 81 mg PO DAILY 12/16/14 Carvedilol [Coreg] 3.125 mg PO BID 12/16/14 Losartan [Cozaar] 25 mg PO DAILY 12/16/14 Simvastatin 10 mg PO DAILY 12/16/14 Albuterol Sulfate [Proair Hfa] 1 puff INH Q12 08/31/18 Clopidogrel [Plavix] 75 mg PO DAILY 08/31/18 Esomeprazole Magnesium [Nexium] 1 cap PO DAILY 08/31/18 Fluticasone Nasal [Flonase] 1 inh INH Q12 08/31/18 Levothyroxine [Synthroid] 1 tab PO DAILY 08/31/18 Inyrl-4-Ucwc Ethyl Esters 1 GM 1 gm PO DAILY 08/31/18 [Lovaza] amLODIPine [Norvasc] 1 tab PO DAILY 08/31/18 - Allergies Allergies/Adverse Reactions: Allergies Allergy/AdvReac Type Severity Reaction Status Date / Time No Known Allergies Allergy Verified 08/14/18 23:16 Review of Systems ROS Statement: Except As Marked, All Systems Reviewed And Found Negative Constitutional: Negative for: Fever, Chills Cardiovascular: Positive for: Chest Pain (midsternal) Respiratory: Negative for: Shortness of Breath Gastrointestinal: Positive for: Nausea. Negative for: Vomiting Neurological: Negative for: Weakness, Numbness (tingling) Physical Exam - Reviewed Nursing Documentation Reviewed: Yes Vital Signs Reviewed: Yes - Physical Exam Appears: Positive for: No Acute Distress Head Exam: Positive for: ATRAUMATIC, NORMAL INSPECTION, NORMOCEPHALIC Skin: Positive for: Normal Color, Warm, Dry Eye Exam: Positive for: Normal appearance, EOMI, PERRL Neck: Positive for: Normal, Painless ROM Cardiovascular/Chest: Positive for: Regular Rate, Rhythm. Negative for: Murmur Respiratory: Positive for: Normal Breath Sounds. Negative for: Respiratory Distress Gastrointestinal/Abdominal: Positive for: Normal Exam, Soft. Negative for: Tend erness, Guarding, Rebound Back: Positive for: Normal Inspection. Negative for: L CVA Tenderness, R CVA Tenderness, Vertebral Tenderness Extremity: Positive for: Normal ROM (upper and lower extremities). Negative for: Deformity, Swelling Neurologic/Psych: Positive for: Alert, Oriented - Laboratory Results Result Diagrams: 08/31/18 09:30 08/31/18 09:30 - ECG O2 Sat by Pulse Oximetry: 100 (RA) Pulse Ox Interpretation: Normal - Core Measure Core Measure Indicators: Code Heart - Critical Care Total Time (In Min): 45 Documented Critical Care: Time excludes all time spent performint seperately billable procedures Medical Decision Making Medical Decision Making: Time: 09:28 Initial Impression: Chest pain Initial Plan: --EKG --CMP --Troponin I --CBC w/ differential --PT --PT --Chest one view [RAD] --Aspirin 325 mg PO --Plavix 600 mg PO --Heparin 4,000 units IVP --Heparin 25,000 units/250ml D5W --Nitroglycerin 0.4mg SL --Reevaluation 09:30 -Code hear was called 09:35 -Discussed case with Dr. Maher 09:57 CXR FINDINGS: LUNGS: The lungs are well inflated and clear. Again seen is linear atelectasis/scarring in the left lower lobe. PLEURA: No pneumothorax or pleural effusion. CARDIOVASCULAR: Mild cardiomegaly. There are aortic atherosclerotic calcifications present. OSSEOUS STRUCTURES: Within normal limits for the patient's age. VISUALIZED UPPER ABDOMEN: Normal. OTHER FINDINGS: None. IMPRESSION: No active pulmonary disease. 10:05 -Patient reports improvement of chest pain. Ordered another treatment of nitro 10:10 -Patient will be transferred to [facility]. Scribe Attestation: Documented by Dago Gunderson, acting as a scribe for Mary Morris MD Provider Scribe Attestation: All medical record entries made by the Scribe were at my direction and personally dictated by me. I have reviewed the chart and agree that the record accurately reflects my personal performance of the history, physical exam, medical decision making, and the department course for this patient. I have also personally directed, reviewed, and agree with the discharge instructions and disposition. Disposition - Clinical Impression Clinical Impression: STEMI (ST elevation myocardial infarction) - Disposition Disposition: Other Institution ([facility]) Disposition Time: 09:50 Condition: CRITICAL Forms: [employer] ([place])
--- NOTE | 2018-08-31 10:00 | RAD ---
Date of service: 08/31/2018 PROCEDURE: CHEST RADIOGRAPH, 1 VIEW HISTORY: Chest pain COMPARISON: 08/14/2018. FINDINGS: LUNGS: The lungs are well inflated and clear. Again seen is linear atelectasis/scarring in the left lower lobe. PLEURA: No pneumothorax or pleural effusion. CARDIOVASCULAR: Mild cardiomegaly. There are aortic atherosclerotic calcifications present. OSSEOUS STRUCTURES: Within normal limits for the patient's age. VISUALIZED UPPER ABDOMEN: Normal. OTHER FINDINGS: None. IMPRESSION: No active pulmonary disease.
[2018-08-31 10:09] LABS: BASO # 0.1 K/uL (0.0-0.2); BASO % 0.9 % (0.0-2.0); EOS # 0.1 K/uL (0.0-0.7); HEMOGLOBIN 13.3 g/dL (12.0-16.0); LYMPH # 2.5 K/uL (1.0-4.3); LYMPH % 29.9 % (20.0-40.0); MEAN CELL VOLUME 88.7 fl (81.0-99.0); MEAN CORPUSCULAR HEMOGLOBIN 29.5 pg (27.0-31.0); MEAN CORPUSCULAR HGB CONC 33.3 g/dL (33.0-37.0); MEAN PLATELET VOLUME 9.5 fl (7.2-11.7); MONO # 0.5 K/uL (0.0-0.8); MONO % 6.1 % (0.0-10.0); NEUT # 5.2 K/uL (1.8-7.0); NEUT % 62.1 % (50.0-75.0); NRBC % 0.1 % (0.0-0.0); RBC 4.49 Mil/uL (3.80-5.20); RED CELL DISTRIBUTION WIDTH 13.9 % (11.5-14.5); WHITE BLOOD COUNT 8.5 K/uL (4.8-10.8)
[2018-08-31 10:12] LABS: INR 0.9; PROTHROMBIN TIME 10.4 Seconds (9.8-13.1)
[2018-08-31 10:15] LABS: PARTIAL THROMBOPLASTIN TIME 29.4 Seconds (25.6-37.1)
[2018-08-31 10:19] VITALS: BP 150/72; PULSE 70
[2018-08-31 10:22] LABS: ALB/GLOB RATIO 1.4 (1.0-2.1); ALBUMIN 4.5 g/dL (3.5-5.0); CALCIUM 9.5 mg/dL (8.4-10.2)
[2018-08-31 10:27] LABS: TROPONIN I 0.018 ng/mL (0.00-0.120)
--- NOTE | 2018-08-31 19:13 | CARD ---
APPROVED REPORT Date of service: 08/31/2018 EKG Measurement Heart [id number] <Conclusion> Normal sinus rhythm Possible Left atrial enlargement ST elevation in lateral leads, consider Acute STEMI Abnormal ECG
== END 2018-08-31 10:18 | disposition short-term general hospital (02) ==
LOC: H.ER 09:18
DX: I21.3 ST elevation (STEMI) myocardial infarction of unspecified site (principal); E11.9 Type 2 diabetes mellitus without complications; I10 Essential (primary) hypertension; Z79.82 Long term (current) use of aspirin; Z79.899 Other long term (current) drug therapy
CPT/HCPCS: 71045; 80053; 82948; 84484; 85025; 85610; 85730; 93005; 96374; 99283; J1644

== ENCOUNTER 2018-09-17 02:57 | Emergency (ER) | payer MEDICARE ==
[2018-09-17 02:57] VITALS: BMI 34.7
[2018-09-17 03:09] VITALS: BP 143/74; PULSE 72; RESP 16; TEMP 97.8; O2SAT 98
--- NOTE | 2018-09-17 04:13 | ED PDOC ---
HPI: Abdomen Time Seen by Provider: 09/17/18 03:00 Chief Complaint (Nursing): Abdominal Pain History Per: Patient History/Exam Limitations: no limitations Onset/Duration Of Symptoms: Hrs Outside of [place] travel?: No Location Of Pain/Discomfort: Epigastric Additional Complaint(s): Hx of DM, HTN, HLD, CAD, recent [place] presenting with constipation, states that she has epigastric pain and has not gone to the bathroom in 24 hours. Denies chest pain, shortness of breath. Past Medical History Reviewed: Historical Data, Nursing Documentation, Vital Signs Vital Signs: Last Vital Signs Temp 97.8 F 09/17/18 03:00 Pulse 72 09/17/18 03:00 Resp 16 09/17/18 03:00 BP 143/74 09/17/18 03:00 Pulse Ox 98 09/17/18 03:00 - Medical History PMH: Anxiety, Diabetes, HTN, Hypercholesterolemia Denies: HIV, Chronic Kidney Disease - Surgical History Surgical History: Cholecystectomy, - Family History Family History: States: Diabetes - Immunization History Hx Tetanus Toxoid Vaccination: No Hx Influenza Vaccination: Yes Hx Pneumococcal Vaccination: No - Home Medications Home Medications: Ambulatory Orders Medication Instructions Recorded Aspirin [Aspirin EC] 81 mg PO DAILY 12/16/14 Carvedilol [Coreg] 3.125 mg PO BID 12/16/14 Losartan [Cozaar] 25 mg PO DAILY 12/16/14 Simvastatin 10 mg PO DAILY 12/16/14 Albuterol Sulfate [Proair Hfa] 1 puff INH Q12 08/31/18 Clopidogrel [Plavix] 75 mg PO DAILY 08/31/18 Esomeprazole Magnesium [Nexium] 1 cap PO DAILY 08/31/18 Fluticasone Nasal [Flonase] 1 inh INH Q12 08/31/18 Levothyroxine [Synthroid] 1 tab PO DAILY 08/31/18 Iiuen-0-Szsk Ethyl Esters 1 GM 1 gm PO DAILY 08/31/18 [Lovaza] amLODIPine [Norvasc] 1 tab PO DAILY 08/31/18 - Allergies Allergies/Adverse Reactions: Allergies Allergy/AdvReac Type Severity Reaction Status Date / Time No Known Allergies Allergy Verified 08/14/18 23:16 Review of Systems ROS Statement: Except As Marked, All Systems Reviewed And Found Negative Gastrointestinal: Positive for: Abdominal Pain, Constipation Physical Exam - Reviewed Nursing Documentation Reviewed: Yes Vital Signs Reviewed: Yes - Physical Exam Appears: Positive for: Well, Non-toxic, No Acute Distress Head Exam: Positive for: ATRAUMATIC, NORMAL INSPECTION, NORMOCEPHALIC Skin: Positive for: Normal Color, Warm, DRY Eye Exam: Positive for: EOMI, Normal appearance, PERRL ENT: Positive for: Normal ENT Inspection Neck: Positive for: Normal, Painless ROM Cardiovascular/Chest: Positive for: Regular Rate, Rhythm Respiratory: Positive for: CNT, Normal Breath Sounds Gastrointestinal/Abdominal: Positive for: Normal Exam, Soft, Tenderness (Diffuse minimal tenderness to palpation ) Back: Positive for: Normal Inspection Extremity: Positive for: Normal ROM Neurologic/Psych: Positive for: Alert, Oriented - ECG ECG Rhythm: Positive for: Normal QRS, Normal ST Segment, Sinus Rhythm, Nonspecific Changes O2 Sat by Pulse Oximetry: 98 Medical Decision Making Medical Decision MakinAM Patient presenting with abdominal pain and constipation --Patient was given enema and had evacuation of stool and patient states she complete resolution of symptoms --Not concerned for anginal equivalent at this time given all her symptoms resolved after enema --Well appearing upon discharge Disposition - Clinical Impression Clinical Impression: Constipation - Patient ED Disposition Is Patient to be Admitted: No - Disposition Referrals: Shane Jhaveri [Outside] Disposition: Routine/Home Disposition Time: 03:00 Condition: IMPROVED Instructions: Constipation in Adults Forms: [employer] (Lao)
--- NOTE | 2018-09-17 11:49 | CARD ---
APPROVED REPORT Date of service: 09/17/2018 EKG Measurement Heart [id number] <Conclusion> Normal sinus rhythm Possible Left atrial enlargement Left anterior fascicular block Possible Lateral infarct, age undetermined T wave inversions, consider lateral wall ischemia Abnormal ECG
== END 2018-09-17 04:15 | disposition home or self-care (01) ==
LOC: H.ER 02:57
DX: K59.00 Constipation, unspecified (principal); E11.9 Type 2 diabetes mellitus without complications; E78.00 Pure hypercholesterolemia, unspecified; F41.9 Anxiety disorder, unspecified; I10 Essential (primary) hypertension; Z79.82 Long term (current) use of aspirin; Z79.899 Other long term (current) drug therapy

== ENCOUNTER 2018-10-29 17:01 | Emergency (ER) | payer MEDICARE ==
[2018-10-29 17:01] VITALS: BMI 34.7
[2018-10-29 17:15] VITALS: RESP 18; O2SAT 99
--- NOTE | 2018-10-29 18:02 | ED PDOC ---
HPI: Abdomen Time Seen by Provider: 10/29/18 17:30 Chief Complaint (Nursing): GI Problem Chief Complaint (Provider): GI Problem History Per: Patient History/Exam Limitations: no limitations Onset/Duration Of Symptoms: Intermittent Episodes Current Symptoms Are (Timing): Better Pain Scale Rating Of: 0 Last Bowel Movement: Today (this morning) Additional Complaint(s): 83 year old female with a past medical history of TN and constipation presents to the ED with belly pain and constipation onset X12 hours. Patient reports having a small bowel movement this am but continues to feel constipated. Patient states she has hx of constipation and usually requests enemas. Patient denies nausea, vomiting and fever. PMD: None provided Past Medical History Reviewed: Historical Data, Nursing Documentation, Vital Signs Vital Signs: Last Vital Signs Temp 97.6 F 10/29/18 17:13 Pulse 77 10/29/18 17:13 Resp 18 10/29/18 17:13 BP 159/74 H 10/29/18 17:13 Pulse Ox 99 10/29/18 17:13 BENJAMIN Report Viewed: Yes - Medical History PMH: Anxiety, Diabetes, HTN, Hypercholesterolemia Denies: HIV, Chronic Kidney Disease - Surgical History Surgical History: Cholecystectomy, - Family History Family History: States: Diabetes - Social History Alcohol: None Drugs: Denies - Immunization History Hx Tetanus Toxoid Vaccination: No Hx Influenza Vaccination: Yes Hx Pneumococcal Vaccination: No - Home Medications Home Medications: Ambulatory Orders Medication Instructions Recorded Aspirin [Aspirin EC] 81 mg PO DAILY 12/16/14 Carvedilol [Coreg] 3.125 mg PO BID 12/16/14 Losartan [Cozaar] 25 mg PO DAILY 12/16/14 Simvastatin 10 mg PO DAILY 12/16/14 Albuterol Sulfate [Proair Hfa] 1 puff INH Q12 08/31/18 Clopidogrel [Plavix] 75 mg PO DAILY 08/31/18 Esomeprazole Magnesium [Nexium] 1 cap PO DAILY 08/31/18 Fluticasone Nasal [Flonase] 1 inh INH Q12 08/31/18 Levothyroxine [Synthroid] 1 tab PO DAILY 08/31/18 Yckxp-4-Nrbg Ethyl Esters 1 GM 1 gm PO DAILY 08/31/18 [Lovaza] amLODIPine [Norvasc] 1 tab PO DAILY 08/31/18 - Allergies Allergies/Adverse Reactions: Allergies Allergy/AdvReac Type Severity Reaction Status Date / Time No Known Allergies Allergy Verified 08/14/18 23:16 Review of Systems ROS Statement: Except As Marked, All Systems Reviewed And Found Negative Constitutional: Negative for: Fever Gastrointestinal: Positive for: Abdominal Pain, Constipation. Negative for: Nausea, Vomiting Physical Exam - Reviewed Nursing Documentation Reviewed: Yes Vital Signs Reviewed: Yes - Physical Exam Appears: Positive for: Well Head Exam: Positive for: ATRAUMATIC, NORMOCEPHALIC Skin: Positive for: Normal Color, Warm, Dry Eye Exam: Positive for: Normal appearance, EOMI, PERRL Cardiovascular/Chest: Positive for: Regular Rate, Rhythm. Negative for: Murmur Respiratory: Positive for: Normal Breath Sounds. Negative for: Respiratory Distress Gastrointestinal/Abdominal: Positive for: Normal Exam, Soft. Negative for: Tenderness Extremity: Positive for: Normal ROM (Upper and lower). Negative for: Pedal Edema, Deformity Neurological/Psych: Positive for: Awake, Alert, Normal Tone, Age Appropriate, Oriented - ECG O2 Sat by Pulse Oximetry: 99 (RA) Pulse Ox Interpretation: Normal Medical Decision Making Medical Decision Making: Time: 17:13 Initial Impression: Constipation 17:49 Patient reports going to bathroom while in the ER and feeling better. Patient requested food, felt better and wants to go home. No further treatment in the ER, patient advised to follow up with PMD. Return parameters discussed. Scribe Attestation: Documented by Ashli Verde, acting as a scribe for Meme Smith APN. Provider Scribe Attestation: All medical record entries made by the Scribe were at my direction and personally dictated by me. I have reviewed the chart and agree that the record accurately reflects my personal performance of the history, physical exam, medical decision making, and the department course for this patient. I have also personally directed, reviewed, and agree with the discharge instructions and disposition. Disposition - Clinical Impression Clinical Impression: Constipation - Patient ED Disposition Is Patient to be Admitted: No Counseled Patient/Family Regarding: Diagnosis - Disposition Disposition: Routine/Home Disposition Time: 17:49 Condition: STABLE Instructions: Constipation, Adult (DC) Print Language: VATICAN CITIZEN - POA Present On Arrival: None
[2018-10-29 18:22] VITALS: BP 128/80; PULSE 76; TEMP 98
== END 2018-10-29 18:21 | disposition home or self-care (01) ==
LOC: H.ER 17:01
DX: K59.00 Constipation, unspecified (principal); E11.9 Type 2 diabetes mellitus without complications; E78.00 Pure hypercholesterolemia, unspecified; F41.9 Anxiety disorder, unspecified; I10 Essential (primary) hypertension; Z79.82 Long term (current) use of aspirin

== ENCOUNTER 2018-10-31 16:58 | Emergency (ER) | payer MEDICARE ==
[2018-10-31 17:00] VITALS: BMI 32.5
[2018-10-31 17:04] VITALS: O2SAT 98
[2018-10-31] MEDS ORDERED: Magnesium Citrate Oral SOL (300 ml) PO STA (17:23)
[2018-10-31] MEDS ORDERED: Magnesium Citrate Oral SOL (300 ml) ONE (17:47)
--- NOTE | 2018-10-31 18:16 | ED PDOC ---
HPI: Abdomen Time Seen by Provider: 10/31/18 17:12 Chief Complaint (Nursing): Abdominal Pain Chief Complaint (Provider): Abdominal Pain History Per: Patient History/Exam Limitations: no limitations Onset/Duration Of Symptoms: Days Current Symptoms Are (Timing): Still Present Additional Complaint(s): 83 y/o female presents to the ED for evaluation of abdominal pain and constipation. Patient has frequent visits here for constipation requesting manual disimpaction. Patient agrees to start with enema and magnesium citrate. Patient did not take any medications at home for the pain. PMD: no provider Past Medical History Reviewed: Historical Data, Nursing Documentation, Vital Signs Vital Signs: Last Vital Signs Temp 98 F 10/31/18 16:59 Pulse 71 10/31/18 16:59 Resp 16 10/31/18 16:59 BP 155/81 H 10/31/18 16:59 Pulse Ox 98 10/31/18 17:02 - Medical History PMH: Anxiety, Diabetes, HTN, Hypercholesterolemia Denies: HIV, Chronic Kidney Disease - Surgical History Surgical History: Cholecystectomy, - Family History Family History: States: Diabetes - Immunization History Hx Tetanus Toxoid Vaccination: No Hx Influenza Vaccination: Yes Hx Pneumococcal Vaccination: No - Home Medications Home Medications: Ambulatory Orders Medication Instructions Recorded Aspirin [Aspirin EC] 81 mg PO DAILY 12/16/14 Carvedilol [Coreg] 3.125 mg PO BID 12/16/14 Losartan [Cozaar] 25 mg PO DAILY 12/16/14 Simvastatin 10 mg PO DAILY 12/16/14 Albuterol Sulfate [Proair Hfa] 1 puff INH Q12 08/31/18 Clopidogrel [Plavix] 75 mg PO DAILY 08/31/18 Esomeprazole Magnesium [Nexium] 1 cap PO DAILY 08/31/18 Fluticasone Nasal [Flonase] 1 inh INH Q12 08/31/18 Levothyroxine [Synthroid] 1 tab PO DAILY 08/31/18 Ietwa-3-Hjlh Ethyl Esters 1 GM 1 gm PO DAILY 08/31/18 [Lovaza] amLODIPine [Norvasc] 1 tab PO DAILY 08/31/18 - Allergies Allergies/Adverse Reactions: Allergies Allergy/AdvReac Type Severity Reaction Status Date / Time No Known Allergies Allergy Verified 08/14/18 23:16 Review of Systems ROS Statement: Except As Marked, All Systems Reviewed And Found Negative Gastrointestinal: Positive for: Abdominal Pain, Constipation Physical Exam - Reviewed Nursing Documentation Reviewed: Yes Vital Signs Reviewed: Yes - Physical Exam Appears: Positive for: No Acute Distress Head Exam: Positive for: ATRAUMATIC, NORMOCEPHALIC Skin: Positive for: Normal Color, Warm Eye Exam: Positive for: Normal appearance, EOMI, PERRL Neck: Positive for: Normal, Painless ROM, Supple Cardiovascular/Chest: Positive for: Regular Rate, Rhythm. Negative for: Murmur Respiratory: Positive for: Normal Breath Sounds. Negative for: Respiratory Distress Gastrointestinal/Abdominal: Positive for: Normal Exam, Soft, Distended. Negative for: Tenderness Extremity: Positive for: Normal ROM. Negative for: Deformity Neurological/Psych: Positive for: Awake, Alert, Oriented (x3). Negative for: Motor/Sensory Deficits - ECG O2 Sat by Pulse Oximetry: 98 (RA) Pulse Ox Interpretation: Normal Medical Decision Making Medical Decision Making: Time: 172 A/P: Patient with numerous visits requesting manual disimpaction -- Patient presents frequently for same complaint. -- Patient agrees to enema and magnesium citrate. -- Most likely discharge home. -- Will re-evaluate the patient -- Magnesium Citrate 150 ml PO -- Fleet Enema 125 ML pr Time: 1814 Plan: -- Fleet Enema 134 ml [place] -- Toradol 15 mg IM 6:20 Pt had a bowel movement after 2 enemas and magnesium citrate. Pt with improved symptoms. Pt to follow up with primary medical doctor and systems analysis manager. Scribe Attestation: Documented by Jyothi Simons, acting as a scribe Deirdre Bryan MD. Provider Scribe Attestation: All medical record entries made by the Scribe were at my direction and personally dictated by me. I have reviewed the chart and agree that the record accurately reflects my personal performance of the history, physical exam, medical decision making, and the department course for this patient. I have also personally directed, reviewed, and agree with the discharge instructions and disposition. Disposition - Clinical Impression Clinical Impression: Constipation, Abdominal pain - Patient ED Disposition Is Patient to be Admitted: No - Disposition Disposition Time: 18:20 Condition: IMPROVED Additional Instructions: Follow up with systems analysis manager and primary medical doctor for constipation. Instructions: Constipation in Adults Forms: [facility] (Guyanese) Print Language: FRENCH
[2018-10-31 19:03] VITALS: BP 120/78; PULSE 78; RESP 20; TEMP 97
== END 2018-10-31 19:06 | disposition home or self-care (01) ==
LOC: H.ER 16:58
DX: K59.00 Constipation, unspecified (principal); R10.9 Unspecified abdominal pain; E11.9 Type 2 diabetes mellitus without complications; I10 Essential (primary) hypertension; Z79.82 Long term (current) use of aspirin; Z79.899 Other long term (current) drug therapy
CPT/HCPCS: 96372; 99283; J1885

== ENCOUNTER 2018-10-31 23:00 | Emergency (ER) | payer MEDICARE ==
[2018-10-31 23:01] VITALS: BMI 32.5
[2018-10-31 23:04] VITALS: PULSE 68; RESP 16
[2018-11-01 00:36] VITALS: BP 144/78; TEMP 98.2; O2SAT 97
--- NOTE | 2018-11-01 00:50 | ED PDOC ---
HPI: Abdomen Time Seen by Provider: 10/31/18 23:02 Chief Complaint (Nursing): GI Problem Chief Complaint (Provider): Constipation History Per: Patient History/Exam Limitations: no limitations Current Symptoms Are (Timing): Still Present Associated Symptoms: Constipation Additional Complaint(s): 83 year old female, with a history of chronic constipation, returned to the ED today unable to pass a bowel movement. Patient states she wants to have a bowel movement but is unable to and feels "full". PMD: Bennett Gonsalves Past Medical History Reviewed: Historical Data, Nursing Documentation, Vital Signs Vital Signs: Last Vital Signs Temp 98.2 F 11/01/18 00:35 Pulse 68 11/01/18 00:35 Resp 16 11/01/18 00:35 BP 144/78 11/01/18 00:35 Pulse Ox 97 11/01/18 00:35 - Medical History PMH: Anxiety, Diabetes, HTN, Hypercholesterolemia Denies: HIV, Chronic Kidney Disease - Surgical History Surgical History: Cholecystectomy, - Family History Family History: States: Diabetes - Immunization History Hx Tetanus Toxoid Vaccination: No Hx Influenza Vaccination: Yes Hx Pneumococcal Vaccination: No - Home Medications Home Medications: Ambulatory Orders Medication Instructions Recorded Aspirin [Aspirin EC] 81 mg PO DAILY 12/16/14 Carvedilol [Coreg] 3.125 mg PO BID 12/16/14 Losartan [Cozaar] 25 mg PO DAILY 12/16/14 Simvastatin 10 mg PO DAILY 12/16/14 Albuterol Sulfate [Proair Hfa] 1 puff INH Q12 08/31/18 Clopidogrel [Plavix] 75 mg PO DAILY 08/31/18 Esomeprazole Magnesium [Nexium] 1 cap PO DAILY 08/31/18 Fluticasone Nasal [Flonase] 1 inh INH Q12 08/31/18 Levothyroxine [Synthroid] 1 tab PO DAILY 08/31/18 Tsrdh-2-Xita Ethyl Esters 1 GM 1 gm PO DAILY 08/31/18 [Lovaza] amLODIPine [Norvasc] 1 tab PO DAILY 08/31/18 - Allergies Allergies/Adverse Reactions: Allergies Allergy/AdvReac Type Severity Reaction Status Date / Time No Known Allergies Allergy Verified 10/31/18 23:03 Review of Systems ROS Statement: Except As Marked, All Systems Reviewed And Found Negative Gastrointestinal: Positive for: Constipation Physical Exam - Reviewed Nursing Documentation Reviewed: Yes Vital Signs Reviewed: Yes - Physical Exam Appears: Positive for: No Acute Distress Head Exam: Positive for: ATRAUMATIC, NORMOCEPHALIC Skin: Positive for: Normal Color, Warm, Dry Eye Exam: Positive for: Normal appearance Neck: Positive for: Normal, Painless ROM Cardiovascular/Chest: Positive for: Regular Rate, Rhythm Respiratory: Positive for: Normal Breath Sounds. Negative for: Wheezing, Respiratory Distress Gastrointestinal/Abdominal: Positive for: Soft, Tenderness (minimal abdominal tenderness). Negative for: Guarding, Rebound Extremity: Positive for: Normal ROM Neurological/Psych: Positive for: Awake, Alert, Normal Tone - ECG O2 Sat by Pulse Oximetry: 97 (RA) Pulse Ox Interpretation: Normal Medical Decision Making Medical Decision Making: Initial Impression: Chronic constipation Initial Plan: While in ED, patient had a bowel movement and is feeling better. Patient is stable for discharge. Scribe Attestation: Documented by Tramaine Perez acting as a scribe for Nolan Lott MD. Provider Scribe Attestation: All medical record entries made by the Scribe were at my direction and personally dictated by me. I have reviewed the chart and agree that the record accurately reflects my personal performance of the history, physical exam, medical decision making, and the department course for this patient. I have also personally directed, reviewed, and agree with the discharge instructions and disposition. Disposition - Clinical Impression Clinical Impression: Constipation - Patient ED Disposition Is Patient to be Admitted: No - Disposition Referrals: Shane Jhaveri [Outside] Disposition: Routine/Home Disposition Time: 23:50 Condition: IMPROVED Instructions: Constipation in Adults Forms: [employer] (Indonesian)
== END 2018-11-01 00:10 | disposition home or self-care (01) ==
LOC: H.ER 23:00
DX: K59.09 Other constipation (principal); E11.9 Type 2 diabetes mellitus without complications; I10 Essential (primary) hypertension; Z79.82 Long term (current) use of aspirin; Z79.899 Other long term (current) drug therapy

== ENCOUNTER 2018-11-08 04:23 | Emergency (ER) | payer MEDICARE ==
[2018-11-08 04:30] VITALS: BMI 34.7
[2018-11-08 04:32] VITALS: BP 156/82; PULSE 72; TEMP 98.9; O2SAT 100
--- NOTE | 2018-11-08 04:55 | ED PDOC ---
HPI: General Adult Time Seen by Provider: 11/08/18 04:28 Chief Complaint (Nursing): GI Problem History Per: Patient Additional Complaint(s): Pt. states she has not had a BM in several hours prompting ED visit. Pt. well known to ED. Has a long hx of constipation. Denies abdominal pain, fever, chills. Past Medical History Reviewed: Historical Data, Nursing Documentation, Vital Signs Vital Signs: Last Vital Signs Temp 98.9 F 11/08/18 04:30 Pulse 72 11/08/18 04:30 Resp 18 11/08/18 04:30 BP 156/82 H 11/08/18 04:30 Pulse Ox 100 11/08/18 04:30 - Medical History PMH: Anxiety, Diabetes, HTN, Hypercholesterolemia Denies: HIV, Chronic Kidney Disease - Surgical History Surgical History: Cholecystectomy, - Family History Family History: States: Diabetes - Immunization History Hx Tetanus Toxoid Vaccination: No Hx Influenza Vaccination: Yes Hx Pneumococcal Vaccination: No - Home Medications Home Medications: Ambulatory Orders Medication Instructions Recorded Aspirin [Aspirin EC] 81 mg PO DAILY 12/16/14 Carvedilol [Coreg] 3.125 mg PO BID 12/16/14 Losartan [Cozaar] 25 mg PO DAILY 12/16/14 Simvastatin 10 mg PO DAILY 12/16/14 Albuterol Sulfate [Proair Hfa] 1 puff INH Q12 08/31/18 Clopidogrel [Plavix] 75 mg PO DAILY 08/31/18 Esomeprazole Magnesium [Nexium] 1 cap PO DAILY 08/31/18 Fluticasone Nasal [Flonase] 1 inh INH Q12 08/31/18 Levothyroxine [Synthroid] 1 tab PO DAILY 08/31/18 Iqbfp-2-Iykl Ethyl Esters 1 GM 1 gm PO DAILY 08/31/18 [Lovaza] amLODIPine [Norvasc] 1 tab PO DAILY 08/31/18 - Allergies Allergies/Adverse Reactions: Allergies Allergy/AdvReac Type Severity Reaction Status Date / Time No Known Allergies Allergy Verified 11/08/18 04:30 Review of Systems ROS Statement: Except As Marked, All Systems Reviewed And Found Negative Gastrointestinal: Positive for: Constipation Physical Exam - Physical Exam Appears: Positive for: Well, Non-toxic, No Acute Distress Skin: Positive for: Normal Color, Warm. Negative for: Rash Eye Exam: Positive for: Normal appearance Gastrointestinal/Abdominal: Positive for: Normal Exam, Bowel Sounds, Soft. Negative for: Tenderness, Distended Neurological/Psych: Positive for: Awake, Alert, Oriented (x3), Gait (steady, unassisted) - ECG O2 Sat by Pulse Oximetry: 100 - Progress ED Course And Treament: Patient had BM in ED without any intervention. Requesting to be discharged. Disposition - Clinical Impression Clinical Impression: Constipation - Patient ED Disposition Is Patient to be Admitted: No - Disposition Disposition: Routine/Home Disposition Time: 04:53 Condition: IMPROVED Additional Instructions: DONNA ESPOSITO, thank you for letting us take care of you today. Your provider was Marguerite Arnold MD and you were treated for CONSTIPATION. The emergency medical care you received today was directed at your acute symptoms. If you were prescribed any medication, please fill it and take as directed. It may take several days for your symptoms to resolve. Return to the Emergency Department if your symptoms worsen, do not improve, or if you have any other problems. Please contact your doctor or call one of the physicians/clinics you have been referred to that are listed on the Patient Visit Information form that is included in your discharge packet. Bring any paperwork you were given at discharge with you along with any medications you are taking to your follow up visit. Our treatment cannot replace ongoing medical care by a primary care provider outside of the emergency department. Thank you for allowing the Critical access hospital team to be part of your care today. If you had an X-Ray or CT scan: A Radiologist will review the ED reading if any change in treatment is needed we will contact you. If you had a blood, urine, or wound culture: It will take several days for the results, if any change in treatment is needed we will contact you. If you had an STI test: It will take 48 hours for the results. Please call after 1 week if you have not heard back. Instructions: Constipation, Adult (DC)
[2018-11-08 04:58] VITALS: RESP 16
== END 2018-11-08 04:55 | disposition home or self-care (01) ==
LOC: H.ER 04:23
DX: K59.00 Constipation, unspecified (principal); E11.9 Type 2 diabetes mellitus without complications; Z79.899 Other long term (current) drug therapy

== ENCOUNTER 2018-11-11 15:06 | Emergency (ER) | payer MEDICARE ==
[2018-11-11 15:06] VITALS: BMI 34.7
[2018-11-11 15:12] VITALS: BP 144/75; PULSE 72; RESP 16; TEMP 98.3; O2SAT 98
--- NOTE | 2018-11-11 16:05 | ED PDOC ---
HPI: General Adult Time Seen by Provider: 11/11/18 15:32 Chief Complaint (Nursing): Abdominal Pain Chief Complaint (Provider): Constipation History Per: Patient History/Exam Limitations: no limitations Onset/Duration Of Symptoms: Days (x4) Current Symptoms Are (Timing): Still Present Additional Complaint(s): 83 year old female with a past medical history of hypertension, hypercholesterolemia, and diabetes who was brought to the ED for evaluation of constipation ongoing for 4 days. Patient denies any vomiting or abdominal pain. She offers no other medical complaints at this time. PMD: Dr. Condon Past Medical History Reviewed: Historical Data, Nursing Documentation, Vital Signs Vital Signs: Last Vital Signs Temp 98.3 F 11/11/18 15:09 Pulse 72 11/11/18 15:09 Resp 16 11/11/18 15:09 BP 144/75 11/11/18 15:09 Pulse Ox 98 11/11/18 15:09 - Medical History PMH: Anxiety, Diabetes, HTN, Hypercholesterolemia Denies: HIV, Chronic Kidney Disease - Surgical History Surgical History: Cholecystectomy, - Family History Family History: States: Diabetes - Social History Current smoker - smoking cessation education provided: No Alcohol: None Drugs: Denies - Immunization History Hx Tetanus Toxoid Vaccination: No Hx Influenza Vaccination: Yes Hx Pneumococcal Vaccination: No - Home Medications Home Medications: Ambulatory Orders Medication Instructions Recorded Aspirin [Aspirin EC] 81 mg PO DAILY 12/16/14 Carvedilol [Coreg] 3.125 mg PO BID 12/16/14 Losartan [Cozaar] 25 mg PO DAILY 12/16/14 Simvastatin 10 mg PO DAILY 12/16/14 Albuterol Sulfate [Proair Hfa] 1 puff INH Q12 08/31/18 Clopidogrel [Plavix] 75 mg PO DAILY 08/31/18 Esomeprazole Magnesium [Nexium] 1 cap PO DAILY 08/31/18 Fluticasone Nasal [Flonase] 1 inh INH Q12 08/31/18 Levothyroxine [Synthroid] 1 tab PO DAILY 08/31/18 Lsyfd-3-Rgje Ethyl Esters 1 GM 1 gm PO DAILY 08/31/18 [Lovaza] amLODIPine [Norvasc] 1 tab PO DAILY 08/31/18 Polyethylene Glycol 3350 [Miralax] 17 gm PO DAILY #1 bot 11/11/18 - Allergies Allergies/Adverse Reactions: Allergies Allergy/AdvReac Type Severity Reaction Status Date / Time No Known Allergies Allergy Verified 11/11/18 15:09 Review of Systems ROS Statement: Except As Marked, All Systems Reviewed And Found Negative Gastrointestinal: Positive for: Constipation. Negative for: Vomiting, Abdominal Pain Physical Exam - Reviewed Nursing Documentation Reviewed: Yes Vital Signs Reviewed: Yes - Physical Exam Appears: Positive for: Non-toxic, No Acute Distress Head Exam: Positive for: ATRAUMATIC, NORMAL INSPECTION, NORMOCEPHALIC Skin: Positive for: Normal Color, Warm Eye Exam: Positive for: EOMI, Normal appearance, PERRL ENT: Positive for: Normal ENT Inspection Neck: Positive for: Normal, Painless ROM, Supple Cardiovascular/Chest: Positive for: Regular Rate, Rhythm. Negative for: Murmur Respiratory: Positive for: Normal Breath Sounds. Negative for: Respiratory Distress Gastrointestinal/Abdominal: Positive for: Normal Exam, Soft. Negative for: Tenderness Back: Positive for: Normal Inspection. Negative for: L CVA Tenderness, R CVA Tenderness Rectal: Positive for: Other (small amount of fecal matter in vault ) Extremity: Positive for: Normal ROM. Negative for: Deformity, Swelling Neurological/Psych: Positive for: Awake, Alert, Normal Tone, Oriented. Negative for: Motor/Sensory Deficits - ECG O2 Sat by Pulse Oximetry: 98 (RA) Pulse Ox Interpretation: Normal Medical Decision Making Medical Decision Making: Time: 15:45 Plan: --Enema - Tap Water and Soap Scribe Attestation: Documented by Eden Fields, acting as a scribe for Yuri Romero MD. Passed large stool post enema and feels better. Provider Scribe Attestation: All medical record entries made by the Scribe were at my direction and personall y dictated by me. I have reviewed the chart and agree that the record accurately reflects my personal performance of the history, physical exam, medical decision making, and the department course for this patient. I have also personally directed, reviewed, and agree with the discharge instructions and disposition. Disposition - Clinical Impression Clinical Impression: Constipation - Patient ED Disposition Is Patient to be Admitted: No Counseled Patient/Family Regarding: Diagnosis, Need For Followup, Rx Given - Disposition Referrals: Chris Espinoza MD [Staff Provider] - Disposition: Routine/Home Disposition Time: 16:07 Condition: FAIR Prescriptions: Polyethylene Glycol 3350 [Miralax] 17 gm PO DAILY #1 bot Instructions: Constipation in Adults Forms: [facility] (Setswana)
== END 2018-11-11 16:09 | disposition home or self-care (01) ==
LOC: H.ER 15:06
DX: K59.00 Constipation, unspecified (principal)

== ENCOUNTER 2018-11-13 16:06 | Emergency (ER) | payer MEDICARE ==
[2018-11-13 16:06] VITALS: BMI 34.7
[2018-11-13 16:16] VITALS: BP 157/66; PULSE 74; RESP 18; TEMP 98.2; O2SAT 100
--- NOTE | 2018-11-13 17:20 | ED PDOC ---
HPI: Abdomen Time Seen by Provider: 11/13/18 16:24 Chief Complaint (Nursing): Abdominal Pain History Per: Patient Additional Complaint(s): Pt. states she has not had a BM since yesterday and is requesting a fleet enema. Denies chest pain, abdominal pain, fever, chills. Past Medical History Reviewed: Historical Data, Nursing Documentation, Vital Signs Vital Signs: Last Vital Signs Temp 98.2 F 11/13/18 16:14 Pulse 74 11/13/18 16:14 Resp 18 11/13/18 16:14 BP 157/66 H 11/13/18 16:14 Pulse Ox 100 11/13/18 16:14 - Medical History PMH: Anxiety, Diabetes, HTN, Hypercholesterolemia Denies: HIV, Chronic Kidney Disease - Surgical History Surgical History: Cholecystectomy, - Family History Family History: States: Diabetes - Immunization History Hx Tetanus Toxoid Vaccination: No Hx Influenza Vaccination: Yes Hx Pneumococcal Vaccination: No - Home Medications Home Medications: Ambulatory Orders Medication Instructions Recorded Aspirin [Aspirin EC] 81 mg PO DAILY 12/16/14 Carvedilol [Coreg] 3.125 mg PO BID 12/16/14 Losartan [Cozaar] 25 mg PO DAILY 12/16/14 Simvastatin 10 mg PO DAILY 12/16/14 Albuterol Sulfate [Proair Hfa] 1 puff INH Q12 08/31/18 Clopidogrel [Plavix] 75 mg PO DAILY 08/31/18 Esomeprazole Magnesium [Nexium] 1 cap PO DAILY 08/31/18 Fluticasone Nasal [Flonase] 1 inh INH Q12 08/31/18 Levothyroxine [Synthroid] 1 tab PO DAILY 08/31/18 [id number]-4-Hkxr Ethyl Esters 1 GM 1 gm PO DAILY 08/31/18 [Lovaza] amLODIPine [Norvasc] 1 tab PO DAILY 08/31/18 Polyethylene Glycol 3350 [Miralax] 17 gm PO DAILY #1 bot 11/11/18 - Allergies Allergies/Adverse Reactions: Allergies Allergy/AdvReac Type Severity Reaction Status Date / Time No Known Allergies Allergy Verified 11/13/18 16:14 Review of Systems ROS Statement: Except As Marked, All Systems Reviewed And Found Negative Gastrointestinal: Positive for: Constipation Physical Exam - Physical Exam Appears: Positive for: Well, Non-toxic, No Acute Distress Skin: Positive for: Normal Color, Warm. Negative for: Rash Eye Exam: Positive for: Normal appearance Cardiovascular/Chest: Positive for: Regular Rate, Rhythm Respiratory: Positive for: Normal Breath Sounds. Negative for: Respiratory Distress Gastrointestinal/Abdominal: Positive for: Normal Exam, Bowel Sounds, Soft. Negative for: Tenderness, Distended Neurological/Psych: Positive for: Awake, Alert, Oriented (x3), Gait (steady, unassisted) - ECG O2 Sat by Pulse Oximetry: 100 - Progress ED Course And Treament: Fleet enema ordered and given. On re-evaluation, pt. requesting to be dc'd and asking for a meal. States she had a BM in ED. Disposition - Clinical Impression Clinical Impression: Constipation - Patient ED Disposition Is Patient to be Admitted: No - Disposition Disposition: Routine/Home Disposition Time: 18:00 Condition: IMPROVED Additional Instructions: RETURN TO ED IMMEDIATELY IF SYMPTOMS WORSEN DONNA ESPOSITO, thank you for letting us take care of you today. Your provider was Mary Morris MD and you were treated for ABD PAIN. The emergency medical care you received today was directed at your acute symptoms. If you were prescribed any medication, please fill it and take as directed. It may take several days for your symptoms to resolve. Return to the Emergency Department if your s ymptoms worsen, do not improve, or if you have any other problems. Please contact your doctor or call one of the physicians/clinics you have been referred to that are listed on the Patient Visit Information form that is included in your discharge packet. Bring any paperwork you were given at discharge with you along with any medications you are taking to your follow up visit. Our treatment cannot replace ongoing medical care by a primary care provider outside of the emergency department. Thank you for allowing the [facility] team to be part of your care today. If you had an X-Ray or CT scan: A Radiologist will review the ED reading if any change in treatment is needed we will contact you. If you had a blood, urine, or wound culture: It will take several days for the results, if any change in treatment is needed we will contact you. If you had an STI test: It will take 48 hours for the results. Please call after 1 week if you have not heard back. Instructions: Constipation, Adult (DC) Forms: [employer] (Turkish)
[2018-11-13] MEDS ORDERED: Magnesium Citrate Oral SOL (300 ml) ONE (23:37)
== END 2018-11-13 18:15 | disposition home or self-care (01) ==
LOC: H.ER 16:06
DX: K59.00 Constipation, unspecified (principal); E11.9 Type 2 diabetes mellitus without complications

== ENCOUNTER 2018-11-13 20:36 | Emergency (ER) | payer MEDICARE ==
[2018-11-13 20:37] VITALS: BMI 34.7
[2018-11-13 20:43] VITALS: RESP 18; O2SAT 99
[2018-11-13 22:13] LABS: BASO # 0.1 K/uL (0.0-0.2); BASO % 0.8 % (0.0-2.0); EOS # 0.1 K/uL (0.0-0.7); EOS % 0.7 % (0.0-4.0); LYMPH # 2.3 K/uL (1.0-4.3); LYMPH % 26.5 % (20.0-40.0); MEAN CELL VOLUME 88.4 fl (81.0-99.0); MEAN CORPUSCULAR HEMOGLOBIN 28.9 pg (27.0-31.0); MEAN CORPUSCULAR HGB CONC 32.7 g/dL (33.0-37.0); MEAN PLATELET VOLUME 9.1 fl (7.2-11.7); MONO # 0.7 K/uL (0.0-0.8); NEUT # 5.5 K/uL (1.8-7.0); NRBC % 0.1 % (0.0-0.0); RBC 4.48 Mil/uL (3.80-5.20); RED CELL DISTRIBUTION WIDTH 13.9 % (11.5-14.5); WHITE BLOOD COUNT 8.6 K/uL (4.8-10.8)
[2018-11-13 22:21] LABS: ALB/GLOB RATIO 1.4 (1.0-2.1); ALBUMIN 4.5 g/dL (3.5-5.0); CALCIUM 9.6 mg/dL (8.4-10.2)
[2018-11-13] MEDS ORDERED: Magnesium Citrate Oral SOL (300 ml) PO STA (22:50)
--- NOTE | 2018-11-13 23:41 | ED PDOC ---
HPI: Abdomen Time Seen by Provider: 11/13/18 21:25 Chief Complaint (Nursing): Abdominal Pain Chief Complaint (Provider): Abdominal Pain History Per: Patient History/Exam Limitations: no limitations Associated Symptoms: Constipation. denies: Nausea, Vomiting Additional Complaint(s): 83 years old female known for frequent visits for constipation presents to ER for the second time today requesting enema. Patient reports her last bowel movement was at 6 am and states she lied about having a bowel movement in her last visit so she can go home. She states she has not followed up with PMD and h as not attempted to take medication at home and reports feeling uncomfortable using enemas alone. Patient requesting specifically 2 enema and mannual disimpaction but stating" I know no one will do it for me". This is patient's 7th visit in this month for the same request. Patient tolerates PO and denies nausea and vomiting. PMD: None provided Past Medical History Reviewed: Historical Data, Nursing Documentation, Vital Signs Vital Signs: Last Vital Signs Temp 97.9 F 11/13/18 20:41 Pulse 74 11/13/18 20:41 Resp 18 11/13/18 20:41 BP 166/77 H 11/13/18 20:41 Pulse Ox 99 11/13/18 20:41 - Medical History PMH: Anxiety, Diabetes, HTN, Hypercholesterolemia Denies: HIV, Chronic Kidney Disease - Surgical History Surgical History: Cholecystectomy, - Family History Family History: States: Diabetes - Social History Current smoker - smoking cessation education provided: No Alcohol: None Drugs: Denies - Immunization History Hx Tetanus Toxoid Vaccination: No Hx Influenza Vaccination: Yes Hx Pneumococcal Vaccination: No - Home Medications Home Medications: Ambulatory Orders Medication Instructions Recorded Aspirin [Aspirin EC] 81 mg PO DAILY 12/16/14 Carvedilol [Coreg] 3.125 mg PO BID 12/16/14 Losartan [Cozaar] 25 mg PO DAILY 12/16/14 Simvastatin 10 mg PO DAILY 12/16/14 Albuterol Sulfate [Proair Hfa] 1 puff INH Q12 08/31/18 Clopidogrel [Plavix] 75 mg PO DAILY 08/31/18 Esomeprazole Magnesium [Nexium] 1 cap PO DAILY 08/31/18 Fluticasone Nasal [Flonase] 1 inh INH Q12 08/31/18 Levothyroxine [Synthroid] 1 tab PO DAILY 08/31/18 Jgkas-4-Hwgd Ethyl Esters 1 GM 1 gm PO DAILY 08/31/18 [Lovaza] amLODIPine [Norvasc] 1 tab PO DAILY 08/31/18 Polyethylene Glycol 3350 [Miralax] 17 gm PO DAILY #1 bot 11/11/18 - Allergies Allergies/Adverse Reactions: Allergies Allergy/AdvReac Type Severity Reaction Status Date / Time No Known Allergies Allergy Verified 11/13/18 20:41 Review of Systems ROS Statement: Except As Marked, All Systems Reviewed And Found Negative Gastrointestinal: Positive for: Constipation. Negative for: Nausea, Vomiting Physical Exam - Reviewed Nursing Documentation Reviewed: Yes Vital Signs Reviewed: Yes - Physical Exam Appears: Positive for: Well, No Acute Distress Head Exam: Positive for: ATRAUMATIC, NORMOCEPHALIC Skin: Positive for: Normal Color, Warm, Dry Eye Exam: Positive for: Normal appearance, EOMI, PERRL Neck: Positive for: Normal, Painless ROM, Supple Cardiovascular/Chest: Positive for: Regular Rate, Rhythm. Negative for: Murmur Respiratory: Positive for: Normal Breath Sounds. Negative for: Respiratory Distress Gastrointestinal/Abdominal: Positive for: Normal Exam, Soft. Negative for: Tenderness Back: Positive for: Normal Inspection. Negative for: L CVA Tenderness, R CVA Tenderness Extremity: Positive for: Normal ROM. Negative for: Pedal Edema, Deformity Neurological/Psych: Positive for: Awake, Alert, Oriented (x3) - Laboratory Results Result Diagrams: 11/13/18 22:05 11/13/18 22:05 Lab Results: Total Bilirubin 0.4 mg/dl (0.2-1.3) 11/13/18 22:05 AST 18 U/L (14-36) 11/13/18 22:05 ALT 28 U/L (9-52) 11/13/18 22:05 Alkaline Phosphatase 63 U/L (38-126) 11/13/18 22:05 Total Protein 7.6 G/DL (6.3-8.2) 11/13/18 22:05 Albumin 4.5 g/dL (3.5-5.0) 11/13/18 22:05 Globulin 3.2 gm/dL (2.2-3.9) 11/13/18 22:05 Albumin/Globulin Ratio 1.4 (1.0-2.1) 11/13/18 22:05 - ECG O2 Sat by Pulse Oximetry: 99 (RA) Pulse Ox Interpretation: Normal Medical Decision Making Medical Decision Making: Time: 2142 MDM: malingering vs. constipation --Per agreement with patient, will attempt enema and Magnesium Citrate --Basic blood work to rule out electrolyte abnormality and infection 2339 Patient refused treatment at this time. She denies having bowel movement and refusing workup. Discussed elevated BUN and dehydration. Pt states she will drink more water at home. Labs and EKG otherwise unremarkable. Patient to be discharged home. Scribe Attestation: Documented by Gypsy Rodriguez, acting as a scribe for Merry Bryan MD. Provider Scribe Attestation: All medical record entries made by the Scribe were at my direction and personally dictated by me. I have reviewed the chart and agree that the record accurately reflects my personal performance of the history, physical exam, medical decision making, and the department course for this patient. I have also personally directed, reviewed, and agree with the discharge instructions and disposition. Disposition - Clinical Impression Clinical Impression: Abdominal discomfort - Patient ED Disposition Is Patient to be Admitted: No - Disposition Disposition: Routine/Home Disposition Time: 23:40 Condition: IMPROVED Additional Instructions: Follow up with primary medical doctor and shirt sewer. Use enema or magnesium citrate at home as there is no indication for routine emergency medical application of these constipation treatments. Instructions: Acute Abdomen (Belly Pain), Adult (DC) Forms: [employer] (Stat[employer]) Print Language: MONEGASQUE
[2018-11-14 01:19] VITALS: BP 165/70; PULSE 75; TEMP 98.3
--- NOTE | 2018-11-14 17:31 | CARD ---
APPROVED REPORT Date of service: 11/13/2018 EKG Measurement Heart [id number] <Conclusion> Normal sinus rhythm Possible Left atrial enlargement Left axis deviation Non specific T-wave changes Abnormal ECG
== END 2018-11-14 | disposition home or self-care (01) ==
LOC: H.ER 20:36
DX: R10.9 Unspecified abdominal pain (principal); K59.00 Constipation, unspecified; E11.9 Type 2 diabetes mellitus without complications; E78.00 Pure hypercholesterolemia, unspecified; I10 Essential (primary) hypertension

== ENCOUNTER 2018-11-19 14:05 | Emergency (ER) | payer MEDICARE ==
[2018-11-19 14:05] VITALS: BMI 34.7
[2018-11-19 14:39] VITALS: RESP 18
--- NOTE | 2018-11-19 15:55 | ED PDOC ---
HPI: Abdomen Time Seen by Provider: 11/19/18 14:36 Chief Complaint (Nursing): Abdominal Pain History Per: Patient Additional Complaint(s): Pt. c/o feeling constipated and is requesting a fleet enema. Denies abdominal pain, chest pain. Past Medical History Reviewed: Historical Data, Nursing Documentation, Vital Signs Vital Signs: Last Vital Signs Temp 97.6 F 11/19/18 14:37 Pulse 76 11/19/18 14:37 Resp 18 11/19/18 14:37 BP 150/66 11/19/18 14:37 Pulse Ox 98 11/19/18 14:37 Primary Care Provider: Doctor,Erica - Medical History PMH: Anxiety, Diabetes, HTN, Hypercholesterolemia Denies: HIV, Chronic Kidney Disease - Surgical History Surgical History: Cholecystectomy, - Family History Family History: States: Diabetes - Immunization History Hx Tetanus Toxoid Vaccination: No Hx Influenza Vaccination: Yes Hx Pneumococcal Vaccination: No - Home Medications Home Medications: Ambulatory Orders Medication Instructions Recorded Aspirin [Aspirin EC] 81 mg PO DAILY 12/16/14 Carvedilol [Coreg] 3.125 mg PO BID 12/16/14 Losartan [Cozaar] 25 mg PO DAILY 12/16/14 Simvastatin 10 mg PO DAILY 12/16/14 Albuterol Sulfate [Proair Hfa] 1 puff INH Q12 08/31/18 Clopidogrel [Plavix] 75 mg PO DAILY 08/31/18 Esomeprazole Magnesium [Nexium] 1 cap PO DAILY 08/31/18 Fluticasone Nasal [Flonase] 1 inh INH Q12 08/31/18 Levothyroxine [Synthroid] 1 tab PO DAILY 08/31/18 Aopsz-7-Dbkh Ethyl Esters 1 GM 1 gm PO DAILY 08/31/18 [Lovaza] amLODIPine [Norvasc] 1 tab PO DAILY 08/31/18 Polyethylene Glycol 3350 [Miralax] 17 gm PO DAILY #1 bot 11/11/18 Docusate [Colace] 100 mg PO Q8 PRN #20 cap 11/16/18 - Allergies Allergies/Adverse Reactions: Allergies Allergy/AdvReac Type Severity Reaction Status Date / Time No Known Allergies Allergy Verified 11/19/18 14:37 Review of Systems ROS Statement: Except As Marked, All Systems Reviewed And Found Negative Gastrointestinal: Positive for: Constipation Physical Exam - Physical Exam Appears: Positive for: Well, Non-toxic, No Acute Distress Skin: Positive for: Normal Color, Warm. Negative for: Rash Eye Exam: Positive for: Normal appearance Cardiovascular/Chest: Positive for: Regular Rate, Rhythm Respiratory: Positive for: Normal Breath Sounds. Negative for: Respiratory Distress Gastrointestinal/Abdominal: Positive for: Normal Exam, Bowel Sounds, Soft. Negative for: Tenderness, Distended Back: Negative for: L CVA Tenderness, R CVA Tenderness Neurological/Psych: Positive for: Awake, Alert, Oriented (x3) - ECG O2 Sat by Pulse Oximetry: 98 - Progress ED Course And Treament: Fleet enema ordered. Pt. had large BM in ED. Requesting to be discharged. Disposition - Clinical Impression Clinical Impression: Constipation - Patient ED Disposition Is Patient to be Admitted: No - Disposition Disposition: Routine/Home Disposition Time: 15:40 Condition: IMPROVED Instructions: Constipation, Adult (DC) Forms: [employer] (Nigerian)
[2018-11-19 16:31] VITALS: BP 137/88; PULSE 79; TEMP 98.2
[2018-11-19 18:14] VITALS: O2SAT 98
== END 2018-11-19 16:12 | disposition home or self-care (01) ==
LOC: H.ER 14:05
DX: K59.00 Constipation, unspecified (principal); E11.9 Type 2 diabetes mellitus without complications; I10 Essential (primary) hypertension; Z79.82 Long term (current) use of aspirin; Z79.899 Other long term (current) drug therapy

== ENCOUNTER 2018-11-21 17:25 | Emergency (ER) | payer MEDICARE ==
[2018-11-21 17:25] VITALS: BMI 34.7
[2018-11-21 17:28] VITALS: BP 123/68; PULSE 73; RESP 16; TEMP 98; O2SAT 99
--- NOTE | 2018-11-21 18:28 | ED PDOC ---
HPI: General Adult Time Seen by Provider: 11/21/18 18:14 Chief Complaint (Nursing): Abdominal Pain Chief Complaint (Provider): GI problem History Per: Patient History/Exam Limitations: no limitations Onset/Duration Of Symptoms: Hrs (13x) Current Symptoms Are (Timing): Still Present Severity: Moderate Recently: Seen In ED, Treated By A Physician Additional Complaint(s): 83 year old female with a past medical history of anxiety presents to the ED for an evaluation of constipation ongoing for 13x hours. Patient was seen here 2x days ago, given an enema and discharged home. Patient states that her last bowel movement was 13x hours prior to arrival, but she still feels full and states that she needs another enema. Patient denies having nausea, vomiting, and abdominal pain. PMD: none provided Past Medical History Reviewed: Historical Data, Nursing Documentation, Vital Signs Vital Signs: Last Vital Signs Temp 98.0 F 11/21/18 17:27 Pulse 73 11/21/18 17:27 Resp 16 11/21/18 17:27 BP 123/68 11/21/18 17:27 Pulse Ox 99 11/21/18 17:27 BENJAMIN Report Viewed: Yes Primary Care Provider: BRANDON JOE - Medical History PMH: Anxiety, Diabetes, HTN, Hypercholesterolemia Denies: HIV, Chronic Kidney Disease - Surgical History Surgical History: Cholecystectomy, - Family History Family History: States: Diabetes - Immunization History Hx Tetanus Toxoid Vaccination: No Hx Influenza Vaccination: Yes Hx Pneumococcal Vaccination: No - Home Medications Home Medications: Ambulatory Orders Medication Instructions Recorded Aspirin [Aspirin EC] 81 mg PO DAILY 12/16/14 Carvedilol [Coreg] 3.125 mg PO BID 12/16/14 Losartan [Cozaar] 25 mg PO DAILY 12/16/14 Simvastatin 10 mg PO DAILY 12/16/14 Albuterol Sulfate [Proair Hfa] 1 puff INH Q12 08/31/18 Clopidogrel [Plavix] 75 mg PO DAILY 08/31/18 Esomeprazole Magnesium [Nexium] 1 cap PO DAILY 08/31/18 Fluticasone Nasal [Flonase] 1 inh INH Q12 08/31/18 Levothyroxine [Synthroid] 1 tab PO DAILY 08/31/18 Ffpcy-0-Bykr Ethyl Esters 1 GM 1 gm PO DAILY 08/31/18 [Lovaza] amLODIPine [Norvasc] 1 tab PO DAILY 08/31/18 Polyethylene Glycol 3350 [Miralax] 17 gm PO DAILY #1 bot 11/11/18 Docusate [Colace] 100 mg PO Q8 PRN #20 cap 11/16/18 - Allergies Allergies/Adverse Reactions: Allergies Allergy/AdvReac Type Severity Reaction Status Date / Time No Known Allergies Allergy Verified 11/21/18 17:26 Review of Systems ROS Statement: Except As Marked, All Systems Reviewed And Found Negative Gastrointestinal: Positive for: Constipation. Negative for: Nausea, Vomiting, Abdominal Pain Physical Exam - Reviewed Nursing Documentation Reviewed: Yes Vital Signs Reviewed: Yes - Physical Exam Appears: Positive for: Well, Non-toxic, No Acute Distress Head Exam: Positive for: ATRAUMATIC, NORMOCEPHALIC Skin: Positive for: Normal Color, Warm, Dry Gastrointestinal/Abdominal: Positive for: Normal Exam, Soft. Negative for: Tenderness Neurological/Psych: Positive for: Awake, Alert, Oriented (3x) - ECG O2 Sat by Pulse Oximetry: 99 (RA) Pulse Ox Interpretation: Normal Medical Decision Making Medical Decision Makin:14 Initial impression: 83 year old female with constipation Initial plan: * enema * reevaluation 18:35 Patient given enema, unable to have a bowel movement in the ED. Patient requesting to go home. Patient is medically stable, and requires no further treatment in the ED at this time. Patient stable for discharge home. Patient given beverages, food, and funds to go home. Counseling was provided and all questions were answered regarding diagnosis. There is agreement to discharge plan. Return if symptoms persist or worsen. --- Scribe Attestation: Documented by Merry Elizabeth, acting as a scribe for Meme Smith APN. Provider Scribe Attestation: All medical record entries made by the Scribe were at my direction and personally dictated by me. I have reviewed the chart and agree that the record accurately reflects my personal performance of the history, physical exam, medical decision making, and the department course for this patient. I have also personally directed, reviewed, and agree with the discharge instructions and disposition. Disposition - Clinical Impression Clinical Impression: Constipation - Patient ED Disposition Is Patient to be Admitted: No Counseled Patient/Family Regarding: Diagnosis - Disposition Disposition: Routine/Home Disposition Time: 18:45 Condition: STABLE Instructions: Constipation, Adult (DC) - POA Present On Arrival: None
== END 2018-11-21 18:58 | disposition home or self-care (01) ==
LOC: H.ER 17:25
DX: K59.00 Constipation, unspecified (principal); E11.9 Type 2 diabetes mellitus without complications; E78.00 Pure hypercholesterolemia, unspecified; I10 Essential (primary) hypertension; Z79.899 Other long term (current) drug therapy

== ENCOUNTER 2018-11-22 03:00 | Emergency (ER) | payer MEDICARE ==
[2018-11-22 03:01] VITALS: BMI 34.7
--- NOTE | 2018-11-22 05:21 | ED PDOC ---
HPI: Abdomen Time Seen by Provider: 11/22/18 04:09 Chief Complaint (Nursing): GI Problem History Per: Patient History/Exam Limitations: no limitations Onset/Duration Of Symptoms: Hrs Additional Complaint(s): 83 yo F with history of chronic constipation, well known to this ED for same complaints, presents asking for an enema for her constipation. Pt reports she is supposed to take meds for it, but does not. Her last BM was 22 hours ago. She states she can tell she still needs to go though and has mild diffuse abdominal pain. Denies fever, chills, nausea or vomiting, urinary symptoms. PMD: Roseanna Past Medical History Reviewed: Historical Data, Nursing Documentation, Vital Signs Vital Signs: Last Vital Signs Temp 98.7 F 11/22/18 03:13 Pulse 79 11/22/18 03:13 Resp 18 11/22/18 03:13 BP 160/70 H 11/22/18 03:13 Pulse Ox 99 11/22/18 03:13 Primary Care Provider: Dino Condon - Medical History PMH: Anxiety, Diabetes, HTN, Hypercholesterolemia Denies: HIV, Chronic Kidney Disease Other PMH: constipation - Surgical History Surgical History: Cholecystectomy, - Family History Family History: States: Diabetes - Immunization History Hx Tetanus Toxoid Vaccination: No Hx Influenza Vaccination: Yes Hx Pneumococcal Vaccination: No - Home Medications Home Medications: Ambulatory Orders Medication Instructions Recorded Aspirin [Aspirin EC] 81 mg PO DAILY 12/16/14 Carvedilol [Coreg] 3.125 mg PO BID 12/16/14 Losartan [Cozaar] 25 mg PO DAILY 12/16/14 Simvastatin 10 mg PO DAILY 12/16/14 Albuterol Sulfate [Proair Hfa] 1 puff INH Q12 08/31/18 Clopidogrel [Plavix] 75 mg PO DAILY 08/31/18 Esomeprazole Magnesium [Nexium] 1 cap PO DAILY 08/31/18 Fluticasone Nasal [Flonase] 1 inh INH Q12 08/31/18 Levothyroxine [Synthroid] 1 tab PO DAILY 08/31/18 Gjpdk-9-Xzyl Ethyl Esters 1 GM 1 gm PO DAILY 08/31/18 [Lovaza] amLODIPine [Norvasc] 1 tab PO DAILY 08/31/18 Polyethylene Glycol 3350 [Miralax] 17 gm PO DAILY #1 bot 11/11/18 Docusate [Colace] 100 mg PO Q8 PRN #20 cap 11/16/18 - Allergies Allergies/Adverse Reactions: Allergies Allergy/AdvReac Type Severity Reaction Status Date / Time No Known Allergies Allergy Verified 11/21/18 17:26 Review of Systems Constitutional: Negative for: Fever Gastrointestinal: Positive for: Abdominal Pain, Constipation. Negative for: Nausea, Vomiting, Diarrhea, Melena Physical Exam - Reviewed Nursing Documentation Reviewed: Yes Vital Signs Reviewed: Yes - Physical Exam Comments: GENERAL APPEARANCE: Patient is awake, alert, oriented x 3, in no obvious discomfort SKIN: Warm, dry; (-) cyanosis. EYES: (-) conjunctival pallor, (-) scleral icterus. ENMT: Mucous membranes moist. NECK: (-) tenderness, (-) stiffness, (-) lymphadenopathy. CHEST AND RESPIRATORY: (-) rales, (-) rhonchi, (-) wheezes; breath sounds equal bilaterally. HEART AND CARDIOVASCULAR: (-) irregularity; (-) murmur, (-) gallop. ABDOMEN AND GI: (-) distention. Bowel sounds active; (-) tenderness (-) gu arding, (-) rebound, (-) palpable masses EXTREMITIES: (-) deformity, (+) distal pulses. NEURO AND PSYCH: Mental status as above; (-) focal findings. - ECG O2 Sat by Pulse Oximetry: 99 Medical Decision Making Medical Decision Makin intial eval - constipation -- Enema -- re eval 0520 pt reports taking a large BM and feeling better, she is ready to go home Discussed results, diagnosis, treatment, return precautions and f/u with pt who is understanding, in agreement and stable for dc Disposition - Clinical Impression Clinical Impression: Constipation - Patient ED Disposition Is Patient to be Admitted: No Counseled Patient/Family Regarding: Studies Performed, Diagnosis, Need For Followup - Disposition Referrals: Dino Gutierres MD, PhD [Staff Provider] - Disposition: Routine/Home Disposition Time: 05:23 Condition: IMPROVED Additional Instructions: Thank you for letting us take care of you today. The emergency medical care you received today was directed at your acute symptoms. If you were prescribed any medication, please fill it and take as directed. It may take several days for your symptoms to resolve. Return to the Emergency Department if your symptoms worsen, do not improve, or if you have any other problems. Please contact your doctor in 2 days for re-evaluation and follow up / or call one of the physicians/clinics you have been referred to that are listed on the Patient Visit Information form that is included in your discharge packet. Bring any paperwork you were given at discharge with you along with any medications you are taking to your follow up visit. Our treatment cannot replace ongoing medical care by a primary care provider (PCP) outside of the emergency department. Instructions: Constipation, Adult (DC) Print Language: UPPER SORBIAN - POA Present On Arrival: None
[2018-11-22 05:52] VITALS: BP 142/67; PULSE 71; RESP 16; TEMP 98.5; O2SAT 97
== END 2018-11-22 05:50 | disposition home or self-care (01) ==
LOC: H.ER 03:00
DX: K59.00 Constipation, unspecified (principal); E11.9 Type 2 diabetes mellitus without complications

== ENCOUNTER 2018-11-24 15:31 | Emergency (ER) | payer MEDICARE ==
[2018-11-24 15:31] VITALS: BMI 34.7
[2018-11-24 15:36] VITALS: O2SAT 98
--- NOTE | 2018-11-24 17:01 | ED PDOC ---
HPI: General Adult Time Seen by Provider: 11/24/18 15:58 Chief Complaint (Nursing): GI Problem History Per: Patient Additional Complaint(s): Pt. feeling constipated. Requesting enema. Denies abdominal pain, chest pain. Last BM was this morning and was normal. Past Medical History Reviewed: Historical Data, Nursing Documentation, Vital Signs Vital Signs: Last Vital Signs Temp 98.0 F 11/24/18 15:33 Pulse 79 11/24/18 15:33 Resp 16 11/24/18 15:33 BP 123/54 L 11/24/18 15:33 Pulse Ox 98 11/24/18 15:33 Primary Care Provider: BRANDON JOE - Medical History PMH: Anxiety, Diabetes, HTN, Hypercholesterolemia Denies: HIV, Chronic Kidney Disease - Surgical History Surgical History: Cholecystectomy, - Family History Family History: States: Diabetes - Immunization History Hx Tetanus Toxoid Vaccination: No Hx Influenza Vaccination: Yes Hx Pneumococcal Vaccination: No - Home Medications Home Medications: Ambulatory Orders Medication Instructions Recorded Aspirin [Aspirin EC] 81 mg PO DAILY 12/16/14 Carvedilol [Coreg] 3.125 mg PO BID 12/16/14 Losartan [Cozaar] 25 mg PO DAILY 12/16/14 Simvastatin 10 mg PO DAILY 12/16/14 Albuterol Sulfate [Proair Hfa] 1 puff INH Q12 08/31/18 Clopidogrel [Plavix] 75 mg PO DAILY 08/31/18 Esomeprazole Magnesium [Nexium] 1 cap PO DAILY 08/31/18 Fluticasone Nasal [Flonase] 1 inh INH Q12 08/31/18 Levothyroxine [Synthroid] 1 tab PO DAILY 08/31/18 [id number]-[id number] Ethyl Esters 1 GM 1 gm PO DAILY 08/31/18 [Lovaza] amLODIPine [Norvasc] 1 tab PO DAILY 08/31/18 Polyethylene Glycol 3350 [Miralax] 17 gm PO DAILY #1 bot 11/11/18 Docusate [Colace] 100 mg PO Q8 PRN #20 cap 11/16/18 - Allergies Allergies/Adverse Reactions: Allergies Allergy/AdvReac Type Severity Reaction Status Date / Time No Known Allergies Allergy Verified 11/24/18 15:33 Review of Systems ROS Statement: Except As Marked, All Systems Reviewed And Found Negative Gastrointestinal: Positive for: Constipation Physical Exam - Physical Exam Appears: Positive for: Well, Non-toxic, No Acute Distress Skin: Positive for: Normal Color, Warm. Negative for: Rash Eye Exam: Positive for: Normal appearance Cardiovascular/Chest: Positive for: Regular Rate, Rhythm Respiratory: Positive for: Normal Breath Sounds. Negative for: Respiratory Distress Gastrointestinal/Abdominal: Positive for: Normal Exam, Bowel Sounds, Soft. Negative for: Tenderness, Distended Neurological/Psych: Positive for: Awake, Alert, Oriented (x3) - ECG O2 Sat by Pulse Oximetry: 98 Medical Decision Making Medical Decision Making: Pt. had large BM while in ED prior to getting enema. Requesting to be discharged. Denies abdominal pain, chest pain, SOB. Disposition - Clinical Impression Clinical Impression: Constipation - Patient ED Disposition Is Patient to be Admitted: No - Disposition Disposition: Routine/Home Disposition Time: 17:01 Condition: IMPROVED Additional Instructions: DONNA ESPOSITO, thank you for letting us take care of you today. Your provider was Attila Barker MD and you were treated for POSS CONSTIPATION. The emergency medical care you received today was directed at your acute symptoms. If you were prescribed any medication, please fill it and take as directed. It may take several days for your symptoms to resolve. Return to the Emergency Department if your symptoms worsen, do not improve, or if you have any other problems. Please contact your doctor or call one of the physicians/clinics you have been referred to that are listed on the Patient Visit Information form that is included in your discharge packet. Bring any paperwork you were given at discharge with you along with any medications you are taking to your follow up visit. Our treatment cannot replace ongoing medical care by a primary care provider outside of the emergency department. Thank you for allowing the [facility] team to be part of your care today. If you had an X-Ray or CT scan: A Radiologist will review the ED reading if any change in treatment is needed we will contact you. If you had a blood, urine, or wound culture: It will take several days for the results, if any change in treatment is needed we will contact you. If you had an STI test: It will take 48 hours for the results. Please call after 1 week if you have not heard back. Instructions: Constipation, Adult (DC) Forms: [employer] (Cameroonian)
[2018-11-24 17:13] VITALS: BP 126/78; PULSE 78; RESP 20; TEMP 97.6
== END 2018-11-24 17:17 | disposition home or self-care (01) ==
LOC: H.ER 15:31
DX: K59.00 Constipation, unspecified (principal); E11.9 Type 2 diabetes mellitus without complications; E78.00 Pure hypercholesterolemia, unspecified; I10 Essential (primary) hypertension; Z79.899 Other long term (current) drug therapy

== ENCOUNTER 2018-11-28 15:09 | Emergency (ER) | payer MEDICARE ==
[2018-11-28 15:09] VITALS: BMI 34.7
[2018-11-28 15:13] VITALS: BP 118/92; PULSE 78; RESP 18; TEMP 98.2; O2SAT 99
--- NOTE | 2018-11-28 15:36 | ED PDOC ---
HPI: Abdomen Time Seen by Provider: 11/28/18 15:25 Chief Complaint (Nursing): Abdominal Pain Chief Complaint (Provider): Constipation History Per: Patient History/Exam Limitations: no limitations Onset/Duration Of Symptoms: Days (1x) Current Symptoms Are (Timing): Still Present Severity: Moderate Associated Symptoms: Constipation Additional Complaint(s): 83 year old female well known to the ED with a past medical history of hypertension and diabetes presents to the ED for an evaluation of constipation ongoing for 1x day. Patient states that her last bowel movement was this morning, but that she still feels constipated. Patient requesting a fleet enema. Patient denies having chest pain, dyspnea, weakness, headaches, dizziness, abdominal pain, nausea, vomiting. PMD: Dino Condon MD Past Medical History Reviewed: Historical Data, Nursing Documentation, Vital Signs Vital Signs: Last Vital Signs Temp 98.2 F 11/28/18 15:10 Pulse 78 11/28/18 15:10 Resp 18 11/28/18 15:10 BP 118/92 H 11/28/18 15:10 Pulse Ox 99 11/28/18 15:10 BENJAMIN Report Viewed: Yes Primary Care Provider: Dino Condon - Medical History PMH: Anxiety, Diabetes, HTN, Hypercholesterolemia Denies: HIV, Chronic Kidney Disease - Surgical History Surgical History: Cholecystectomy, - Family History Family History: States: Diabetes - Social History Current smoker - smoking cessation education provided: No Alcohol: None Drugs: Denies - Immunization History Hx Tetanus Toxoid Vaccination: No Hx Influenza Vaccination: Yes Hx Pneumococcal Vaccination: No - Home Medications Home Medications: Ambulatory Orders Medication Instructions Recorded Aspirin [Aspirin EC] 81 mg PO DAILY 12/16/14 Carvedilol [Coreg] 3.125 mg PO BID 12/16/14 Losartan [Cozaar] 25 mg PO DAILY 12/16/14 Simvastatin 10 mg PO DAILY 12/16/14 Albuterol Sulfate [Proair Hfa] 1 puff INH Q12 08/31/18 Clopidogrel [Plavix] 75 mg PO DAILY 08/31/18 Esomeprazole Magnesium [Nexium] 1 cap PO DAILY 08/31/18 Fluticasone Nasal [Flonase] 1 inh INH Q12 08/31/18 Levothyroxine [Synthroid] 1 tab PO DAILY 08/31/18 [id number] Ethyl Esters 1 GM 1 gm PO DAILY 08/31/18 [Lovaza] amLODIPine [Norvasc] 1 tab PO DAILY 08/31/18 Polyethylene Glycol 3350 [Miralax] 17 gm PO DAILY #1 bot 11/11/18 Docusate [Colace] 100 mg PO Q8 PRN #20 cap 11/16/18 - Allergies Allergies/Adverse Reactions: Allergies Allergy/AdvReac Type Severity Reaction Status Date / Time No Known Allergies Allergy Verified 11/24/18 15:33 Review of Systems ROS Statement: Except As Marked, All Systems Reviewed And Found Negative Constitutional: Negative for: Weakness Cardiovascular: Negative for: Chest Pain Respiratory: Negative for: Shortness of Breath Gastrointestinal: Positive for: Constipation. Negative for: Nausea, Vomiting, Abdominal Pain Neurological: Negative for: Headache, Dizziness Physical Exam - Reviewed Nursing Documentation Reviewed: Yes Vital Signs Reviewed: Yes - Physical Exam Appears: Positive for: Well, Non-toxic, No Acute Distress Head Exam: Positive for: ATRAUMATIC, NORMOCEPHALIC Skin: Positive for: Normal Color, Warm, Dry Eye Exam: Positive for: Normal appearance, EOMI, PERRL Neck: Positive for: Normal, Painless ROM, Supple Cardiovascular/Chest: Positive for: Regular Rate, Rhythm Respiratory: Positive for: Normal Breath Sounds Gastrointestinal/Abdominal: Positive for: Normal Exam, Soft. Negative for: Tenderness, Distended Neurological/Psych: Positive for: Awake, Alert, Oriented (3x), Gait (steady, unassisted) - ECG O2 Sat by Pulse Oximetry: 99 (RA) Pulse Ox Interpretation: Normal - Progress ED Course And Treament: 1530: Stable. Here multiple times for the same. Demands fleets enemas. 1644: Stable. Had a bowel movement. Wants to go home. AAOx3. Ambulated with no issues. Tolerated PO. Medical Decision Making Medical Decision Makin:25 Initial impression: 83 year old female with constipation Initial plan: * enema * reevaluation Scribe Attestation: Documented by Merry Elizabeth, acting as a scribe for Waldo Musa MD. Provider Scribe Attestation: All medical record entries made by the Scribe were at my direction and personally dictated by me. I have reviewed the chart and agree that the record accurately reflects my personal performance of the history, physical exam, medical decision making, and the department course for this patient. I have also personally directed, reviewed, and agree with the discharge instructions and disposition. Disposition - Clinical Impression Clinical Impression: Constipation - Patient ED Disposition Is Patient to be Admitted: No - Disposition Disposition: Routine/Home Disposition Time: 16:43 Condition: STABLE Additional Instructions: Return if not better in 3 days. See your doctor in 3 days. Instructions: Constipation in Adults
== END 2018-11-28 16:45 | disposition home or self-care (01) ==
LOC: H.ER 15:09
DX: K59.00 Constipation, unspecified (principal)

== ENCOUNTER 2018-12-02 06:39 | Emergency (ER) | payer MEDICARE ==
[2018-12-02 06:39] VITALS: BMI 34.7
[2018-12-02 06:48] VITALS: TEMP 98.2; O2SAT 100
--- NOTE | 2018-12-02 07:18 | ED PDOC ---
HPI: Abdomen Time Seen by Provider: 12/02/18 07:06 Chief Complaint (Nursing): Abdominal Pain Chief Complaint (Provider): Abdominal Pain History Per: Patient History/Exam Limitations: no limitations Onset/Duration Of Symptoms: Days (2) Additional Complaint(s): 83 y/o female presents to the ED complaining of constipation for 2 days. Patient states she was able to have bowl movement in the ER and does not require further treatment. Patient denies vomiting or any abdominal pain. PMD: Dino Gonsalves Past Medical History Reviewed: Historical Data, Nursing Documentation, Vital Signs Vital Signs: Last Vital Signs Temp 98.2 F 12/02/18 06:46 Pulse 65 12/02/18 06:46 Resp 18 12/02/18 06:46 BP 137/60 12/02/18 06:46 Pulse Ox 100 12/02/18 06:46 Primary Care Provider: Dino Condon - Medical History PMH: Anxiety, Diabetes, HTN, Hypercholesterolemia Denies: HIV, Chronic Kidney Disease Other PMH: Constipation - Surgical History Surgical History: Cholecystectomy, - Family History Family History: States: Diabetes - Immunization History Hx Tetanus Toxoid Vaccination: No Hx Influenza Vaccination: Yes Hx Pneumococcal Vaccination: No - Home Medications Home Medications: Ambulatory Orders Medication Instructions Recorded Aspirin [Aspirin EC] 81 mg PO DAILY 12/16/14 Carvedilol [Coreg] 3.125 mg PO BID 12/16/14 Losartan [Cozaar] 25 mg PO DAILY 12/16/14 Simvastatin 10 mg PO DAILY 12/16/14 Albuterol Sulfate [Proair Hfa] 1 puff INH Q12 08/31/18 Clopidogrel [Plavix] 75 mg PO DAILY 08/31/18 Esomeprazole Magnesium [Nexium] 1 cap PO DAILY 08/31/18 Fluticasone Nasal [Flonase] 1 inh INH Q12 08/31/18 Levothyroxine [Synthroid] 1 tab PO DAILY 08/31/18 Fswbg-[id number] Ethyl Esters 1 GM 1 gm PO DAILY 08/31/18 [Lovaza] amLODIPine [Norvasc] 1 tab PO DAILY 08/31/18 Polyethylene Glycol 3350 [Miralax] 17 gm PO DAILY #1 bot 11/11/18 Docusate [Colace] 100 mg PO Q8 PRN #20 cap 11/16/18 - Allergies Allergies/Adverse Reactions: Allergies Allergy/AdvReac Type Severity Reaction Status Date / Time No Known Allergies Allergy Verified 12/02/18 06:47 Review of Systems ROS Statement: Except As Marked, All Systems Reviewed And Found Negative Gastrointestinal: Positive for: Constipation. Negative for: Vomiting, Abdominal Pain Physical Exam - Reviewed Nursing Documentation Reviewed: Yes Vital Signs Reviewed: Yes - Physical Exam Appears: Positive for: Well, Non-toxic, No Acute Distress Head Exam: Positive for: ATRAUMATIC, NORMAL INSPECTION, NORMOCEPHALIC Skin: Positive for: Normal Color, Warm, Dry Eye Exam: Positive for: EOMI, Normal appearance, PERRL ENT: Positive for: Normal ENT Inspection Neck: Positive for: Normal, Painless ROM Cardiovascular/Chest: Positive for: Regular Rate, Rhythm. Negative for: Murmur Respiratory: Positive for: Normal Breath Sounds. Negative for: Wheezing Gastrointestinal/Abdominal: Positive for: Normal Exam, Soft. Negative for: Tenderness Back: Positive for: Normal Inspection. Negative for: L CVA Tenderness, R CVA Tenderness Extremity: Positive for: Normal ROM Neurological/Psych: Positive for: Awake, Alert, Normal Tone, Oriented (x3). Negative for: Motor/Sensory Deficits - ECG O2 Sat by Pulse Oximetry: 100 Medical Decision Making Medical Decision Making: Time:714 Impression: Constipation. Scribe Attestation: Documented by Irena Pascual, acting as a scribe for Yuri Wellington. Provider Scribe Attestation: All medical record entries made by the Scribe were at my direction and perso osman dictated by me. I have reviewed the chart and agree that the record accurately reflects my personal performance of the history, physical exam, medical decision making, and the department course for this patient. I have also personally directed, reviewed, and agree with the discharge instructions and disposition. Disposition - Clinical Impression Clinical Impression: Constipation - Patient ED Disposition Is Patient to be Admitted: No Counseled Patient/Family Regarding: Diagnosis, Need For Followup - Disposition Referrals: [facility] [Outside] Disposition: Routine/Home Disposition Time: 07:12 Condition: FAIR Instructions: Constipation in Adults Forms: [employer] (French)
[2018-12-02 08:15] VITALS: BP 136/70; PULSE 76; RESP 17
== END 2018-12-02 08:10 | disposition home or self-care (01) ==
LOC: H.ER 06:39
DX: K59.00 Constipation, unspecified (principal); E11.9 Type 2 diabetes mellitus without complications; E78.00 Pure hypercholesterolemia, unspecified; F41.9 Anxiety disorder, unspecified; I10 Essential (primary) hypertension; Z79.899 Other long term (current) drug therapy

== ENCOUNTER 2018-12-02 16:59 | Emergency (ER) | payer MEDICARE ==
[2018-12-02 16:59] VITALS: BMI 34.7
[2018-12-02 17:02] VITALS: BP 164/73; PULSE 68; RESP 18; TEMP 97.8; O2SAT 96
--- NOTE | 2018-12-02 18:36 | ED PDOC ---
HPI: Abdomen Time Seen by Provider: 12/02/18 18:05 Chief Complaint (Nursing): GI Problem Chief Complaint (Provider): Constipation History Per: Patient History/Exam Limitations: no limitations Current Symptoms Are (Timing): Still Present Pain Scale Rating Of: 0 Associated Symptoms: Constipation. denies: Fever, Chills, Nausea, Vomiting, Diarrhea, Loss Of Appetite, Urinary Symptoms Exacerbating Factors: None Alleviating Factors: None Last Bowel Movement: Today Additional History Per: Patient Additional Complaint(s): 83 year old female presents to the emergency room c/o unable to have bowel movement. Patient is well unknown to this ED for same. Patient was seen this morning for same. Patient stated to previous provider that she was able to have bowel movement while in ED today and wanted to go home. patient presents with same complaint, stating that she goes twice a day and is requesting an enema. Past Medical History Reviewed: Historical Data, Nursing Documentation, Vital Signs Vital Signs: Last Vital Signs Temp 97.8 F 12/02/18 17:01 Pulse 68 12/02/18 17:01 Resp 18 12/02/18 17:01 BP 164/73 H 12/02/18 17:01 Pulse Ox 96 12/02/18 17:01 Primary Care Provider: FAMILY PROVIDER,NO - Medical History PMH: Anxiety, Diabetes, HTN, Hypercholesterolemia Denies: HIV, Chronic Kidney Disease - Surgical History Surgical History: Cholecystectomy, - Family History Family History: States: Diabetes - Living Arrangements Living Arrangements: Alone - Social History Alcohol: None Drugs: Denies - Immunization History Hx Tetanus Toxoid Vaccination: No Hx Influenza Vaccination: Yes Hx Pneumococcal Vaccination: No - Home Medications Home Medications: Ambulatory Orders Medication Instructions Recorded Aspirin [Aspirin EC] 81 mg PO DAILY 12/16/14 Carvedilol [Coreg] 3.125 mg PO BID 12/16/14 Losartan [Cozaar] 25 mg PO DAILY 12/16/14 Simvastatin 10 mg PO DAILY 12/16/14 Albuterol Sulfate [Proair Hfa] 1 puff INH Q12 08/31/18 Clopidogrel [Plavix] 75 mg PO DAILY 08/31/18 Esomeprazole Magnesium [Nexium] 1 cap PO DAILY 08/31/18 Fluticasone Nasal [Flonase] 1 inh INH Q12 08/31/18 Levothyroxine [Synthroid] 1 tab PO DAILY 08/31/18 [id number]-[id number] Ethyl Esters 1 GM 1 gm PO DAILY 08/31/18 [Lovaza] amLODIPine [Norvasc] 1 tab PO DAILY 08/31/18 Polyethylene Glycol 3350 [Miralax] 17 gm PO DAILY #1 bot 11/11/18 Docusate [Colace] 100 mg PO Q8 PRN #20 cap 11/16/18 Polyethylene Glycol 3350 [Miralax] 17 gm PO DAILY PRN #1 packet 12/02/18 - Allergies Allergies/Adverse Reactions: Allergies Allergy/AdvReac Type Severity Reaction Status Date / Time No Known Allergies Allergy Verified 12/02/18 06:47 Review of Systems ROS Statement: Except As Marked, All Systems Reviewed And Found Negative Constitutional: Negative for: Fever, Chills, Sweats, Weakness Cardiovascular: Negative for: Chest Pain, Palpitations, Light Headedness Respiratory: Negative for: Shortness of Breath, SOB with Exertion, Wheezing Gastrointestinal: Positive for: Abdominal Pain, Constipation. Negative for: Nausea, Vomiting Genitourinary Female: Negative for: Dysuria, Frequency, Hematuria Neurological: Negative for: Weakness Physical Exam - Reviewed Nursing Documentation Reviewed: Yes Vital Signs Reviewed: Yes - Physical Exam Appears: Positive for: Well, Non-toxic, No Acute Distress Head Exam: Positive for: ATRAUMATIC, NORMAL INSPECTION, NORMOCEPHALIC Skin: Positive for: Normal Color, Warm, DRY Eye Exam: Positive for: EOMI, Normal appearance, PERRL ENT: Positive for: Normal ENT Inspection Neck: Positive for: Normal, Painless ROM Cardiovascular/Chest: Positive for: Regular Rate, Rhythm Respiratory: Positive for: CNT, Normal Breath Sounds Gastrointestinal/Abdominal: Positive for: Normal Exam, Bowel Sounds (normactive ), Soft, Distended (non tender, soft ). Negative for: Tenderness Back: Positive for: Normal Inspection Extremity: Positive for: Normal ROM Neurological/Psych: Positive for: Awake, Alert, Normal Tone, Oriented - ECG O2 Sat by Pulse Oximetry: 96 Medical Decision Making Medical Decision Making: No futher work up needed in ED. Patient has BM this morning. Patient states she does not know how she will get home. Patient is requesting transport, this is usual behavior for patient. rx given for miralax. follow up with pmd and Gi. as per nurse patient left without d/c paperwork and rx. Disposition - Clinical Impression Clinical Impression: Constipation - Patient ED Disposition Is Patient to be Admitted: No Counseled Patient/Family Regarding: Diagnosis - Disposition Disposition: Routine/Home Disposition Time: 19:00 Condition: GOOD Prescriptions: Polyethylene Glycol 3350 [Miralax] 17 gm PO DAILY PRN #1 packet PRN Reason: Constipation Instructions: Constipation, Adult (DC) Forms: [employer] (Portuguese) Print Language: POLISH - POA Present On Arrival: None
== END 2018-12-02 18:30 | disposition left against medical advice (07) ==
LOC: H.ER 16:59
DX: K59.00 Constipation, unspecified (principal)

== ENCOUNTER 2018-12-04 22:25 | Emergency (ER) | payer MEDICARE ==
[2018-12-04 22:25] VITALS: BMI 34.7
[2018-12-04 22:27] VITALS: BP 154/67; PULSE 64; RESP 16; TEMP 97.8; O2SAT 99
--- NOTE | 2018-12-05 00:21 | ED PDOC ---
HPI: Abdomen Time Seen by Provider: 12/04/18 23:09 Chief Complaint (Nursing): GI Problem Chief Complaint (Provider): abdominal pain and constipation History Per: Patient History/Exam Limitations: no limitations Onset/Duration Of Symptoms: Days Current Symptoms Are (Timing): Still Present Associated Symptoms: Constipation Additional Complaint(s): Suki Rivera is an 83 year old female, with a past medical history of diabetes and HTN, who presents to the emergency department complaining of abdominal pain associated with constipation. Patient is well known to the ED for frequent visits for constipation and currently requesting a fleet enema. She reports an ongoing abdominal pain for 12 hours, last bowel movement was small at 03:00 this morning. No further medical complaints. PMD: None provided. Past Medical History Reviewed: Historical Data, Nursing Documentation, Vital Signs Vital Signs: Last Vital Signs Temp 97.8 F 12/04/18 22:27 Pulse 64 12/04/18 22:27 Resp 16 12/04/18 22:27 BP 154/67 H 12/04/18 22:27 Pulse Ox 99 12/04/18 22:27 Primary Care Provider: Doctor,Erica - Medical History PMH: Anxiety, Diabetes, HTN, Hypercholesterolemia Denies: HIV, Chronic Kidney Disease - Surgical History Surgical History: Cholecystectomy, - Family History Family History: States: Diabetes - Immunization History Hx Tetanus Toxoid Vaccination: No Hx Influenza Vaccination: Yes Hx Pneumococcal Vaccination: No - Home Medications Home Medications: Ambulatory Orders Medication Instructions Recorded Aspirin [Aspirin EC] 81 mg PO DAILY 12/16/14 Carvedilol [Coreg] 3.125 mg PO BID 12/16/14 Losartan [Cozaar] 25 mg PO DAILY 12/16/14 Simvastatin 10 mg PO DAILY 12/16/14 Albuterol Sulfate [Proair Hfa] 1 puff INH Q12 08/31/18 Clopidogrel [Plavix] 75 mg PO DAILY 08/31/18 Esomeprazole Magnesium [Nexium] 1 cap PO DAILY 08/31/18 Fluticasone Nasal [Flonase] 1 inh INH Q12 08/31/18 Levothyroxine [Synthroid] 1 tab PO DAILY 08/31/18 [id number]-[id number] Ethyl Esters 1 GM 1 gm PO DAILY 08/31/18 [Lovaza] amLODIPine [Norvasc] 1 tab PO DAILY 08/31/18 Polyethylene Glycol 3350 [Miralax] 17 gm PO DAILY #1 bot 11/11/18 Docusate [Colace] 100 mg PO Q8 PRN #20 cap 11/16/18 Polyethylene Glycol 3350 [Miralax] 17 gm PO DAILY PRN #1 packet 12/02/18 - Allergies Allergies/Adverse Reactions: Allergies Allergy/AdvReac Type Severity Reaction Status Date / Time No Known Allergies Allergy Verified 12/04/18 22:27 Review of Systems ROS Statement: Except As Marked, All Systems Reviewed And Found Negative Gastrointestinal: Positive for: Abdominal Pain, Constipation Physical Exam - Reviewed Nursing Documentation Reviewed: Yes Vital Signs Reviewed: Yes - Physical Exam Appears: Positive for: In Acute Distress (mild painful ) Head Exam: Positive for: ATRAUMATIC, NORMAL INSPECTION, NORMOCEPHALIC Skin: Positive for: Normal Color, Warm, Dry Eye Exam: Positive for: Normal appearance, EOMI, PERRL Neck: Positive for: Normal, Painless ROM Cardiovascular/Chest: Positive for: Regular Rate, Rhythm. Negative for: Murmur Respiratory: Positive for: Normal Breath Sounds. Negative for: Respiratory Distress Gastrointestinal/Abdominal: Positive for: Tenderness (diffused distractible tenderness to palpation). Negative for: Mass, Guarding, Rebound Back: Positive for: Normal Inspection. Negative for: L CVA Tenderness, R CVA Tenderness, Vertebral Tenderness Extremity: Positive for: Normal ROM (upper and lower extremities). Negative for: Deformity, Swelling Neurological/Psych: Positive for: Awake, Alert, Normal Tone, Oriented - ECG O2 Sat by Pulse Oximetry: 99 (RA) Pulse Ox Interpretation: Normal Medical Decision Making Medical Decision Making: Time: 23:09 Initial Impression: Constipation Initial Plan: --Fleet enema 135 ml NC --Reevaluation 00:00 Patient will be signed out to Dr. Bryan pending reevaluation. Scribe Attestation: Documented by Sindy Jacinto, acting as a scribe for Chrissy Miller MD. Provider Scribe Attestation: All medical record entries made by the Scribe were at my direction and personally dictated by me. I have reviewed the chart and agree that the record accurately reflects my personal performance of the history, physical exam, medical decision making, and the department course for this patient. I have also personally directed, reviewed, and agree with the discharge instructions and disposition. Disposition - Clinical Impression Clinical Impression: Constipation - Disposition Disposition: Transfer of Care Disposition Time: 00:00 Condition: STABLE Instructions: Constipation, Adult (DC) Forms: [employer] (Romansh)
--- NOTE | 2018-12-05 00:27 | ED PDOC ---
- ECG O2 Sat by Pulse Oximetry: 99 (RA) Medical Decision Making Medical Decision Makin:00 Patient endorsed to provider by Dr. Miller pending reevaluation. 200 pt refusing second enema. To be discharged home. Scribe Attestation: Documented by Dago Gunderson, acting as a scribe for Merry Bryan. Provider Scribe Attestation: All medical record entries made by the Scribe were at my direction and personally dictated by me. I have reviewed the chart and agree that the record accurately reflects my personal performance of the history, physical exam, medical decision making, and the department course for this patient. I have also personally directed, reviewed, and agree with the discharge instructions and disposition. Disposition - Clinical Impression Clinical Impression: Constipation - POA Present On Arrival: None - Disposition Disposition: Routine/Home Disposition Time: 02:00 Condition: STABLE Instructions: Constipation, Adult (DC) Forms: [employer] (Cook Islander)
== END 2018-12-05 02:10 | disposition home or self-care (01) ==
LOC: H.ER 22:25
DX: K59.00 Constipation, unspecified (principal); E11.9 Type 2 diabetes mellitus without complications; I10 Essential (primary) hypertension; Z79.899 Other long term (current) drug therapy; Z79.82 Long term (current) use of aspirin; E78.00 Pure hypercholesterolemia, unspecified

== ENCOUNTER 2018-12-05 14:45 | Emergency (ER) | payer MEDICARE ==
[2018-12-05 14:45] VITALS: BMI 34.7
[2018-12-05 14:49] VITALS: BP 135/64; PULSE 72; RESP 24; TEMP 98.1; O2SAT 98
--- NOTE | 2018-12-05 15:28 | ED PDOC ---
HPI: Abdomen Time Seen by Provider: 12/05/18 15:12 Chief Complaint (Nursing): GI Problem History Per: Patient Onset/Duration Of Symptoms: Days (1) Current Symptoms Are (Timing): Still Present Severity: Mild Location Of Pain/Discomfort: Diffuse Quality Of Discomfort: Cramping Associated Symptoms: Constipation. denies: Nausea, Vomiting, Diarrhea Additional Complaint(s): Constipation x 1 day assoc with lower abd crampy pain. Denies fever or vomiting. Past Medical History Vital Signs: Last Vital Signs Temp 98.1 F 12/05/18 14:47 Pulse 72 12/05/18 14:47 Resp 24 12/05/18 14:47 BP 135/64 12/05/18 14:47 Pulse Ox 98 12/05/18 14:47 Primary Care Provider: DoctorErica - Medical History PMH: Anxiety, Diabetes, HTN, Hypercholesterolemia Denies: HIV, Chronic Kidney Disease - Surgical History Surgical History: Cholecystectomy, - Family History Family History: States: Diabetes - Immunization History Hx Tetanus Toxoid Vaccination: No Hx Influenza Vaccination: Yes Hx Pneumococcal Vaccination: No - Home Medications Home Medications: Ambulatory Orders Medication Instructions Recorded Aspirin [Aspirin EC] 81 mg PO DAILY 12/16/14 Carvedilol [Coreg] 3.125 mg PO BID 12/16/14 Losartan [Cozaar] 25 mg PO DAILY 12/16/14 Simvastatin 10 mg PO DAILY 12/16/14 Albuterol Sulfate [Proair Hfa] 1 puff INH Q12 08/31/18 Clopidogrel [Plavix] 75 mg PO DAILY 08/31/18 Esomeprazole Magnesium [Nexium] 1 cap PO DAILY 08/31/18 Fluticasone Nasal [Flonase] 1 inh INH Q12 08/31/18 Levothyroxine [Synthroid] 1 tab PO DAILY 08/31/18 Fxyjx-3-Qltm Ethyl Esters 1 GM 1 gm PO DAILY 08/31/18 [Lovaza] amLODIPine [Norvasc] 1 tab PO DAILY 08/31/18 Polyethylene Glycol 3350 [Miralax] 17 gm PO DAILY #1 bot 11/11/18 Docusate [Colace] 100 mg PO Q8 PRN #20 cap 11/16/18 Polyethylene Glycol 3350 [Miralax] 17 gm PO DAILY PRN #1 packet 12/02/18 - Allergies Allergies/Adverse Reactions: Allergies Allergy/AdvReac Type Severity Reaction Status Date / Time No Known Allergies Allergy Verified 12/05/18 14:47 Review of Systems Constitutional: Negative for: Fever Gastrointestinal: Positive for: Abdominal Pain, Constipation. Negative for: Nausea, Vomiting Physical Exam - Physical Exam Appears: Positive for: Non-toxic, No Acute Distress Skin: Positive for: Normal Color, Warm, DRY Gastrointestinal/Abdominal: Positive for: Bowel Sounds, Soft. Negative for: Tenderness, Mass, Distended Rectal: Positive for: Other (empty vault). Negative for: Mass - ECG O2 Sat by Pulse Oximetry: 98 - Progress Re-evaluation Time: 15:44 Condition: Improved (Had BM after fleets enema) Disposition - Clinical Impression Clinical Impression: Constipation - Patient ED Disposition Is Patient to be Admitted: No Counseled Patient/Family Regarding: Diagnosis, Need For Followup - Disposition Referrals: [facility] [Outside] Disposition: Routine/Home Disposition Time: 15:45 Condition: FAIR Instructions: Constipation in Adults Forms: [facility] (Irish)
== END 2018-12-05 15:49 | disposition home or self-care (01) ==
LOC: H.ER 14:45
DX: K59.00 Constipation, unspecified (principal)

== ENCOUNTER 2018-12-06 15:11 | Emergency (ER) | payer MEDICARE ==
[2018-12-06 15:11] VITALS: BMI 34.7
[2018-12-06 15:15] VITALS: TEMP 98.3; O2SAT 98
--- NOTE | 2018-12-06 15:34 | ED PDOC ---
HPI: Abdomen Time Seen by Provider: 12/06/18 15:20 Chief Complaint (Nursing): Abdominal Pain Chief Complaint (Provider): Abdominal Pain History Per: Patient History/Exam Limitations: no limitations Onset/Duration Of Symptoms: Persistent Current Symptoms Are (Timing): Still Present Additional Complaint(s): 83 year old female, well-known to this ED for multiple visits, presents to the emergency department with a complaint of persistent constipation. She denies any abdominal pain, nausea, vomiting, fever, or chills. Upon review of previous charts, patient has been evaluated 10 times in November 2018 for similar complaint. Past Medical History Reviewed: Historical Data, Nursing Documentation, Vital Signs Vital Signs: Last Vital Signs Temp 98.3 F 12/06/18 15:13 Pulse 70 12/06/18 15:13 Resp 20 12/06/18 15:13 BP 130/55 L 12/06/18 15:13 Pulse Ox 98 12/06/18 15:13 - Medical History PMH: Anxiety, Diabetes, HTN, Hypercholesterolemia Denies: HIV, Chronic Kidney Disease - Surgical History Surgical History: Cholecystectomy, - Family History Family History: States: Diabetes - Living Arrangements Living Arrangements: Alone - Immunization History Hx Tetanus Toxoid Vaccination: No Hx Influenza Vaccination: Yes Hx Pneumococcal Vaccination: No - Home Medications Home Medications: Ambulatory Orders Medication Instructions Recorded Aspirin [Aspirin EC] 81 mg PO DAILY 12/16/14 Carvedilol [Coreg] 3.125 mg PO BID 12/16/14 Losartan [Cozaar] 25 mg PO DAILY 12/16/14 Simvastatin 10 mg PO DAILY 12/16/14 Albuterol Sulfate [Proair Hfa] 1 puff INH Q12 08/31/18 Clopidogrel [Plavix] 75 mg PO DAILY 08/31/18 Esomeprazole Magnesium [Nexium] 1 cap PO DAILY 08/31/18 Fluticasone Nasal [Flonase] 1 inh INH Q12 08/31/18 Levothyroxine [Synthroid] 1 tab PO DAILY 08/31/18 Zypet-0-Qftp Ethyl Esters 1 GM 1 gm PO DAILY 08/31/18 [Lovaza] amLODIPine [Norvasc] 1 tab PO DAILY 08/31/18 Polyethylene Glycol 3350 [Miralax] 17 gm PO DAILY #1 bot 11/11/18 Docusate [Colace] 100 mg PO Q8 PRN #20 cap 11/16/18 Polyethylene Glycol 3350 [Miralax] 17 gm PO DAILY PRN #1 packet 12/02/18 Docusate [Colace] 100 mg PO BID #10 cap 12/07/18 Polyethylene Glycol 3350 [Miralax] 17 gm PO DAILY #270 ml 12/07/18 - Allergies Allergies/Adverse Reactions: Allergies Allergy/AdvReac Type Severity Reaction Status Date / Time No Known Allergies Allergy Verified 12/07/18 19:47 Review of Systems ROS Statement: Except As Marked, All Systems Reviewed And Found Negative Constitutional: Negative for: Fever, Chills Gastrointestinal: Positive for: Constipation. Negative for: Nausea, Vomiting, Abdominal Pain Physical Exam - Reviewed Nursing Documentation Reviewed: Yes Vital Signs Reviewed: Yes - Physical Exam Appears: Positive for: Non-toxic, No Acute Distress Head Exam: Positive for: ATRAUMATIC, NORMAL INSPECTION, NORMOCEPHALIC Skin: Positive for: Normal Color Eye Exam: Positive for: Normal appearance ENT: Positive for: Normal ENT Inspection Neck: Positive for: Normal Cardiovascular/Chest: Positive for: Regular Rate, Rhythm Respiratory: Positive for: Normal Breath Sounds. Negative for: Respiratory Distress Gastrointestinal/Abdominal: Positive for: Normal Exam, Soft. Negative for: Tenderness Extremity: Positive for: Normal ROM (upper/lower), Pedal Edema (chronic bilaterally) Neurological/Psych: Positive for: Awake, Alert, Normal Tone. Negative for: Motor/Sensory Deficits - ECG O2 Sat by Pulse Oximetry: 98 (RA) Pulse Ox Interpretation: Normal Medical Decision Making Medical Decision Making: Time: 1526 Initial Plan: * Fleet enema Scribe Attestation: Documented by Kimmy Gonzalez, acting as a scribe for Mary Morris MD. Provider Scribe Attestation: All medical record entries made by the Scribe were at my direction and personally dictated by me. I have reviewed the chart and agree that the record accurately reflects my personal performance of the history, physical exam, medical decision making, and the department course for this patient. I have also personally directed, reviewed, and agree with the discharge instructions and disposition. Disposition - Clinical Impression Clinical Impression: Constipation - Disposition Referrals: Dino Gutierres MD, PhD [Staff Provider] - Disposition: Routine/Home Disposition Time: 16:30 Condition: STABLE Instructions: Constipation in Adults Forms: [facility] (Cymraes)
[2018-12-06] MEDS ORDERED: POLYETHYLENE GLYCOL 3350 17 GM/Dose PACKET PO ONE (17:00)
[2018-12-06 17:04] VITALS: BP 132/68; PULSE 74; RESP 18
== END 2018-12-06 17:00 | disposition home or self-care (01) ==
LOC: H.ER 15:11
DX: K59.00 Constipation, unspecified (principal)

== ENCOUNTER 2018-12-07 13:00 | Emergency (ER) | payer MEDICARE ==
[2018-12-07 13:00] VITALS: BMI 34.7
--- NOTE | 2018-12-07 15:53 | ED PDOC ---
HPI: Abdomen Time Seen by Provider: 12/07/18 15:28 Chief Complaint (Nursing): GI Problem Chief Complaint (Provider): Constipation History Per: Patient History/Exam Limitations: no limitations Onset/Duration Of Symptoms: Persistent Current Symptoms Are (Timing): Still Present Associated Symptoms: Constipation Additional History Per: Patient Additional Complaint(s): 83 years old female known for frequent visits for constipation presents to ER requesting an enema for her constipation. She has been counseled in the past regarding administering enemas at home but states "I don't know how to do it." She reports diffuse abdominal pain as well. This is patient's 11th visit this month for constipation. Patient tolerates PO and denies nausea and vomiting. Past Medical History Reviewed: Historical Data, Nursing Documentation, Vital Signs Vital Signs: Last Vital Signs Temp 98.2 F 12/07/18 13:05 Pulse 70 12/07/18 13:05 Resp 15 12/07/18 13:05 BP 140/64 12/07/18 13:05 Pulse Ox 98 12/07/18 13:05 Primary Care Provider: Non [facility] Provider, - Medical History PMH: Anxiety, Diabetes, HTN, Hypercholesterolemia Denies: HIV, Chronic Kidney Disease - Surgical History Surgical History: Cholecystectomy, - Family History Family History: States: Diabetes - Immunization History Hx Tetanus Toxoid Vaccination: No Hx Influenza Vaccination: Yes Hx Pneumococcal Vaccination: No - Home Medications Home Medications: Ambulatory Orders Medication Instructions Recorded Aspirin [Aspirin EC] 81 mg PO DAILY 12/16/14 Carvedilol [Coreg] 3.125 mg PO BID 12/16/14 Losartan [Cozaar] 25 mg PO DAILY 12/16/14 Simvastatin 10 mg PO DAILY 12/16/14 Albuterol Sulfate [Proair Hfa] 1 puff INH Q12 08/31/18 Clopidogrel [Plavix] 75 mg PO DAILY 08/31/18 Esomeprazole Magnesium [Nexium] 1 cap PO DAILY 08/31/18 Fluticasone Nasal [Flonase] 1 inh INH Q12 08/31/18 Levothyroxine [Synthroid] 1 tab PO DAILY 08/31/18 Zittr-2-Nqvl Ethyl Esters 1 GM 1 gm PO DAILY 08/31/18 [Lovaza] amLODIPine [Norvasc] 1 tab PO DAILY 08/31/18 Polyethylene Glycol 3350 [Miralax] 17 gm PO DAILY #1 bot 11/11/18 Docusate [Colace] 100 mg PO Q8 PRN #20 cap 11/16/18 Polyethylene Glycol 3350 [Miralax] 17 gm PO DAILY PRN #1 packet 12/02/18 Docusate [Colace] 100 mg PO BID #10 cap 12/07/18 Polyethylene Glycol 3350 [Miralax] 17 gm PO DAILY #270 ml 12/07/18 - Allergies Allergies/Adverse Reactions: Allergies Allergy/AdvReac Type Severity Reaction Status Date / Time No Known Allergies Allergy Verified 12/07/18 19:47 Review of Systems ROS Statement: Except As Marked, All Systems Reviewed And Found Negative Gastrointestinal: Positive for: Constipation Physical Exam - Reviewed Nursing Documentation Reviewed: Yes Vital Signs Reviewed: Yes - Physical Exam Appears: Positive for: Non-toxic. Negative for: Well (+ patient is disheveled, fingernails are dirty, patient smells of urine) Head Exam: Positive for: ATRAUMATIC, NORMAL INSPECTION, NORMOCEPHALIC Skin: Positive for: Normal Color Neck: Positive for: Supple Cardiovascular/Chest: Negative for: Tachycardia Respiratory: Negative for: Respiratory Distress Gastrointestinal/Abdominal: Positive for: Soft. Negative for: Distended Back: Positive for: Normal Inspection Extremity: Positive for: Normal ROM Neurological/Psych: Positive for: Awake, Alert, Mood/Affect (poor insight into her condition) - ECG O2 Sat by Pulse Oximetry: 98 (RA) Pulse Ox Interpretation: Normal Medical Decision Making Medical Decision Makinyo with constipation Discussed extensively with patient she might need a home health aide Patient states "I have tried it before and does not work for me." Discussed with patient the need for a healthy diet, and for follow up with PMD regarding her chronic constipation Patient is agreeable to go home after an enema in the ER. 1546 Case discussed with social media developer, who will evaluate patient in ER. site worker will call next of kin for further information, as well as Adult Protective Services for home visits. 1654 Pt with multiple bowel movements in the ED. Pt to be discharged home. site worker spoke with patient. Pt instructed to follow up with primary medical doctor. Scribe Attestation: Documented by Erica Reece acting as a scribe for Merry Bryan MD. Provider Scribe Attestation: All medical record entries made by the Scribe were at my direction and personally dictated by me. I have reviewed the chart and agree that the record accurately reflects my personal performance of the history, physical exam, medical decision making, and the department course for this patient. I have also personally directed, reviewed, and agree with the discharge instructions and disposition. Disposition - Clinical Impression Clinical Impression: Constipation - Disposition Referrals: Chris Espinoza MD [Staff Provider] - Disposition: Routine/Home Disposition Time: 16:54 Condition: IMPROVED Additional Instructions: Follow up with primary medical doctor as needed. Do not use the emergency department as a resource for enemas. Follow up with engineered wood designer for chronic constipation. Instructions: Constipation, Adult (DC) Forms: [employer] (Turkish) Print Language: NORWEGIAN
[2018-12-07 17:19] VITALS: BP 138/72; PULSE 72; RESP 16; TEMP 98
[2018-12-09 15:05] VITALS: O2SAT 98
== END 2018-12-07 17:19 | disposition home or self-care (01) ==
LOC: H.ER 13:00
DX: K59.00 Constipation, unspecified (principal); E11.9 Type 2 diabetes mellitus without complications; I10 Essential (primary) hypertension; Z79.82 Long term (current) use of aspirin; Z79.899 Other long term (current) drug therapy; E78.00 Pure hypercholesterolemia, unspecified

== ENCOUNTER 2018-12-13 16:54 | Emergency (ER) | payer MEDICARE ==
[2018-12-13 16:54] VITALS: BMI 34.7
[2018-12-13 16:57] VITALS: RESP 18; TEMP 98.4; O2SAT 98
[2018-12-13] MEDS ORDERED: POLYETHYLENE GLYCOL 3350 17 GM/Dose PACKET PO STA (17:44)
--- NOTE | 2018-12-13 17:46 | ED PDOC ---
HPI: General Adult Time Seen by Provider: 12/13/18 17:37 Chief Complaint (Nursing): GI Problem Chief Complaint (Provider): constipation History Per: Patient (83 y/o female frequent ED visitor for constipation. Patient states she has moderate pain and requests an enema. Last seen 12/07 and given enema at that time.) Past Medical History Reviewed: Historical Data, Nursing Documentation, Vital Signs Vital Signs: Last Vital Signs Temp 98.4 F 12/13/18 16:56 Pulse 74 12/13/18 16:56 Resp 18 12/13/18 16:56 BP 140/59 L 12/13/18 16:56 Pulse Ox 98 12/13/18 16:56 - Medical History PMH: Anxiety, Diabetes, HTN, Hypercholesterolemia Denies: HIV, Chronic Kidney Disease - Surgical History Surgical History: Cholecystectomy, - Family History Family History: States: Diabetes - Immunization History Hx Tetanus Toxoid Vaccination: No Hx Influenza Vaccination: Yes Hx Pneumococcal Vaccination: No - Home Medications Home Medications: Ambulatory Orders Medication Instructions Recorded Aspirin [Aspirin EC] 81 mg PO DAILY 12/16/14 Carvedilol [Coreg] 3.125 mg PO BID 12/16/14 Losartan [Cozaar] 25 mg PO DAILY 12/16/14 Simvastatin 10 mg PO DAILY 12/16/14 Albuterol Sulfate [Proair Hfa] 1 puff INH Q12 08/31/18 Clopidogrel [Plavix] 75 mg PO DAILY 08/31/18 Esomeprazole Magnesium [Nexium] 1 cap PO DAILY 08/31/18 Fluticasone Nasal [Flonase] 1 inh INH Q12 08/31/18 Levothyroxine [Synthroid] 1 tab PO DAILY 08/31/18 Lynqu-1-Abcn Ethyl Esters 1 GM 1 gm PO DAILY 08/31/18 [Lovaza] amLODIPine [Norvasc] 1 tab PO DAILY 08/31/18 Polyethylene Glycol 3350 [Miralax] 17 gm PO DAILY #1 bot 11/11/18 Docusate [Colace] 100 mg PO Q8 PRN #20 cap 11/16/18 Polyethylene Glycol 3350 [Miralax] 17 gm PO DAILY PRN #1 packet 12/02/18 Docusate [Colace] 100 mg PO BID #10 cap 12/07/18 Polyethylene Glycol 3350 [Miralax] 17 gm PO DAILY #270 ml 12/07/18 Phosphate Enema [Fleet Enema 135 135 ml RC ONCE PRN #1 nma 12/13/18 Ml] Polyethylene Glycol 3350 [Miralax] 17 gm PO DAILY #51 ml 12/13/18 - Allergies Allergies/Adverse Reactions: Allergies Allergy/AdvReac Type Severity Reaction Status Date / Time No Known Allergies Allergy Verified 12/07/18 19:47 Review of Systems ROS Statement: Except As Marked, All Systems Reviewed And Found Negative Gastrointestinal: Positive for: Abdominal Pain Physical Exam - Reviewed Nursing Documentation Reviewed: Yes Vital Signs Reviewed: Yes - Physical Exam Appears: Positive for: Well, Non-toxic, No Acute Distress Head Exam: Positive for: ATRAUMATIC, NORMAL INSPECTION, NORMOCEPHALIC Skin: Positive for: Normal Color, Warm, DRY Eye Exam: Positive for: EOMI, Normal appearance, PERRL ENT: Positive for: Normal ENT Inspection Neck: Positive for: Normal, Painless ROM Cardiovascular/Chest: Positive for: Regular Rate, Rhythm Respiratory: Positive for: CNT, Normal Breath Sounds Gastrointestinal/Abdominal: Positive for: Normal Exam, Soft Back: Positive for: Normal Inspection Extremity: Positive for: Normal ROM Neurological/Psych: Positive for: Awake, Alert, Normal Tone - ECG O2 Sat by Pulse Oximetry: 98 - Progress ED Course And Treament: fleet enema x 1 given. Miralax 17g po x 1 dose Patient states not all solution was expressed into recum. 2nd fleet ordered Disposition - Clinical Impression Clinical Impression: Constipation - Patient ED Disposition Is Patient to be Admitted: No - Disposition Disposition: Routine/Home Disposition Time: 18:43 Condition: FAIR Prescriptions: Phosphate Enema [Fleet Enema 135 Ml] 135 ml RC ONCE PRN #1 nma PRN Reason: Constipation Polyethylene Glycol 3350 [Miralax] 17 gm PO DAILY #51 ml Instructions: Constipation, Adult (DC)
[2018-12-13 20:41] VITALS: BP 142/72; PULSE 70
[2018-12-14] MEDS ORDERED: Magnesium Citrate Oral SOL (300 ml) ONE (01:01)
== END 2018-12-13 18:43 | disposition home or self-care (01) ==
LOC: H.ER 16:54
DX: K59.00 Constipation, unspecified (principal); E11.9 Type 2 diabetes mellitus without complications; E78.00 Pure hypercholesterolemia, unspecified; I10 Essential (primary) hypertension

== ENCOUNTER 2018-12-14 00:09 | Emergency (ER) | payer MEDICARE ==
[2018-12-14 00:10] VITALS: BMI 34.7
[2018-12-14] MEDS ORDERED: POLYETHYLENE GLYCOL 3350 17 GM/Dose PACKET PO STA (00:35)
[2018-12-14] MEDS ORDERED: Magnesium Hydroxide Susp 30 ml UD PO STA (00:58)
[2018-12-14] MEDS ORDERED: Magnesium Citrate Oral SOL (300 ml) PO STA (00:59)
[2018-12-14 02:02] VITALS: BP 123/71; PULSE 74; RESP 15; TEMP 98.1; O2SAT 97
--- NOTE | 2018-12-14 02:06 | ED PDOC ---
HPI: Abdomen Time Seen by Provider: 12/14/18 00:17 Chief Complaint (Nursing): Abdominal Pain History Per: Patient History/Exam Limitations: no limitations Associated Symptoms: Constipation Additional Complaint(s): 83 year old F with PMHx of CAD and chronic constipation presenting with abdominal pain and constipation. She states the pain is upper, no associated fevers, nausea, vomiting. Denies chest pain, shotness of breath. Patient reports she had two bowel movements yesterday. Patient received an enema this morning in the E.D. at [facility] and then was evaluated at [facility] E.D[facility] afterwards. Past Medical History Reviewed: Historical Data, Nursing Documentation, Vital Signs Vital Signs: Last Vital Signs Temp 98.1 F 12/14/18 02:01 Pulse 74 12/14/18 02:01 Resp 15 12/14/18 02:01 BP 123/71 12/14/18 02:01 Pulse Ox 97 12/14/18 02:01 Primary Care Provider: Dino Condon - Medical History PMH: Anxiety, Diabetes, HTN, Hypercholesterolemia Denies: HIV, Chronic Kidney Disease - Surgical History Surgical History: Cholecystectomy, - Family History Family History: States: Diabetes - Immunization History Hx Tetanus Toxoid Vaccination: No Hx Influenza Vaccination: Yes Hx Pneumococcal Vaccination: No - Home Medications Home Medications: Ambulatory Orders Medication Instructions Recorded Aspirin [Aspirin EC] 81 mg PO DAILY 12/16/14 Carvedilol [Coreg] 3.125 mg PO BID 12/16/14 Losartan [Cozaar] 25 mg PO DAILY 12/16/14 Simvastatin 10 mg PO DAILY 12/16/14 Albuterol Sulfate [Proair Hfa] 1 puff INH Q12 08/31/18 Clopidogrel [Plavix] 75 mg PO DAILY 08/31/18 Esomeprazole Magnesium [Nexium] 1 cap PO DAILY 08/31/18 Fluticasone Nasal [Flonase] 1 inh INH Q12 08/31/18 Levothyroxine [Synthroid] 1 tab PO DAILY 08/31/18 Zxizt-0-Awoa Ethyl Esters 1 GM 1 gm PO DAILY 08/31/18 [Lovaza] amLODIPine [Norvasc] 1 tab PO DAILY 08/31/18 Polyethylene Glycol 3350 [Miralax] 17 gm PO DAILY #1 bot 11/11/18 Docusate [Colace] 100 mg PO Q8 PRN #20 cap 11/16/18 Phosphate Enema [Fleet Enema 135 135 ml RC ONCE PRN #1 nma 12/13/18 Ml] - Allergies Allergies/Adverse Reactions: Allergies Allergy/AdvReac Type Severity Reaction Status Date / Time No Known Allergies Allergy Verified 12/14/18 00:23 Review of Systems ROS Statement: Except As Marked, All Systems Reviewed And Found Negative Gastrointestinal: Positive for: Abdominal Pain, Constipation Physical Exam - Reviewed Nursing Documentation Reviewed: Yes Vital Signs Reviewed: Yes - Physical Exam Appears: Positive for: Well, Non-toxic, No Acute Distress Head Exam: Positive for: ATRAUMATIC, NORMAL INSPECTION, NORMOCEPHALIC Skin: Positive for: Normal Color, Warm, DRY Eye Exam: Positive for: EOMI, Normal appearance, PERRL ENT: Positive for: Normal ENT Inspection Neck: Positive for: Normal, Painless ROM Cardiovascular/Chest: Positive for: Regular Rate, Rhythm Respiratory: Positive for: CNT, Normal Breath Sounds Gastrointestinal/Abdominal: Positive for: Normal Exam, Soft. Negative for: Tenderness, Organomegaly, Mass, Distended, Guarding, Rebound Back: Positive for: Normal Inspection Extremity: Positive for: Normal ROM Neurological/Psych: Positive for: Awake, Alert, Normal Tone - ECG O2 Sat by Pulse Oximetry: 97 Pulse Ox Interpretation: Normal Medical Decision Making Medical Decision Making: --Well appearing, non-obstructive symptoms, vitals normal --Gave mag citrate to patient with improvement in pain --Advised patient to followup with PMD Disposition - Clinical Impression Clinical Impression: Constipation - Patient ED Disposition Is Patient to be Admitted: No Counseled Patient/Family Regarding: Need For Followup - Disposition Disposition: Routine/Home Disposition Time: 01:45 Condition: IMPROVED Instructions: Constipation in Adults Forms: [employer] (Polish)
== END 2018-12-14 02:01 | disposition home or self-care (01) ==
LOC: H.ER 00:09
DX: K59.00 Constipation, unspecified (principal)

== ENCOUNTER 2018-12-18 16:32 | Emergency (ER) | payer MEDICARE ==
[2018-12-18 16:32] VITALS: BMI 34.7
[2018-12-18 17:04] VITALS: PULSE 78; RESP 17; TEMP 98.5
[2018-12-18] MEDS ORDERED: Magnesium Citrate Oral SOL (300 ml) PO STA (17:10)
[2018-12-18 18:08] VITALS: O2SAT 100
--- NOTE | 2018-12-18 18:12 | ED PDOC ---
HPI: Abdomen Time Seen by Provider: 12/18/18 17:09 Chief Complaint (Nursing): Abdominal Pain Chief Complaint (Provider): Abdominal Pain History Per: Patient History/Exam Limitations: no limitations Onset/Duration Of Symptoms: Persistent Current Symptoms Are (Timing): Still Present Additional Complaint(s): 83 year old female with medical history of chronic constipation, presents to the emergency department with a complaint of constipation since 0400 this morning. Upon arrival, she is requesting a fleet enema and food. Otherwise, she denies fever, chills, vomiting, PO intolerance, use of diuretics or enema at home. Past Medical History Reviewed: Historical Data, Nursing Documentation, Vital Signs Vital Signs: Last Vital Signs Temp 98.5 F 12/18/18 17: Pulse 78 12/18/18 17:01 Resp 17 12/18/18 17:01 BP Pulse Ox 100 12/18/18 18:07 Primary Care Provider: Non [facility] Provider, - Medical History PMH: Anxiety, Diabetes, HTN, Hypercholesterolemia Denies: HIV, Chronic Kidney Disease - Surgical History Surgical History: Cholecystectomy, - Family History Family History: States: Diabetes - Immunization History Hx Tetanus Toxoid Vaccination: No Hx Influenza Vaccination: Yes Hx Pneumococcal Vaccination: No - Home Medications Home Medications: Ambulatory Orders Medication Instructions Recorded Aspirin [Aspirin EC] 81 mg PO DAILY 12/16/14 Carvedilol [Coreg] 3.125 mg PO BID 12/16/14 Losartan [Cozaar] 25 mg PO DAILY 12/16/14 Simvastatin 10 mg PO DAILY 12/16/14 Albuterol Sulfate [Proair Hfa] 1 puff INH Q12 08/31/18 Clopidogrel [Plavix] 75 mg PO DAILY 08/31/18 Esomeprazole Magnesium [Nexium] 1 cap PO DAILY 08/31/18 Fluticasone Nasal [Flonase] 1 inh INH Q12 08/31/18 Levothyroxine [Synthroid] 1 tab PO DAILY 08/31/18 [id number] Ethyl Esters 1 GM 1 gm PO DAILY 08/31/18 [Lovaza] amLODIPine [Norvasc] 1 tab PO DAILY 08/31/18 Polyethylene Glycol 3350 [Miralax] 17 gm PO DAILY #1 bot 11/11/18 Docusate [Colace] 100 mg PO Q8 PRN #20 cap 11/16/18 Phosphate Enema [Fleet Enema 135 135 ml RC ONCE PRN #1 nma 12/13/18 Ml] - Allergies Allergies/Adverse Reactions: Allergies Allergy/AdvReac Type Severity Reaction Status Date / Time No Known Allergies Allergy Verified 12/19/18 14:47 Review of Systems ROS Statement: Except As Marked, All Systems Reviewed And Found Negative Constitutional: Negative for: Fever, Chills Gastrointestinal: Positive for: Abdominal Pain, Constipation (chronic), Other (tolerating PO). Negative for: Vomiting Physical Exam - Reviewed Nursing Documentation Reviewed: Yes Vital Signs Reviewed: Yes - Physical Exam Appears: Positive for: No Acute Distress (dishelved with dirty clothes and smeared makeup on face) Head Exam: Positive for: ATRAUMATIC, NORMAL INSPECTION, NORMOCEPHALIC Skin: Positive for: Normal Color Eye Exam: Positive for: Normal appearance ENT: Positive for: Normal ENT Inspection. Negative for: Pharyngeal Erythema Neck: Positive for: Normal Cardiovascular/Chest: Positive for: Regular Rate, Rhythm Respiratory: Positive for: Normal Breath Sounds. Negative for: Respiratory Distress Gastrointestinal/Abdominal: Positive for: Normal Exam, Soft. Negative for: Tenderness, Distended Extremity: Positive for: Normal ROM (upper/lower) Neurological/Psych: Positive for: Awake, Alert, Normal Tone. Negative for: Motor/Sensory Deficits - ECG O2 Sat by Pulse Oximetry: 100 (RA) Pulse Ox Interpretation: Normal Medical Decision Making Medical Decision Making: Time: 1710 Initial Plan: work up for chronic constipation. * Citrate of Mag PO Time: 1800 --Patient refusing further treatments then left the ED without completion of work up. Scribe Attestation: Documented by Kimmy Gonzalez, acting as a scribe for Merry Bryan MD. Provider Scribe Attestation: All medical record entries made by the Scribe were at my direction and personally dictated by me. I have reviewed the chart and agree that the record accurately reflects my personal performance of the history, physical exam, medical decision making, and the department course for this patient. I have also personally directed, reviewed, and agree with the discharge instructions and disposition. Disposition - Clinical Impression Clinical Impression: Abdominal pain - Patient ED Disposition Is Patient to be Admitted: No - Disposition Disposition: Left W/O Treatment Disposition Time: 18:00 Condition: STABLE Forms: [employer] ([place])
== END 2018-12-18 18:07 | disposition left against medical advice (07) ==
LOC: H.ER 16:32
DX: R10.9 Unspecified abdominal pain (principal); E11.9 Type 2 diabetes mellitus without complications; E78.00 Pure hypercholesterolemia, unspecified; I10 Essential (primary) hypertension; Z79.82 Long term (current) use of aspirin; Z79.899 Other long term (current) drug therapy

== ENCOUNTER 2018-12-19 14:42 | Emergency (ER) | payer MEDICARE ==
[2018-12-19 14:42] VITALS: BMI 34.7
--- NOTE | 2018-12-19 15:45 | ED PDOC ---
HPI: Abdomen Time Seen by Provider: 12/19/18 14:45 Chief Complaint (Nursing): GI Problem Chief Complaint (Provider): GI Problem History Per: Patient History/Exam Limitations: no limitations Onset/Duration Of Symptoms: Days Current Symptoms Are (Timing): Still Present Additional Complaint(s): Patient is an 83 y/o female with an extensive PMHx brought to the ED for evalu ation of constipation and abdominal pain for several days. Patient has made multiple visits to ED with similar symptoms. Patient denies vomiting and fever. PCP: None Past Medical History Reviewed: Historical Data, Nursing Documentation, Vital Signs Vital Signs: Last Vital Signs Temp 97 F L 12/19/18 14:48 Pulse 77 12/19/18 14:48 Resp 20 12/19/18 14:48 BP 127/59 L 12/19/18 14:48 Pulse Ox 98 12/19/18 14:48 Primary Care Provider: Erica Mckenzie - Medical History PMH: Anxiety, Diabetes, HTN, Hypercholesterolemia Denies: HIV, Chronic Kidney Disease - Surgical History Surgical History: Cholecystectomy, - Family History Family History: States: Diabetes - Immunization History Hx Tetanus Toxoid Vaccination: No Hx Influenza Vaccination: Yes Hx Pneumococcal Vaccination: No - Home Medications Home Medications: Ambulatory Orders Medication Instructions Recorded Aspirin [Aspirin EC] 81 mg PO DAILY 12/16/14 Carvedilol [Coreg] 3.125 mg PO BID 12/16/14 Losartan [Cozaar] 25 mg PO DAILY 12/16/14 Simvastatin 10 mg PO DAILY 12/16/14 Albuterol Sulfate [Proair Hfa] 1 puff INH Q12 08/31/18 Clopidogrel [Plavix] 75 mg PO DAILY 08/31/18 Esomeprazole Magnesium [Nexium] 1 cap PO DAILY 08/31/18 Fluticasone Nasal [Flonase] 1 inh INH Q12 08/31/18 Levothyroxine [Synthroid] 1 tab PO DAILY 08/31/18 [id number] Ethyl Esters 1 GM 1 gm PO DAILY 08/31/18 [Lovaza] amLODIPine [Norvasc] 1 tab PO DAILY 08/31/18 Polyethylene Glycol 3350 [Miralax] 17 gm PO DAILY #1 bot 11/11/18 Docusate [Colace] 100 mg PO Q8 PRN #20 cap 11/16/18 Phosphate Enema [Fleet Enema 135 135 ml RC ONCE PRN #1 nma 12/13/18 Ml] - Allergies Allergies/Adverse Reactions: Allergies Allergy/AdvReac Type Severity Reaction Status Date / Time No Known Allergies Allergy Verified 12/19/18 14:47 Review of Systems ROS Statement: Except As Marked, All Systems Reviewed And Found Negative Constitutional: Negative for: Fever Gastrointestinal: Positive for: Abdominal Pain, Constipation. Negative for: Vomiting Physical Exam - Reviewed Nursing Documentation Reviewed: Yes Vital Signs Reviewed: Yes - Physical Exam Appears: Positive for: No Acute Distress Head Exam: Positive for: ATRAUMATIC, NORMAL INSPECTION, NORMOCEPHALIC Skin: Positive for: Normal Color, Warm, DRY Eye Exam: Positive for: EOMI, Normal appearance, PERRL Neck: Positive for: Normal, Painless ROM, Supple Cardiovascular/Chest: Positive for: Regular Rate, Rhythm. Negative for: Murmur Respiratory: Positive for: Normal Breath Sounds. Negative for: Respiratory Distress Gastrointestinal/Abdominal: Positive for: Normal Exam, Soft. Negative for: Tenderness Back: Positive for: Normal Inspection. Negative for: L CVA Tenderness, R CVA Tenderness Rectal: Positive for: Normal Exam (small amounts of stool in rectal vaults) Extremity: Positive for: Normal ROM. Negative for: Pedal Edema, Deformity Neurological/Psych: Positive for: Awake, Alert, Oriented (x3) - ECG O2 Sat by Pulse Oximetry: 98 (RA) Pulse Ox Interpretation: Normal - Progress Re-evaluation Time: 16:32 Condition: Improved (Had BM) Medical Decision Making Medical Decision Making: Time: 1515 Impression: Abdominal Pain Plan: Phosphate Enema 135 ml AK Scribe Attestation: Documented by Charles Valle, acting as a scribe Festus Romero MD. Provider Scribe Attestation: All medical record entries made by the Scribe were at my direction and personally dictated by me. I have reviewed the chart and agree that the record accurately reflects my personal performance of the history, physical exam, medical decision making, and the department course for this patient. I have also personally directed, reviewed, and agree with the discharge instructions and disposition. Disposition - Clinical Impression Clinical Impression: Constipation - Patient ED Disposition Is Patient to be Admitted: No Counseled Patient/Family Regarding: Diagnosis, Need For Followup - Disposition Referrals: [facility] [Outside] Disposition: Routine/Home Disposition Time: 16:32 Condition: FAIR Instructions: Constipation in Adults Forms: [facility] (Nepali)
[2018-12-19 16:52] VITALS: BP 116/69; PULSE 66; RESP 18; TEMP 97.8; O2SAT 100
== END 2018-12-19 16:52 | disposition home or self-care (01) ==
LOC: H.ER 14:42
DX: K59.00 Constipation, unspecified (principal); E11.9 Type 2 diabetes mellitus without complications; E78.00 Pure hypercholesterolemia, unspecified; I10 Essential (primary) hypertension; Z79.82 Long term (current) use of aspirin; Z79.899 Other long term (current) drug therapy